=== PATIENT | female | born 1930 | race Caucasian/White ===

== ENCOUNTER → 2016-06-11 | Outpatient (CLI) | payer MEDICARE ==
[~2016-06-11] MED LIST: ALLO100T PO; ASPI-983 PO; ATEN25TA PO; ATOR10TA PO; CA C1TAB31 PO; CHOL400T29 PO; HYDR-3454 PO; HYDR12.56 PO; IRON PO; LISI40TA PO; MULT1CAP27 PO; OMEG1000 PO; SPIR25TA PO; VIT1CAPS9 PO
--- NOTE | 2016-06-11 17:40 | Diagnostic Imaging Report ---
EXAMINATION: OB ultrasound. INDICATION: Vaginal bleeding. FINDINGS: There are no prior studies available for comparison. The uterus is small measuring 5.9 x 4.2 x 1.8 cm. The endometrial lining is not thickened measuring 3 mm. There is no focal mass involving the uterus to suggest a fibroid. The ovaries are not clearly imaged; however, during the course of the exam a 3.3 x 2.3 x 1.6 cm hypoechoic lesion is seen in the right adnexa. This could represent a cyst arising from the right ovary. There is no solid pelvic mass or free fluid collection noted. IMPRESSION: 1. The uterus is not enlarged and the endometrial lining is not abnormally thickened. 2. The cystic mass in the right adnexa could be arising from the right ovary. 3. There is no solid pelvic mass or free fluid collection to suggest an acute abnormality. Dictated by: Dictated on workstation # [id number]
== END ==
LOC: RAD 13:58
PROVIDERS: ATTEND Nurse Practitioner Family
DX: N93.9 Abnormal uterine and vaginal bleeding, unspecified (principal)
CPT/HCPCS: 76830; 76856

== ENCOUNTER → 2017-11-26 | Outpatient (CLI) | payer MEDICARE ==
[~2017-11-26] VITALS: Ht 154.9 cm; Wt 67.1 kg
[~2017-11-26] MED LIST changes: +CATHETER FLUSH 10 ML SYR IV PRN
[2017-11-26 09:19] VITALS: BP 118/55
[2017-11-26 09:23] VITALS: BP 183/71
--- NOTE | 2017-11-26 13:44 | STRESS TEST ---
DATE OF SERVICE: 11/26/2017 EXERCISE MYOVIEW STRESS TEST REPORT REFERRING PHYSICIAN: Kayla Hurley MD Baseline heart rate is 57. Baseline blood pressure 118/55. Baseline EKG is sinus rhythm with no ischemic changes. In summary, the patient was injected with 10.63 mCi of technetium-99 Myoview and the resting images were obtained. Then, the patient started exercising with a baseline heart rate, blood pressure and EKG mentioned above. The patient had EKG changes with exercise, started with ST depression in II, III, aVF, V4 and V5 with frequent premature ventricular contractions noted during exercise. She was able to exercise for 3 minutes and 30 seconds on standard Ton protocol. With peak exercise level, EKG was showing [address] depression in II, III, aVF, V4 and V5. Blood pressure at peak stress level was 168/72. During recovery, heart rate and blood pressure returned to baseline. EKG returned to baseline. The resting and stress images were reviewed and compared in the short axis, horizontal long axis, and vertical long axis views. Review of the images showed breast attenuation with typical female pattern. No significant ischemia or infarction on SPECT images. SSS is 3, SDS 2, TID value 1.03. On the gated images, the left ventricle appeared to be in normal size with normal contractility. Calculated ejection fraction is 81%. CONCLUSION: 1. Poor exercise tolerance, a total of 3 minutes 30 seconds on standard Ton protocol, achieving 100% of maximum expected heart rate. 2. Nondiagnostic EKG changes with exercise with frequent premature ventricular contractions resolved during recovery. 3. Breast attenuation with typical female pattern with no significant ischemia or infarction. 4. Normal left ventricular size with normal contractility. Calculated ejection fraction is 81%. Job ID: [id number] DocumentID: [id number] Dictated Date: 11/26/2017 13:24:22 Air Conditioning Equipment Mechanic Date: 11/26/2017 13:43:40 Dictated By: DANK SINGH MD
== END ==
LOC: CARD 07:48
PROVIDERS: ATTEND Internal Medicine Cardiovascular Disease
DX: R06.09 Other forms of dyspnea (principal); I12.9 Hypertensive chronic kidney disease with stage 1 through stage 4 chronic kidney disease, or unspecified chronic kidney disease; N18.3 Chronic kidney disease, stage 3 (moderate); E78.2 Mixed hyperlipidemia
CPT/HCPCS: 78452; 93017

== ENCOUNTER → 2017-12-11 | Outpatient (CLI) | payer MEDICARE ==
[~2017-12-11] MED LIST changes: -CATHETER FLUSH 10 ML SYR IV PRN
== END ==
LOC: CARD 08:45
PROVIDERS: ATTEND Internal Medicine Cardiovascular Disease
DX: R06.09 Other forms of dyspnea (principal); I12.9 Hypertensive chronic kidney disease with stage 1 through stage 4 chronic kidney disease, or unspecified chronic kidney disease; N18.3 Chronic kidney disease, stage 3 (moderate); E78.2 Mixed hyperlipidemia; I08.1 Rheumatic disorders of both mitral and tricuspid valves
CPT/HCPCS: 93306

== ENCOUNTER → 2018-03-12 | Outpatient (CLI) | payer MEDICARE ==
--- NOTE | 2018-03-12 12:37 | Diagnostic Imaging Report ---
INDICATION: Left knee injury after a fall 3 views of the left knee show no acute fracture or dislocation. There is mild degenerative changes with small osteophytes in the medial tibiofemoral joint space. There may be a small superior patellar bursal effusion. IMPRESSION: Small joint effusion. Degenerative changes in the medial compartment of the knee. There is a faint meniscal calcification which is probably degenerative in nature. There is no acute fracture or dislocation seen. Dictated by: Dictated on workstation # [id number]
== END ==
LOC: RAD 09:48
PROVIDERS: ATTEND Nurse Practitioner Family
DX: S89.92XA Unspecified injury of left lower leg, initial encounter (principal); M17.12 Unilateral primary osteoarthritis, left knee; M94.8X8 Other specified disorders of cartilage, other site; W19.XXXA Unspecified fall, initial encounter
CPT/HCPCS: 73562

== ENCOUNTER 2019-12-13 03:39 | Inpatient (IN) | payer MEDICARE ==
[2019-12-13] VITALS (7 sets, daily range): BP systolic 145–171; BP diastolic 65–79
[~2019-12-13] VITALS: Ht 155.5 cm; Wt 57.1 kg
[~2019-12-13 03:39] MED LIST changes: +ASPI-1238 PO; -ASPI-983 PO; -HYDR-3454 PO; +HYDR-3455 PO; +OCUVITE SOFTGE1 EACH PO; -VIT1CAPS9 PO
[2019-12-13] MEDS ORDERED: NS IV 1000 ML 1,000 ML IV SCH (04:32)
[2019-12-13] MEDS ORDERED: NS IV 500 ML 500 ML IV ONE (04:36)
[2019-12-13 04:44] LABS: BASOPHILS % (AUTO) 0 % (0-10); EOSINOPHILS % (AUTO) 0 % (0-10); HEMATOCRIT 35 % (35-52); HEMOGLOBIN 12.2 g/dL (11.5-16.0); LYMPHOCYTES # (AUTO) 0.8 10^3/uL (1.0-4.0); LYMPHOCYTES % (AUTO) 5 % (12-44); MEAN CORPUSCULAR HEMOGLOBIN 30 pg (25-34); MEAN CORPUSCULAR HGB CONC 35 g/dL (32-36); MEAN CORPUSCULAR VOLUME 85 fL (80-99); MEAN PLATELET VOLUME 10.8 fL (9.0-12.2); MONOCYTES # (AUTO) 0.6 10^3/uL (0.0-1.0); MONOCYTES % (AUTO) 4 % (0-12); NEUTROPHILS # (AUTO) 14.7 10^3/uL (1.8-7.8); NEUTROPHILS % (AUTO) 90 % (42-75); PLATELET COUNT 255 10^3/uL (130-400); WHITE BLOOD COUNT 16.4 10^3/uL (4.3-11.0)
[2019-12-13] MEDS ORDERED: VANCOMYCIN INJECTION 750 MG in NS (IVPB) 100 ML IV ONE (04:45)
[2019-12-13] MEDS ORDERED: CEFEPIME INJECTION 1,000 MG in WATER (STERILE) FOR INJECTION 10 ML IV ONE (04:45)
[2019-12-13 04:48] LABS: ALBUMIN 3.9 GM/DL (3.2-4.5); POTASSIUM 3.3 MMOL/L (3.6-5.0)
[2019-12-13 04:49] LABS: CALCIUM 9.1 MG/DL (8.5-10.1)
[2019-12-13 04:50] LABS: PROTHROMBIN TIME PATIENT 13.9 SEC (12.2-14.7)
[2019-12-13 04:52] LABS: BILIRUBIN,TOTAL 0.7 MG/DL (0.1-1.0)
[2019-12-13 04:54] LABS: CREATININE SERUM 1.13 MG/DL (0.60-1.30)
--- NOTE | 2019-12-13 05:01 | ED General ---
General Stated Complaint: COVID POSITIVE, FEVER,LOW O2 LEVEL Source of Information: Patient Exam Limitations: No Limitations History of Present Illness Date Seen by Provider: Dec 13, 2019 Time Seen by Provider: 04:19 Initial Comments The patient presents to the ER by private conveyance with chief complaint that she has had fever and difficulty breathing with oxygen sats of 87% at home tonight. She does not have a history of oxygen dependence. She was diagnosed with COVID-19 at the urgent care 2 weeks ago area and she follows with Dr. Lara. He put her on azithromycin and dexamethasone which she just finished. She has been treating her fever for the past 2 days with Tylenol. She had fever initially with her disease and after that was getting better. She has not had a stay in the hospital. She has no history of lung disease and does not smoke cigarettes. She does have a history of heart disease but no stents or CABG. She follows with Dr. Hurley, Dr. Hinojosa. She's having no dysuria nausea or productive cough. Allergies and Home Medications Allergies Coded Allergies: Sulfa (Sulfonamide Antibiotics) (Verified Allergy, Unknown, 01/12/15) Home Medications Allopurinol 100 Mg Tablet, 100 MG PO BID, (Reported) Aspirin 81 Mg Tablet.dr, 81 MG PO HS, (Reported) Atenolol 25 Mg Tablet, 25 MG PO DAILY, (Reported) Atorvastatin Calcium 10 Mg Tablet, 10 MG PO HS, (Reported) Ca Carbonate/Vitamin D3/Vit K 1 Each Tab.chew, 1 EACH PO DAILY, (Reported) Cholecalciferol (Vitamin D3) 400 Unit Tablet, 400 UNIT PO DAILY, (Reported) Hydrochlorothiazide 12.5 Mg Tablet, 12.5 MG PO DAILY, (Reported) Hydrocodone/Acetaminophen 1 Each Tablet, 1-2 TAB PO PRN Prescribed by: BOUBACAR RAMIREZ on 01/13/15 0831 Lisinopril 40 Mg Tablet, 40 MG PO DAILY, (Reported) Multivitamin 1 Each Capsule, 1 EACH PO DAILY, (Reported) Defiance-3 Fatty Acids 1,000 Mg Capsule, 1,000 MG PO TID, (Reported) Spironolactone 25 Mg Tablet, 25 MG PO DAILY, (Reported) Vit C/Vit E/Lutein/Min/Def[place]-3 1 Each Capsule, 1 EACH PO BID, (Reported) [Iron] , 65 MG PO DAILY, (Reported) Patient Home Medication List Home Medication List Reviewed: Yes Review of Systems Review of Systems Constitutional: No chills, No diaphoresis EENTM: No ear discharge Respiratory: cough; No phlegm; short of breath Cardiovascular: No chest pain, No palpitations Gastrointestinal: No abdominal pain, No nausea, No vomiting Genitourinary: No discharge, No dysuria Musculoskeletal: No back pain, No joint pain All Other Systems Reviewed Negative Unless Noted: Yes Past Auwgimh-Uuretl-Pobidu Hx Patient Social History Alcohol Use: Denies Use Recreational Drug Use: No Smoking Status: Never a Smoker Recent Foreign Travel: No (N) Contact w/Someone Who Travel: No Immunizations Up To Date Date of Pneumonia Vaccine: Jan 13, 2013 Date of Influenza Vaccine: Dec 23, 2014 Past Medical History Reproductive Disorders: No Arthritis, Gout Hearing Impairment: Bilateral Hearing Aide Melanoma Physical Exam-Suspected Sepsis Physical Exam Vital Signs Vital Signs - First Documented 12/13/19 04:00 Temp 39.6 Pulse 99 Resp 20 B/P (MAP) 167/83 (111) Pulse Ox 99 O2 Delivery Nasal Cannula O2 Flow Rate 2.00 Capillary Refill : Height, Weight, BMI Height: 5'1.00" Weight: 148lbs. 0.0oz. 67.391987hn; 28.0 BMI Method: General Appearance: WD/WN, Mild Distress Eyes: Bilateral Eye Normal Inspection, Bilateral Eye PERRL, Bilateral Eye EOMI HEENT: PERRL/EOMI, TMs Normal, Normal ENT Inspection, Pharynx Normal; No Moist Mucous Membranes Neck: Full Range of Motion, Normal Inspection Respiratory: No Accessory Muscle Use, Rales (right base), Respiratory Distress ([id number] with oxygen sats 87% on room air and 96-98 on 2 L by nasal cannula.) Cardiovascular: Regular Rate, Rhythm, Normal Peripheral Pulses Gastrointestinal: Normal Bowel Sounds, Non Tender, Soft Extremity: Normal Capillary Refill, Normal Inspection, No Pedal Edema Neurologic/Psychiatric: Alert, Oriented x3 Skin: normal color, warm/dry Focused Exam Sepsis Stage: Sepsis Lactate Level 12/13/19 04:14: Lactic Acid Level 1.72 Time of Focused Exam: 06:10 Respiratory: Lungs Clear, Normal Breath Sounds, No Accessory Muscle Use, No Respiratory Distress Cardiovascular: Regular Rate, Rhythm, No Edema, Normal Peripheral Pulses Capillary Refill: Less Than 3 Seconds Peripheral Pulses: 2+ Radial Pulses (R), 2+ Radial Pulses (L) Lactic Acid Level Laboratory Tests Test 12/13/19 04:14 Lactic Acid Level 1.72 MMOL/L (0.50-2.00) Within 3hrs of presentation: Admin fluids, Admin ABX, Blood cultures prior to ABX's, Focus exam, Lactate level Progress/Results/Core Measures Suspected Sepsis SIRS Temperature: Pulse: Respiratory Rate: Laboratory Tests 12/13/19 04:14: White Blood Count 16.4H Blood Pressure / Mean: 12/13/19 04:14: Lactic Acid Level 1.72 Laboratory Tests 12/13/19 04:14: Creatinine 1.13, INR Comment 1.0, Platelet Count 255, Total Bilirubin 0.7 Results/Orders Lab Results Laboratory Tests Test 12/13/19 04:14 12/13/19 04:38 Range/Units White Blood Count 16.4 H 4.3-11.0 10^3/uL Red Blood Count 4.12 3.80-5.11 10^6/uL Hemoglobin 12.2 11.5-16.0 g/dL Hematocrit 35 35-52 % Mean Corpuscular Volume 85 80-99 fL Mean Corpuscular Hemoglobin 30 25-34 pg Mean Corpuscular Hemoglobin Concent 35 32-36 g/dL Red Cell Distribution Width 12.4 10.0-14.5 % Platelet Count 255 130-400 10^3/uL Mean Platelet Volume 10.8 9.0-12.2 fL Immature Granulocyte % (Auto) 1 % Neutrophils (%) (Auto) 90 H 42-75 % Lymphocytes (%) (Auto) 5 L 12-44 % Monocytes (%) (Auto) 4 0-12 % Eosinophils (%) (Auto) 0 0-10 % Basophils (%) (Auto) 0 0-10 % Neutrophils # (Auto) 14.7 H 1.8-7.8 10^3/uL Lymphocytes # (Auto) 0.8 L 1.0-4.0 10^3/uL Monocytes # (Auto) 0.6 0.0-1.0 10^3/uL Eosinophils # (Auto) 0.0 0.0-0.3 10^3/uL Basophils # (Auto) 0.0 0.0-0.1 10^3/uL Immature Granulocyte # (Auto) 0.2 H 0.0-0.1 10^3/uL Neutrophils % (Manual) 85 % Lymphocytes % (Manual) 5 % Monocytes % (Manual) 2 % Band Neutrophils 8 % Blood Morphology Comment NORMAL Prothrombin Time 13.9 12.2-14.7 SEC INR Comment 1.0 0.8-1.4 Activated Partial Thromboplast Time 31 24-35 SEC D-Dimer 2.75 H 0.00-0.49 UG/ML Sodium Level 133 L 135-145 MMOL/L Potassium Level 3.3 L 3.6-5.0 MMOL/L Chloride Level 96 L 98-107 MMOL/L Carbon Dioxide Level 23 21-32 MMOL/L Anion Gap 14 5-14 MMOL/L Blood Urea Nitrogen 24 H 7-18 MG/DL Creatinine 1.13 0.60-1.30 MG/DL Estimat Glomerular Filtration Rate 46 BUN/Creatinine Ratio 21 Glucose Level 116 H 70-105 MG/DL Lactic Acid Level 1.72 0.50-2.00 MMOL/L Calcium Level 9.1 8.5-10.1 MG/DL Corrected Calcium 9.2 8.5-10.1 MG/DL Total Bilirubin 0.7 0.1-1.0 MG/DL Aspartate Amino Transf (AST/SGOT) 37 H 5-34 U/L Alanine Aminotransferase (ALT/SGPT) 45 0-55 U/L Alkaline Phosphatase 64 40-136 U/L Total Protein 7.0 6.4-8.2 GM/DL Albumin 3.9 3.2-4.5 GM/DL Procalcitonin 0.32 H <0.10 NG/ML Blood Gas Puncture Site NOT INDICATED Blood Gas Patient Temperature 103.3 Arterial Blood pH 7.46 H 7.37-7.43 Arterial Blood Partial Pressure CO2 38 35-45 MMHG Arterial Blood Partial Pressure O2 85 79-93 MMHG Arterial Blood HCO3 26 23-27 MMOL/L Arterial Blood Total CO2 27.3 21.0-31.0 MMOL/L Arterial Blood Oxygen Saturation 96 94-100 % Arterial Blood Base Excess 3.1 H -2.5-2.5 MMOL/L Tayo Test YES-POS Blood Gas Ventilator Setting NO Blood Gas Inspired Oxygen 2L My Orders Orders - KIERRA DIAZ Cbc With Automated Diff (12/13/19 04:32) Comprehensive Metabolic Panel (12/13/19 04:32) Blood Culture (12/13/19 04:32) Sputum Culture (12/13/19 04:32) Urinalysis (12/13/19 04:32) Urine Culture (12/13/19 04:32) Protime With Inr (12/13/19 04:32) Partial Thromboplastin Time (12/13/19 04:32) Chest 1 View, Ap/Pa Only (12/13/19 04:32) Ed Iv/Invasive Line Start (12/13/19 04:32) Ed Iv/Invasive Line Start (12/13/19 04:32) Vital Signs Adult Sepsis Patie Q15M (12/13/19 04:32) O2 (12/13/19 04:32) Remove Rings In Anticipation O (12/13/19 04:32) Lactic Acid Analyzer (12/13/19 04:32) Influenza A And B Antigens (12/13/19 04:32) Ns Iv 1000 Ml (Sodium Chloride 0.9%) (12/13/19 04:32) Cefepime Injection (Maxipime Injection) (12/13/19 04:45) Vancomycin Injection (Vancomycin Injecti (12/13/19 04:45) Vancomycin Injection (Vancomycin Injecti (12/13/19 05:45) Ed Iv/Invasive Line Start (12/13/19 04:32) Arterial Blood Gas (12/13/19 04:32) Ed Iv/Invasive Line Start (12/13/19 04:36) Ns Iv 500 Ml (Sodium Chloride 0.9%) (12/13/19 04:36) Procalcitonin (Pct) (12/13/19 05:01) Fibrin Degradation Products (12/13/19 05:01) Manual Differential (12/13/19 04:14) Dexamethasone Injection (Decadron Inje (12/13/19 05:15) Acetaminophen Tablet/Caplet (Tylenol T (12/13/19 06:30) Medications Given in ED Current Medications Medications Dose Ordered Sig/Freddy Route Start Time Stop Time Status Last Admin Dose Admin Acetaminophen 650 mg ONCE ONCE PO 12/13/19 06:30 12/13/19 06:31 DC 12/13/19 06:38 650 MG Cefepime HCl 1000 mg/Sterile Water 10 ml @ 200 mls/hr ONCE ONCE IV 12/13/19 04:45 12/13/19 04:47 DC 12/13/19 05:13 200 MLS/HR Dexamethasone Sodium Phosphate 6 mg ONCE ONCE IV 12/13/19 05:15 12/13/19 05:16 DC 12/13/19 05:24 6 MG Sodium Chloride 500 ml @ 0 mls/hr Q0M ONCE IV 12/13/19 04:36 12/13/19 04:37 DC 12/13/19 05:12 500 MLS/HR Vancomycin HCl 500 mg/Sodium Chloride 100 ml @ 100 mls/hr ONCE ONCE IV 12/13/19 05:45 12/13/19 06:44 DC 12/13/19 05:11 100 MLS/HR Vancomycin HCl 750 mg/Sodium Chloride 100 ml @ 100 mls/hr ONCE ONCE IV 12/13/19 04:45 12/13/19 05:44 DC 12/13/19 05:09 100 MLS/HR Vital Signs/I&O 12/13/19 12/13/19 12/13/19 12/13/19 04:00 04:00 05:28 06:38 Temp 39.6 38.7 38.6 Pulse 99 89 Resp 20 20 B/P (MAP) 167/83 (111) 171/79 (109) Pulse Ox 99 99 99 O2 Delivery Nasal Cannula Nasal Cannula O2 Flow Rate 2.00 2.00 2.00 Capillary Refill : Progress Note : Time: 05:00 Progress Note Fever and tachycardia on arrival with hypoxia however when we corrected her hypoxia her heart rate went down to the 70s. She is oxygen-dependent or any give her some dexamethasone and get an ABG. Suspect possible late COVID lung injury versus opportunistic bacterial pneumonia. Septic workup. 1500 cc would be 20 mL/kg. Influenza swab. Diagnostic Imaging Diagonstic Imaging: Xray Plain Films/CT/US/NM/MRI: chest Comments Patchy bilateral infiltrates Reviewed: Reviewed by Me Departure Communication (Admissions) Time/Spoke to Admitting Phy: 06:45 Discussed the case with Dr. Murphy and she agrees to admit the patient to the floor for oxygen, steroids and Lovenox. Impression Primary Impression: Acute respiratory failure with hypoxia Additional Impressions: COVID-19 Pneumonia Qualified Codes: J18.9 - Pneumonia, unspecified organism Sepsis Qualified Codes: A41.9 - Sepsis, unspecified organism; R65.20 - Severe sepsis without septic shock; J96.01 - Acute respiratory failure with hypoxia Disposition: ADMITTED INPATIENT Condition: Stable Admissions Decision to Admit Reason: Admit from ER (General) Decision to Admit/Date: Dec 13, 2019 Time/Decision to Admit Time: 05:00 Departure-Patient Inst. Referrals: LILY HURLEY MD (PCP/Family) Primary Care Physician KIERRA DIAZ Dec 13, 2019 05:01
[2019-12-13 05:09] LABS: ABG BASE EXCESS 3.1 MMOL/L (-2.5-2.5); ABG OXYGEN SATURATION 96 % (94-100); ABG PCO2 38 MMHG (35-45); ABG PH 7.46 (7.37-7.43); ABG PO2 85 MMHG (79-93); ABG TCO2 27.3 MMOL/L (21.0-31.0)
[2019-12-13 05:13] LABS: ALLENS TEST YES-POS; INSPIRED O2 2L; PATIENT TEMP 103.3; VENTILATOR NO
[2019-12-13] MEDS ORDERED: VANCOMYCIN INJECTION 500 MG in NS (IVPB) 100 ML IV ONE (05:45)
[2019-12-13 05:51] LABS: BAND NEUTROPHILS 8 %; LYMPHOCYTES % (MANUAL) 5 %; MONOCYTES % (MANUAL) 2 %; NEUTROPHILS % (MANUAL) 85 %; RBC MORPH NORMAL
[2019-12-13] MEDS ORDERED: ACETAMINOPHEN 325 MG TABLET PO ONE (06:30)
[2019-12-13] MEDS ORDERED: ENOXAPARIN 60 MG/0.6 ML (LOVENOX) SYR SC ONE (07:00)
[2019-12-13 07:47] LABS: BILIRUBIN,URINE NEGATIVE (NEGATIVE); CLARITY,URINE CLEAR; COLOR,URINE YELLOW; GLUCOSE, URINE (UA) NEGATIVE (NEGATIVE); KETONES,URINE NEGATIVE (NEGATIVE); LEUKOCYTE ESTERASE ,URINE NEGATIVE (NEGATIVE); NITRITE,URINE NEGATIVE (NEGATIVE); PROTEIN,URINE TRACE (NEGATIVE)
--- NOTE | 2019-12-13 07:50 | NUR ---
SILVA WYLIE admitted to room 423-1, with an admitting diagnosis of COVID +, on 12/13/19 from [facility] via W/C, accompanied by TISH MCKEON. SILVA WYLIE introduced to surroundings, call light, bed controls, phone, TV, temperature control, lights, meal times, smoking policy, visitor policy, side rail policy, bathrooms and showers. Patient Rights given to patient in the handbook. SILVA WYLIE verbalizes understanding that [facility] is not responsible for the loss or damage to any personal effects or valuables that are kept in the patients posession during their hospitalization. SILVA WYLIE verbalizes understanding of Interdisciplinary Patient Education. Patient and/or family were informed about the Rapid Response Team and its purpose.
[2019-12-13 07:57] LABS: BACTERIA,URINE NEGATIVE /HPF; RBC,URINE RARE /HPF
--- NOTE | 2019-12-13 08:06 | Diagnostic Imaging Report ---
INDICATION: Sepsis COMPARISON: None available TECHNIQUE: Single radiograph of the chest dated 12/13/2019. FINDINGS: The cardiac silhouette is within normal limits in size. Pulmonary vasculature is predominantly obscured. Extensive bilateral mixed interstitial and airspace opacities are present, greatest within the right mid and lower lung and left lung base. Small bibasilar pleural effusions. No pneumothorax. No acute osseous abnormality. IMPRESSION: Extensive bilateral pulmonary opacities with small bilateral pleural effusions. Findings may relate to infectious infiltrate such as pneumonia. Recommend clinical correlation and radiographic followup. Dictated by: Dictated on workstation # [id number]
[2019-12-13] MEDS ORDERED: ONDANSETRON 4 MG/2 ML (SDV) Z0FRAN IV PRN (08:45)
[2019-12-13] MEDS ORDERED: LACTATED RINGERS 1,000 ML IV SCH (08:45)
[2019-12-13] MEDS ORDERED: ENOXAPARIN 60 MG/0.6 ML (LOVENOX) SYR SC SCH ×2 (09:00→21:00)
[2019-12-13] MEDS ORDERED: POTA10TA PO (11:11)
[2019-12-13] MEDS ORDERED: IRON PO (11:11)
[2019-12-13] MEDS ORDERED: HYDR25TA4 PO (11:11)
[2019-12-13] MEDS ORDERED: DEXA4TAB PO (11:11)
[2019-12-13] MEDS ORDERED: LOSA100T57 PO (11:11)
--- NOTE | 2019-12-13 12:32 | History & Physical-Hospitalist ---
History of Present Illness HPI/Chief Complaint Pt is an 89yoCF with a PMH of HTN, HLD who presented to the ER due to hypoxia and fever. She states her symptoms started on 11/30 and she was tested for COVID and was positive. She had been monitoring her oxygen at home and it dropped to 83% last night prompting her to seek evaluation in the ER. She states her temperature went up to 102 as well. She required oxygen in the ER to maintain oxygen saturations. She reports she is feeling well this afternoon and has no complaints. Source: patient Date Seen 12/13/19 Time Seen by a Provider: 12:26 Attending Physician Carlos Murphy MD PCP Kayla Hurley MD Referring Physician Date of Admission Dec 13, 2019 at 06:30 Home Medications & Allergies Home Medications Reviewed patient Home Medication Reconciliation performed by pharmacy medication reconciliations certified dialysis technician and/or nursing. Patients Allergies have been reviewed. Allergies Allergies Coded Allergies lisinopril (Verified Allergy, Intermediate, 12/13/19) COUGH Sulfa (Sulfonamide Antibiotics) (Verified Allergy, Unknown, 01/12/15) Past Kwkdslj-Xpcrox-Lfuwad Hx Past Med/Social Hx: Reviewed Nursing Past Med/Soc Hx Patient Social History Marrital Status: Alcohol Use: Denies Use Recreational Drug Use: No Smoking Status: Never a Smoker Recent Foreign Travel: No (N) Contact w/other who traveled: No Recent Hopitalizations: No Recent Infectious Disease Expo: Yes Immunizations Up To Date Date of Pneumonia Vaccine: Jan 13, 2013 Date of Influenza Vaccine: Nov 17, 2019 Past Medical History Cardiac: High Cholesterol, Hypertension Reproductive: No Menopausal Musculoskeletal: Arthritis, Gout Hearing Impairment: Bilateral Hearing Aide Cancer: Melanoma Did You Recieve Any Treatments: Yes What Type of Treatment Did You: Surgical Intervention History of Blood Disorders: Yes (anemia) Family History Reviewed Nursing Family Hx Review of Systems Constitutional: diaphoresis, fever, weakness EENTM: no symptoms reported Respiratory: see HPI, short of breath Cardiovascular: No chest pain Gastrointestinal: No abdominal pain; loss of appetite Physical Exam Physical Exam Vital Signs Vital Signs - First Documented 12/13/19 12/13/19 04:00 11:01 Temp 39.6 Pulse 99 Resp 20 B/P (MAP) 167/83 (111) Pulse Ox 99 O2 Delivery Nasal Cannula O2 Flow Rate 2.00 FiO2 28 Capillary Refill : Less Than 3 Seconds Height, Weight, BMI Height: 5'1.00" Weight: 148lbs. 0.0oz. 67.923397ip; 27.88 BMI Method: General Appearance: No Apparent Distress, WD/WN HEENT: PERRL/EOMI, Moist Mucous Membranes Respiratory: Lungs Clear, No Accessory Muscle Use, Other (on 2lpm) Cardiovascular: Regular Rate, Rhythm, No Murmur, Normal Peripheral Pulses Gastrointestinal: Normal Bowel Sounds, Non Tender, Soft Extremity: Normal Capillary Refill, No Calf Tenderness, No Pedal Edema Neurologic/Psychiatric: Alert, Oriented x3, Normal Mood/Affect Skin: Normal Color, Warm/Dry Results Results/Procedures Labs Laboratory Tests 12/15/19 05:20 12/16/19 05:35 12/16/19 05:55 Patient resulted labs reviewed. Imaging: Reviewed Imaging Report Imaging [facility] [place] [place], [place] NAME: SILVA WYLIE [facility] REC#: [id number] PT STATUS: ADM IN : 1930 PHYSICIAN: KIERRA DIAZ MD ADMIT DATE: 12/13/19 Signed Date of Exam:12/13/19 CHEST 1 VIEW, AP/PA ONLY INDICATION: Sepsis COMPARISON: None available TECHNIQUE: Single radiograph of the chest dated 12/13/2019. FINDINGS: The cardiac silhouette is within normal limits in size. Pulmonary vasculature is predominantly obscured. Extensive bilateral mixed interstitial and airspace opacities are present, greatest within the right mid and lower lung and left lung base. Small bibasilar pleural effusions. No pneumothorax. No acute osseous abnormality. IMPRESSION: Extensive bilateral pulmonary opacities with small bilateral pleural effusions. Findings may relate to infectious infiltrate such as pneumonia. Recommend clinical correlation and radiographic followup. Dictated by: Dictated on workstation # [id number] Dict: 12/13/19801 Trans: 12/13/19912 [facility] [id number] Interpreted by: VIVIAN BAUTISTA MD Electronically signed by: VIVIAN BAUTISTA MD [birth year]/1913 Assessment/Plan Admission Diagnosis COVID19 Admission Status: Inpatient Order (span 2 midnights) Reason for Inpatient Admission: see below Assessment and Plan COVID19 Sepsis with PNA Acute respiratory failure with hypoxia Continue oxygen supplementation Continue decadron Outside of window for remdesivir Will discuss plasma with patient IS Awake proning as able Lovenox Continue abx today and check procal in AM, if not trending up will deescalate HTN HLD No acute needs, continue home meds Diagnosis/Problems Diagnosis/Problems (1) Pneumonia Status: Acute Qualifiers: Pneumonia type: due to unspecified organism Laterality: bilateral Lung location: unspecified part of lung Qualified Codes: J18.9 - Pneumonia, unspecified organism (2) COVID-19 Status: Acute (3) Acute respiratory failure with hypoxia Status: Acute (4) Sepsis Status: Acute Qualifiers: Sepsis type: sepsis due to unspecified organism Sepsis acute organ dysfunction status: with acute organ dysfunction Severe sepsis acute organ dysfunction type: acute respiratory failure Acute respiratory failure type: with hypoxia Severe sepsis shock status: without septic shock Qualified Codes: A41.9 - Sepsis, unspecified organism; R65.20 - Severe sepsis without septic shock; J96.01 - Acute respiratory failure with hypoxia Clinical Quality Measures DVT/VTE Risk/Contraindication: Risk Factor Score Per Nursin RFS Level Per Nursing on Admit: 4+=Very High CARLOS MURPHY MD Dec 13, 2019 12:32
[2019-12-13] MEDS: CEFEPIME 1,000 MG/SWFI 10 ML IV PUSH IV SCH ×4 (13:37→20:52)
[2019-12-13] MEDS: RT-ALBUTEROL INHALER HFA (VENTOLIN HFA) 18 GM IH SCH (18:43)
[2019-12-13] MEDS: ACETAMINOPHEN 325 MG TABLET PO PRN (23:58)
[2019-12-14] VITALS: BP 140/64
[2019-12-14] MEDS: RT-ALBUTEROL INHALER HFA (VENTOLIN HFA) 18 GM IH SCH ×4 (02:30→21:44)
[2019-12-14 03:50] VITALS: BP 118/60
[2019-12-14] MEDS: CEFEPIME 1,000 MG/SWFI 10 ML IV PUSH IV SCH ×6 (05:12→20:29)
[2019-12-14] MEDS: VANCOMYCIN 1 GM/NS 250 ML IVPB IV SCH ×2 (05:12)
[2019-12-14 05:53] LABS: BASOPHILS % (AUTO) 0 % (0-10); EOSINOPHILS # (AUTO) 0.1 10^3/uL (0.0-0.3); EOSINOPHILS % (AUTO) 0 % (0-10); HEMATOCRIT 35 % (35-52); HEMOGLOBIN 11.9 g/dL (11.5-16.0); LYMPHOCYTES # (AUTO) 1.2 10^3/uL (1.0-4.0); LYMPHOCYTES % (AUTO) 6 % (12-44); MEAN CORPUSCULAR HEMOGLOBIN 30 pg (25-34); MEAN CORPUSCULAR HGB CONC 34 g/dL (32-36); MEAN CORPUSCULAR VOLUME 86 fL (80-99); MEAN PLATELET VOLUME 10.7 fL (9.0-12.2); MONOCYTES # (AUTO) 0.6 10^3/uL (0.0-1.0); MONOCYTES % (AUTO) 3 % (0-12); NEUTROPHILS # (AUTO) 17.4 10^3/uL (1.8-7.8); NEUTROPHILS % (AUTO) 89 % (42-75); PLATELET COUNT 294 10^3/uL (130-400); WHITE BLOOD COUNT 19.6 10^3/uL (4.3-11.0)
[2019-12-14 06:07] LABS: ALBUMIN 3.5 GM/DL (3.2-4.5); POTASSIUM 3.6 MMOL/L (3.6-5.0)
[2019-12-14 06:08] LABS: CALCIUM 8.6 MG/DL (8.5-10.1)
[2019-12-14 06:10] LABS: TOTAL PROTEIN 6.5 GM/DL (6.4-8.2)
[2019-12-14 06:11] LABS: BILIRUBIN,TOTAL 0.6 MG/DL (0.1-1.0)
[2019-12-14 06:13] LABS: CREATININE SERUM 1.17 MG/DL (0.60-1.30)
[2019-12-14] MEDS: dexAMETHasone 6 MG TAB (DECADRON) PO SCH (06:51)
--- NOTE | 2019-12-14 07:56 | Diagnostic Imaging Report ---
INDICATION: COVID 19, pneumonia. TECHNIQUE: Single view chest 3:23 AM. CORRELATION STUDY: 12/13/2019 FINDINGS: Extensive bilateral pulmonary infiltrates are again demonstrated and overall appear to be increasing slightly more consolidated. These remain most pronounced in the mid and lower lung tanner but are progressing into the right upper lung as well. Heart size and mediastinum are largely obscured but appear generally stable. Vasculature may be slightly more prominent. IMPRESSION: 1. Extensive multilobar infiltrate is again demonstrated, overall appears slightly more prominent from prior. Dictated by: Dictated on workstation # [id number]
[2019-12-14 08:00] VITALS: BP 185/85
--- NOTE | 2019-12-14 11:10 | NUR ---
DR BRUNSON UPDATED ON PT CONDITION. PT IS 94% ON 5L NC WITH INCREASED SHORTNESS OF BREATHE THIS AM
--- NOTE | 2019-12-14 12:47 | Progress Note - Hospitalist ---
Subjective HPI/CC On Admission Date Seen by Provider: Dec 14, 2019 Time Seen by Provider: 12:45 Pt is an 89yoCF with a PMH of HTN, HLD who presented to the ER due to hypoxia and fever. She states her symptoms started on 11/30 and she was tested for COVID and was positive. She had been monitoring her oxygen at home and it dropped to 8 3% last night prompting her to seek evaluation in the ER. She states her temperature went up to 102 as well. She required oxygen in the ER to maintain oxygen saturations. She reports she is feeling well this afternoon and has no complaints. Subjective/Events-last exam Pt reports feeling well. increasing oxygen requirement. Despite this she thinks she feels better today than yesterday. proning while I was in room and is going to bring her Braums. Focused Exam Lactate Level 12/13/19 04:14: Lactic Acid Level 1.72 Time of Focused Exam: 06:10 Objective Exam Vital Signs Vital Signs Date Time Temp Pulse Resp B/P (MAP) Pulse Ox O2 Delivery O2 Flow Rate FiO2 12/14/19 10:09 96 Nasal Cannula 5.00 12/14/19 08:00 36.8 87 19 185/85 (118) 12/13/19 11:01 28 Capillary Refill : Less Than 3 Seconds General Appearance: No Apparent Distress, WD/WN Respiratory: Lungs Clear, No Accessory Muscle Use, Other (on 5lpm NC) Cardiovascular: Regular Rate, Rhythm, No Murmur Extremity: No Calf Tenderness, No Pedal Edema Neurologic/Psychiatric: Alert, Oriented x3, Normal Mood/Affect Results/Procedures Lab Laboratory Tests 12/14/19 05:30 Patient resulted labs reviewed. Imaging: Reviewed Imaging Report Assessment/Plan Assessment and Plan Assess & Plan/Chief Complaint COVID19 Hypoxia Continue oxygen supplementation Continue decadron Outside of window for remdesivir Discussed plasma with patient and she would like to think about it and talk with her , discussed EUA status and risks and benefits IS Awake proning as able- tolerates well Lovenox Continue abx as procal is up today HTN HLD No acute needs, continue home meds DVT ppx: Lovenox Clinical Quality Measures DVT/VTE Risk/Contraindication: Risk Factor Score Per Nursin RFS Level Per Nursing on Admit: 4+=Very High CARLOS BRUNSON MD Dec 14, 2019 12:47
[2019-12-14 12:53] VITALS: BP 152/71
[2019-12-14 16:00] VITALS: BP 121/57
--- NOTE | 2019-12-14 16:12 | NUR ---
INCREASED PT OXYGEN TO 7L HF AT THIS TIME, PT O2 90-92% IN THE PRONE POSITION. PT OXYGEN DROPS AND STAYS BELOW 90% WHEN SITTING OR WITH ANY AMBULATION. HR RUNNING 90-120'S. DR BRUNSON NOTIFIED VIA PHONE AND GAVE ORDERS FOR ABG AND EKG. RT NOTIFIED AND TO ROOM SHORTLY 1620 DR BRUNSON NOTIFIED OF EKG. NO NEW ORDERS RECEIVED 1640 DR BRUNSON NOTIFIED OF ABG RESULTS. GAVE ORDERS TO KEEP PT IN PRONE POSITION PT TOLERATES
--- NOTE | 2019-12-14 16:21 | NUR ---
PT IN PRONE POSITION, 94% ON 7L HF, HR 92. DENIES ANY TROUBLE BREATHING/PAIN AT THIS TIME.
[2019-12-14 16:39] LABS: ABG BASE EXCESS 0.3 MMOL/L (-2.5-2.5); ABG OXYGEN SATURATION 91 % (94-100); ABG PCO2 36 MMHG (35-45); ABG PH 7.44 (7.37-7.43); ABG PO2 60 MMHG (79-93); ABG TCO2 24.9 MMOL/L (21.0-31.0); ALLENS TEST POSITIVE; PATIENT TEMP 99.2; VENTILATOR NO
--- NOTE | 2019-12-14 17:58 | Physician Query Clarification ---
"Physician Query-General Query to Physician: History/Risk factors: Covid 19, Advanced age Clinical Findings: 87% on RA, RR 20-26, SOB with minimal activity Treatment: IV Dexamethasone, Supplemental 02 up >40%, Breathing RX Question: Do you agree with the impression of Acute respiratory failure with hypoxia per Dr. Ton Goldsmith? If you agree, please document in Progress Notes or Discharge Summary. 1. Yes; will document Acute Respiratory failure with hypoxia in the Progress Notes 2. No; will continue to document Hypoxia in the Progress Notes 3. Other; will document explanation of clinical findings 4. Clinically undetermined; no explanation for clinical findings Please remember a lack of response to the above will prompt a phone page by CDI/coding staff. In responding to this query, please exercise your independent professional judgment. The purpose of this communication is to more accurately reflect the complexity of your patients condition. The fact that a question is asked does not imply that any particular answer is desired or expected. Thank you for timely response to this clarification. Kacey Devries, MSN, RN RN Specialist-Clinical Doc Improvement CD -Health Info Mgmt Operations [address] [facility] t: [phone] | f: [phone] If you are unable to reach me at my extension, I may be working from home. Please contact me at [phone] PHYSICIAN RESPONSE: Based on the clinical findings in the record, please respond to the query above on this document as an addendum. Physician Response: Physician Response 1 If you have questions please contact: Education Counselor: Ext: Thank you for your time and cooperation. Clinical Subway Repair Supervisor/Education Counselor This is a permanent part of the medical record KACEY DEVRIES Dec 14, 2019 17:58 CARLOS BURNSON MD Dec 14, 2019 19:24"
--- NOTE | 2019-12-14 18:01 | Physician Query Clarification ---
"Physician Query-General Query to Physician: The medical record reflects the following clinical scenario: History/Risk factors: Covid 19, Advanced age Clinical Findings: WBC 16.4, HR 99, Temp 39.6, Covid Pos Treatment: IV Fluids, IV ABX, IV Dexamethasone, Question: Do you agree with the impression of Sepsis per Dr. Ton Goldsmith? If you agree, please document in Progress Notes or Discharge Summary. 1. Yes; will document Sepsis with Covid 19 present on admission in the Progress Notes 2. No; will continue to document Covid 19 in the Progress Notes 3. Other; will document explanation of clinical findings 4. Clinically undetermined; no explanation for clinical findings Please remember a lack of response to the above will prompt a phone page by CDI/coding staff. In responding to this query, please exercise your independent professional judgment. The purpose of this communication is to more accurately reflect the complexity of your patients condition. The fact that a question is asked does not imply that any particular answer is desired or expected. Thank you for timely response to this clarification. Kacey Devries, MSN, RN RN Specialist-Clinical Doc Improvement CD -Health Info Mgmt Operations [address] [facility] t: [phone] | f: [phone] If you are unable to reach me at my extension, I may be working from home. Please contact me at [phone] PHYSICIAN RESPONSE: Based on the clinical findings in the record, please respond to the query above on this document as an addendum. Physician Response: Physician Response 1 If you have questions please contact: Serger: Ext: Thank you for your time and cooperation. Clinical Documentation Analyst/Serger This is a permanent part of the medical record KACEY DEVRIES Dec 14, 2019 18:01 CARLOS BRUNSON MD Dec 16, 2019 14:15"
[2019-12-14 20:10] VITALS: BP 170/77
[2019-12-14] MEDS: ASPIRIN E.C. 81 MG (ECOTRIN) TAB PO SCH (20:29)
[2019-12-14] MEDS: ENOXAPARIN 60 MG/0.6 ML (LOVENOX) SYR SC SCH (20:30)
[2019-12-14] MEDS: ACETAMINOPHEN 325 MG TABLET PO PRN (20:30)
--- NOTE | 2019-12-14 22:53 | NUR ---
At 2040, this nurse called Dr. Francois via telephone in regards to this pt's BP being 170/77 at 1999. PT had no BP meds PRN, but pt had her home bottle of atenolol 25 mg PO with her. I asked doctor if she could take one pill at this time, as she was being restarted on atenolol 25 mg PO but her next dose was at 0900 tomorrow morning[address] Doctor Francois okayed this via telephone, and 1 tablet of atenolol 25 mg was given at 2042 in an attempt to lower this pt's BP. Will continue to monitor and assess pt's BP and provide care as ordered.
--- NOTE | 2019-12-14 23:06 | NUR ---
At 2034, this nurse went in to assess this pt and administer her 2100 medications. PT was in prone position with a vitals cart hooked up to her left finger to continuously monitor her SPO2 %, which was 96%. PT sat up at the bedside to take her pills and to change into some of her home clothing. She changed into home clothing just fine, and displayed no shortness of breath, but her SPO2% would fluctuate between 75-88%. For the most part her sat stayed at 85-88%, but with some exertion of changing clothes, the lowest it dropped was 75%. Her SPO2 % went back up to 96% when she returned to prone position. Will continue to monitor and assess this pts SPO2 % continuously throughout shift and will provide care as ordered.
[2019-12-15] VITALS (8 sets, daily range): BP systolic 111–186; BP diastolic 59–79
[2019-12-15] MEDS: RT-ALBUTEROL INHALER HFA (VENTOLIN HFA) 18 GM IH SCH ×4 (01:50→20:46)
[2019-12-15] MEDS: CEFEPIME 1,000 MG/SWFI 10 ML IV PUSH IV SCH ×6 (05:02→20:10)
[2019-12-15] MEDS: VANCOMYCIN 1 GM/NS 250 ML IVPB IV SCH ×2 (05:04)
[2019-12-15 05:45] LABS: BASOPHILS % (AUTO) 0 % (0-10); EOSINOPHILS % (AUTO) 0 % (0-10); HEMATOCRIT 36 % (35-52); HEMOGLOBIN 11.8 g/dL (11.5-16.0); LYMPHOCYTES # (AUTO) 0.9 10^3/uL (1.0-4.0); LYMPHOCYTES % (AUTO) 6 % (12-44); MEAN CORPUSCULAR HEMOGLOBIN 29 pg (25-34); MEAN CORPUSCULAR HGB CONC 33 g/dL (32-36); MEAN CORPUSCULAR VOLUME 89 fL (80-99); MEAN PLATELET VOLUME 10.9 fL (9.0-12.2); MONOCYTES # (AUTO) 0.5 10^3/uL (0.0-1.0); MONOCYTES % (AUTO) 3 % (0-12); NEUTROPHILS # (AUTO) 14.1 10^3/uL (1.8-7.8); NEUTROPHILS % (AUTO) 88 % (42-75); PLATELET COUNT 313 10^3/uL (130-400); WHITE BLOOD COUNT 16.1 10^3/uL (4.3-11.0)
[2019-12-15 05:48] LABS: ALBUMIN 3.4 GM/DL (3.2-4.5)
[2019-12-15 05:49] LABS: POTASSIUM 3.2 MMOL/L (3.6-5.0)
[2019-12-15 05:50] LABS: CALCIUM 8.4 MG/DL (8.5-10.1)
[2019-12-15 05:51] LABS: TOTAL PROTEIN 6.4 GM/DL (6.4-8.2)
[2019-12-15 05:53] LABS: BILIRUBIN,TOTAL 0.6 MG/DL (0.1-1.0)
[2019-12-15 05:55] LABS: CREATININE SERUM 1.11 MG/DL (0.60-1.30)
[2019-12-15] MEDS: dexAMETHasone 6 MG TAB (DECADRON) PO SCH (06:02)
[2019-12-15] MEDS: MULTIVIT W/MINERALS TAB (THERAGRAN M) PO SCH (06:02)
--- NOTE | 2019-12-15 06:55 | Pulmonary Consultation ---
History of Present Illness History of Present Illness Date Seen by Provider: Dec 15, 2019 Time Seen by Provider: 06:50 Date of Admission Allergies and Home Medications Allergies Coded Allergies: lisinopril (Verified Allergy, Intermediate, 12/13/19) COUGH Sulfa (Sulfonamide Antibiotics) (Verified Allergy, Unknown, 01/12/15) Home Medications Aspirin 81 Mg Tablet.dr, 81 MG PO HS, (Reported) Atenolol 25 Mg Tablet, 25 MG PO DAILY, (Reported) Atorvastatin Calcium 10 Mg Tablet, 10 MG PO HS, (Reported) Cholecalciferol (Vitamin D3) 400 Unit Tablet, 400 UNIT PO DAILY, (Reported) Dexamethasone 4 Mg Tablet, 4 MG PO DAILY, (Reported) Hydrochlorothiazide 25 Mg Tablet, 25 MG PO DAILY, (Reported) Losartan Potassium 100 Mg Tablet, 100 MG PO DAILY, (Reported) Multivitamin 1 Each Capsule, 1 EACH PO DAILY, (Reported) Potassium Chloride 10 Meq Tablet.er, 20 MEQ PO DAILY, (Reported) [Iron] , 65 MG PO Q48H Prescribed by: NATHALIE GALLEGO on 12/13/19 1111 Past Hxtuomr-Lzzbth-Pqsylw Hx Past Med/Social Hx: Reviewed Nursing Past Med/Soc Hx Patient Social History Alcohol Use: Denies Use Recreational Drug Use: No Smoking Status: Never a Smoker Recent Foreign Travel: No Contact w/Someone Who Travel: No Recent Infectious Disease Expo: No (congregational, walking with a group) Recent Hopitalizations: No Physical Abuse: No Sexual Abuse: No Mistreated: No Fear: No Immunizations Up To Date Date of Pneumonia Vaccine: Jan 13, 2013 Date of Influenza Vaccine: Nov 17, 2019 Past Medical History Surgeries: Yes (c/s x2, breast bx x3, cyst removed, ) Respiratory: No Cardiac: Yes High Cholesterol, Hypertension Neurological: No 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 0.0oz. 67.647281zj; 26.05 BMI Method: Exam Exam Vital Signs Date Time Temp Pulse Resp B/P (MAP) Pulse Ox O2 Delivery O2 Flow Rate FiO2 12/15/19 04:50 37.1 74 18 136/63 (87) 92 Nasal Cannula 7.00 12/15/19 01:50 95 Nasal Cannula 4.00 12/15/19 00:20 36.8 77 18 172/77 (108) 99 Nasal Cannula 7.00 12/14/19 21:45 95 Nasal Cannula 4.00 12/14/19 20:30 37.2 12/14/19 20:10 37.7 89 20 170/77 (108) 95 Nasal Cannula 7.00 12/14/19 20:00 Nasal Cannula 5.00 12/14/19 18:16 100 22 94 High Flow N/C 7.00 12/14/19 16:00 37.6 104 20 121/57 (78) 92 High Flow N/C 7.00 12/14/19 14:58 97 Nasal Cannula 6.00 12/14/19 13:03 92 High Flow N/C 6.00 12/14/19 12:53 74 22 152/71 (98) 93 Nasal Cannula 5.00 12/14/19 10:09 96 Nasal Cannula 5.00 12/14/19 09:00 Nasal Cannula 5.00 12/14/19 08:00 36.8 87 19 185/85 (118) 92 Nasal Cannula 2.00 I & O 12/15/19 07:00 Intake Total 1645 ml Output Total 525 ml Balance 1120 ml Height & Weight Height: 5'1.00" Weight: 148lbs. 0.0oz. 67.428058dg; 26.05 BMI Method: General Appearance: No Apparent Distress, WD/WN HEENT: PERRL/EOMI, Moist Mucous Membranes Neck: Full Range of Motion, Normal Inspection Respiratory: Lungs Clear, No Accessory Muscle Use, Other (on 5lpm NC) Cardiovascular: Regular Rate, Rhythm, No Murmur Capillary Refill: Less Than 3 Seconds Peripheral Pulses: 2+ Radial Pulses (R), 2+ Radial Pulses (L) Extremity: No Calf Tenderness, No Pedal Edema Neurologic/Psychiatric: Alert, Oriented x3, Normal Mood/Affect Skin: Normal Color, Warm/Dry Results Lab Laboratory Tests 12/14/19 05:30 12/15/19 05:20 Assessment/Plan Assessment/Plan COVID19 with hypoxemia -Currently requiring 7 liters of oxygen -Convalescent plasma -Decadron 6mg PO currently -awake proning -Outside of window for remdesivir PNA -Continue Cefepime -Cultures are negative thus far Metabolic anion gapped acidosis -Check repeat LA and check BNP -Monitor Hypokalemia -Replace HTN EVELYN CRAWFORD DO Dec 15, 2019 06:55
[2019-12-15] MEDS ORDERED: KCL 20 MEQ TAB (K-DUR) PO ONE (07:00)
[2019-12-15] MEDS: ATENOLOL 25 MG (TENORMIN) TAB PO SCH (08:20)
[2019-12-15] MEDS: ACETAMINOPHEN 325 MG TABLET PO PRN (08:21)
[2019-12-15] MEDS ORDERED: NS IV 500 ML 500 ML IV SCH (10:53)
--- NOTE | 2019-12-15 12:30 | Progress Note - Hospitalist ---
Subjective HPI/CC On Admission Date Seen by Provider: Dec 15, 2019 Time Seen by Provider: 12:28 Pt is an 89yoCF with a PMH of HTN, HLD who presented to the ER due to hypoxia and fever. She states her symptoms started on 11/30 and she was tested for COVID and was positive. She had been monitoring her oxygen at home and it dropped to 8 3% last night prompting her to seek evaluation in the ER. She states her temperature went up to 102 as well. She required oxygen in the ER to maintain oxygen saturations. She reports she is feeling well this afternoon and has no complaints. Subjective/Events-last exam Pt reports feeling well still. Oxygen requirement coming down so long as she is prone. desats to low 80-high 70s with exertion. Focused Exam Lactate Level 12/13/19 04:14: Lactic Acid Level 1.72 12/15/19 07:15: Lactic Acid Level 1.98 Time of Focused Exam: 06:10 Objective Exam Vital Signs Vital Signs Date Time Temp Pulse Resp B/P (MAP) Pulse Ox O2 Delivery O2 Flow Rate FiO2 12/15/19 11:39 36.8 71 20 111/59 (76) 91 High Flow N/C 4.00 12/13/19 11:01 28 Capillary Refill : Less Than 3 Seconds General Appearance: No Apparent Distress, WD/WN, Other (laying prone) Respiratory: Lungs Clear, No Accessory Muscle Use; No Crackles Cardiovascular: Regular Rate, Rhythm, No Murmur Neurologic/Psychiatric: Alert, Oriented x3, Normal Mood/Affect Results/Procedures Lab Laboratory Tests 12/15/19 05:20 Patient resulted labs reviewed. Imaging: Reviewed Imaging Report Assessment/Plan Assessment and Plan Assess & Plan/Chief Complaint COVID19 Hypoxia Continue oxygen supplementation, trending down at rest Continue decadron Outside of window for remdesivir Discussed plasma with patient and she would like to think about it and talk with her , discussed EUA status and risks and benefits- ultimately agreed and waiting arrival of plasma IS Awake proning as able- tolerates well Lovenox Continue abx as procal is up today HTN HLD No acute needs, continue home meds DVT ppx: Lovenox Clinical Quality Measures DVT/VTE Risk/Contraindication: Risk Factor Score Per Nursin RFS Level Per Nursing on Admit: 4+=Very High CARLOS BRUNSON MD Dec 15, 2019 12:30
[2019-12-15] MEDS ORDERED: FUROSEMIDE 40 MG/4 ML INJ (LASIX) IVP NR (17:45)
--- NOTE | 2019-12-15 19:45 | NUR ---
Upon attempt to administer patient Cefepime I notice the IV is leaking. New IV placed in right wrist and old IV removed.
[2019-12-15] MEDS: ASPIRIN E.C. 81 MG (ECOTRIN) TAB PO SCH (20:11)
[2019-12-15] MEDS: ENOXAPARIN 60 MG/0.6 ML (LOVENOX) SYR SC SCH (20:11)
[2019-12-16 00:57] VITALS: BP 185/84
[2019-12-16] MEDS: RT-ALBUTEROL INHALER HFA (VENTOLIN HFA) 18 GM IH SCH ×4 (02:29→21:38)
[2019-12-16 04:50] VITALS: BP 189/90
[2019-12-16] MEDS: CEFEPIME 1,000 MG/SWFI 10 ML IV PUSH IV SCH ×6 (05:26→21:07)
[2019-12-16 06:05] LABS: BASOPHILS % (AUTO) 0 % (0-10); EOSINOPHILS % (AUTO) 0 % (0-10); HEMATOCRIT 31 % (35-52); HEMOGLOBIN 10.6 g/dL (11.5-16.0); LYMPHOCYTES # (AUTO) 0.7 10^3/uL (1.0-4.0); LYMPHOCYTES % (AUTO) 6 % (12-44); MEAN CORPUSCULAR HEMOGLOBIN 29 pg (25-34); MEAN CORPUSCULAR HGB CONC 34 g/dL (32-36); MEAN CORPUSCULAR VOLUME 86 fL (80-99); MEAN PLATELET VOLUME 10.7 fL (9.0-12.2); MONOCYTES # (AUTO) 0.2 10^3/uL (0.0-1.0); MONOCYTES % (AUTO) 2 % (0-12); NEUTROPHILS # (AUTO) 11.7 10^3/uL (1.8-7.8); NEUTROPHILS % (AUTO) 89 % (42-75); PLATELET COUNT 282 10^3/uL (130-400)
[2019-12-16 06:17] LABS: ALBUMIN 3.3 GM/DL (3.2-4.5); POTASSIUM 3.8 MMOL/L (3.6-5.0)
[2019-12-16 06:19] LABS: CALCIUM 8.3 MG/DL (8.5-10.1)
[2019-12-16 06:20] LABS: TOTAL PROTEIN 6.2 GM/DL (6.4-8.2)
[2019-12-16 06:22] LABS: BILIRUBIN,TOTAL 0.6 MG/DL (0.1-1.0)
[2019-12-16 06:23] LABS: CREATININE SERUM 1.01 MG/DL (0.60-1.30)
--- NOTE | 2019-12-16 06:42 | NUR ---
Patient requested to wait a couple hours on her 0700 medications because she is very tired and just got into a comfortable position. Will notify oncoming RN
[2019-12-16 08:00] VITALS: BP 145/78
[2019-12-16] MEDS: dexAMETHasone 6 MG TAB (DECADRON) PO SCH (08:31)
[2019-12-16] MEDS: MULTIVIT W/MINERALS TAB (THERAGRAN M) PO SCH (08:31)
[2019-12-16] MEDS: ATENOLOL 25 MG (TENORMIN) TAB PO SCH (08:31)
--- NOTE | 2019-12-16 11:18 | Progress Note - Hospitalist ---
Subjective HPI/CC On Admission Date Seen by Provider: Dec 16, 2019 Time Seen by Provider: 11:12 Pt is an 89yoCF with a PMH of HTN, HLD who presented to the ER due to hypoxia and fever. She states her symptoms started on 11/30 and she was tested for COVID and was positive. She had been monitoring her oxygen at home and it dropped to 8 3% last night prompting her to seek evaluation in the ER. She states her temperature went up to 102 as well. She required oxygen in the ER to maintain oxygen saturations. She reports she is feeling well this afternoon and has no complaints. Subjective/Events-last exam Pt reports feeling very well. When I entered the room she was up brushing her teeth and had just bathed herself. I checked her oxygen saturation while she was up on 3lpm. The lowest her oxygen got was 63%. I immediately asked her to lie prone and I increased her oxygen. After roughly 4-5 minutes she and after increasing her oxygen to 10lpm she recovered to 90-91%. Focused Exam Lactate Level 12/15/19 07:15: Lactic Acid Level 1.98 Time of Focused Exam: 06:10 Objective Exam Vital Signs Vital Signs Date Time Temp Pulse Resp B/P (MAP) Pulse Ox O2 Delivery O2 Flow Rate FiO2 12/16/19 08:50 93 Nasal Cannula 5.00 12/16/19 08:00 37.3 109 24 145/78 (100) 12/13/19 11:01 28 Capillary Refill : Less Than 3 Seconds General Appearance: No Apparent Distress, WD/WN Respiratory: No Accessory Muscle Use, Decreased Breath Sounds (in bases but no crackles, rhonchi, or wheezes) Cardiovascular: No Murmur, Tachycardia Gastrointestinal: Normal Bowel Sounds, Non Tender, Soft Neurologic/Psychiatric: Alert, Oriented x3, Normal Mood/Affect Results/Procedures Lab Laboratory Tests 12/16/19 05:35 12/16/19 05:55 Patient resulted labs reviewed. Imaging: Reviewed Imaging Report Assessment/Plan Assessment and Plan Assess & Plan/Chief Complaint COVID19 Hypoxia Continue oxygen supplementation Needed increased with exertion when I was in the room Continue decadron, s/p plasma 12/14 Outside of window for remdesivir IS Awake proning as able- tolerates well Lovenox Continue abx still I worry as patient is not improving that she is high risk for complication, will continue all aggressive measures as we are and monitor closely HTN HLD No acute needs, continue home meds DVT ppx: Lovenox Diagnosis/Problems Diagnosis/Problems (1) Sepsis Status: Acute Qualifiers: Sepsis type: sepsis due to unspecified organism Sepsis acute organ dysfunction status: with acute organ dysfunction Severe sepsis acute organ dysfunction type: acute respiratory failure Acute respiratory failure type: with hypoxia Severe sepsis shock status: without septic shock Qualified Codes: A41.9 - Sepsis, unspecified organism; R65.20 - Severe sepsis without septic shock; J96.01 - Acute respiratory failure with hypoxia (2) Acute respiratory failure with hypoxia Status: Acute (3) COVID-19 Status: Acute (4) Pneumonia Status: Acute Qualifiers: Pneumonia type: due to unspecified organism Laterality: bilateral Lung location: unspecified part of lung Qualified Codes: J18.9 - Pneumonia, unspe cified organism Clinical Quality Measures DVT/VTE Risk/Contraindication: Risk Factor Score Per Nursin RFS Level Per Nursing on Admit: 4+=Very High CARLOS BRUNSON MD Dec 16, 2019 11:18
[2019-12-16 12:00] VITALS: BP 163/79
[2019-12-16] MEDS: ACETAMINOPHEN 325 MG TABLET PO PRN (12:31)
[2019-12-16 16:50] VITALS: BP 162/74
[2019-12-16 19:55] VITALS: BP 138/65
[2019-12-16] MEDS: ENOXAPARIN 60 MG/0.6 ML (LOVENOX) SYR SC SCH (21:07)
[2019-12-16] MEDS: ASPIRIN E.C. 81 MG (ECOTRIN) TAB PO SCH (21:07)
[2019-12-17] VITALS (7 sets, daily range): BP systolic 135–178; BP diastolic 69–96
[2019-12-17] MEDS: RT-ALBUTEROL INHALER HFA (VENTOLIN HFA) 18 GM IH SCH ×3 (02:47→13:50)
[2019-12-17] MEDS: CEFEPIME 1,000 MG/SWFI 10 ML IV PUSH IV SCH ×6 (05:08→20:31)
[2019-12-17 06:11] LABS: BASOPHILS % (AUTO) 0 % (0-10); EOSINOPHILS % (AUTO) 0 % (0-10); HEMATOCRIT 30 % (35-52); LYMPHOCYTES # (AUTO) 0.6 10^3/uL (1.0-4.0); LYMPHOCYTES % (AUTO) 4 % (12-44); MEAN CORPUSCULAR HEMOGLOBIN 29 pg (25-34); MEAN CORPUSCULAR HGB CONC 34 g/dL (32-36); MEAN CORPUSCULAR VOLUME 86 fL (80-99); MEAN PLATELET VOLUME 10.5 fL (9.0-12.2); MONOCYTES # (AUTO) 0.2 10^3/uL (0.0-1.0); MONOCYTES % (AUTO) 2 % (0-12); NEUTROPHILS # (AUTO) 13.2 10^3/uL (1.8-7.8); NEUTROPHILS % (AUTO) 92 % (42-75); PLATELET COUNT 273 10^3/uL (130-400); WHITE BLOOD COUNT 14.4 10^3/uL (4.3-11.0)
[2019-12-17 06:16] LABS: POTASSIUM 3.8 MMOL/L (3.6-5.0)
[2019-12-17 06:17] LABS: CALCIUM 8.1 MG/DL (8.5-10.1)
[2019-12-17 06:19] LABS: TOTAL PROTEIN 5.9 GM/DL (6.4-8.2)
[2019-12-17 06:21] LABS: BILIRUBIN,TOTAL 0.6 MG/DL (0.1-1.0)
[2019-12-17 06:22] LABS: CREATININE SERUM 0.91 MG/DL (0.60-1.30)
--- NOTE | 2019-12-17 08:59 | Diagnostic Imaging Report ---
INDICATION: Acute respiratory failure. Time of exam 8:44 AM Correlation is made with prior chest from 12/14/2019. Heart size is stable. Airspace infiltrates bilateral lungs persist consistent with pneumonia. Overall appearance is very similar to prior exam. No effusion or pneumothorax is identified. IMPRESSION: Continued diffuse bilateral airspace pulmonary infiltrates consistent with pneumonia. Dictated by: Dictated on workstation # [id number]
[2019-12-17] MEDS: MULTIVIT W/MINERALS TAB (THERAGRAN M) PO SCH (09:08)
[2019-12-17] MEDS: dexAMETHasone 6 MG TAB (DECADRON) PO SCH (09:08)
[2019-12-17] MEDS: ATENOLOL 25 MG (TENORMIN) TAB PO SCH (09:08)
--- NOTE | 2019-12-17 11:00 | Progress Note - Hospitalist ---
Subjective HPI/CC On Admission Date Seen by Provider: Dec 17, 2019 Time Seen by Provider: 10:56 Pt is an 89yoCF with a PMH of HTN, HLD who presented to the ER due to hypoxia and fever. She states her symptoms started on 11/30 and she was tested for COVID and was positive. She had been monitoring her oxygen at home and it dropped to 8 3% last night prompting her to seek evaluation in the ER. She states her temperature went up to 102 as well. She required oxygen in the ER to maintain oxygen saturations. She reports she is feeling well this afternoon and has no complaints. Subjective/Events-last exam Pt reports feeling better. Did well with sats overnight. While I was at bedside sats where in the 80s while adjusting in bed. Focused Exam Lactate Level 12/15/19 07:15: Lactic Acid Level 1.98 Time of Focused Exam: 06:10 Objective Exam Vital Signs Vital Signs Date Time Temp Pulse Resp B/P (MAP) Pulse Ox O2 Delivery O2 Flow Rate FiO2 12/17/19 11:12 36.0 88 88 12/17/19 11:05 20 178/77 (110) OxyMask 10.00 12/13/19 11:01 28 Capillary Refill : Less Than 3 Seconds General Appearance: No Apparent Distress Respiratory: Other (coarse breath sounds throughout but good air movement) Cardiovascular: Regular Rate, Rhythm, No Murmur Gastrointestinal: Normal Bowel Sounds, Non Tender, Soft Neurologic/Psychiatric: Alert, Oriented x3 Results/Procedures Lab Laboratory Tests 12/17/19 05:37 Patient resulted labs reviewed. Imaging: Reviewed Imaging Report Assessment/Plan Assessment and Plan Assess & Plan/Chief Complaint COVID19 Sepsis with PNA Acute respiratory failure with hypoxia Continues to require more oxygen, I personally switched to oxi-mask while I was in the room, will transfer to negative pressure room for Vapotherm Continue decadron, s/p plasma 12/14 If no improvement over the next day or two will consider repeating plasma Outside of window for remdesivir IS Awake proning as able- tolerates well Lovenox Continue abx still I still worry as patient is not improving that she is high risk for complication, will continue all aggressive measures as we are and monitor closely HTN HLD No acute needs, continue home meds DVT ppx: Lovenox Diagnosis/Problems Diagnosis/Problems (1) Pneumonia Status: Acute Qualifiers: Pneumonia type: due to unspecified organism Laterality: bilateral Lung location: unspecified part of lung Qualified Codes: J18.9 - Pneumonia, unspecified organism (2) COVID-19 Status: Acute (3) Acute respiratory failure with hypoxia Status: Acute (4) Sepsis Status: Acute Qualifiers: Sepsis type: sepsis due to unspecified organism Sepsis acute organ dysfunction status: with acute organ dysfunction Severe sepsis acute organ dysfunction type: acute respiratory failure Acute respiratory failure type: with hypoxia Severe sepsis shock status: without septic shock Qualified Codes: A41.9 - Sepsis, unspecified organism; R65.20 - Severe sepsis without septic shock; J96.01 - Acute respiratory failure with hypoxia Clinical Quality Measures DVT/VTE Risk/Contraindication: Risk Factor Score Per Nursin RFS Level Per Nursing on Admit: 4+=Very High CARLOS BRUNSON MD Dec 17, 2019 11:00
[2019-12-17] MEDS: RT-ALBUTEROL INHALER HFA (VENTOLIN HFA) 18 GM IH PRN (19:40)
[2019-12-17] MEDS: ASPIRIN E.C. 81 MG (ECOTRIN) TAB PO SCH (20:30)
[2019-12-17] MEDS: ENOXAPARIN 60 MG/0.6 ML (LOVENOX) SYR SC SCH (20:30)
[2019-12-18] VITALS: BP 141/68
[2019-12-18] MEDS: RT-ALBUTEROL INHALER HFA (VENTOLIN HFA) 18 GM IH SCH ×5 (03:00→19:44)
[2019-12-18 03:50] VITALS: BP 145/63
[2019-12-18] MEDS: MULTIVIT W/MINERALS TAB (THERAGRAN M) PO SCH (06:26)
[2019-12-18] MEDS: dexAMETHasone 6 MG TAB (DECADRON) PO SCH (06:26)
[2019-12-18 06:49] LABS: BASOPHILS % (AUTO) 0 % (0-10); EOSINOPHILS % (AUTO) 0 % (0-10); HEMATOCRIT 29 % (35-52); HEMOGLOBIN 9.9 g/dL (11.5-16.0); LYMPHOCYTES # (AUTO) 0.4 10^3/uL (1.0-4.0); LYMPHOCYTES % (AUTO) 4 % (12-44); MEAN CORPUSCULAR HEMOGLOBIN 30 pg (25-34); MEAN CORPUSCULAR HGB CONC 34 g/dL (32-36); MEAN CORPUSCULAR VOLUME 86 fL (80-99); MEAN PLATELET VOLUME 10.6 fL (9.0-12.2); MONOCYTES # (AUTO) 0.1 10^3/uL (0.0-1.0); MONOCYTES % (AUTO) 1 % (0-12); NEUTROPHILS # (AUTO) 10.8 10^3/uL (1.8-7.8); NEUTROPHILS % (AUTO) 93 % (42-75); PLATELET COUNT 283 10^3/uL (130-400); WHITE BLOOD COUNT 11.6 10^3/uL (4.3-11.0)
[2019-12-18 07:02] LABS: CHLORIDE 98 MMOL/L (98-107); POTASSIUM 3.7 MMOL/L (3.6-5.0); SODIUM 135 MMOL/L (135-145)
[2019-12-18 07:04] LABS: CALCIUM 8.1 MG/DL (8.5-10.1)
[2019-12-18 07:05] LABS: GLUCOSE 118 MG/DL (70-105); TOTAL PROTEIN 5.8 GM/DL (6.4-8.2)
[2019-12-18 07:06] LABS: CARBON DIOXIDE 24 MMOL/L (21-32)
[2019-12-18 07:07] LABS: BILIRUBIN,TOTAL 0.8 MG/DL (0.1-1.0)
[2019-12-18 07:08] LABS: ALKALINE PHOSPHATASE 75 U/L (40-136); CREATININE SERUM 0.84 MG/DL (0.60-1.30); GFR ESTIMATED > 60
[2019-12-18 07:09] LABS: BUN/CREATININE RATIO 27
[2019-12-18 07:11] LABS: ALANINE AMINOTRANSFERASE 72 U/L (0-55)
[2019-12-18 08:00] VITALS: BP 177/80
[2019-12-18] MEDS: ATENOLOL 25 MG (TENORMIN) TAB PO SCH (08:32)
[2019-12-18 12:00] VITALS: BP 135/67
--- NOTE | 2019-12-18 12:58 | Progress Note - Hospitalist ---
Subjective HPI/CC On Admission Date Seen by Provider: Dec 18, 2019 Time Seen by Provider: 12:52 Pt is an 89yoCF with a PMH of HTN, HLD who presented to the ER due to hypoxia and fever. She states her symptoms started on 11/30 and she was tested for COVID and was positive. She had been monitoring her oxygen at home and it dropped to 83% last night prompting her to seek evaluation in the ER. She states her temperature went up to 102 as well. She required oxygen in the ER to maintain oxygen saturations. She reports she is feeling well this afternoon and has no complaints. Subjective/Events-last exam Pt reports feeling much better today. On Vapotherm and up in bed eating lunch. No new complaints other than that the soup is bland. Focused Exam Time of Focused Exam: 06:10 Objective Exam Vital Signs Vital Signs Date Time Temp Pulse Resp B/P (MAP) Pulse Ox O2 Delivery O2 Flow Rate FiO2 12/18/19 10:33 97 Vapotherm 40.00 70 12/18/19 08:00 36.1 73 20 177/80 (112) Capillary Refill : Less Than 3 Seconds General Appearance: No Apparent Distress, WD/WN Respiratory: No Accessory Muscle Use, Other (on vapotherm) Cardiovascular: Regular Rate, Rhythm, No Murmur Gastrointestinal: Normal Bowel Sounds, Non Tender, Soft Neurologic/Psychiatric: Alert, Oriented x3 Results/Procedures Lab Laboratory Tests 12/18/19 06:28 Patient resulted labs reviewed. Imaging: Reviewed Imaging Report Assessment/Plan Assessment and Plan Assess & Plan/Chief Complaint COVID19 Sepsis with PNA Acute respiratory failure with hypoxia On Vapotherm and doing better, had sats of 99-100 while I was in the room (though did drop to lower 90s while eating and even 80s with a cough) Continue decadron, s/p plasma 12/14 If no clear improvement over the next day will consider repeating plasma Outside of window for remdesivir IS Awake proning as able- tolerates well Lovenox Continue abx still Prognosis remains guarded but clinically looks a little more stable today HTN HLD No acute needs, continue home meds DVT ppx: Lovenox Diagnosis/Problems Diagnosis/Problems (1) Pneumonia Status: Acute Qualifiers: Pneumonia type: due to unspecified organism Laterality: bilateral Lung l ocation: unspecified part of lung Qualified Codes: J18.9 - Pneumonia, unspecified organism (2) COVID-19 Status: Acute (3) Acute respiratory failure with hypoxia Status: Acute (4) Sepsis Status: Acute Qualifiers: Sepsis type: sepsis due to unspecified organism Sepsis acute organ dysfunction status: with acute organ dysfunction Severe sepsis acute organ dysfunction type: acute respiratory failure Acute respiratory failure type: with hypoxia Severe sepsis shock status: without septic shock Qualified Codes: A41.9 - Sepsis, unspecified organism; R65.20 - Severe sepsis without septic shock; J96.01 - Acute respiratory failure with hypoxia Clinical Quality Measures DVT/VTE Risk/Contraindication: Risk Factor Score Per Nursin RFS Level Per Nursing on Admit: 4+=Very High CARLOS BRUNSON MD Dec 18, 2019 12:58
[2019-12-18 16:30] VITALS: BP 185/75
[2019-12-18 20:13] VITALS: BP 162/76
[2019-12-18] MEDS: ASPIRIN E.C. 81 MG (ECOTRIN) TAB PO SCH (20:51)
[2019-12-18] MEDS: ENOXAPARIN 60 MG/0.6 ML (LOVENOX) SYR SC SCH (20:51)
[2019-12-19] VITALS (7 sets, daily range): BP systolic 135–164; BP diastolic 63–75
[2019-12-19] MEDS: RT-ALBUTEROL INHALER HFA (VENTOLIN HFA) 18 GM IH SCH ×4 (02:00→19:42)
[2019-12-19 05:12] LABS: BASOPHILS % (AUTO) 0 % (0-10); EOSINOPHILS # (AUTO) 0.1 10^3/uL (0.0-0.3); EOSINOPHILS % (AUTO) 1 % (0-10); HEMATOCRIT 30 % (35-52); HEMOGLOBIN 10.2 g/dL (11.5-16.0); LYMPHOCYTES # (AUTO) 0.6 10^3/uL (1.0-4.0); LYMPHOCYTES % (AUTO) 6 % (12-44); MEAN CORPUSCULAR HEMOGLOBIN 29 pg (25-34); MEAN CORPUSCULAR HGB CONC 34 g/dL (32-36); MEAN CORPUSCULAR VOLUME 86 fL (80-99); MEAN PLATELET VOLUME 10.4 fL (9.0-12.2); MONOCYTES # (AUTO) 0.1 10^3/uL (0.0-1.0); MONOCYTES % (AUTO) 1 % (0-12); NEUTROPHILS % (AUTO) 90 % (42-75); PLATELET COUNT 289 10^3/uL (130-400)
[2019-12-19 05:25] LABS: ALBUMIN 2.9 GM/DL (3.2-4.5); CHLORIDE 96 MMOL/L (98-107); POTASSIUM 3.9 MMOL/L (3.6-5.0); SODIUM 133 MMOL/L (135-145)
[2019-12-19 05:27] LABS: GLUCOSE 102 MG/DL (70-105); TOTAL PROTEIN 5.9 GM/DL (6.4-8.2)
[2019-12-19 05:29] LABS: BILIRUBIN,TOTAL 0.7 MG/DL (0.1-1.0); CARBON DIOXIDE 26 MMOL/L (21-32)
[2019-12-19 05:31] LABS: ALKALINE PHOSPHATASE 86 U/L (40-136); CREATININE SERUM 0.83 MG/DL (0.60-1.30); GFR ESTIMATED > 60
[2019-12-19 05:32] LABS: BUN/CREATININE RATIO 30
[2019-12-19 05:34] LABS: ALANINE AMINOTRANSFERASE 119 U/L (0-55)
[2019-12-19] MEDS: dexAMETHasone 6 MG TAB (DECADRON) PO SCH (06:08)
[2019-12-19] MEDS: MULTIVIT W/MINERALS TAB (THERAGRAN M) PO SCH (06:08)
[2019-12-19] MEDS: ATENOLOL 25 MG (TENORMIN) TAB PO SCH (08:32)
[2019-12-19] MEDS: ASPIRIN E.C. 81 MG (ECOTRIN) TAB PO SCH (20:11)
[2019-12-19] MEDS: ENOXAPARIN 60 MG/0.6 ML (LOVENOX) SYR SC SCH (20:11)
[2019-12-20 04:07] VITALS: BP 159/73
[2019-12-20] MEDS: RT-ALBUTEROL INHALER HFA (VENTOLIN HFA) 18 GM IH SCH ×4 (04:20→21:37)
[2019-12-20] MEDS: MULTIVIT W/MINERALS TAB (THERAGRAN M) PO SCH (06:12)
[2019-12-20] MEDS: dexAMETHasone 6 MG TAB (DECADRON) PO SCH (06:12)
[2019-12-20 06:36] LABS: ALBUMIN 2.8 GM/DL (3.2-4.5); CHLORIDE 97 MMOL/L (98-107); POTASSIUM 3.8 MMOL/L (3.6-5.0)
[2019-12-20 06:37] LABS: SODIUM 134 MMOL/L (135-145)
[2019-12-20 06:38] LABS: CALCIUM 8.2 MG/DL (8.5-10.1)
[2019-12-20 06:39] LABS: GLUCOSE 91 MG/DL (70-105); TOTAL PROTEIN 5.7 GM/DL (6.4-8.2)
[2019-12-20 06:40] LABS: BASOPHILS % (AUTO) 0 % (0-10); CARBON DIOXIDE 27 MMOL/L (21-32); EOSINOPHILS # (AUTO) 0.2 10^3/uL (0.0-0.3); EOSINOPHILS % (AUTO) 2 % (0-10); HEMATOCRIT 29 % (35-52); HEMOGLOBIN 9.8 g/dL (11.5-16.0); LYMPHOCYTES # (AUTO) 0.4 10^3/uL (1.0-4.0); LYMPHOCYTES % (AUTO) 4 % (12-44); MEAN CORPUSCULAR HEMOGLOBIN 29 pg (25-34); MEAN CORPUSCULAR HGB CONC 34 g/dL (32-36); MEAN CORPUSCULAR VOLUME 86 fL (80-99); MEAN PLATELET VOLUME 10.5 fL (9.0-12.2); MONOCYTES # (AUTO) 0.1 10^3/uL (0.0-1.0); MONOCYTES % (AUTO) 1 % (0-12); NEUTROPHILS % (AUTO) 91 % (42-75); PLATELET COUNT 284 10^3/uL (130-400); WHITE BLOOD COUNT 9.9 10^3/uL (4.3-11.0)
[2019-12-20 06:41] LABS: BILIRUBIN,TOTAL 0.8 MG/DL (0.1-1.0)
[2019-12-20 06:42] LABS: ALKALINE PHOSPHATASE 94 U/L (40-136); CREATININE SERUM 0.82 MG/DL (0.60-1.30); GFR ESTIMATED > 60
[2019-12-20 06:44] LABS: BUN/CREATININE RATIO 27
[2019-12-20 06:45] LABS: ALANINE AMINOTRANSFERASE 115 U/L (0-55)
[2019-12-20 08:42] VITALS: BP 132/77
[2019-12-20] MEDS: ATENOLOL 25 MG (TENORMIN) TAB PO SCH (08:42)
--- NOTE | 2019-12-20 11:20 | Progress Note - Hospitalist ---
Subjective HPI/CC On Admission Date Seen by Provider: Dec 20, 2019 Time Seen by Provider: 11:00 Pt is an 89yoCF with a PMH of HTN, HLD who presented to the ER due to hypoxia and fever. She states her symptoms started on 11/30 and she was tested for COVID and was positive. She had been monitoring her oxygen at home and it dropped to 83% last night prompting her to seek evaluation in the ER. She states her temperature went up to 102 as well. She required oxygen in the ER to maintain oxygen saturations. She reports she is feeling well this afternoon and has no complaints. Subjective/Events-last exam She feels like she is getting better. She is laying prone in her bed. She has no complaints. Focused Exam Time of Focused Exam: 06:10 Objective Exam Vital Signs Vital Signs Date Time Temp Pulse Resp B/P (MAP) Pulse Ox O2 Delivery O2 Flow Rate FiO2 12/20/19 09:33 90 Vapotherm 30.00 90 12/20/19 08:42 36.7 110 26 132/77 (95) Capillary Refill : Less Than 3 Seconds General Appearance: No Apparent Distress, WD/WN Respiratory: No Respiratory Distress, Wheezing Cardiovascular: Regular Rate, Rhythm, No Edema, No Murmur Gastrointestinal: Normal Bowel Sounds, Non Tender, Soft Extremity: Normal Inspection, Non Tender, No Pedal Edema Neurologic/Psychiatric: Alert, Oriented x3, Normal Mood/Affect Skin: Normal Color, Warm/Dry Results/Procedures Lab Laboratory Tests 12/20/19 05:37 Patient resulted labs reviewed. Imaging: Reviewed Imaging Report Assessment/Plan Assessment and Plan Assess & Plan/Chief Complaint Acute respiratory failure due to COVID-19 Sepsis with PNA Continue decadron s/p plasma 12/14 Repeat plasma Outside of window for remdesivir IS Awake proning as able- tolerates well Lovenox Repeat procalcitonin, if elevated, resume antibiotics Prognosis remains guarded HTN HLD No acute needs, continue home meds DVT ppx: Lovenox Diagnosis/Problems Diagnosis/Problems (1) Acute respiratory failure due to COVID-19 Status: Acute (2) PNA (pneumonia) Status: Acute Clinical Quality Measures DVT/VTE Risk/Contraindication: Risk Factor Score Per Nursin RFS Level Per Nursing on Admit: 4+=Very High CLARENCE KHOURY MD Dec 20, 2019 11:20
[2019-12-20 12:37] VITALS: BP 118/66
--- NOTE | 2019-12-20 15:19 | NUR ---
"RD ASSESSMENT PMHx: HTN; HLD; CA(melanoma) PT INTERACTION: Note pt is in COVID isolation, per chart review. Note all diet information for nutrition assessment for LOS is per chart review. Note avg PO intake 52% x4d. Note last BM was 12/19, and pt not currently on bowel regimen. Note unable to determine recent wt hx. ABNORMAL NUTRITION-RELATED LAB VALUES LOW: Na 134; Cl 97; Ca 8.2; Pro 5.7; alb 2.8 HIGH: BUN 22; AST 93; ALT 115 Est. kcal needs: 1250 kcal | 20 kcal/kg Est. Pro needs: 76 g Pro | 1.2 g Pro/kg PES STATEMENT: Inadequate oral intake (NI-2.1) related to loss of appetite as evidenced by chart review | avg PO intake 52% x4d INTERVENTION: Continue with current diet order of 2000mg Na diet. Add Ensure Enlive (vary) with meals TID, for increased kcal intake. Provides 350 kcal and 13 g Pro per serving. Will continue to follow and reassess as pt needs, intake, and status change. Jessica Petit, MS RD LD"
[2019-12-20] MEDS: cefTRIAXone FOR IV USE 1,000 MG in WATER (STERILE) FOR INJECTION 10 ML IV SCH (15:26)
[2019-12-20 16:52] VITALS: BP 136/73
[2019-12-20] MEDS: ASPIRIN E.C. 81 MG (ECOTRIN) TAB PO SCH (20:14)
[2019-12-20] MEDS: ENOXAPARIN 60 MG/0.6 ML (LOVENOX) SYR SC SCH (20:14)
[2019-12-20 20:29] VITALS: BP 150/78
[2019-12-20] MEDS: RT-ALBUTEROL INHALER HFA (VENTOLIN HFA) 18 GM IH PRN (21:37)
[2019-12-20 23:41] VITALS: BP 164/81
[2019-12-21] VITALS (15 sets, daily range): BP systolic 118–195; BP diastolic 58–91
[2019-12-21] MEDS: RT-ALBUTEROL INHALER HFA (VENTOLIN HFA) 18 GM IH SCH ×6 (02:31→21:36)
[2019-12-21 06:03] LABS: BASOPHILS % (AUTO) 0 % (0-10); EOSINOPHILS # (AUTO) 0.2 10^3/uL (0.0-0.3); EOSINOPHILS % (AUTO) 2 % (0-10); HEMATOCRIT 32 % (35-52); HEMOGLOBIN 10.4 g/dL (11.5-16.0); LYMPHOCYTES # (AUTO) 0.4 10^3/uL (1.0-4.0); LYMPHOCYTES % (AUTO) 3 % (12-44); MEAN CORPUSCULAR HEMOGLOBIN 29 pg (25-34); MEAN CORPUSCULAR HGB CONC 33 g/dL (32-36); MEAN CORPUSCULAR VOLUME 87 fL (80-99); MEAN PLATELET VOLUME 10.1 fL (9.0-12.2); MONOCYTES # (AUTO) 0.1 10^3/uL (0.0-1.0); MONOCYTES % (AUTO) 1 % (0-12); NEUTROPHILS # (AUTO) 13.5 10^3/uL (1.8-7.8); NEUTROPHILS % (AUTO) 94 % (42-75); PLATELET COUNT 318 10^3/uL (130-400); WHITE BLOOD COUNT 14.4 10^3/uL (4.3-11.0)
[2019-12-21 06:23] LABS: CHLORIDE 95 MMOL/L (98-107); POTASSIUM 4.2 MMOL/L (3.6-5.0); SODIUM 134 MMOL/L (135-145)
[2019-12-21 06:24] LABS: CALCIUM 8.3 MG/DL (8.5-10.1)
[2019-12-21 06:25] LABS: GLUCOSE 97 MG/DL (70-105); TOTAL PROTEIN 6.3 GM/DL (6.4-8.2)
[2019-12-21 06:26] LABS: CARBON DIOXIDE 29 MMOL/L (21-32)
[2019-12-21 06:27] LABS: BILIRUBIN,TOTAL 0.7 MG/DL (0.1-1.0)
[2019-12-21 06:28] LABS: ALKALINE PHOSPHATASE 118 U/L (40-136)
[2019-12-21 06:29] LABS: GFR ESTIMATED > 60
[2019-12-21 06:30] LABS: BUN/CREATININE RATIO 28
[2019-12-21] MEDS: dexAMETHasone 6 MG TAB (DECADRON) PO SCH (06:31)
[2019-12-21] MEDS: MULTIVIT W/MINERALS TAB (THERAGRAN M) PO SCH (06:31)
[2019-12-21 06:32] LABS: ALANINE AMINOTRANSFERASE 122 U/L (0-55)
[2019-12-21] MEDS: cefTRIAXone FOR IV USE 1,000 MG in WATER (STERILE) FOR INJECTION 10 ML IV SCH (08:05)
[2019-12-21] MEDS: ATENOLOL 25 MG (TENORMIN) TAB PO SCH (08:05)
[2019-12-21] MEDS ORDERED: FUROSEMIDE 40 MG/4 ML INJ (LASIX) IVP NR (10:45)
[2019-12-21] MEDS: ENOXAPARIN 60 MG/0.6 ML (LOVENOX) SYR SC SCH ×2 (11:01→20:43)
[2019-12-21] MEDS ORDERED: dexAMETHasone INJECTION 15 MG in NS (IVPB) 50 ML IV NR (11:22)
--- NOTE | 2019-12-21 11:36 | Progress Note - Hospitalist ---
Subjective HPI/CC On Admission Date Seen by Provider: Dec 21, 2019 Time Seen by Provider: 10:30 Pt is an 89yoCF with a PMH of HTN, HLD who presented to the ER due to hypoxia and fever. She states her symptoms started on 11/30 and she was tested for COVID and was positive. She had been monitoring her oxygen at home and it dropped to 83% last night prompting her to seek evaluation in the ER. She states her temperature went up to 102 as well. She required oxygen in the ER to maintain oxygen saturations. She reports she is feeling well this afternoon and has no complaints. Subjective/Events-last exam She continues to feel short of breath with any movement. She is having occasional coughing spells. She has been proning. Focused Exam Time of Focused Exam: 06:10 Objective Exam Vital Signs Vital Signs Date Time Temp Pulse Resp B/P (MAP) Pulse Ox O2 Delivery O2 Flow Rate FiO2 12/21/19 10:09 89 Vapotherm 40.00 100 12/21/19 08:39 37.1 112 12/21/19 08:21 24 195/91 (125) Capillary Refill : Less Than 3 Seconds General Appearance: WD/WN, Anxious Respiratory: Lungs Clear, Normal Breath Sounds, No Respiratory Distress Cardiovascular: Regular Rate, Rhythm, No Edema, No Murmur Gastrointestinal: Normal Bowel Sounds, Non Tender, Soft Extremity: Normal Inspection, Non Tender, No Pedal Edema Neurologic/Psychiatric: Alert, Oriented x3, No Motor/Sensory Deficits, Normal Mood/Affect Skin: Normal Color, Warm/Dry Results/Procedures Lab Laboratory Tests 12/21/19 05:45 Patient resulted labs reviewed. Imaging: Reviewed Imaging Report Assessment/Plan Assessment and Plan Assess & Plan/Chief Complaint Acute respiratory failure due to COVID-19 Sepsis with PNA Increase Decadron s/p convalescent plasma 12/14 Awaiting 2nd unit convalescent plasma Outside of window for remdesivir Continue proning as tolerated Lovenox therapeutic Procalcitonin elevated, started on Rocephin Begin corwin Esteban for accurate intake and output Prognosis remains guarded Transfer to ICU Discussed case with Dr. Dolan, pulmonology Consult Tele-ICU HTN HLD No acute needs, continue home meds DVT ppx: Lovenox Diagnosis/Problems Diagnosis/Problems (1) Acute respiratory failure due to COVID-19 Status: Acute (2) PNA (pneumonia) Status: Acute Clinical Quality Measures DVT/VTE Risk/Contraindication: Risk Factor Score Per Nursin RFS Level Per Nursing on Admit: 4+=Very High CLARENCE KHOURY MD Dec 21, 2019 11:36
--- NOTE | 2019-12-21 12:55 | NUR ---
PT TRANSFERRED TO ROOM ICU 11 VIA BED ACCOMPANIED BY MEDICAL FLOOR STAFF. PT LYING PRONE IN BED. PT CONNECTED TO BEDSIDE MONITOR, INTRODUCED TO SURROUNDINGS AND INFORMED OF PLAN OF CARE. PT ALERT AND ORIENTED, ON VAPOTHERM AT 40L 100% FIO2. CALL LIGHT WITHIN REACH. WILL CONTINUE TO MONITOR.
--- NOTE | 2019-12-21 13:00 | NUR ---
PATIENT AND BELONGINGS TO ROOM CU11. REPORT GIVEN TO LESTER WINSTON.
--- NOTE | 2019-12-21 16:09 | Pulmonary Progress Note ---
Subjective Date Seen by a Provider: Dec 21, 2019 Time Seen by a Provider: 16:03 Sepsis Event Evaluation Height, Weight, BMI Height: 5'1.00" Weight: 148lbs. 0.0oz. 67.791627pr; 26.05 BMI Method: Focused Exam Time of Focused Exam: 06:10 Exam Exam Vital Signs Date Time Temp Pulse Resp B/P (MAP) Pulse Ox O2 Delivery O2 Flow Rate FiO2 12/21/19 15:27 94 Vapotherm 40.00 100 12/21/19 12:55 85 16 153/89 (110) 96 Vapotherm 12/21/19 12:55 Vapotherm 40.00 100 12/21/19 10:09 89 Vapotherm 40.00 100 12/21/19 08:39 37.1 112 90 100 12/21/19 08:30 Vapotherm 40.00 100 12/21/19 08:21 37.1 112 24 195/91 (125) 90 Vapotherm 30.00 100.00 12/21/19 07:25 92 Vapotherm 30.00 100 12/21/19 04:01 37.0 71 20 157/74 (101) 90 Vapotherm 30.00 100.00 12/21/19 02:31 92 Vapotherm 30.00 90 12/20/19 23:41 36.4 72 20 164/81 (108) 96 Vapotherm 30.00 90.00 12/20/19 21:37 93 Vapotherm 30.00 90 12/20/19 20:29 36.4 76 22 150/78 (102) 90 Vapotherm 30.00 90.00 12/20/19 20:17 Vapotherm 30.00 90 12/20/19 16:52 36.7 70 24 136/73 (94) 90 Vapotherm 30.00 90.00 I & O 12/21/19 07:00 Intake Total 1080 ml Balance 1080 ml Height & Weight Height: 5'1.00" Weight: 148lbs. 0.0oz. 67.524921fg; 26.05 BMI Method: General Appearance: WD/WN, Anxious HEENT: PERRL/EOMI, Moist Mucous Membranes Neck: Full Range of Motion, Normal Inspection Respiratory: Lungs Clear, Normal Breath Sounds, No Respiratory Distress Cardiovascular: Regular Rate, Rhythm, No Edema, No Murmur Capillary Refill: Less Than 3 Seconds Peripheral Pulses: 2+ Radial Pulses (R), 2+ Radial Pulses (L) Extremity: Normal Inspection, Non Tender, No Pedal Edema Neurologic/Psychiatric: Alert, Oriented x3, No Motor/Sensory Deficits, Normal Mood/Affect Skin: Normal Color, Warm/Dry Results Lab Laboratory Tests 12/20/19 05:37 12/21/19 05:45 Assessment/Plan Assessment/Plan COVID19 with hypoxemia -Now requiring 100% Vapotherm -S/p Convalescent plasma -Increase Decadron to 20mg Daily -awake proning -Outside of window for remdesivir PNA -Currently on Rocephin -Cultures are negative thus far -Repeat UA and landers cultures -check urine and strep legionella ag Metabolic anion gapped acidosis -Monitor HTN EVELYN CRAWFORD DO Dec 21, 2019 16:09
[2019-12-21] MEDS: ASPIRIN E.C. 81 MG (ECOTRIN) TAB PO SCH (20:43)
[2019-12-22] VITALS (30 sets, daily range): BP systolic 120–164; BP diastolic 49–91
[2019-12-22] MEDS: RT-ALBUTEROL INHALER HFA (VENTOLIN HFA) 18 GM IH SCH ×6 (02:00→22:24)
--- NOTE | 2019-12-22 02:14 | NUR ---
REMAINS PRONE, SAO2 CONT TO RUN LOWER CONSISTENTLY. 86-88% RT NOTIFIED. ONCE RN ARRIVED SAO2 HOVERING IN HIGH 70%. TURNED SUPINE, PLACED ON BIPAP AT 90%. SAO2 UP 94% SHORTLY AFTER.
[2019-12-22 03:45] LABS: BASOPHILS % (AUTO) 0 % (0-10); EOSINOPHILS % (AUTO) 0 % (0-10); HEMATOCRIT 30 % (35-52); LYMPHOCYTES # (AUTO) 0.3 10^3/uL (1.0-4.0); LYMPHOCYTES % (AUTO) 2 % (12-44); MEAN CORPUSCULAR HEMOGLOBIN 29 pg (25-34); MEAN CORPUSCULAR HGB CONC 33 g/dL (32-36); MEAN CORPUSCULAR VOLUME 87 fL (80-99); MEAN PLATELET VOLUME 10.6 fL (9.0-12.2); MONOCYTES # (AUTO) 0.2 10^3/uL (0.0-1.0); MONOCYTES % (AUTO) 2 % (0-12); NEUTROPHILS # (AUTO) 12.3 10^3/uL (1.8-7.8); NEUTROPHILS % (AUTO) 95 % (42-75); PLATELET COUNT 335 10^3/uL (130-400); WHITE BLOOD COUNT 12.9 10^3/uL (4.3-11.0)
[2019-12-22 04:13] LABS: ALANINE AMINOTRANSFERASE 130 U/L (0-55); ALBUMIN 2.7 GM/DL (3.2-4.5); ALKALINE PHOSPHATASE 122 U/L (40-136); BILIRUBIN,TOTAL 0.6 MG/DL (0.1-1.0); BUN/CREATININE RATIO 35; CALCIUM 8.2 MG/DL (8.5-10.1); CARBON DIOXIDE 31 MMOL/L (21-32); CHLORIDE 92 MMOL/L (98-107); CREATININE SERUM 0.82 MG/DL (0.60-1.30); GFR ESTIMATED > 60; GLUCOSE 146 MG/DL (70-105); MAGNESIUM 1.9 MG/DL (1.6-2.4); PHOSPHORUS 3.9 MG/DL (2.3-4.7); POTASSIUM 3.9 MMOL/L (3.6-5.0); SODIUM 136 MMOL/L (135-145)
[2019-12-22] MEDS: POTASSIUM CL 10MEQ/50ML IVPB 50 ML IV SCH ×5 (04:25→16:00)
[2019-12-22] MEDS: MAGNESIUM 1 GM/100 ML IVPB 100 ML IV SCH (04:26)
[2019-12-22] MEDS: KCL 20 MEQ TAB (K-DUR) PO SCH (04:28)
--- NOTE | 2019-12-22 05:21 | Pulmonary Progress Note ---
Subjective Time Seen by a Provider: 05:17 Subjective/Events-last exam Pt is now requiring BiPAP. Sepsis Event Evaluation Height, Weight, BMI Height: 5'1.00" Weight: 148lbs. 0.0oz. 67.179492ei; 26.05 BMI Method: Focused Exam Time of Focused Exam: 06:10 Exam Exam Vital Signs Date Time Temp Pulse Resp B/P (MAP) Pulse Ox O2 Delivery O2 Flow Rate FiO2 12/22/19 05:00 61 135/82 (99) 95 NIV Bilevel 90.00 12/22/19 04:15 35.9 54 21 143/61 97 NIV Bilevel 90 12/22/19 04:15 35.9 54 21 143/61 97 NIV Bilevel 90 12/22/19 04:09 94 NIV Bilevel 90 12/22/19 04:00 61 20 143/61 (88) 96 NIV Bilevel 90.00 12/22/19 03:54 35.9 68 22 140/87 96 NIV Bilevel 90 12/22/19 03:00 58 35 128/60 (82) 90 NIV Bilevel 90.00 12/22/19 02:28 95 NIV Bilevel 90.00 12/22/19 02:00 73 96 90.00 12/22/19 02:00 72 21 128/62 (84) NIV Bilevel 90.00 12/22/19 01:05 66 12/22/19 01:00 67 23 130/65 (86) 88 Vapotherm 40.00 100.00 12/22/19 00:29 94 Vapotherm 40.00 100 12/22/19 00:00 62 17 139/63 (88) 89 Vapotherm 40.00 100.00 12/21/19 23:00 70 18 130/61 (84) 95 Vapotherm 40.00 100.00 12/21/19 22:06 67 12 95 Vapotherm 40.00 100.00 12/21/19 22:00 71 17 118/58 (78) 89 Vapotherm 40.00 90.00 12/21/19 21:38 67 25 90 Vapotherm 40.00 90.00 12/21/19 21:36 93 Vapotherm 40.00 90 12/21/19 21:00 66 20 146/68 (94) 93 Vapotherm 40.00 100.00 12/21/19 20:02 92 Vapotherm 40.00 100 12/21/19 20:00 70 16 125/58 (80) 92 Vapotherm 40.00 100.00 12/21/19 19:56 92 Vapotherm 40.00 100 12/21/19 19:53 36.2 Vapotherm 40.00 100.00 12/21/19 19:00 73 12/21/19 19:00 73 19 138/73 (94) 92 Vapotherm 40.00 100.00 12/21/19 18:39 93 Vapotherm 40.00 100 12/21/19 18:00 79 19 152/87 (108) 91 Vapotherm 40.00 100.00 12/21/19 17:00 85 15 148/78 (101) Vapotherm 40.00 100.00 12/21/19 16:00 Vapotherm 40.00 100 12/21/19 16:00 61 23 129/62 (84) 92 Vapotherm 40.00 100.00 12/21/19 15:27 94 Vapotherm 40.00 100 12/21/19 15:00 88 22 128/67 (87) 95 Vapotherm 40.00 100.00 12/21/19 14:00 80 13 143/79 (100) 93 Vapotherm 40.00 100.00 12/21/19 13:06 82 12/21/19 13:00 105 11 154/86 (108) 88 Vapotherm 40.00 100.00 12/21/19 12:55 85 16 153/89 (110) 96 Vapotherm 12/21/19 12:55 Vapotherm 40.00 100 12/21/19 10:09 89 Vapotherm 40.00 100 12/21/19 08:39 37.1 112 90 100 12/21/19 08:30 Vapotherm 40.00 100 12/21/19 08:21 37.1 112 24 195/91 (125) 90 Vapotherm 30.00 100.00 12/21/19 07:25 92 Vapotherm 30.00 100 I & O 12/22/19 07:00 Intake Total 360 ml Output Total 2775 ml Balance -2415 ml Height & Weight Height: 5'1.00" Weight: 148lbs. 0.0oz. 67.707199mq; 26.05 BMI Method: General Appearance: WD/WN, Anxious HEENT: PERRL/EOMI, Moist Mucous Membranes Neck: Full Range of Motion, Normal Inspection Respiratory: Lungs Clear, Normal Breath Sounds, No Respiratory Distress Cardiovascular: Regular Rate, Rhythm, No Edema, No Murmur Capillary Refill: Less Than 3 Seconds Peripheral Pulses: 2+ Radial Pulses (R), 2+ Radial Pulses (L) Extremity: Normal Inspection, Non Tender, No Pedal Edema Neurologic/Psychiatric: Alert, Oriented x3, No Motor/Sensory Deficits, Normal Mood/Affect Skin: Normal Color, Warm/Dry Results Lab Laboratory Tests 12/20/19 05:37 12/21/19 05:45 12/22/19 03:10 Assessment/Plan Assessment/Plan COVID19 with hypoxemia -Now requiring 90% BiPAP -Pt will most likely need intubation -S/p Convalescent plasma -Increase Decadron to 20mg Daily -awake proning -Give 80mg of lasix x 1 -Outside of window for remdesivir PNA -Currently on Rocephin -Cultures are negative thus far -Repeat UA and landers cultures -check urine and strep legionella ag Metabolic anion gapped acidosis -Monitor HTN EVELYN CRAWFORD DO Dec 22, 2019 05:21
[2019-12-22] MEDS ORDERED: FUROSEMIDE 40 MG/4 ML INJ (LASIX) IVP ONE (05:30)
[2019-12-22] MEDS: FUROSEMIDE 40 MG/4 ML INJ (LASIX) IVP SCH (05:57)
[2019-12-22] MEDS: MULTIVIT W/MINERALS TAB (THERAGRAN M) PO SCH (06:08)
[2019-12-22] MEDS: dexAMETHasone INJECTION 20 MG in NS (IVPB) 50 ML IV SCH (08:38)
[2019-12-22] MEDS: cefTRIAXone FOR IV USE 1,000 MG in WATER (STERILE) FOR INJECTION 10 ML IV SCH (08:39)
[2019-12-22] MEDS: ENOXAPARIN 60 MG/0.6 ML (LOVENOX) SYR SC SCH ×2 (08:39→20:06)
[2019-12-22] MEDS: ATENOLOL 25 MG (TENORMIN) TAB PO SCH (08:42)
[2019-12-22 08:49] LABS: BILIRUBIN,URINE NEGATIVE (NEGATIVE); CLARITY,URINE CLEAR; COLOR,URINE YELLOW; GLUCOSE, URINE (UA) NEGATIVE (NEGATIVE); KETONES,URINE NEGATIVE (NEGATIVE); LEUKOCYTE ESTERASE ,URINE NEGATIVE (NEGATIVE); NITRITE,URINE NEGATIVE (NEGATIVE); PH,URINE 6.5 (5-9); PROTEIN,URINE NEGATIVE (NEGATIVE)
[2019-12-22 08:58] LABS: BACTERIA,URINE TRACE /HPF; RBC,URINE RARE /HPF; SQUAMOUS EPITHELIAL CELL,UR RARE /HPF; WBC,URINE 0-2 /HPF
[2019-12-22] MEDS: ASPIRIN E.C. 81 MG (ECOTRIN) TAB PO SCH (20:06)
[2019-12-23] VITALS (24 sets, daily range): BP systolic 115–157; BP diastolic 52–93
[2019-12-23] MEDS: RT-ALBUTEROL INHALER HFA (VENTOLIN HFA) 18 GM IH SCH ×6 (02:56→22:43)
--- NOTE | 2019-12-23 04:21 | Pulmonary Progress Note ---
Subjective Time Seen by a Provider: 04:17 Subjective/Events-last exam Pt is requiring Vapotherm. Sepsis Event Evaluation Height, Weight, BMI Height: 5'1.00" Weight: 148lbs. 0.0oz. 67.283810ap; 26.05 BMI Method: Focused Exam Time of Focused Exam: 06:10 Exam Exam Vital Signs Date Time Temp Pulse Resp B/P (MAP) Pulse Ox O2 Delivery O2 Flow Rate FiO2 12/23/19 02:56 96 Vapotherm 40.00 70 12/23/19 01:00 61 12/22/19 23:00 67 15 140/55 (83) 95 Vapotherm 40.00 70.00 12/22/19 22:25 92 Vapotherm 40.00 70 12/22/19 22:00 60 17 139/59 (85) 95 Vapotherm 40.00 70.00 12/22/19 21:18 Vapotherm 40.00 70.00 12/22/19 21:00 99 Vapotherm 40.00 100 12/22/19 21:00 63 16 149/66 (93) 99 Vapotherm 40.00 100.00 12/22/19 20:00 70 22 164/91 (115) 99 Vapotherm 40.00 100.00 12/22/19 20:00 36.4 12/22/19 19:00 81 23 139/61 (87) 99 Vapotherm 40.00 100.00 12/22/19 19:00 90 12/22/19 18:00 98 23 121/49 (73) 98 Vapotherm 40.00 100.00 12/22/19 17:00 101 14 124/76 (92) 99 Vapotherm 40.00 100.00 12/22/19 16:00 77 35 135/66 (89) 100 Vapotherm 40.00 100.00 12/22/19 15:32 91 Vapotherm 40.00 100 12/22/19 15:00 89 23 126/91 (103) 94 NIV Bilevel 75.00 12/22/19 14:53 NIV Bilevel 75.00 12/22/19 14:00 80 32 144/68 (93) 87 NIV Bilevel 55.00 12/22/19 13:00 71 20 135/63 (87) 94 NIV Bilevel 55.00 12/22/19 12:30 77 12/22/19 12:00 78 29 122/50 (74) 92 NIV Bilevel 55.00 12/22/19 11:56 NIV Bilevel 55.00 12/22/19 11:52 75 27 100 90.00 12/22/19 11:34 92 Vapotherm 40.00 100 12/22/19 11:00 83 39 155/69 (97) 99 NIV Bilevel 90.00 12/22/19 10:00 67 23 158/66 (96) 99 NIV Bilevel 90.00 12/22/19 09:00 70 20 120/53 (75) 99 NIV Bilevel 90.00 12/22/19 08:30 96 NIV Bilevel 90 12/22/19 08:30 35.9 12/22/19 08:00 77 20 135/62 (86) 100 NIV Bilevel 90.00 12/22/19 07:18 68 31 94 90.00 12/22/19 07:00 69 34 138/84 (102) 96 NIV Bilevel 90.00 12/22/19 06:40 70 12/22/19 06:00 50 20 138/81 (100) 97 NIV Bilevel 90.00 12/22/19 05:45 36.0 55 27 138/81 94 NIV Bilevel 90 12/22/19 05:00 61 135/82 (99) 95 NIV Bilevel 90.00 I & O 12/23/19 07:00 Intake Total 662 ml Output Total 2800 ml Balance -2138 ml Height & Weight Height: 5'1.00" Weight: 148lbs. 0.0oz. 67.926958fh; 26.05 BMI Method: General Appearance: WD/WN, Anxious HEENT: PERRL/EOMI, Moist Mucous Membranes Neck: Full Range of Motion, Normal Inspection Respiratory: Lungs Clear, Normal Breath Sounds, No Respiratory Distress Cardiovascular: Regular Rate, Rhythm, No Edema, No Murmur Capillary Refill: Less Than 3 Seconds Peripheral Pulses: 2+ Radial Pulses (R), 2+ Radial Pulses (L) Extremity: Normal Inspection, Non Tender, No Pedal Edema Neurologic/Psychiatric: Alert, Oriented x3, No Motor/Sensory Deficits, Normal Mood/Affect Skin: Normal Color, Warm/Dry Results Lab Laboratory Tests 12/21/19 05:45 12/22/19 03:10 Assessment/Plan Assessment/Plan COVID19 with hypoxemia -Vapotherm 70% currently -S/p Convalescent plasma 2 units -Decadron 20mg Daily -awake proning -Give 80mg of lasix x 1 -Outside of window for remdesivir PNA -Currently on Rocephin -Cultures are negative thus far -Repeat UA and landers cultures -check urine and strep legionella ag Metabolic anion gapped acidosis -Monitor HTN EVELYN CRAWFORD DO Dec 23, 2019 04:21
[2019-12-23 05:58] LABS: BASOPHILS % (AUTO) 0 % (0-10); EOSINOPHILS % (AUTO) 0 % (0-10); HEMATOCRIT 25 % (35-52); HEMOGLOBIN 8.2 g/dL (11.5-16.0); LYMPHOCYTES # (AUTO) 0.5 10^3/uL (1.0-4.0); LYMPHOCYTES % (AUTO) 3 % (12-44); MEAN CORPUSCULAR HEMOGLOBIN 29 pg (25-34); MEAN CORPUSCULAR HGB CONC 33 g/dL (32-36); MEAN CORPUSCULAR VOLUME 87 fL (80-99); MEAN PLATELET VOLUME 10.6 fL (9.0-12.2); MONOCYTES # (AUTO) 0.3 10^3/uL (0.0-1.0); MONOCYTES % (AUTO) 2 % (0-12); NEUTROPHILS # (AUTO) 15.8 10^3/uL (1.8-7.8); NEUTROPHILS % (AUTO) 95 % (42-75); PLATELET COUNT 415 10^3/uL (130-400); WHITE BLOOD COUNT 16.7 10^3/uL (4.3-11.0)
[2019-12-23 06:16] LABS: ALANINE AMINOTRANSFERASE 114 U/L (0-55); ALBUMIN 2.8 GM/DL (3.2-4.5); ALKALINE PHOSPHATASE 110 U/L (40-136); BILIRUBIN,TOTAL 0.6 MG/DL (0.1-1.0); BUN/CREATININE RATIO 51; CALCIUM 8.4 MG/DL (8.5-10.1); CARBON DIOXIDE 34 MMOL/L (21-32); CHLORIDE 92 MMOL/L (98-107); CREATININE SERUM 0.82 MG/DL (0.60-1.30); GFR ESTIMATED > 60; GLUCOSE 139 MG/DL (70-105); MAGNESIUM 2.1 MG/DL (1.6-2.4); PHOSPHORUS 3.8 MG/DL (2.3-4.7); POTASSIUM 4.3 MMOL/L (3.6-5.0); SODIUM 137 MMOL/L (135-145); TOTAL PROTEIN 6.1 GM/DL (6.4-8.2)
[2019-12-23] MEDS: KCL 20 MEQ TAB (K-DUR) PO SCH (06:24)
[2019-12-23] MEDS: POTASSIUM CL 10MEQ/50ML IVPB 50 ML IV SCH (06:24)
[2019-12-23] MEDS: MAGNESIUM 1 GM/100 ML IVPB 100 ML IV SCH (06:24)
[2019-12-23 06:40] LABS: LYMPHOCYTES % (MANUAL) 1 %; MONOCYTES % (MANUAL) 2 %; NEUTROPHILS % (MANUAL) 97 %
[2019-12-23 06:41] LABS: RBC MORPH NORMAL
[2019-12-23] MEDS: PANTOPRAZOLE 40 MG (PROTONIX) VIAL IV SCH (10:00)
[2019-12-23] MEDS: FUROSEMIDE 40 MG/4 ML INJ (LASIX) IVP SCH (10:00)
[2019-12-23] MEDS: cefTRIAXone FOR IV USE 1,000 MG in WATER (STERILE) FOR INJECTION 10 ML IV SCH (10:00)
[2019-12-23] MEDS: MULTIVIT W/MINERALS TAB (THERAGRAN M) PO SCH (10:01)
[2019-12-23] MEDS: ENOXAPARIN 60 MG/0.6 ML (LOVENOX) SYR SC SCH ×2 (10:01→19:54)
[2019-12-23] MEDS: ATENOLOL 25 MG (TENORMIN) TAB PO SCH (10:02)
[2019-12-23] MEDS: dexAMETHasone INJECTION 20 MG in NS (IVPB) 50 ML IV SCH (10:02)
[2019-12-23] MEDS: ASPIRIN E.C. 81 MG (ECOTRIN) TAB PO SCH (19:54)
[2019-12-24] VITALS (22 sets, daily range): BP systolic 116–149; BP diastolic 46–87
[2019-12-24] MEDS: RT-ALBUTEROL INHALER HFA (VENTOLIN HFA) 18 GM IH SCH ×5 (02:24→22:05)
[2019-12-24] MEDS: POTASSIUM CL 10MEQ/50ML IVPB 50 ML IV SCH (03:45)
[2019-12-24] MEDS: MAGNESIUM 1 GM/100 ML IVPB 100 ML IV SCH (03:45)
[2019-12-24] MEDS: KCL 20 MEQ TAB (K-DUR) PO SCH (03:45)
[2019-12-24 03:58] LABS: BASOPHILS % (AUTO) 0 % (0-10); EOSINOPHILS % (AUTO) 0 % (0-10); HEMATOCRIT 33 % (35-52); LYMPHOCYTES # (AUTO) 0.5 10^3/uL (1.0-4.0); LYMPHOCYTES % (AUTO) 4 % (12-44); MEAN CORPUSCULAR HEMOGLOBIN 29 pg (25-34); MEAN CORPUSCULAR HGB CONC 33 g/dL (32-36); MEAN CORPUSCULAR VOLUME 86 fL (80-99); MEAN PLATELET VOLUME 10.6 fL (9.0-12.2); MONOCYTES # (AUTO) 0.2 10^3/uL (0.0-1.0); MONOCYTES % (AUTO) 2 % (0-12); NEUTROPHILS # (AUTO) 11.2 10^3/uL (1.8-7.8); NEUTROPHILS % (AUTO) 93 % (42-75); PLATELET COUNT 367 10^3/uL (130-400)
[2019-12-24 04:14] LABS: CHLORIDE 90 MMOL/L (98-107); POTASSIUM 4.6 MMOL/L (3.6-5.0); SODIUM 135 MMOL/L (135-145)
[2019-12-24 04:15] LABS: CALCIUM 8.7 MG/DL (8.5-10.1)
[2019-12-24 04:16] LABS: GLUCOSE 154 MG/DL (70-105); TOTAL PROTEIN 6.2 GM/DL (6.4-8.2)
[2019-12-24 04:17] LABS: CARBON DIOXIDE 34 MMOL/L (21-32)
[2019-12-24 04:18] LABS: BILIRUBIN,TOTAL 0.5 MG/DL (0.1-1.0)
[2019-12-24 04:19] LABS: ALKALINE PHOSPHATASE 121 U/L (40-136); PHOSPHORUS 3.9 MG/DL (2.3-4.7)
[2019-12-24 04:20] LABS: CREATININE SERUM 0.83 MG/DL (0.60-1.30); GFR ESTIMATED > 60
[2019-12-24 04:21] LABS: BUN/CREATININE RATIO 52
[2019-12-24 04:23] LABS: ALANINE AMINOTRANSFERASE 127 U/L (0-55)
[2019-12-24] MEDS: ENOXAPARIN 60 MG/0.6 ML (LOVENOX) SYR SC SCH ×2 (08:21→20:04)
[2019-12-24] MEDS: dexAMETHasone INJECTION 15 MG in NS (IVPB) 50 ML IV SCH (08:21)
[2019-12-24] MEDS: PANTOPRAZOLE 40 MG (PROTONIX) VIAL IV SCH (08:21)
[2019-12-24] MEDS: FUROSEMIDE 40 MG/4 ML INJ (LASIX) IVP SCH (08:21)
[2019-12-24] MEDS: cefTRIAXone FOR IV USE 1,000 MG in WATER (STERILE) FOR INJECTION 10 ML IV SCH (08:22)
[2019-12-24] MEDS: ATENOLOL 25 MG (TENORMIN) TAB PO SCH (08:30)
[2019-12-24] MEDS: MULTIVIT W/MINERALS TAB (THERAGRAN M) PO SCH (12:36)
[2019-12-24] MEDS: ASPIRIN E.C. 81 MG (ECOTRIN) TAB PO SCH (20:04)
[2019-12-25] VITALS (20 sets, daily range): BP systolic 117–175; BP diastolic 53–81
[2019-12-25] MEDS: RT-ALBUTEROL INHALER HFA (VENTOLIN HFA) 18 GM IH SCH ×6 (02:23→22:45)
[2019-12-25 03:26] LABS: BASOPHILS % (AUTO) 0 % (0-10); EOSINOPHILS % (AUTO) 0 % (0-10); HEMATOCRIT 34 % (35-52); HEMOGLOBIN 11.2 g/dL (11.5-16.0); LYMPHOCYTES # (AUTO) 0.5 10^3/uL (1.0-4.0); LYMPHOCYTES % (AUTO) 4 % (12-44); MEAN CORPUSCULAR HEMOGLOBIN 28 pg (25-34); MEAN CORPUSCULAR HGB CONC 33 g/dL (32-36); MEAN CORPUSCULAR VOLUME 86 fL (80-99); MEAN PLATELET VOLUME 10.5 fL (9.0-12.2); MONOCYTES # (AUTO) 0.3 10^3/uL (0.0-1.0); MONOCYTES % (AUTO) 3 % (0-12); NEUTROPHILS # (AUTO) 11.5 10^3/uL (1.8-7.8); NEUTROPHILS % (AUTO) 92 % (42-75); PLATELET COUNT 348 10^3/uL (130-400); WHITE BLOOD COUNT 12.5 10^3/uL (4.3-11.0)
[2019-12-25 03:38] LABS: ALBUMIN 2.9 GM/DL (3.2-4.5); CHLORIDE 89 MMOL/L (98-107); POTASSIUM 4.1 MMOL/L (3.6-5.0); SODIUM 135 MMOL/L (135-145)
[2019-12-25 03:39] LABS: CALCIUM 8.4 MG/DL (8.5-10.1)
[2019-12-25 03:40] LABS: GLUCOSE 143 MG/DL (70-105)
[2019-12-25 03:41] LABS: CARBON DIOXIDE 33 MMOL/L (21-32)
[2019-12-25 03:42] LABS: BILIRUBIN,TOTAL 0.5 MG/DL (0.1-1.0)
[2019-12-25 03:44] LABS: ALKALINE PHOSPHATASE 101 U/L (40-136); CREATININE SERUM 0.82 MG/DL (0.60-1.30); GFR ESTIMATED > 60; PHOSPHORUS 3.2 MG/DL (2.3-4.7)
[2019-12-25 03:45] LABS: BUN/CREATININE RATIO 50
[2019-12-25 03:47] LABS: ALANINE AMINOTRANSFERASE 122 U/L (0-55); MAGNESIUM 1.8 MG/DL (1.6-2.4)
[2019-12-25] MEDS: POTASSIUM CL 10MEQ/50ML IVPB 50 ML IV SCH (04:07)
[2019-12-25] MEDS: KCL 20 MEQ TAB (K-DUR) PO SCH (04:08)
[2019-12-25] MEDS: MAGNESIUM 1 GM/100 ML IVPB 100 ML IV SCH (04:08)
--- NOTE | 2019-12-25 05:08 | Pulmonary Progress Note ---
Subjective Date Seen by a Provider: Dec 24, 2019 Time Seen by a Provider: 05:08 Sepsis Event Evaluation Height, Weight, BMI Height: 5'1.00" Weight: 148lbs. 0.0oz. 67.014021tr; 26.05 BMI Method: Focused Exam Time of Focused Exam: 06:10 Exam Exam Vital Signs Date Time Temp Pulse Resp B/P (MAP) Pulse Ox O2 Delivery O2 Flow Rate FiO2 12/25/19 04:00 55 17 147/53 (84) 97 Vapotherm 25.00 45.00 12/25/19 03:00 58 16 152/65 (94) 97 Vapotherm 25.00 45.00 12/25/19 02:30 Vapotherm 25.00 45.00 12/25/19 02:23 100 Vapotherm 25.00 50 12/25/19 02:00 65 23 168/72 (104) 100 Vapotherm 25.00 45.00 12/25/19 01:00 63 21 148/57 (87) 97 Vapotherm 25.00 45.00 12/25/19 01:00 68 12/25/19 00:00 59 15 136/54 (81) 99 Vapotherm 25.00 45.00 12/24/19 23:00 56 15 127/53 (77) 100 Vapotherm 25.00 45.00 12/24/19 22:13 Vapotherm 30.00 55.00 12/24/19 22:05 100 Vapotherm 25.00 45 12/24/19 22:00 61 20 132/58 (82) 97 Vapotherm 25.00 45.00 12/24/19 21:00 56 13 129/50 (76) 93 Vapotherm 25.00 45.00 12/24/19 21:00 94 Vapotherm 35.00 75 12/24/19 20:00 36.4 12/24/19 20:00 55 17 145/58 (87) 100 Vapotherm 25.00 45.00 12/24/19 19:02 100 Vapotherm 35.00 60 12/24/19 19:00 60 19 100 Vapotherm 25.00 45.00 12/24/19 19:00 70 12/24/19 18:00 64 149/62 (91) 100 NIV Bilevel 75.00 12/24/19 18:00 36.1 66 143/66 (91) Vapotherm 35.00 60.00 12/24/19 17:00 55 143/54 (83) 100 NIV Bilevel 75.00 12/24/19 16:10 36.2 64 24 129/73 (91) NIV Bilevel 75.00 12/24/19 16:00 36.7 12/24/19 15:04 100 Vapotherm 35.00 60 12/24/19 15:00 57 17 137/53 (81) 100 Vapotherm 25.00 45.00 12/24/19 14:00 62 20 144/58 (86) 100 Vapotherm 25.00 45.00 12/24/19 13:00 70 21 143/87 (105) 97 Vapotherm 25.00 45.00 12/24/19 12:42 68 12/24/19 12:00 59 15 121/49 (73) 100 Vapotherm 25.00 45.00 12/24/19 11:00 62 19 122/51 (74) 100 Vapotherm 25.00 45.00 12/24/19 10:47 Vapotherm 12/24/19 10:37 100 Vapotherm 35.00 80 12/24/19 10:00 74 19 116/46 (69) 100 Vapotherm 25.00 45.00 12/24/19 09:00 36.1 Vapotherm 25.00 45.00 12/24/19 09:00 94 Vapotherm 25.00 45 12/24/19 08:00 66 27 148/60 (89) 96 Vapotherm 25.00 45.00 12/24/19 07:28 35.9 12/24/19 07:00 54 132/55 (80) 95 Vapotherm 25.00 45.00 12/24/19 07:00 60 12/24/19 06:00 52 22 137/62 (87) 97 Vapotherm 25.00 45.00 I & O 12/25/19 07:00 Intake Total 600 ml Output Total 750 ml Balance -150 ml Height & Weight Height: 5'1.00" Weight: 148lbs. 0.0oz. 67.440278hy; 26.05 BMI Method: General Appearance: WD/WN, Anxious HEENT: PERRL/EOMI, Moist Mucous Membranes Neck: Full Range of Motion, Normal Inspection Respiratory: Lungs Clear, Normal Breath Sounds, No Respiratory Distress Cardiovascular: Regular Rate, Rhythm, No Edema, No Murmur Capillary Refill: Less Than 3 Seconds Peripheral Pulses: 2+ Radial Pulses (R), 2+ Radial Pulses (L) Extremity: Normal Inspection, Non Tender, No Pedal Edema Neurologic/Psychiatric: Alert, Oriented x3, No Motor/Sensory Deficits, Normal Mood/Affect Skin: Normal Color, Warm/Dry Results Lab Laboratory Tests 12/23/19 05:52 12/24/19 03:25 12/25/19 03:02 EVELYN CRAWFORD DO Dec 25, 2019 05:08
--- NOTE | 2019-12-25 05:09 | Pulmonary Progress Note ---
Subjective Date Seen by a Provider: Dec 25, 2019 Time Seen by a Provider: 05:08 Sepsis Event Evaluation Height, Weight, BMI Height: 5'1.00" Weight: 148lbs. 0.0oz. [id number]; 26.05 BMI Method: Focused Exam Time of Focused Exam: 06:10 Exam Exam Vital Signs Date Time Temp Pulse Resp B/P (MAP) Pulse Ox O2 Delivery O2 Flow Rate FiO2 12/25/19 04:00 55 17 147/53 (84) 97 Vapotherm 25.00 45.00 12/25/19 03:00 58 16 152/65 (94) 97 Vapotherm 25.00 45.00 12/25/19 02:30 Vapotherm 25.00 45.00 12/25/19 02:23 100 Vapotherm 25.00 50 12/25/19 02:00 65 23 168/72 (104) 100 Vapotherm 25.00 45.00 12/25/19 01:00 63 21 148/57 (87) 97 Vapotherm 25.00 45.00 12/25/19 01:00 68 12/25/19 00:00 59 15 136/54 (81) 99 Vapotherm 25.00 45.00 12/24/19 23:00 56 15 127/53 (77) 100 Vapotherm 25.00 45.00 12/24/19 22:13 Vapotherm 30.00 55.00 12/24/19 22:05 100 Vapotherm 25.00 45 12/24/19 22:00 61 20 132/58 (82) 97 Vapotherm 25.00 45.00 12/24/19 21:00 56 13 129/50 (76) 93 Vapotherm 25.00 45.00 12/24/19 21:00 94 Vapotherm 35.00 75 12/24/19 20:00 36.4 12/24/19 20:00 55 17 145/58 (87) 100 Vapotherm 25.00 45.00 12/24/19 19:02 100 Vapotherm 35.00 60 12/24/19 19:00 60 19 100 Vapotherm 25.00 45.00 12/24/19 19:00 70 12/24/19 18:00 64 149/62 (91) 100 NIV Bilevel 75.00 12/24/19 18:00 36.1 66 143/66 (91) Vapotherm 35.00 60.00 12/24/19 17:00 55 143/54 (83) 100 NIV Bilevel 75.00 12/24/19 16:10 36.2 64 24 129/73 (91) NIV Bilevel 75.00 12/24/19 16:00 36.7 12/24/19 15:04 100 Vapotherm 35.00 60 12/24/19 15:00 57 17 137/53 (81) 100 Vapotherm 25.00 45.00 12/24/19 14:00 62 20 144/58 (86) 100 Vapotherm 25.00 45.00 12/24/19 13:00 70 21 143/87 (105) 97 Vapotherm 25.00 45.00 12/24/19 12:42 68 12/24/19 12:00 59 15 121/49 (73) 100 Vapotherm 25.00 45.00 12/24/19 11:00 62 19 122/51 (74) 100 Vapotherm 25.00 45.00 12/24/19 10:47 Vapotherm 12/24/19 10:37 100 Vapotherm 35.00 80 12/24/19 10:00 74 19 116/46 (69) 100 Vapotherm 25.00 45.00 12/24/19 09:00 36.1 Vapotherm 25.00 45.00 12/24/19 09:00 94 Vapotherm 25.00 45 12/24/19 08:00 66 27 148/60 (89) 96 Vapotherm 25.00 45.00 12/24/19 07:28 35.9 12/24/19 07:00 54 132/55 (80) 95 Vapotherm 25.00 45.00 12/24/19 07:00 60 12/24/19 06:00 52 22 137/62 (87) 97 Vapotherm 25.00 45.00 I & O 12/25/19 07:00 Intake Total 600 ml Output Total 750 ml Balance -150 ml Height & Weight Height: 5'1.00" Weight: 148lbs. 0.0oz. [id number]; 26.05 BMI Method: General Appearance: WD/WN, Anxious HEENT: PERRL/EOMI, Moist Mucous Membranes Neck: Full Range of Motion, Normal Inspection Respiratory: Lungs Clear, Normal Breath Sounds, No Respiratory Distress Cardiovascular: Regular Rate, Rhythm, No Edema, No Murmur Capillary Refill: Less Than 3 Seconds Peripheral Pulses: 2+ Radial Pulses (R), 2+ Radial Pulses (L) Extremity: Normal Inspection, Non Tender, No Pedal Edema Neurologic/Psychiatric: Alert, Oriented x3, No Motor/Sensory Deficits, Normal Mood/Affect Skin: Normal Color, Warm/Dry Results Lab Laboratory Tests 12/23/19 05:52 12/24/19 03:25 12/25/19 03:02 Assessment/Plan Assessment/Plan COVID19 with hypoxemia -Vapotherm 70% currently -S/p Convalescent plasma 2 units -Decadron 15mg Daily -awake proning -Give 40 daily -Outside of window for remdesivir PNA -Currently on Rocephin -repeat PCT -Cultures are negative thus far -Repeat UA and landers cultures -check urine and strep legionella ag HTN EVELYN CRAWFORD DO Dec 25, 2019 05:09
[2019-12-25] MEDS: dexAMETHasone INJECTION 15 MG in NS (IVPB) 50 ML IV SCH (08:31)
[2019-12-25] MEDS: ENOXAPARIN 60 MG/0.6 ML (LOVENOX) SYR SC SCH ×2 (08:32→20:35)
[2019-12-25] MEDS: MULTIVIT W/MINERALS TAB (THERAGRAN M) PO SCH (08:33)
[2019-12-25] MEDS: FUROSEMIDE 40 MG/4 ML INJ (LASIX) IVP SCH (08:33)
[2019-12-25] MEDS: PANTOPRAZOLE 40 MG (PROTONIX) TAB PO SCH (08:34)
[2019-12-25] MEDS: ATENOLOL 25 MG (TENORMIN) TAB PO SCH (08:36)
[2019-12-25] MEDS ORDERED: cefTRIAXone 1,000 MG/SWFI 10 ML IV PUSH IV SCH ×2 (09:00)
[2019-12-25] MEDS ORDERED: KCL 20 MEQ TAB (K-DUR) PO ONE (09:00)
--- NOTE | 2019-12-25 09:13 | Diagnostic Imaging Report ---
Indication: Dyspnea. Comparison: 12/17/2019. Discussion: Single portable upright view of the chest was obtained. Cardiomegaly is stable. Infiltrates are slightly decreased though still remain severe. No pleural fluid or pneumothorax. No osseous abnormality. Impression: 1. Cardiomegaly with severe pulmonary infiltrates, edema versus pneumonia. Infiltrates are slightly decreased from the prior exam. Dictated by: Dictated on workstation # [id number]
--- NOTE | 2019-12-25 17:40 | NUR ---
PT TO ROOM 433 FROM ICU, RESTING COMFORTABLY IN BED. VAPOTHERM IN PLACE
[2019-12-25] MEDS: ASPIRIN E.C. 81 MG (ECOTRIN) TAB PO SCH (20:35)
[2019-12-25] MEDS ORDERED: hydrALAZINE (APRESOLINE) 25 MG TAB PO PRN (21:30)
--- NOTE | 2019-12-25 21:30 | NUR ---
Notified Dr. Jameson that pt blood pressure is 175/72. Received orders for oral Hyrdralazine 25mg q8H for SBP >160. Will follow order.
[2019-12-26] VITALS (7 sets, daily range): BP systolic 128–170; BP diastolic 61–77
[2019-12-26] MEDS: RT-ALBUTEROL INHALER HFA (VENTOLIN HFA) 18 GM IH SCH ×6 (03:03→21:25)
[2019-12-26 06:09] LABS: BASOPHILS % (AUTO) 0 % (0-10); EOSINOPHILS % (AUTO) 0 % (0-10); HEMATOCRIT 36 % (35-52); HEMOGLOBIN 11.7 g/dL (11.5-16.0); LYMPHOCYTES # (AUTO) 0.6 10^3/uL (1.0-4.0); LYMPHOCYTES % (AUTO) 5 % (12-44); MEAN CORPUSCULAR HEMOGLOBIN 28 pg (25-34); MEAN CORPUSCULAR HGB CONC 33 g/dL (32-36); MEAN CORPUSCULAR VOLUME 86 fL (80-99); MEAN PLATELET VOLUME 10.3 fL (9.0-12.2); MONOCYTES # (AUTO) 0.2 10^3/uL (0.0-1.0); MONOCYTES % (AUTO) 2 % (0-12); NEUTROPHILS % (AUTO) 92 % (42-75); PLATELET COUNT 378 10^3/uL (130-400); WHITE BLOOD COUNT 11.9 10^3/uL (4.3-11.0)
[2019-12-26] MEDS: MULTIVIT W/MINERALS TAB (THERAGRAN M) PO SCH (06:14)
[2019-12-26 06:44] LABS: ALANINE AMINOTRANSFERASE 101 U/L (0-55); ALBUMIN 2.9 GM/DL (3.2-4.5); ALKALINE PHOSPHATASE 94 U/L (40-136); BILIRUBIN,TOTAL 0.5 MG/DL (0.1-1.0); BUN/CREATININE RATIO 42; CALCIUM 8.6 MG/DL (8.5-10.1); CARBON DIOXIDE 33 MMOL/L (21-32); CHLORIDE 91 MMOL/L (98-107); CREATININE SERUM 0.84 MG/DL (0.60-1.30); GFR ESTIMATED > 60; GLUCOSE 163 MG/DL (70-105); POTASSIUM 4.8 MMOL/L (3.6-5.0); SODIUM 135 MMOL/L (135-145); TOTAL PROTEIN 6.2 GM/DL (6.4-8.2)
[2019-12-26] MEDS: cefTRIAXone 1,000 MG/SWFI 10 ML IV PUSH IV SCH ×2 (09:36)
[2019-12-26] MEDS: PANTOPRAZOLE 40 MG (PROTONIX) TAB PO SCH (09:38)
[2019-12-26] MEDS: ENOXAPARIN 60 MG/0.6 ML (LOVENOX) SYR SC SCH ×2 (09:38→20:46)
[2019-12-26] MEDS: ATENOLOL 25 MG (TENORMIN) TAB PO SCH (09:38)
[2019-12-26] MEDS: FUROSEMIDE 40 MG/4 ML INJ (LASIX) IVP SCH (09:38)
[2019-12-26] MEDS: dexAMETHasone INJECTION 15 MG in NS (IVPB) 50 ML IV SCH (09:39)
--- NOTE | 2019-12-26 13:44 | Progress Note - Hospitalist ---
Subjective HPI/CC On Admission Date Seen by Provider: Dec 26, 2019 Time Seen by Provider: 11:55 Pt is an 89yoCF with a PMH of HTN, HLD who presented to the ER due to hypoxia and fever. She states her symptoms started on 11/30 and she was tested for COVID and was positive. She had been monitoring her oxygen at home and it dropped to 83% last night prompting her to seek evaluation in the ER. She states her temperature went up to 102 as well. She required oxygen in the ER to maintain oxygen saturations. She reports she is feeling well this afternoon and has no complaints. Subjective/Events-last exam She reports feeling better. She is proning. She says she doesn't like to do it, but it helps with her oxygen. Focused Exam Time of Focused Exam: 06:10 Objective Exam Vital Signs Vital Signs Date Time Temp Pulse Resp B/P (MAP) Pulse Ox O2 Delivery O2 Flow Rate FiO2 12/26/19 12:00 35.6 64 22 152/66 (94) 90 Vapotherm 20.00 60.00 12/26/19 11:16 60 Capillary Refill : Less Than 3 SecondsLess Than 3 Seconds General Appearance: No Apparent Distress, WD/WN Respiratory: Lungs Clear, Normal Breath Sounds, No Respiratory Distress Cardiovascular: Regular Rate, Rhythm, No Edema, No Murmur Gastrointestinal: Normal Bowel Sounds, Non Tender, Soft Extremity: Normal Inspection, Non Tender, No Pedal Edema Neurologic/Psychiatric: Alert, Oriented x3, No Motor/Sensory Deficits, Normal Mood/Affect Skin: Normal Color, Warm/Dry Results/Procedures Lab Laboratory Tests 12/26/19 06:00 Patient resulted labs reviewed. Imaging: Reviewed Imaging Report Assessment/Plan Assessment and Plan Assess & Plan/Chief Complaint Acute respiratory failure due to COVID-19 PNA Decadron, decrease to 10 mg daily s/p 2 units convalescent plasma Outside of window for remdesivir Continue proning as tolerated Lovenox therapeutic Continue Rocephin HTN HLD Continue home meds Oral hydralazine as needed for BP DVT ppx: Lovenox Diagnosis/Problems Diagnosis/Problems (1) Acute respiratory failure due to COVID-19 Status: Acute (2) PNA (pneumonia) Status: Acute Clinical Quality Measures DVT/VTE Risk/Contraindication: Risk Factor Score Per Nursin RFS Level Per Nursing on Admit: 4+=Very High IRAIDA,CLARENCE M MD Dec 26, 2019 13:44
[2019-12-26] MEDS: ASPIRIN E.C. 81 MG (ECOTRIN) TAB PO SCH (20:46)
[2019-12-27] VITALS (7 sets, daily range): BP systolic 139–173; BP diastolic 63–78
[2019-12-27] MEDS: RT-ALBUTEROL INHALER HFA (VENTOLIN HFA) 18 GM IH SCH ×6 (02:39→21:26)
[2019-12-27] MEDS: MULTIVIT W/MINERALS TAB (THERAGRAN M) PO SCH (06:10)
[2019-12-27 06:20] LABS: BASOPHILS % (AUTO) 0 % (0-10); EOSINOPHILS # (AUTO) 0.2 10^3/uL (0.0-0.3); EOSINOPHILS % (AUTO) 2 % (0-10); HEMATOCRIT 35 % (35-52); HEMOGLOBIN 11.5 g/dL (11.5-16.0); LYMPHOCYTES # (AUTO) 0.8 10^3/uL (1.0-4.0); LYMPHOCYTES % (AUTO) 7 % (12-44); MEAN CORPUSCULAR HEMOGLOBIN 28 pg (25-34); MEAN CORPUSCULAR HGB CONC 33 g/dL (32-36); MEAN CORPUSCULAR VOLUME 85 fL (80-99); MEAN PLATELET VOLUME 10.3 fL (9.0-12.2); MONOCYTES # (AUTO) 0.3 10^3/uL (0.0-1.0); MONOCYTES % (AUTO) 3 % (0-12); NEUTROPHILS # (AUTO) 9.8 10^3/uL (1.8-7.8); NEUTROPHILS % (AUTO) 87 % (42-75); PLATELET COUNT 367 10^3/uL (130-400); WHITE BLOOD COUNT 11.2 10^3/uL (4.3-11.0)
[2019-12-27 06:26] LABS: CHLORIDE 90 MMOL/L (98-107); POTASSIUM 4.3 MMOL/L (3.6-5.0); SODIUM 135 MMOL/L (135-145)
[2019-12-27 06:27] LABS: CALCIUM 8.4 MG/DL (8.5-10.1)
[2019-12-27 06:28] LABS: GLUCOSE 116 MG/DL (70-105)
[2019-12-27 06:29] LABS: CARBON DIOXIDE 35 MMOL/L (21-32)
[2019-12-27 06:30] LABS: BILIRUBIN,TOTAL 0.6 MG/DL (0.1-1.0)
[2019-12-27 06:31] LABS: ALKALINE PHOSPHATASE 83 U/L (40-136)
[2019-12-27 06:32] LABS: CREATININE SERUM 0.84 MG/DL (0.60-1.30); GFR ESTIMATED > 60
[2019-12-27 06:33] LABS: BUN/CREATININE RATIO 43
[2019-12-27 06:34] LABS: ALANINE AMINOTRANSFERASE 91 U/L (0-55)
[2019-12-27] MEDS: ATENOLOL 25 MG (TENORMIN) TAB PO SCH (08:33)
[2019-12-27] MEDS: ENOXAPARIN 60 MG/0.6 ML (LOVENOX) SYR SC SCH ×2 (08:33→20:20)
[2019-12-27] MEDS: cefTRIAXone 1,000 MG/SWFI 10 ML IV PUSH IV SCH ×2 (08:33)
[2019-12-27] MEDS: PANTOPRAZOLE 40 MG (PROTONIX) TAB PO SCH (08:33)
[2019-12-27] MEDS: FUROSEMIDE 40 MG/4 ML INJ (LASIX) IVP SCH (08:33)
--- NOTE | 2019-12-27 11:56 | Progress Note - Hospitalist ---
Subjective HPI/CC On Admission Date Seen by Provider: Dec 27, 2019 Time Seen by Provider: 11:50 Pt is an 89yoCF with a PMH of HTN, HLD who presented to the ER due to hypoxia and fever. She states her symptoms started on 11/30 and she was tested for COVID and was positive. She had been monitoring her oxygen at home and it dropped to 83% last night prompting her to seek evaluation in the ER. She states her temperature went up to 102 as well. She required oxygen in the ER to maintain oxygen saturations. She reports she is feeling well this afternoon and has no complaints. Subjective/Events-last exam Pt reports feeling better. Still laying prone. No complaints. Apparently is allowed to visit and she is looking forward to that today. Focused Exam Time of Focused Exam: 06:10 Objective Exam Vital Signs Vital Signs Date Time Temp Pulse Resp B/P (MAP) Pulse Ox O2 Delivery O2 Flow Rate FiO2 12/27/19 11:44 36.2 71 20 145/67 (93) 96 Vapotherm 20.00 60.00 12/27/19 11:14 60 Capillary Refill : Less Than 3 SecondsLess Than 3 Seconds General Appearance: No Apparent Distress, Chronically ill Respiratory: Lungs Clear, No Accessory Muscle Use, Other (laying prone, on Vapotherm) Cardiovascular: Regular Rate, Rhythm, No Murmur Neurologic/Psychiatric: Alert, Oriented x3 Results/Procedures Lab Laboratory Tests 12/27/19 06:00 Patient resulted labs reviewed. Imaging: Reviewed Imaging Report Assessment/Plan Assessment and Plan Assess & Plan/Chief Complaint Acute respiratory failure due to COVID-19 PNA Decadron, on 10 mg daily s/p 2 units convalescent plasma Outside of window for remdesivir Continue proning as tolerated Lovenox therapeutic Continue Rocephin day 2/4 HTN HLD Continue home meds Oral hydralazine as needed for BP DVT ppx: Lovenox Diagnosis/Problems Diagnosis/Problems (1) Pneumonia Status: Acute Qualifiers: Pneumonia type: due to unspecified organism Laterality: bilateral Lung location: unspecified part of lung Qualified Codes: J18.9 - Pneumonia, unspecified organism (2) COVID-19 Status: Acute (3) Acute respiratory failure with hypoxia Status: Acute (4) Sepsis Status: Acute Qualifiers: Sepsis type: sepsis due to unspecified organism Sepsis acute organ dysfunction status: with acute organ dysfunction Severe sepsis acute organ dysfunction type: acute respiratory failure Acute respiratory failure type: with hypoxia Severe sepsis shock status: without septic shock Qualified Codes: A41.9 - Sepsis, unspecified organism; R65.20 - Severe sepsis without septic shock; J96.01 - Acute respiratory failure with hypoxia Clinical Quality Measures DVT/VTE Risk/Contraindication: Risk Factor Score Per Nursin RFS Level Per Nursing on Admit: 4+=Very High CARLOS BRUNSON MD Dec 27, 2019 11:56
--- NOTE | 2019-12-27 14:08 | NUR ---
"RD ASSESSMENT PMHx: HTN; HLD; CA(melanoma) PT INTERACTION: Note pt currently in COVID isolation. Note attempt to complete nutrition over phone, but pt did not answer. Note all diet information gathered for nutrition follow-up is per chart review. Note avg PO intake 55% x4d. Note last BM was 12/20, and pt not currently on bowel regimen. Note recent 7# wt gain x1w. ABNORMAL NUTRITION-RELATED LAB VALUES LOW: Cl 90; Pro 6.0; alb 3.0 HIGH: BUN 36; glu 116; AST 45; ALT 91 Est. kcal needs: 1350 kcal | 20 kcal/kg Est. Pro needs: 54 g Pro | 0.8 g Pro/kg PES STATEMENT: Inadequate oral intake (NI-2.1) related to loss of appetite as evidenced by chart review | avg PO intake 55% x4d INTERVENTION: Continue with current diet order of 2000mg Na diet. Continue with current supplementation order of Ensure Enlive with meals TID, for increased kcal intake. Provides 350 kcal and 20 g Pro per serving. Would encourage pt to eat when able. Pt may benefit from bowel regimen if constipation persists. Will continue to follow and reassess as pt needs, intake, and status change. Jessica Petit, MS RD LD"
[2019-12-27] MEDS: ASPIRIN E.C. 81 MG (ECOTRIN) TAB PO SCH (20:19)
[2019-12-28] MEDS: RT-ALBUTEROL INHALER HFA (VENTOLIN HFA) 18 GM IH SCH ×6 (02:08→21:35)
[2019-12-28 04:03] VITALS: BP 150/68
[2019-12-28 04:58] LABS: BASOPHILS % (AUTO) 0 % (0-10); EOSINOPHILS # (AUTO) 0.3 10^3/uL (0.0-0.3); EOSINOPHILS % (AUTO) 3 % (0-10); HEMATOCRIT 34 % (35-52); HEMOGLOBIN 11.1 g/dL (11.5-16.0); LYMPHOCYTES # (AUTO) 0.8 10^3/uL (1.0-4.0); LYMPHOCYTES % (AUTO) 8 % (12-44); MEAN CORPUSCULAR HEMOGLOBIN 29 pg (25-34); MEAN CORPUSCULAR HGB CONC 33 g/dL (32-36); MEAN CORPUSCULAR VOLUME 86 fL (80-99); MEAN PLATELET VOLUME 10.7 fL (9.0-12.2); MONOCYTES # (AUTO) 0.4 10^3/uL (0.0-1.0); MONOCYTES % (AUTO) 4 % (0-12); NEUTROPHILS % (AUTO) 85 % (42-75); PLATELET COUNT 376 10^3/uL (130-400); WHITE BLOOD COUNT 10.7 10^3/uL (4.3-11.0)
[2019-12-28 05:21] LABS: ALBUMIN 2.9 GM/DL (3.2-4.5); CHLORIDE 88 MMOL/L (98-107); SODIUM 134 MMOL/L (135-145)
[2019-12-28 05:23] LABS: CALCIUM 8.3 MG/DL (8.5-10.1)
[2019-12-28 05:24] LABS: GLUCOSE 123 MG/DL (70-105); TOTAL PROTEIN 5.7 GM/DL (6.4-8.2)
[2019-12-28 05:25] LABS: CARBON DIOXIDE 33 MMOL/L (21-32)
[2019-12-28 05:26] LABS: BILIRUBIN,TOTAL 0.6 MG/DL (0.1-1.0)
[2019-12-28 05:27] LABS: ALKALINE PHOSPHATASE 70 U/L (40-136)
[2019-12-28 05:28] LABS: CREATININE SERUM 0.83 MG/DL (0.60-1.30); GFR ESTIMATED > 60
[2019-12-28 05:29] LABS: BUN/CREATININE RATIO 40
[2019-12-28 05:31] LABS: ALANINE AMINOTRANSFERASE 93 U/L (0-55)
[2019-12-28] MEDS: MULTIVIT W/MINERALS TAB (THERAGRAN M) PO SCH (05:52)
[2019-12-28 08:00] VITALS: BP 134/63
[2019-12-28] MEDS: cefTRIAXone 1,000 MG/SWFI 10 ML IV PUSH IV SCH ×2 (09:12)
[2019-12-28] MEDS: FUROSEMIDE 40 MG/4 ML INJ (LASIX) IVP SCH (09:13)
[2019-12-28] MEDS: ENOXAPARIN 60 MG/0.6 ML (LOVENOX) SYR SC SCH ×2 (09:13→21:08)
[2019-12-28] MEDS: ATENOLOL 25 MG (TENORMIN) TAB PO SCH (09:13)
[2019-12-28] MEDS: PANTOPRAZOLE 40 MG (PROTONIX) TAB PO SCH (09:13)
--- NOTE | 2019-12-28 11:46 | Progress Note - Hospitalist ---
Subjective HPI/CC On Admission Date Seen by Provider: Dec 28, 2019 Time Seen by Provider: 11:43 Pt is an 89yoCF with a PMH of HTN, HLD who presented to the ER due to hypoxia and fever. She states her symptoms started on 11/30 and she was tested for COVID and was positive. She had been monitoring her oxygen at home and it dropped to 83% last night prompting her to seek evaluation in the ER. She states her temperature went up to 102 as well. She required oxygen in the ER to maintain oxygen saturations. She reports she is feeling well this afternoon and has no complaints. Subjective/Events-last exam Pt reports feeling well today. laying prone still but on 10lpm HFNC. Focused Exam Time of Focused Exam: 06:10 Objective Exam Vital Signs Vital Signs Date Time Temp Pulse Resp B/P (MAP) Pulse Ox O2 Delivery O2 Flow Rate FiO2 12/28/19 11:06 95 High Flow N/C 8.00 12/28/19 08:00 35.6 71 20 134/63 (86) 12/27/19 18:28 3 Capillary Refill : Less Than 3 SecondsLess Than 3 Seconds General Appearance: No Apparent Distress, WD/WN Respiratory: Lungs Clear, No Accessory Muscle Use Cardiovascular: Regular Rate, Rhythm, No Murmur Gastrointestinal: Normal Bowel Sounds, Non Tender, Soft Neurologic/Psychiatric: Alert, Oriented x3 Results/Procedures Lab Laboratory Tests 12/28/19 03:57 Patient resulted labs reviewed. Imaging: Reviewed Imaging Report Assessment/Plan Assessment and Plan Assess & Plan/Chief Complaint Acute respiratory failure due to COVID-19 PNA Decadron, switch to oral 6mg today s/p 2 units convalescent plasma Outside of window for remdesivir Continue proning as tolerated Lovenox therapeutic Continue Rocephin day 3/4 HTN HLD Continue home meds Oral hydralazine as needed for BP DVT ppx: Lovenox Diagnosis/Problems Diagnosis/Problems (1) Pneumonia Status: Acute Qualifiers: Pneumonia type: due to unspecified organism Laterality: bilateral Lung location: unspecified part of lung Qualified Codes: J18.9 - Pneumonia, unspecified organism (2) COVID-19 Status: Acute (3) Acute respiratory failure with hypoxia Status: Acute (4) Sepsis Status: Acute Qualifiers: Sepsis type: sepsis due to unspecified organism Sepsis acute organ dysfunction status: with acute organ dysfunction Severe sepsis acute organ dysfunction type: acute respiratory failure Acute respiratory failure type: with hypoxia Severe sepsis shock status: without septic shock Qualified Codes: A41.9 - Sepsis, unspecified organism; R65.20 - Severe sepsis without septic shock; J96.01 - Acute respiratory failure with hypoxia Clinical Quality Measures DVT/VTE Risk/Contraindication: Risk Factor Score Per Nursin RFS Level Per Nursing on Admit: 4+=Very High CARLOS BRUNSON MD Dec 28, 2019 11:46
[2019-12-28 12:00] VITALS: BP 142/69
[2019-12-28 16:00] VITALS: BP 125/60
[2019-12-28 20:00] VITALS: BP 133/63
[2019-12-28] MEDS: ASPIRIN E.C. 81 MG (ECOTRIN) TAB PO SCH (21:08)
[2019-12-29 00:25] VITALS: BP 139/68
[2019-12-29] MEDS: RT-ALBUTEROL INHALER HFA (VENTOLIN HFA) 18 GM IH SCH ×5 (02:37→23:03)
[2019-12-29 04:48] LABS: BASOPHILS % (AUTO) 0 % (0-10); EOSINOPHILS # (AUTO) 0.1 10^3/uL (0.0-0.3); EOSINOPHILS % (AUTO) 1 % (0-10); HEMATOCRIT 32 % (35-52); HEMOGLOBIN 10.7 g/dL (11.5-16.0); LYMPHOCYTES % (AUTO) 9 % (12-44); MEAN CORPUSCULAR HEMOGLOBIN 28 pg (25-34); MEAN CORPUSCULAR HGB CONC 34 g/dL (32-36); MEAN CORPUSCULAR VOLUME 85 fL (80-99); MEAN PLATELET VOLUME 10.4 fL (9.0-12.2); MONOCYTES # (AUTO) 0.6 10^3/uL (0.0-1.0); MONOCYTES % (AUTO) 5 % (0-12); NEUTROPHILS # (AUTO) 9.8 10^3/uL (1.8-7.8); NEUTROPHILS % (AUTO) 84 % (42-75); PLATELET COUNT 384 10^3/uL (130-400); WHITE BLOOD COUNT 11.6 10^3/uL (4.3-11.0)
[2019-12-29 04:49] VITALS: BP 145/66
[2019-12-29 05:29] LABS: CHLORIDE 86 MMOL/L (98-107); SODIUM 130 MMOL/L (135-145)
[2019-12-29 05:30] LABS: CALCIUM 8.3 MG/DL (8.5-10.1)
[2019-12-29 05:31] LABS: GLUCOSE 152 MG/DL (70-105); TOTAL PROTEIN 5.8 GM/DL (6.4-8.2)
[2019-12-29 05:32] LABS: CARBON DIOXIDE 33 MMOL/L (21-32)
[2019-12-29 05:33] LABS: BILIRUBIN,TOTAL 0.5 MG/DL (0.1-1.0)
[2019-12-29 05:35] LABS: ALKALINE PHOSPHATASE 75 U/L (40-136); CREATININE SERUM 0.88 MG/DL (0.60-1.30); GFR ESTIMATED > 60
[2019-12-29 05:36] LABS: BUN/CREATININE RATIO 36
[2019-12-29 05:38] LABS: ALANINE AMINOTRANSFERASE 79 U/L (0-55)
[2019-12-29] MEDS: MULTIVIT W/MINERALS TAB (THERAGRAN M) PO SCH (06:36)
[2019-12-29] MEDS: dexAMETHasone 6 MG TAB (DECADRON) PO SCH (06:36)
[2019-12-29 08:00] VITALS: BP 127/62
[2019-12-29] MEDS: ENOXAPARIN 60 MG/0.6 ML (LOVENOX) SYR SC SCH ×2 (09:45→22:05)
[2019-12-29] MEDS: PANTOPRAZOLE 40 MG (PROTONIX) TAB PO SCH (09:45)
[2019-12-29] MEDS: ATENOLOL 25 MG (TENORMIN) TAB PO SCH (09:45)
[2019-12-29] MEDS: FUROSEMIDE 40 MG/4 ML INJ (LASIX) IVP SCH (09:45)
--- NOTE | 2019-12-29 10:23 | Progress Note - Hospitalist ---
Subjective HPI/CC On Admission Date Seen by Provider: Dec 29, 2019 Time Seen by Provider: 10:21 Pt is an 89yoCF with a PMH of HTN, HLD who presented to the ER due to hypoxia and fever. She states her symptoms started on 11/30 and she was tested for COVID and was positive. She had been monitoring her oxygen at home and it dropped to 83% last night prompting her to seek evaluation in the ER. She states her temperature went up to 102 as well. She required oxygen in the ER to maintain oxygen saturations. She reports she is feeling well this afternoon and has no complaints. Subjective/Events-last exam Pt reports feeling well. Was sitting up to edge of bed to eat breakfast. Sats dropped with this so I personally titrated her oxygen back up to 6lpm to eat with. Focused Exam Time of Focused Exam: 06:10 Objective Exam Vital Signs Vital Signs Date Time Temp Pulse Resp B/P (MAP) Pulse Ox O2 Delivery O2 Flow Rate FiO2 12/29/19 10:00 78 97 High Flow N/C 6.00 12/29/19 08:00 36.2 22 127/62 (83) 12/27/19 18:28 3 Capillary Refill : Less Than 3 SecondsLess Than 3 Seconds General Appearance: No Apparent Distress, WD/WN Respiratory: Lungs Clear, No Accessory Muscle Use Cardiovascular: Regular Rate, Rhythm, No Murmur Back: Other (kyphosis) Neurologic/Psychiatric: Alert, Oriented x3, Normal Mood/Affect Results/Procedures Lab Laboratory Tests 12/29/19 04:24 Patient resulted labs reviewed. Imaging: Reviewed Imaging Report Assessment/Plan Assessment and Plan Assess & Plan/Chief Complaint Acute respiratory failure due to COVID-19 PNA Decadron 6mg orally s/p 2 units convalescent plasma Outside of window for remdesivir Continue proning as tolerated Lovenox therapeutic Continue Rocephin day 4/ Now off Vapotherm and doing well continue to monitor and wean as able PT/OT consulted to work on strengthening, may be a good IRU candidate HTN HLD Continue home meds Oral hydralazine as needed for BP DVT ppx: Lovenox Diagnosis/Problems Diagnosis/Problems (1) Pneumonia Status: Acute Qualifiers: Pneumonia type: due to unspecified organism Laterality: bilateral Lung location: unspecified part of lung Qualified Codes: J18.9 - Pneumonia, unspecified organism (2) COVID-19 Status: Acute (3) Acute respiratory failure with hypoxia Status: Acute (4) Sepsis Status: Acute Qualifiers: Sepsis type: sepsis due to unspecified organism Sepsis acute organ dysfunction status: with acute organ dysfunction Severe sepsis acute organ dysfunction type: acute respiratory failure Acute respiratory failure type: with hypoxia Severe sepsis shock status: without septic shock Qualified Codes: A41.9 - Sepsis, unspecified organism; R65.20 - Severe sepsis without septic shock; J96.01 - Acute respiratory failure with hypoxia Clinical Quality Measures DVT/VTE Risk/Contraindication: Risk Factor Score Per Nursin RFS Level Per Nursing on Admit: 4+=Very High CARLOS BRUNSON MD Dec 29, 2019 10:23
--- NOTE | 2019-12-29 10:53 | Physical Therapy Evaluation ---
PT Evaluation-General Medical Diagnosis Admission Date Dec 13, 2019 at 06:30 Medical Diagnosis: covid - 19, pneumonia Onset Date: Dec 13, 2019 Therapy Diagnosis Therapy Diagnosis: impaired mobility, strength, endurance Height/Weight Height (Feet): 5 Height (Inches): 1.00 Weight (Pounds): 148 Weight (Ounces): 0.0 Precautions Precautions/Isolations: Airborne Isolation, Contact Isolation, Droplet Isolation, Fall Prevention Weight Bear Status Right Lower Extremity: Right Full Weight Bearing Left Lower Extremity: Left Full Weight Bearing Referral Physician: Jeffrey Reason for Referral: Evaluation/Treatment Medical History Additional Medical History Past Medical History Cardiac: High Cholesterol, Hypertension Reproductive: No Menopausal Musculoskeletal: Arthritis, Gout Hearing Impairment: Bilateral Hearing Aide Cancer: Melanoma Social History Home: Single Level Current Living Status: Spouse PT Steps Into Home: 3 Prior Prior Level of Function SCALE: Activities may be completed with or without assistive devices. 2-Mkwizcxfqc-gujwoew completes the activity by him/herself with no assistance from a helper. 5-Set-up or Clean-up Assistance-helper sets up or cleans up; patient completes activity. [place] assists only prior to or following the activity. 4-Supervision or Touching Assistance-helper provides verbal cues and/or touching/steadying and/or contact guard assistance as patient completes activity. Assistance may be provided throughout the activity or intermittently. 3-Partial/Moderate Assistance-helper does LESS THAN HALF the effort. [place]gins lifts, holds or supports trunk or limbs, but provides less than half the effort. 2-Substantial/Maximal Assistance-helper does MORE THAN HALF the effort. [place] lifts or holds trunk or limbs and provides more than half the effort. 4-Jsxkiwfih-brsbhv does ALL the effort. Patient does none of the effort to complete the activity. Or, the assistance of 2 or more helpers is required for the patient to complete the activity. If activity was not attempted, code reason: 7-Patient Refused. 9-Not Applicable-not attempted and the patient did not perform the activity before the current illness, exacerbation or injury. 10-Not Attempted due to Environmental Limitations-(lack of equipment, weather restraints, etc.). 88-Not Attempted due to Medical Conditions or Safety Concerns. Bed Mobility: 6 Transfers (B,C,W/C): 6 Gait: 6 Stairs: 6 Indoor Mobility (Ambulation): Independent Stairs: Independent PT Evaluation-Current Subjective Patient in bed pre tx, agrees to PT, has pain in left knee which appears swollen compared to her right knee. Patient states she hurt it earlier when she was getting into bed. Pt/Family Goals to be independent at home Objective Patient Orientation: Person, Place, Situation Attachments: Oxygen, Isbell Catheter, IV ROM/Strength ROM Lower Extremities WNL except left knee not tested, she has pain in left knee with flex/ext Strength Lower Extremities 3+/5 gross BLE but left knee NT Sensory Hearing: Functional Sensation Right Lower Extremit: Intact Sensation Left Lower Extremity: Intact Transfers Roll Left to Right (QC): 4 Sit to Lying (QC): 4 Lying to Sitting/Side of Bed(Q: 3 Sit to Stand (QC): 4 Patient needed min assist for supine to sit but was otherwise CGA, she was able to stand for a couple of minutes before needing to sit back down. Patient's O2 went from low 90's to low 80's during standing and would not come back up until she layed back down and with purse lip breathing, it was a struggle to get it back to 90%. Balance Sitting Static: Normal Sitting Dynamic: Normal Standing Static: Good Assessment/Needs Patient has impaired mobility, strength, endurance. Patient in bed post tx with nurse call, phone, tray, all needs met. Rehab Potential: Fair PT Retirement Goals Retirement Goals PT Feather Shaper Goals Time Frame: Jan 05, 2020 Roll Left & Right (QC): 6 Sit to Lying (QC): 6 Lying-Sitting on Side/Bed(QC): 6 Sit to Stand (QC): 5 Chair/Wlp-ii-Fwojy Xfer(QC): 5 Walk 10 feet (QC): 5 PT Plan Problem List Problem List: Activity Tolerance, Functional Strength, Safety, Balance, Gait, Transfer, Bed Mobility, ROM Treatment/Plan Treatment Plan: Continue Plan of Care Treatment Plan: Bed Mobility, Education, Functional Activity Shahab, Functional Strength, Gait, Safety, Therapeutic Exercise, Transfers Treatment Duration: Jan 05, 2020 Frequency: 6 times per week Estimated Hrs Per Day: .25 hour per day Patient and/or Family Agrees t: Yes Safety Risks/Education Patient Education: Transfer Techniques, Correct Positioning, Safety Issues Teaching Recipient: Patient Teaching Methods: Demonstration, Discussion Response to Teaching: Reinforcement Needed Discharge Recommendations Plan Patient will perform bed mobility and transfer training, balance and endurance training, functional strengthening, stair training, gait training, and education, to improve functional mobility and independence at home Therapy Discharge Recommendati: Home & Family, Post Acute PT Time/GCodes Time In: 1005 Time Out: 1018 Total Billed Treatment Time: 13 Total Billed Treatment 1 visit ALEX 13' ARIC WARD PT Dec 29, 2019 10:53
--- NOTE | 2019-12-29 11:00 | Occupational Therapy Eval ---
OT Evaluation-General/PLF Medical Diagnosis Admission Date Dec 13, 2019 at 06:30 Medical Diagnosis: COVID+, pneumonia Onset Date: Dec 01, 2019 Therapy Diagnosis Therapy Diagnosis: decreased ADL status, weakness Height/Weight Height (Feet): 5 Height (Inches): 1.00 Weight (Pounds): 148 Weight (Ounces): 0.0 Precautions Precautions/Isolations: Airborne Isolation, Contact Isolation, Droplet Isolation, Fall Prevention Referral Physician: Jeffrey Referral Reason: Evaluation/Treatment Medical History Additional Medical History HTN, arthritis, gout, melenoma Current History Pt started having symptoms 11/30, tested positive for COVID, admitted to hospital 12/13/2019 Reviewed History: Yes Social History Home: Single Level Current Living Status: Spouse Entry Into Home: Stairs With Railing Steps Into Home: 3 ADL-Prior Level of Function SCALE: Activities may be completed with or without assistive devices. 6-Gcessslqwd-semgcsy completes the activity by him/herself with no assistance from a helper. 5-Set-up or Clean-up Assistance-helper sets up or cleans up; patient completes activity. [employer] assists only prior to or following the activity. 4-Supervision or Touching Assistance-helper provides verbal cues and/or touching/steadying and/or contact guard assistance as patient completes activity. Assistance may be provided throughout the activity or intermittently. 3-Partial/Moderate Assistance-helper does LESS THAN HALF the effort. [employer] lifts, holds or supports trunk or limbs, but provides less than half the effort. 2-Substantial/Maximal Assistance-helper does MORE THAN HALF the effort. [employer] lifts or holds trunk or limbs and provides more than half the effort. 4-Nlhasprkm-zgxawo does ALL the effort. Patient does none of the effort to complete the activity. Or, the assistance of 2 or more helpers is required for the patient to complete the activity. If activity was not attempted, code reason: 7-Patient Refused. 9-Not Applicable-not attempted and the patient did not perform the activity before the current illness, exacerbation or injury. 10-Not Attempted due to Environmental Limitations-(lack of equipment, weather restraints, etc.). 88-Not Attempted due to Medical Conditions or Safety Concerns. ADL PLOF Comments Pt indicates she was independent with all ADLs and functional mobility at OF, she did not use AD/AE. Pt states she was able to complete cooking, cleaning and all other tasks she needed to do without difficulty. Self Care: Independent Functional Cognition: Independent OT Current Status Subjective Pt laying in bed, agreeable to OT evaluation and tx. Pt denies pain but reports overall fatigue. Mental Status/Objective Patient Orientation: Person, Place, Time, Situation Attachments: Isbell Catheter, Oxygen Current Upper Extremity ROM WFL Upper Extremity Strength grossly 3+/5 Other Treatments Pt laying in bed, min A transfer supine to sit EOB. Pt then able to stand for ~2 mins with hand held assist before requesting to sit back down. After stand, pt's O2 dropped to low 80's, OT educated pt on pursed lip breathing, but O2 did not increase in sitting. Pt then CGA to lay back supine, pt completed pursed lip breathing again and O2 slowly returned to 90%. Pt able to use UE/LEs to boost self higher in bed with instruction. Post OT tx, pt laying in bed, call light in reach and all needs met. Education OT Patient Education: Correct positioning, Energy conservation, Modified ADL techniques, Progress toward Goal/Update tx plan, Purpose of tx/functional activities, Safety issues Teaching Recipient: Patient Teaching Methods: Discussion Response to Teaching: Verbalize Understanding OT Chcf Goals Chcf Goals Time Frame: Jan 07, 2020 Eating (QC): 6 Oral Hygiene (QC): 6 Toileting Hygiene (QC): 6 Shower/Bathe Self (QC): 6 Upper Body Dressing (QC): 6 Lower Body Dressing (QC): 6 On/Off Footwear (QC): 6 Additional Goals: 1-Demonstrate ADL Tasks, 2-Verbalize Understanding, 3- ImproveStrength/Shahab 1=Demonstrate adherence to instructed precautions during ADL tasks. 2=Patient will verbalize/demonstrate understanding of assistive devices/modifications for ADL. 3=Patient will improve strength/tolerance for activity to enable patient to perform ADL's. OT Education/Plan Problem List/Assessment Assessment: Decreased Activ Tolerance, Decreased UE Strength, Impaired Funct Balance, Impaired I ADL's, Impaired Self-Care Skills Discharge Recommendations Plan/Recommendations: Continue POC Therapy Discharge Recommendati: Post Acute PT, Post Acute OT Treatment Plan/Plan of Care Patient would benefit from OT for education, treatment and training to promote independence in ADL's, mobility, safety and/or upper extremity function for A DL's. Plan of Care: ADL Retraining, Functional Mobility, UE Funct Exercise/Act Treatment Duration: Jan 07, 2020 Frequency: 5 times per week Estimated Hrs Per Day: .25 hour per day Agreement: Yes Rehab Potential: Good Time/GCodes Start Time: 10:05 Stop Time: 10:18 Total Time Billed (hr/min): 13 Billed Treatment Time 1, NEELAM TORRES OT Dec 29, 2019 11:00
[2019-12-29 12:00] VITALS: BP 123/70
--- NOTE | 2019-12-29 13:09 | NUR ---
YING/SEDA attempted to contact the patient in her room via phone. Patient did not answer; will attempt at a later time. YING/SEDA spoke with the physician regarding Physical Therapy and Occupational Therapy to determine if patient would be appropriate for inpatient rehab. YING/SEDA contacted June, she will review the chart and update on acceptance/denial. YING/SEDA will continue to follow.
[2019-12-29 15:40] VITALS: BP 136/63
--- NOTE | 2019-12-29 15:41 | NUR ---
IRF Evaluation Determination: Accepted Chart review complete and findings discussed with Dr. Hawkins - patient accepted. Received notification from Nurse Mgr that patient has been cleared to come out of isolation, upon admission. CM/SS notified. Anticipate admission, 12/30/19. Thank you for this referral.
[2019-12-29 19:05] VITALS: BP 137/61
[2019-12-29] MEDS: ASPIRIN E.C. 81 MG (ECOTRIN) TAB PO SCH (22:04)
[2019-12-30 00:58] VITALS: BP 138/70
[2019-12-30] MEDS: RT-ALBUTEROL INHALER HFA (VENTOLIN HFA) 18 GM IH SCH ×3 (02:49→10:44)
[2019-12-30 04:00] VITALS: BP 158/75
[2019-12-30] MEDS: dexAMETHasone 6 MG TAB (DECADRON) PO SCH (06:05)
[2019-12-30] MEDS: MULTIVIT W/MINERALS TAB (THERAGRAN M) PO SCH (06:06)
[2019-12-30 06:34] LABS: BASOPHILS % (AUTO) 0 % (0-10); EOSINOPHILS # (AUTO) 0.4 10^3/uL (0.0-0.3); EOSINOPHILS % (AUTO) 2 % (0-10); HEMATOCRIT 31 % (35-52); HEMOGLOBIN 10.5 g/dL (11.5-16.0); LYMPHOCYTES % (AUTO) 12 % (12-44); MEAN CORPUSCULAR HEMOGLOBIN 29 pg (25-34); MEAN CORPUSCULAR HGB CONC 34 g/dL (32-36); MEAN CORPUSCULAR VOLUME 86 fL (80-99); MEAN PLATELET VOLUME 10.7 fL (9.0-12.2); MONOCYTES # (AUTO) 1.1 10^3/uL (0.0-1.0); MONOCYTES % (AUTO) 6 % (0-12); NEUTROPHILS # (AUTO) 13.6 10^3/uL (1.8-7.8); NEUTROPHILS % (AUTO) 78 % (42-75); PLATELET COUNT 428 10^3/uL (130-400); WHITE BLOOD COUNT 17.4 10^3/uL (4.3-11.0)
[2019-12-30 06:50] LABS: ALBUMIN 3.1 GM/DL (3.2-4.5); CHLORIDE 85 MMOL/L (98-107); SODIUM 130 MMOL/L (135-145)
[2019-12-30 06:51] LABS: CALCIUM 8.5 MG/DL (8.5-10.1)
[2019-12-30 06:52] LABS: GLUCOSE 153 MG/DL (70-105)
[2019-12-30 06:53] LABS: CARBON DIOXIDE 34 MMOL/L (21-32)
[2019-12-30 06:54] LABS: BILIRUBIN,TOTAL 0.6 MG/DL (0.1-1.0)
[2019-12-30 06:56] LABS: ALKALINE PHOSPHATASE 72 U/L (40-136); CREATININE SERUM 0.86 MG/DL (0.60-1.30); GFR ESTIMATED > 60
[2019-12-30 06:57] LABS: BUN/CREATININE RATIO 43
[2019-12-30 06:59] LABS: ALANINE AMINOTRANSFERASE 75 U/L (0-55)
[2019-12-30 08:00] VITALS: BP 150/79
[2019-12-30] MEDS: ENOXAPARIN 60 MG/0.6 ML (LOVENOX) SYR SC SCH (09:34)
[2019-12-30] MEDS: ATENOLOL 25 MG (TENORMIN) TAB PO SCH (09:34)
[2019-12-30] MEDS: FUROSEMIDE 40 MG/4 ML INJ (LASIX) IVP SCH (09:34)
[2019-12-30] MEDS: PANTOPRAZOLE 40 MG (PROTONIX) TAB PO SCH (09:34)
--- NOTE | 2019-12-30 09:56 | Discharge Summary ---
Diagnosis/Chief Complaint Date of Admission Dec 13, 2019 at 06:30 Date of Discharge Discharge Date: Dec 30, 2019 Admission Diagnosis COVID19 Primary Care Kayla Hurley MD Discharge Diagnosis (1) Acute respiratory failure due to COVID-19 Status: Acute (2) PNA (pneumonia) Status: Acute Discharge Summary Procedures/Consulations Pulm- Dr Dolan Discharge Physical Exam Allergies: Coded Allergies: lisinopril (Verified Allergy, Intermediate, 12/13/19) COUGH Sulfa (Sulfonamide Antibiotics) (Verified Allergy, Unknown, 01/12/15) Vitals & I&Os Vital Signs Date Time Temp Pulse Resp B/P (MAP) Pulse Ox O2 Delivery O2 Flow Rate FiO2 12/30/19 11:28 36.2 71 20 150/79 97 High Flow N/C 5.00 12/27/19 18:28 3 General Appearance: No Apparent Distress, WD/WN Neurologic/Psychiatric: Alert, Oriented x3 Hospital Course Pt was admitted due to acute hypoxic respiratory failure due to COVID19. She had a prolonged course due to severe hypoxia. She was outside the window for remdesivir but was treated with convalescent plasma, decadron, vapotherm, and awake proning. She was fortunately able to stay off the ventilator with vapotherm and proning but became very deconditioned. PT/OT was consulted and she was deemed an appropriate candidate for IRU. She was discharged there for continued oxygen weaning and therapy for strengthening. Labs (last 24 hrs) Laboratory Tests 12/30/19 06:20: White Blood Count 17.4H, Red Blood Count 3.60L, Hemoglobin 10.5L, Hematocrit 31L , Mean Corpuscular Volume 86, Mean Corpuscular Hemoglobin 29, Mean Corpuscular Hemoglobin Concent 34, Red Cell Distribution Width 13.1, Platelet Count 428H, Mean Platelet Volume 10.7, Immature Granulocyte % (Auto) 2, Neutrophils (%) (Auto) 78H, Lymphocytes (%) (Auto) 12, Monocytes (%) (Auto) 6, Eosinophils (%) (Auto) 2, Basophils (%) (Auto) 0, Neutrophils # (Auto) 13.6H, Lymphocytes # (Auto) 2.0, Monocytes # (Auto) 1.1H, Eosinophils # (Auto) 0.4H, Basophils # (Auto) 0.0, Immature Granulocyte # (Auto) 0.3H, Sodium Level 130L, Potassium Level 4.0, Chloride Level 85L, Carbon Dioxide Level 34H, Anion Gap 11, Blood Urea Nitrogen 37H, Creatinine 0.86, Estimat Glomerular Filtration Rate > 60, BUN/Creatinine Ratio 43, Glucose Level 153H, Calcium Level 8.5, Corrected Calci um 9.2, Total Bilirubin 0.6, Aspartate Amino Transf (AST/SGOT) 38H, Alanine Aminotransferase (ALT/SGPT) 75H, Alkaline Phosphatase 72, Total Protein 6.0L, Albumin 3.1L Microbiology 12/21/19 Blood Culture - Final, Complete No growth 12/13/19 Urine Culture - Final, Complete NO GROWTH 12/13/19 Influenza Types A,B Antigen ([place]) - Final, Complete Patient resulted labs reviewed. Pending Labs Imaging: Reviewed Imaging Report Discussion & Recommendations Discharge Planning: >30 minutes discharge planning Discharge Home Medications: Active Scripts Active [Iron] 65 Mg PO Q48H Reported Vitamin D-400 (Cholecalciferol (Vitamin D3)) 10 Mcg Tablet 10 Mcg PO DAILY Dexamethasone 4 Mg Tablet 4 Mg PO DAILY K-Tab ER (Potassium Chloride) 10 Meq Tablet.er 20 Meq PO DAILY TAKES 2 (10MEQ) TABS Losartan Potassium 100 Mg Tablet 100 Mg PO DAILY Hydrochlorothiazide 25 Mg Tablet 25 Mg PO DAILY Aspirin EC (Aspirin) 81 Mg Tablet.dr 81 Mg PO HS Multivitamins (Multivitamin) 1 Each Capsule 1 Each PO DAILY Lipitor (Atorvastatin Calcium) 10 Mg Tablet 10 Mg PO HS Atenolol 25 Mg Tablet 25 Mg PO DAILY Instructions to patient/family Please see electronic discharge instructions given to patient. Clinical Quality Measures DVT/VTE Risk/Contraindication: Risk Factor Score Per Nursin RFS Level Per Nursing on Admit: 4+=Very High Problem Qualifiers (1) PNA (pneumonia): Pneumonia type: due to unspecified organism Laterality: bilateral Lung location: lower lobe of lung Qualified Codes: J18.9 - Pneumonia, unspecified organism CARLOS BRUNSON MD Dec 30, 2019 09:56
[2019-12-30 11:28] VITALS: BP 150/79
[2019-12-30] MEDS ORDERED: CHOL400T29 PO (12:09)
== END 2019-12-30 11:28 | DRG 871 ==
LOC: EDUNIT# 03:39 → ER 03:42 → 4TH 06:30 → ICU 12-21 12:54 → 4TH 12-25 17:12
PROVIDERS: ADMIT Family Medicine; ATTEND Internal Medicine
PROC: XW13325 Transfusion of Convalescent Plasma (Nonautologous) into Peripheral Vein, Percutaneous Approach, New Technology Group 5 (ICD-10-PCS; principal; 2019-12-15)
DX: A41.89 Other specified sepsis (principal); U07.1 COVID-19; J12.89 Other viral pneumonia; J96.01 Acute respiratory failure with hypoxia; E87.2 Acidosis; I10 Essential (primary) hypertension; E87.6 Hypokalemia; E78.5 Hyperlipidemia, unspecified; E78.00 Pure hypercholesterolemia, unspecified; M19.91 Primary osteoarthritis, unspecified site; M10.9 Gout, unspecified; H91.93 Unspecified hearing loss, bilateral; Z97.4 Presence of external hearing-aid; Z85.820 Personal history of malignant melanoma of skin
CPT/HCPCS: 36415; 71045; 80053; 81000; 82805; 83605; 83735; 83880; 84100; 84145; 85007; 85025; 85027; 85379; 85610; 85730; 86850; 86900; 86901; 87040; 87088; 87449; 87804; 87899; 93005; 94640; 94660; 94760; 96361; 96365; 96367; 96368; 96375

== ENCOUNTER 2019-12-30 11:00 | Inpatient (IN) | payer MEDICARE ==
[~2019-12-30] VITALS: Ht 154 cm; Wt 56.9 kg
[2019-12-30 11:00] VITALS: BP 156/82
[~2019-12-30 11:00] MED LIST changes: +ALPRAZolam 0.25 MG (XANAX) TAB PO PRN; +BISACODYL 10 MG SUPP (DULCOLAX) PR PRN; +CALCIUM CARBONATE 500 MG (TUMS) TAB.CHEW PO PRN; +DEXA4TAB PO; +DOCUSATE SODIUM 100 MG (COLACE) CAP PO PRN; +FLEET ENEMA ADULT 1 EA BTL PR PRN; +HYDR25TA4 PO; +LACTULOSE SYRUP 10GM/15ML (ENULOSE) 30ML UDC PO PRN; +LOPERAMIDE 2 MG (IMODIUM) TABLET PO PRN; +LOSA100T57 PO; +ONDANSETRON 4 MG (ZOFRAN) ORAL DISSOLVE TAB PO PRN; +POTA10TA PO; +diphenhydrAMINE 25 MG TAB (BENADRYL) PO PRN; +guaiFENesin/CODEINE (ROBITUSSIN AC) 10ML UDC PO PRN
--- NOTE | 2019-12-30 11:00 | NUR ---
SILVA WYLIE admitted to room 222-1, with an admitting diagnosis of CRITICAL ILLNESS MYOPATHY, on 12/30/[address] via WHEELCHAIR, accompanied by STAFF.SILVA WYLIE introduced to surroundings, call light, bed controls, phone, TV, temperature control, lights, meal times, smoking policy, visitor policy, side rail policy, bathrooms and showers. Patient Rights given to patient in the handbook.SILVA WYLIE verbalizes understanding that [facility] is not responsible for the loss or damage to any personal effects or valuables that are kept in the patients posession during their hospitalization. The following Patient Care Plans were discussed with the PT: Discharge Planning, FALLS AND IMPAIRED MOBILITY. SILVA WYLIE verbalizes understanding of Interdisciplinary Patient Education. Patient received Patient Rights Booklet, which includes Privacy Act Statement and Data Collection Information Summary. [employer] INTACT RIGHT AC. O2 CURRENTLY ON AT 6L.
[2019-12-30 11:45] VITALS: BP 156/82
[2019-12-30] MEDS ORDERED: ACETAMINOPHEN 325 MG TABLET PO PRN ×2 (12:00→12:15)
[2019-12-30] MEDS ORDERED: CHOL400T29 PO (12:09)
--- NOTE | 2019-12-30 12:11 | PM&R Post Admission Assessment ---
PM&R HP Date of Visit: Dec 30, 2019 Time of Visit: 12:00 History of Present Illness CC: Debility following Covid-19 HPI: This is an 89yoWF clinic pt of Dr. Hurley who has been in the hospital for 18 days for Covid-19 pneumonitis with hypoxia. She completed protocol medication and currently is still on oxygen supplementation but ding much better. We will convert her Lovenox to DVT prophylaxis doses and she will be assessed by inpatient rehab therapist in order to evaluate her needs in order to be able to go back home. PLOF is the use of walker prn. Patient denies pain. Past Lvkuoib-Ietgdh-Peslgt Hx Past Med/Social Hx: Reviewed Nursing Past Med/Soc Hx, Reviewed and Corrections made Patient Social History Marrital Status: Employed/Student: retired Alcohol Use: Denies Use Smoking Status: Never a Smoker Recent Foreign Travel: No Contact w/other who traveled: No Recent Hopitalizations: No Recent Infectious Disease Expo: No Immunizations Up To Date Date of Pneumonia Vaccine: Jan 13, 2013 Date of Influenza Vaccine: Nov 17, 2019 Past Medical History Respiratory: Pneumonia COVID 12/13/19 Cardiac: High Cholesterol, Hypertension Reproductive: No Menopausal Gastrointestinal: Gastroesophageal Reflux Musculoskeletal: Arthritis, Gout Hearing Impairment: Bilateral Hearing Aide Cancer: Melanoma Did You Recieve Any Treatments: Yes What Type of Treatment Did You: Surgical Intervention History of Blood Disorders: Yes (anemia) PM&R Allergy/Meds/Data Review Allergies Coded Allergies: lisinopril (Verified Allergy, Intermediate, 12/13/19) COUGH Sulfa (Sulfonamide Antibiotics) (Verified Allergy, Unknown, 01/12/15) Home Medications Scheduled Aspirin (Aspirin EC), 81 MG PO HS, (Reported) Atenolol (Atenolol), 25 MG PO DAILY, (Reported) Atorvastatin Calcium (Lipitor), 10 MG PO HS, (Reported) Cholecalciferol (Vitamin D3) (Vitamin D-400), 10 MCG PO DAILY, (Reported) Dexamethasone (Dexamethasone), 4 MG PO DAILY, (Reported) Hydrochlorothiazide (Hydrochlorothiazide), 25 MG PO DAILY, (Reported) Losartan Potassium (Losartan Potassium), 100 MG PO DAILY, (Reported) Multivitamin (Multivitamins), 1 EACH PO DAILY, (Reported) Potassium Chloride (K-Tab ER), 20 MEQ PO DAILY, (Reported) [Iron], 65 MG PO Q48H Discontinued Medications Cholecalciferol (Vitamin D3) (Vitamin D-400), 400 UNIT PO DAILY, (Reported) Discontinued Reason: Prescription changed Current Medications Current Medications Reviewed Review of Systems Constitutional: see HPI, malaise, weakness Respiratory: dyspnea on exertion, short of breath Musculoskeletal: back pain Psychiatric/Neurological: Depressed Physical Exam Physical Exam Vital Signs Vital Signs - First Documented 12/30/19 11:45 Temp 36.2 Pulse 93 Resp 20 B/P (MAP) 156/82 Pulse Ox 96 O2 Delivery Nasal Cannula O2 Flow Rate 6.00 Capillary Refill : Height, Weight, BMI Height: 5'1.00" Weight: 148lbs. 0.0oz. 67.168529lb; 24.07 BMI Method: General Appearance: No Apparent Distress, WD/WN, Chronically ill Eyes: Bilateral Eye Normal Inspection, Bilateral Eye PERRL HEENT: PERRL/EOMI, Normal ENT Inspection, Pharynx Normal Neck: Full Range of Motion, Normal Inspection, Non Tender, Supple, Carotid Bruit Respiratory: Chest Non Tender, Lungs Clear, No Accessory Muscle Use, No Respiratory Distress, Decreased Breath Sounds Cardiovascular: Regular Rate, Rhythm, No Edema, No Gallop, No JVD, No Murmur, Normal Peripheral Pulses Gastrointestinal: Normal Bowel Sounds, No Organomegaly, No Pulsatile Mass, Non Tender, Soft Back: Normal Inspection, No CVA Tenderness, No Vertebral Tenderness Extremity: Normal Capillary Refill, Normal Inspection, Normal Range of Motion, Non Tender, No Calf Tenderness, No Pedal Edema Neurologic/Psychiatric: Alert, Oriented x3, No Motor/Sensory Deficits, Normal Mood/Affect, 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 Norm as Tested, Abnormal Gait, Motor Weakness (weakness of all extremities 3/5) Skin: Normal Color, Warm/Dry Lymphatic: No Adenopathy PM&R Medical Assessment & Plan REHAB/MEDICAL ASSESSMENT AND PLAN: REHAB IMPAIRMENT GROUP: Debility following critical illness from COVID-19 PNA ETIOLOGIC DIAGNOSIS: Debility following critical illness from COVID-19 PNA The comorbidities that impact the patients function and/or functional outcome by: advanced age, continued dyspnea with O2 dependence, frail status, poor reserve REHAB PLAN: The patient is being admitted to our comprehensive inpatient rehabilitation facility and can tolerate the intensity of service consisting of at least: 180 minutes of therapy a day, 5 out of 7 days a week Rehab treatment will consist of: PT OT will focus on regaining function and increasing stamina and teaching energy conservation and regaining ADL's in order to return home The patient/family has a good understanding of our discharge process and will benefit from an interdisciplinary inpatient rehabilitation program. The patient has potential to make improvement and is in need of at least two of the following multidisciplinary therapies including but not limited to physical, occupational, speech, and prosthetics and orthotics. Additionally the patient will need services from respiratory, nutritional services, wound care, psychology, etc. (Customize this to each patient). Given the patients complex condition and risk of further medical complications, rehabilitation services cannot be safely or effectively provided at a lower level of care such as a penitentiary facility. BARRIERS TO DISCHARGE: Frail status ESTIMATED LOS: 14 days DISPOSITION: Home RELEVANT CHANGES SINCE PREADMISSION SCREENING: I have compared the patients medical and functional status at the time of the preadmission screening and there are: no changes PROGNOSIS: Good REHABILITATION GOALS: 1. PT OT will focus on regaining function and increasing stamina and teaching energy conservation and regaining ADL's in order to return home All the above goals were reviewed with the patient and he/she is in agreement. By signing this document, I acknowledge that I have personally performed a full physical examination on this patient within 24 hours of admission to this inpatient rehabilitation facility and have determined the patient to be able to tolerate the above course of treatment at an intensive level for a reasonable period of time. I will be completing a detailed individualized Plan of Care for this patient by day #4 of the patients stay based upon the Preadmission Screen, the Post-Admission Evaluation, and the therapy evaluations. Admission Dx/Comorbidities: (1) COVID-19 Status: Acute ICD Codes: U07.1 - COVID-19 (2) GERD (gastroesophageal reflux disease) ICD Codes: K21.9 - Gastro-esophageal reflux disease without esophagitis (3) Hypertension ICD Codes: I10 - Essential (primary) hypertension (4) Hyperlipemia ICD Codes: E78.5 - Hyperlipidemia, unspecified (5) Advanced age ICD Codes: R54 - Age-related physical debility (6) Supplemental oxygen dependent ICD Codes: Z99.81 - Dependence on supplemental oxygen (7) PNA (pneumonia) Status: Acute ICD Codes: J18.9 - Pneumonia, unspecified organism (8) Acute respiratory failure due to COVID-19 Status: Acute ICD Codes: U07.1 - COVID-19; J96.00 - Acute respiratory failure, unspecified whether with hypoxia or hypercapnia Assessment/Plan Assessment and Plan Assess & Plan/Chief Complaint Assessment: Debility from COVID 19 PNA 12/13/19 admitted to [facility] O2 dependence new onset HTN HLP Advanced age GERD Plan: IRF protocol Monitor O2 Check labs CORI MOODY DO Dec 30, 2019 12:11
--- NOTE | 2019-12-30 12:11 | NUR ---
THE MED REC WAS COMPLETED ON 12-13-2019 WHEN THE PT WAS ON 4TH FLOOR (NATHALIE WINSTON COMPLETED THE MED REC). I REVIEWED THE MEDICATIONS TO BE CONTINUED. POTASSIUM 10MEQ- DIRECTIONS SHOW 1 TAB BID HOWEVER PT SAYS SHE TAKES 2 TABS ONCE DAILY
[2019-12-30] MEDS ORDERED: ONDANSETRON 4 MG/2 ML (SDV) Z0FRAN IV PRN (12:15)
[2019-12-30] MEDS ORDERED: hydrALAZINE (APRESOLINE) 25 MG TAB PO PRN (12:15)
--- NOTE | 2019-12-30 13:00 | NUR ---
PATIENT REQUESTS PAREDES CATHETER NOT BEING REMOVED YET. STATES "I JUST DON'T WANT TO WORRY ABOUT IT RIGHT NOW". DR. MOODY STATES OKAY TO WAIT UNTIL AM TO DC IT.
--- NOTE | 2019-12-30 13:30 | Physical Therapy Evaluation ---
PT Evaluation-General Medical Diagnosis Admission Date Dec 30, 2019 at 11:00 Medical Diagnosis: Post-Covid, pneumonia Onset Date: Dec 13, 2019 Therapy Diagnosis Therapy Diagnosis: impaired mobility, strength, endurance Height/Weight Height (Feet): 5 Height (Inches): 1.00 Weight (Pounds): 148 Weight (Ounces): 0.0 Precautions Precautions/Isolations: Fall Prevention, Standard Precautions Weight Bear Status Full Weight Bearing Full Weight Bearing Referral Physician: Ross Reason for Referral: Evaluation/Treatment Medical History Additional Medical History Past Medical History Cardiac: High Cholesterol, Hypertension Reproductive: No Menopausal Musculoskeletal: Arthritis, Gout Hearing Impairment: Bilateral Hearing Aide Cancer: Melanoma Reviewed History: Yes Social History Home: Single Level Current Living Status: Spouse Entry Into Home: Stairs With Railing PT Steps Into Home: 4 PT Steps Inside Home: 0 Prior Prior Level of Function SCALE: Activities may be completed with or without assistive devices. 5-Ghlkbolhku-eoutwzm completes the activity by him/herself with no assistance from a helper. 5-Set-up or Clean-up Assistance-helper sets up or cleans up; patient completes activity. [place] assists only prior to or following the activity. 4-Supervision or Touching Assistance-helper provides verbal cues and/or touching/steadying and/or contact guard assistance as patient completes activity. Assistance may be provided throughout the activity or intermittently. 3-Partial/Moderate Assistance-helper does LESS THAN HALF the effort. [place] lifts, holds or supports trunk or limbs, but provides less than half the effort. 2-Substantial/Maximal Assistance-helper does MORE THAN HALF the effort. [place] lifts or holds trunk or limbs and provides more than half the effort. 5-Wqodbmwmn-fiujxc does ALL the effort. Patient does none of the effort to complete the activity. Or, the assistance of 2 or more helpers is required for the patient to complete the activity. If activity was not attempted, code reason: 7-Patient Refused. 9-Not Applicable-not attempted and the patient did not perform the activity before the current illness, exacerbation or injury. 10-Not Attempted due to Environmental Limitations-(lack of equipment, weather restraints, etc.). 88-Not Attempted due to Medical Conditions or Safety Concerns. Bed Mobility: 6 Transfers (B,C,W/C): 6 Gait: 6 Stairs: 6 Wheelchair Mobility: 6 Indoor Mobility (Ambulation): Independent Stairs: Independent Prior Devices Use: None PT Evaluation-Current Subjective Pt presents supine in bed. Pt agrees to PT. Pt reports unrated pain in L knees and stomach. Left knee is swollen. Pt/Family Goals Return Home Objective Patient Orientation: Person, Place, Time, Eyes Open, Situation Attachments: Oxygen, Isbell Catheter ROM/Strength ROM Lower Extremities WFL Strength Lower Extremities 3+/5 gross BLE but left knee NT Sensory Vision: Wears Glasses Hearing: Hearing Aid/Aides Sensation Right Lower Extremit: Intact Sensation Left Lower Extremity: Intact Transfers Roll Left & Right (QC): 6 Sit to Lying (QC): 3 Lying to Sitting/Side of Bed(Q: 3 Sit to Stand (QC): 3 Chair/Aus-xb-Ylmgz Xfer(QC): 3 Toilet Transfer (QC): 3 Car Transfer (QC): 3 Cues for hand placement, patient will always pull up from walker and sit without using hands. Gait Does the Patient Walk?: Yes Mode of Locomotion: Walk Anticipated Mode of Locomotion: Walk Walk 10 feet (QC): 4 Walk 50 ft with 2 Turns(QC): 88 Walk 150 ft (QC): 88 Walking 10ft/uneven surface-QC: 88 Distance: 15' Gait Assistive Device: FWW Comments/Gait Description Slow ambulation, unsteady Wheelchair Training Does the Pt Use a Wheelchair?: Yes Distance: 20' Wheel 50 ft with 2 turns (QC): 3 Wheel 150 ft (QC): 88 Type of Wheelchair: Manual Pt required min assist with steering wheelchair; pt is able propel self fwd but required detailed instruction on how to maneuver wheelchair using BLEs and/or BUEs. Stairs 1 Step (curb) (QC): 88 4 Steps (QC): 88 12 Steps (QC): 88 Balance Sitting Static: Normal Sitting Dynamic: Normal Standing Static: Fair Standing Dynamic: Poor Picking up an Object (QC): 88 Assessment/Needs Pt is weak and fatigues easily with activity. Pt's O2sat was checked throughout session due to patient's shortness of breath, but it never dropped below 90%. Pt is motivated to get better and out of the hospital as she lived an independent life before this. Patient needs significant, frequent rest breaks due to fatigue. Rehab Potential: Good PT Short Term Goals Short Term Goals Time Frame: Jan 06, 2020 Roll Left & Right: 6 Sit to lyin Lying to sitting on side of be: 6 Sit to stand: 4 Chair/oxm-nr-oxdeh transfer: 4 Toilet transfer: 4 Walk 10 feet: 4 Walk 50 feet with two turns: 4 PT Well Service Floor Worker Goals Well Service Floor Worker Goals PT Well Service Floor Worker Goals Time Frame: Jan 13, 2020 Roll Left & Right (QC): 6 Sit to Lying (QC): 6 Lying-Sitting on Side/Bed(QC): 6 Sit to Stand (QC): 6 Chair/Zoe-dc-Sfdaz Xfer(QC): 6 Toilet Transfer (QC): 5 Car Transfer (QC): 5 Does the Patient Walk: Yes Walk 10 feet (QC): 5 Walk 50ft with 2 Turns (QC): 5 Walk 150 ft (QC): 5 Walking 10ft on Uneven Surface: 5 1 Step (curb) (QC): 4 4 Steps (QC): 4 12 Steps (QC): 88 Picking up an Object (QC): 4 Does the Pt use WC or Scooter?: Yes Wheel 50 feet with 2 turns (QC: 6 Type: Manual Wheel 150 feet: 6 Type: Manual PT Plan Problem List Problem List: Activity Tolerance, Functional Strength, Safety, Balance, Gait, Transfer, Bed Mobility, ROM Treatment/Plan Treatment Plan: Continue Plan of Care Treatment Plan: Bed Mobility, Education, Functional Activity Shahab, Functional Strength, Group Therapy, Gait, Safety, Therapeutic Exercise, Transfers Treatment Duration: Jan 20, 2020 Frequency: Modified Program (IRF) (21/09) Estimated Hrs Per Day: 1.5 hours per day Patient and/or Family Agrees t: Yes Safety Risks/Education Patient Education: Gait Training, Transfer Techniques, Correct Positioning, Safety Issues Teaching Recipient: Patient Teaching Methods: Demonstration, Discussion Response to Teaching: Reinforcement Needed Discharge Recommendations Plan Patient will perform bed mobility and transfer training, balance and endurance training, functional strengthening, stair training, gait training, and education, to improve functional mobility and independence at home. Therapy Discharge Recommendati: Other, See Comments (NH), Home & Family Time/GCodes Time In: 1100 Time Out: 1200 Total Billed Treatment Time: 60 Total Billed Treatment 1 visit EVM 30' FA 30' ARIC WARD PT Dec 30, 2019 13:30
--- NOTE | 2019-12-30 13:30 | NUR ---
LEFT KNEE SWOLLEN. STATES BUMPED IT EARLIER THIS ADMISSION WHEN GETTING INTO BED. DR. MOODY INFORMED. TO MONITOR ONLY AND USE TOBY WRAP PRN. VERY PALE AFTER DOING ADL'S. WILL NEED FREQUENT REST PERIODS.
[2019-12-30] MEDS: RT-ALBUTEROL INHALER HFA (VENTOLIN HFA) 18 GM IH SCH ×3 (14:49→23:01)
--- NOTE | 2019-12-30 15:09 | Physical Therapy Daily Note ---
PT Daily Note-Current Subjective Pt reports laying supine in bed. Pt agrees to PT. Pt voices no complaints of pain. Pt requests using the restroom but does not believe she can walk to the bathroom. Appearance At conclusion of PT treatment pt is laying supine in bed with access to tray, call button, and all needs have been. Mental Status Patient Orientation: Person, Place, Time, Eyes Open, Situation Attachments: Oxygen, Isbell Catheter Transfers SCALE: Activities may be completed with or without assistive devices. 0-Gvbkrfyxhx-jrmyyec completes the activity by him/herself with no assistance from a helper. 5-Set-up or Clean-up Assistance-helper sets up or cleans up; patient completes activity. [place] assists only prior to or following the activity. 4-Supervision or Touching Assistance-helper provides verbal cues and/or touching/steadying and/or contact guard assistance as patient completes activity. Assistance may be provided throughout the activity or intermittently. 3-Partial/Moderate Assistance-helper does LESS THAN HALF the effort. [place] lifts, holds or supports trunk or limbs, but provides less than half the effort. 2-Substantial/Maximal Assistance-helper does MORE THAN HALF the effort. [place] lifts or holds trunk or limbs and provides more than half the effort. 5-Bppxjwneb-islnuu does ALL the effort. Patient does none of the effort to complete the activity. Or, the assistance of 2 or more helpers is required for the patient to complete the activity. If activity was not attempted, code reason: 7-Patient Refused. 9-Not Applicable-not attempted and the patient did not perform the activity before the current illness, exacerbation or injury. 10-Not Attempted due to Environmental Limitations-(lack of equipment, weather restraints, etc.). 88-Not Attempted due to Medical Conditions or Safety Concerns. Sit to Lying (QC): 3 Lying to Sitting/Side of Bed(Q: 3 Sit to Stand (QC): 3 Chair/Bks-ye-Umoei Xfer(QC): 3 Toilet Transfer (QC): 3 Weight Bearing Full Weight Bearing Full Weight Bearing Exercises Supine Ex: Ankle pumps, Glut sets, Heel Slides, Short Arc Quads, Straight leg raise, Hip abd/add Supine Reps: 20 Treatments LE strengthening Assessment Current Status: Good Progress Due to patient's fatigue and ambulation limitations a bedside commode was used for toileting; patient required min assist to stand-pivot transfer to commode; pt is able to complete wiping herself. Pt was swelling in L knee; exercises were more difficult on this side. Pt wants to exceed repetitions on exercises as she feels able to because she wants to get stronger quick. PT Short Term Goals Short Term Goals Time Frame: Jan 06, 2020 Roll Left & Right: 6 Sit to lyin Lying to sitting on side of be: 6 Sit to stand: 4 Chair/ohx-sm-dzxtz transfer: 4 Toilet transfer: 4 Walk 10 feet: 4 Walk 50 feet with two turns: 4 PT Insurance Account Specialist Goals Mcc Goals PT Mcc Goals Time Frame: Jan 13, 2020 Roll Left & Right (QC): 6 Sit to Lying (QC): 6 Lying-Sitting on Side/Bed(QC): 6 Sit to Stand (QC): 6 Chair/Cda-kt-Fpwom Xfer(QC): 6 Toilet Transfer (QC): 5 Car Transfer (QC): 5 Does the Patient Walk: Yes Walk 10 feet (QC): 5 Walk 50ft with 2 Turns (QC): 5 Walk 150 ft (QC): 5 Walking 10ft on Uneven Surface: 5 1 Step (curb) (QC): 4 4 Steps (QC): 4 12 Steps (QC): 88 Picking up an Object (QC): 4 Does the Pt use WC or Scooter?: Yes Wheel 50 feet with 2 turns (QC: 6 Type: Manual Wheel 150 feet: 6 Type: Manual PT Plan Problem List Problem List: Activity Tolerance, Functional Strength, Safety, Balance, Gait, Transfer, Bed Mobility, ROM Treatment/Plan Treatment Plan: Continue Plan of Care Treatment Plan: Bed Mobility, Education, Functional Activity Shahab, Functional Strength, Group Therapy, Gait, Safety, Therapeutic Exercise, Transfers Treatment Duration: Jan 20, 2020 Frequency: Modified Program (IRF) (21/09) Estimated Hrs Per Day: 1.5 hours per day Patient and/or Family Agrees t: Yes Safety Risks/Education Patient Education: Transfer Techniques, Correct Positioning, Safety Issues Teaching Recipient: Patient Teaching Methods: Demonstration, Discussion Response to Teaching: Reinforcement Needed Time/GCodes Time In: 1430 Time Out: 1500 Total Billed Treatment Time: 30 Total Billed Treatment 1 visit FA 10' EX 20' ARIC WARD PT Dec 30, 2019 15:09
--- NOTE | 2019-12-30 15:23 | Occupational Therapy Eval ---
OT Evaluation-General/PLF Medical Diagnosis Admission Date Dec 30, 2019 at 11:00 Medical Diagnosis: Post-Covid, pneumonia Onset Date: Dec 13, 2019 Therapy Diagnosis Therapy Diagnosis: Weakness Height/Weight Height (Feet): 5 Height (Inches): 1.00 Weight (Pounds): 148 Weight (Ounces): 0.0 Precautions Precautions/Isolations: Fall Prevention, Standard Precautions Weight Bear Status Weight Bearing Restriction: Weight Bearing/Tolerated Referral Physician: Ross Referral Reason: Activity Tolerance, Self Care, Evaluation/Treatment, Strengthening/ROM Medical History Pertinent Medical History: HTN Current History Pt. came to ER with hypoxia and fever. Sepsis with PNA. Reviewed History: Yes Social History Home: Single Level Current Living Status: Spouse Entry Into Home: Stairs With Railing Steps Into Home: 4 Steps Inside Home: 0 ADL-Prior Level of Function SCALE: Activities may be completed with or without assistive devices. 1-Zfriitnmkw-llrnaxp completes the activity by him/herself with no assistance from a helper. 5-Set-up or Clean-up Assistance-helper sets up or cleans up; patient completes activity. [place] assists only prior to or following the activity. 4-Supervision or Touching Assistance-helper provides verbal cues and/or touching/steadying and/or contact guard assistance as patient completes activity. Assistance may be provided throughout the activity or intermittently. 3-Partial/Moderate Assistance-helper does LESS THAN HALF the effort. [place] lifts, holds or supports trunk or limbs, but provides less than half the effort. 2-Substantial/Maximal Assistance-helper does MORE THAN HALF the effort. [place] lifts or holds trunk or limbs and provides more than half the effort. 7-Gylhryeod-wwjoxd does ALL the effort. Patient does none of the effort to complete the activity. Or, the assistance of 2 or more helpers is required for the patient to complete the activity. If activity was not attempted, code reason: 7-Patient Refused. 9-Not Applicable-not attempted and the patient did not perform the activity before the current illness, exacerbation or injury. 10-Not Attempted due to Environmental Limitations-(lack of equipment, weather restraints, etc.). 88-Not Attempted due to Medical Conditions or Safety Concerns. ADL PLOF Comments Pt. lives with spouse and is independent with daily tasks. Pt. does not use a walker or use oxygen. Self Care: Independent Functional Cognition: Independent DME/Equipment: Shower OT Current Status Subjective No pain. Pt. states that she is tired. Mental Status/Objective Patient Orientation: Person, Place Attachments: Oxygen Current Upper Extremity ROM WFL ADL-Treatment Eating (QC): 7 Oral Hygiene (QC): 7 Shower/Bathe Self (QC): 3 Upper Body Dressing (QC): 7 Lower Body Dressing (QC): 7 On/Off Footwear (QC): 3 Toileting Hygiene (QC): 2 Other Treatments Pt. indicates that she is tired, but okay to work with OT. Declines showering, but agrees to sponge bathe. Pt. is able to wash her face, chest, and bilateral UE. Pt. is able to wash bilateral feet, but requires full assist in stance to wash agueda area. While standing with CGA, pt. becomes pail and seems to have difficulty breathing. Nursing in to assess pt. and BP is 129/63, and sats at 95% on 6 L. Pt. is sitting and encouraged to breathe. She seems to be doing better. Reports swollen left knee that nursing is aware of, apparently from bumping it at some point. Pt. transfers back to bed, with SBA, and all needs are met. Pt. tolerated treatment well. Education OT Patient Education: Correct positioning, Modified ADL techniques, Progress toward Goal/Update tx plan, Purpose of tx/functional activities, Reviewed precautions, Rehab process, Transfer techniques Teaching Recipient: Patient Teaching Methods: Demonstration, Discussion Response to Teaching: Verbalize Understanding, Return Demonstration OT Short Term Goals Short Term Goals Time Frame: Jan 06, 2020 Eatin Oral hygiene: 4 Toileting hygiene: 3 Shower/bathe self: 3 Upper body dressin Lower body dressin Putting on/taking off footwear: 4 OT Supervisor Edging Goals [facility] Goals Time Frame: Jan 13, 2020 Eating (QC): 6 Oral Hygiene (QC): 6 Toileting Hygiene (QC): 6 Shower/Bathe Self (QC): 4 Upper Body Dressing (QC): 4 Lower Body Dressing (QC): 4 On/Off Footwear (QC): 6 Additional Goals: 1-Demonstrate ADL Tasks, 2-Verbalize Understanding, 3- ImproveStrength/Shahab 1=Demonstrate adherence to instructed precautions during ADL tasks. 2=Patient will verbalize/demonstrate understanding of assistive devices/modifications for ADL. 3=Patient will improve strength/tolerance for activity to enable patient to perform ADL's. OT Education/Plan Problem List/Assessment Assessment: Decreased Activ Tolerance, Dependent Transfers, Impaired Funct Balance, Impaired I ADL's, Impaired Self-Care Skills Discharge Recommendations Plan/Recommendations: Continue POC Therapy Discharge Recommendati: Home & Family, Post Acute OT Equpiment Recommendations-D/C: Hip Kit Treatment Plan/Plan of Care Treatment,Training & Education: Yes Patient would benefit from OT for education, treatment and training to promote independence in ADL's, mobility, safety and/or upper extremity function for ADL's. Plan of Care: ADL Retraining, Functional Mobility, UE Funct Exercise/Act Treatment Duration: Jan 13, 2020 Frequency: At least 5 of 7 days/Wk (IRF) Estimated Hrs Per Day: 1.5 hours per day Agreement: Yes Rehab Potential: Good Time/GCodes Start Time: 12:00 Stop Time: 14:25 Total Time Billed (hr/min): 90 Billed Treatment Time [id number] 1, EVM x 20minutes [id number] 1, ADL x 70minutes LIZZY ADAMS OT Dec 30, 2019 15:23
[2019-12-30] MEDS ORDERED: CATHETER FLUSH 10 ML SYR IV PRN (16:00)
[2019-12-30 17:00] VITALS: BP 121/62
[2019-12-30] MEDS: ASPIRIN E.C. 81 MG (ECOTRIN) TAB PO SCH (20:22)
[2019-12-30] MEDS: polyethylene glycoL POWDER 17 GM (MIRALAX) PACK PO SCH (20:37)
[2019-12-30] MEDS: DOCUSATE SODIUM 100 MG (COLACE) CAP PO SCH (20:37)
[2019-12-30] MEDS: SENNA W/DOCUSATE (SENOKOT S) TABLET PO SCH (20:37)
[2019-12-30] MEDS ORDERED: ENOXAPARIN 60 MG/0.6 ML (LOVENOX) SYR SC SCH (21:00)
[2019-12-30] MEDS ORDERED: ASPIRIN E.C. 81 MG (ECOTRIN) TAB PO SCH (21:00)
[2019-12-30] MEDS: CATHETER FLUSH 10 ML SYR IV SCH (22:04)
[2019-12-31] MEDS: RT-ALBUTEROL INHALER HFA (VENTOLIN HFA) 18 GM IH SCH ×5 (01:18→20:01)
[2019-12-31 06:00] VITALS: BP 124/59
[2019-12-31] MEDS: CATHETER FLUSH 10 ML SYR IV SCH ×3 (06:46→22:00)
[2019-12-31] MEDS ORDERED: MULTIVIT W/MINERALS TAB (THERAGRAN M) PO SCH (07:00)
[2019-12-31] MEDS: MULTIVIT W/MINERALS TAB (THERAGRAN M) PO SCH (07:38)
[2019-12-31 07:44] LABS: BASOPHILS # (AUTO) 0.1 10^3/uL (0.0-0.1); BASOPHILS % (AUTO) 0 % (0-10); EOSINOPHILS # (AUTO) 0.3 10^3/uL (0.0-0.3); EOSINOPHILS % (AUTO) 2 % (0-10); HEMATOCRIT 26 % (35-52); HEMOGLOBIN 8.9 g/dL (11.5-16.0); LYMPHOCYTES # (AUTO) 2.3 10^3/uL (1.0-4.0); LYMPHOCYTES % (AUTO) 11 % (12-44); MEAN CORPUSCULAR HEMOGLOBIN 29 pg (25-34); MEAN CORPUSCULAR HGB CONC 34 g/dL (32-36); MEAN CORPUSCULAR VOLUME 87 fL (80-99); MEAN PLATELET VOLUME 10.4 fL (9.0-12.2); MONOCYTES # (AUTO) 1.3 10^3/uL (0.0-1.0); MONOCYTES % (AUTO) 6 % (0-12); NEUTROPHILS % (AUTO) 78 % (42-75); PLATELET COUNT 416 10^3/uL (130-400); WHITE BLOOD COUNT 21.9 10^3/uL (4.3-11.0)
[2019-12-31 08:13] LABS: ALBUMIN 3.1 GM/DL (3.2-4.5); BILIRUBIN,TOTAL 0.6 MG/DL (0.1-1.0); CALCIUM 8.6 MG/DL (8.5-10.1); CREATININE SERUM 1.08 MG/DL (0.60-1.30); POTASSIUM 4.1 MMOL/L (3.6-5.0); TOTAL PROTEIN 5.8 GM/DL (6.4-8.2)
[2019-12-31 08:20] LABS: EOSINOPHILS % (MANUAL) 2 %; LYMPHOCYTES % (MANUAL) 9 %; MONOCYTES % (MANUAL) 7 %; NEUTROPHILS % (MANUAL) 82 %
[2019-12-31 08:21] LABS: HYPOCHROMASIA SLIGHT; POIKILOCYTOSIS SLIGHT; TOXIC GRANULATION/VACUOLAZATIO 1+
[2019-12-31] MEDS ORDERED: FUROSEMIDE 40 MG/4 ML INJ (LASIX) IVP SCH (09:00)
[2019-12-31] MEDS ORDERED: ENOXAPARIN 40 MG/0.4 ML (LOVENOX) SYR SC SCH ×2 (09:00)
--- NOTE | 2019-12-31 09:00 | Physical Therapy Daily Note ---
PT Daily Note-Current Subjective Pt. up in recliner. Nurse communicates that pt. is now on 9 L O2 as she had an incident while getting from bed to chair this morning. Nurse reported she thought she may have to code pt. , low o2 sats and incoherent for a considerable time. Pt. reports she doesnt remember anything this morning. Pt. reports being very weak and dreads therapies but knows she has to do it. Pt.does report she slept very well last night. Pts only pain c/o is left knee which is wrapped in corrie and is visibly edematous Pain Numeric Pain Scale: 5-Moderate Pain Location: Left Location Body Site: Knee Pain Description: Pressure Comment: dawson with attempts to move Mental Status Patient Orientation: Normal For Age Attachments: Oxygen (9L) O2 sats checked throughout Rx with sats hovering at 90% until pt. was reclined to approx 40 degrees for exercise (which she tolerated well) then was sat back up then dyspnea began and O2 sats were 84% and HR 48-68BPM and irratic. Transfers SCALE: Activities may be completed with or without assistive devices. 3-Doaitucxrd-dzddxwy completes the activity by him/herself with no assistance from a helper. 5-Set-up or Clean-up Assistance-helper sets up or cleans up; patient completes activity. [place] assists only prior to or following the activity. 4-Supervision or Touching Assistance-helper provides verbal cues and/or touching/steadying and/or contact guard assistance as patient completes activity. Assistance may be provided throughout the activity or intermittently. 3-Partial/Moderate Assistance-helper does LESS THAN HALF the effort. [place] lifts, holds or supports trunk or limbs, but provides less than half the effort. 2-Substantial/Maximal Assistance-helper does MORE THAN HALF the effort. [place] lifts or holds trunk or limbs and provides more than half the effort. 0-Ucmvjwrle-ypobci does ALL the effort. Patient does none of the effort to complete the activity. Or, the assistance of 2 or more helpers is required for the patient to complete the activity. If activity was not attempted, code reason: 7-Patient Refused. 9-Not Applicable-not attempted and the patient did not perform the activity before the current illness, exacerbation or injury. 10-Not Attempted due to Environmental Limitations-(lack of equipment, weather restraints, etc.). 88-Not Attempted due to Medical Conditions or Safety Concerns. Weight Bearing Full Weight Bearing Full Weight Bearing Exercises Supine Ex: Ankle pumps, Quad Set, Glut sets, Heel Slides (assisted left), Straight leg raise (assisted left), Hip abd/add Supine Reps: 10 (x2) Seated Therapy Exercises: Ankle pumps, Long arc quads Seated Reps: 15 Treatments pt. was unsure of routine and ARU practices and much education was done regarding schedule and time requirements as well as what to expect after critical illness. Assessment Current Status: Poor Progress poor tolerance for Rx, O2 sats waivering at 9L O2, position change influencing sats and periods of dyspnea PT Short Term Goals Short Term Goals Time Frame: Jan 06, 2020 Roll Left & Right: 6 Sit to lyin Lying to sitting on side of be: 6 Sit to stand: 4 Chair/hcl-hg-xzvsc transfer: 4 Toilet transfer: 4 Walk 10 feet: 4 Walk 50 feet with two turns: 4 PT Field Placement Director Goals [facility] Goals PT Field Placement Director Goals Time Frame: Jan 13, 2020 Roll Left & Right (QC): 6 Sit to Lying (QC): 6 Lying-Sitting on Side/Bed(QC): 6 Sit to Stand (QC): 6 Chair/Cew-kd-Ixcgu Xfer(QC): 6 Toilet Transfer (QC): 5 Car Transfer (QC): 5 Does the Patient Walk: Yes Walk 10 feet (QC): 5 Walk 50ft with 2 Turns (QC): 5 Walk 150 ft (QC): 5 Walking 10ft on Uneven Surface: 5 1 Step (curb) (QC): 4 4 Steps (QC): 4 12 Steps (QC): 88 Picking up an Object (QC): 4 Does the Pt use WC or Scooter?: Yes Wheel 50 feet with 2 turns (QC: 6 Type: Manual Wheel 150 feet: 6 Type: Manual PT Plan Treatment/Plan Treatment Plan: Continue Plan of Care Treatment Plan: Bed Mobility, Education, Functional Activity Shahab, Functional Strength, Group Therapy, Gait, Safety, Therapeutic Exercise, Transfers Treatment Duration: Jan 20, 2020 Frequency: Modified Program (IRF) (21/09) Estimated Hrs Per Day: 1.5 hours per day Patient and/or Family Agrees t: Yes Safety Risks/Education Patient Education: Correct Positioning, Disease Process, Safety Issues Teaching Recipient: Patient Teaching Methods: Discussion Time/GCodes Time In: 800 Time Out: 900 Total Billed Treatment Time: 60 Total Billed Treatment 1,FA30m,EX30m CADE TOUSSAINT SHEET ROCK TAPER Dec 31, 2019 09:00
--- NOTE | 2019-12-31 09:47 | NUR ---
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 Patient was an inpatient at [facility] 12/12-12/29 with acute respiratory failure and pneumonia from Covid+. Patient describes being quite independent and active prior to Covid diagnosis[place]5 [place]. Other diagnoses are, in part, new O2 dependence, GERD, HTN, Hyperlipidemia, advanced age. Patient resides at home with her spouse Dougie Bautista. He was also Covid+ and hospitalized at the same time as patient but has since recovered enough to be discharged home. He will be the primary caregiver for patient once she is able to discharge, she expresses she is very ready to get back home as soon as safely able to do so. PCP: Dr. Kayla Hurley MD, [place] PHARMACY: [facility] INSURANCE: Medicare, Foods You Can Supplement DME: Patient has FWW from an ankle surgery in the past, she states she has not used a walker in years. Therapy team to explore assistive devices needed for patient home performance and safety. Anticipate a discharge with supplemental O2. Mr. Bautista has new home O2 through [employer] and he stated patient's items should be ordered through the same agency. He understands that patient may need some private pay DME and he is prepared to purchase what is recommended. BARRIERS TO DISCHARGE PLANNING: Patient is very debilitated at this time, fatigued, needs frequent rest periods and supplemental O2. During interview, patient was in recliner and was pursed lip breathing, she stated she had been talking the last hour which made her short of air. General recovery should be at a level where patient can navigate at home independently within her own range of stamina with, of course, assumed continued recovery over time. Will need to learn to navigate with FWW and supplemental O2 if O2 Rx is required. Spouse is only available caregiver unless private persons are scheduled, he remains on new home O2 and in a continued recovery phase of his own. CONTACTS: Patient and spouse have 3 sons, none local, residing in [place], [place], and [place], [place]. She lists only her spouse as a contact: Dougie Bautista [address] [place] [address] CELL: [phone] Their son Sy Bautista is here from [facility] at this time. He is a workers compensation attorney and able to work from a home setting. Patient and spouse understand the purpose and process of the weekly patient care conference and that patient's first review will be January 04.
--- NOTE | 2019-12-31 09:59 | PM&R Progress Note ---
Subjective HPI/CC On Admission Date Seen by Provider: Dec 31, 2019 Time Seen by Provider: 10:00 Subjective/Events-last exam Pt had some significant problems with hypotension and near syncope episode Pt has not been eating and drinking Lactic acid elevated at 3.5 Dr. Dolan saw her in consultation and recommended IV antibiotics and IV fluids WBC 21.9 Sodium level 129 Pt very fragile Desaturated to 83% when she got out of bed Conferred with RN Checked meds and labs Reviewed therapy notes Review of Systems General: Fatigue, Malaise Pulmonary: Dyspnea, Cough Neurological: Weakness Focused Exam Lactate Level 12/31/19 10:45: Lactic Acid Level 4.74*H 12/31/19 12:45: Lactic Acid Level 4.11*H Objective Exam Vital Signs Vital Signs Date Time Temp Pulse Resp B/P (MAP) Pulse Ox O2 Delivery O2 Flow Rate FiO2 12/31/19 20:01 High Flow N/C 5.00 12/31/19 16:00 36.0 78 20 111/55 (73) 97 Capillary Refill : Less Than 3 Seconds General Appearance: No Apparent Distress, WD/WN, Chronically ill, Other (frail) HEENT: PERRL/EOMI, Normal ENT Inspection, Pharynx Normal Neck: Full Range of Motion, Normal Inspection, Non Tender, Supple, Carotid Bruit Respiratory: Chest Non Tender, Lungs Clear, No Accessory Muscle Use, No Respiratory Distress, Decreased Breath Sounds Cardiovascular: Regular Rate, Rhythm, No Edema, No Gallop, No JVD, No Murmur, Normal Peripheral Pulses Gastrointestinal: Normal Bowel Sounds, No Organomegaly, No Pulsatile Mass, Non Tender, Soft Back: Normal Inspection, No CVA Tenderness, No Vertebral Tenderness Extremity: Normal Capillary Refill, Normal Inspection, Normal Range of Motion, Non Tender, No Calf Tenderness, No Pedal Edema Neurologic/Psychiatric: Alert, Oriented x3, No Motor/Sensory Deficits, Normal Mood/Affect, inspector casing II-XII Norm as Tested, Abnormal Gait, Motor Weakness (weakness of all extremities 3/5) Skin: Normal Color, Warm/Dry Lymphatic: No Adenopathy Results/Procedures Lab Laboratory Tests 12/31/19 07:37 Patient resulted labs reviewed. FIM Transfers Therapy Code Descriptions/Definitions Functional [place] Measure: 0=Not Assessed/NA 4=Minimal Assistance 1=Total Assistance 5=Supervision or Setup 2=Maximal Assistance 6=Modified [place] 3=Moderate Assistance 7=Complete IndependenceSCALE: Activities may be completed with or without assistive devices. 4-Joyyblatwl-ngeqwul completes the activity by him/herself with no assistance from a helper. 5-Set-up or Clean-up Assistance-helper sets up or cleans up; patient completes activity. [place] assists only prior to or following the activity. 4-Supervision or Touching Assistance-helper provides verbal cues and/or touching /steadying and/or contact guard assistance as patient completes activity. Assistance may be provided throughout the activity or intermittently. 3-Partial/Moderate Assistance-helper does LESS THAN HALF the effort. [place] lifts, holds or supports trunk or limbs, but provides less than half the effort. 2-Substantial/Maximal Assistance-helper does MORE THAN HALF the effort. [place] lifts or holds trunk or limbs and provides more than half the effort. 0-Mjrtuuqqv-tbaalg does ALL the effort. Patient does none of the effort to complete the activity. Or, the assistance of 2 or more helpers is required for the patient to complete the activity. If activity was not attempted, code reason: 7-Patient Refused. 9-Not Applicable-not attempted and the patient did not perform the activity before the current illness, exacerbation or injury. 10-Not Attempted due to Environmental Limitations-(lack of equipment, weather restraints, etc.). 88-Not Attempted due to Medical Conditions or Safety Concerns. Roll Left to Right (QC): 6 Sit to Lying (QC): 3 Sit to Stand (QC): 3 Chair/Ugr-uv-Aenrb Xfer(QC): 3 Car Transfer (QC): 3 Gait Training Does the Patient Walk?: Yes Walk 10 feet (QC): 4 Walk 50 ft with 2 Turns(QC): 88 Walk 150 ft (QC): 88 Walking 10ft/uneven surface-QC: 88 Gait Assistive Device: FWW Wheelchair Training Does the Pt Use a Wheelchair?: Yes Distance: 20' Wheel 50 ft with 2 turns (QC): 3 Wheel 150 ft (QC): 88 Type of Wheelchair: Manual Stair Training 1 Step (curb) (QC): 88 4 Steps (QC): 88 12 Steps (QC): 88 Balance Picking up an Object (QC): 88 ADL-Treatment Eating (QC): 7 Oral Hygiene (QC): 7 Shower/Bathe Self (QC): 3 Upper Body Dressing (QC): 7 Lower Body Dressing (QC): 7 On/Off Footwear (QC): 3 Toileting Hygiene (QC): 2 Assessment/Plan Assessment and Plan Assess & Plan/Chief Complaint Assessment: Debility from COVID 19 PNA 12/13/19 admitted to [facility] O2 dependence new onset HTN HLP Advanced age GERD Plan: IRF protocol Monitor O2 Check labs 12/31/19: IVF IV abx empiric Volume depletion with dehydration causing lactic acidosis not sepsis (1) COVID-19 Status: Acute (2) GERD (gastroesophageal reflux disease) (3) Hypertension (4) Hyperlipemia (5) Advanced age (6) Supplemental oxygen dependent (7) PNA (pneumonia) Status: Acute (8) Acute respiratory failure due to COVID-19 Status: Acute CORI MOODY DO Dec 31, 2019 09:59
--- NOTE | 2019-12-31 10:01 | Individualized Plan of Care ---
Individualized Plan of Care Rehab Nursing IPOC Order Admission Date Dec 30, 2019 at 11:00 Current Orders Orders Admission Order(Inpt,Obs,Sdc) (12/30/19 10:16) Vital Signs: Per Unit Policy ( 08,16,00 (12/30/19 10:16) Abdi Parsons , (12/30/19 10:16) Sequential Compression Device Q4H (12/30/19 10:16) Router Operator Pin-Inpt Rehab Con (12/30/19 10:16) Rehab Nursing Orders-Ipoc (12/30/19 10:16) Physical Therapy Rehab Orders (12/30/19 10:16) Occupational Therapy Rehab Ord (12/30/19 10:16) Speech Therapy Rehab Orders (12/30/19 10:16) Cbc With Automated Diff (12/31/19 06:00) Comprehensive Metabolic Panel (12/31/19 06:00) Intake & Output 06,14, (12/30/19 10:16) Precautions (Aru) (12/30/19 10:16) Rehab-Intensity Of Therapy (12/30/19 10:16) Initiate Admission Nursing Pro .admission (12/30/19 10:16) Alprazolam Tablet (Xanax Tablet) (12/30/19 10:30) Calcium Carbonate Chew Tablet (Antacid C (12/30/19 10:30) Diphenhydramine Tablet (Benadryl Tablet) (12/30/19 10:30) Docusate Sodium Capsule (Colace Capsule) (12/30/19 21:00) Docusate Sodium Capsule (Colace Capsule) (12/30/19 10:30) Bisacodyl Suppository (Dulcolax Supposit (12/30/19 10:30) Lactulose Oral Solution (Enulose Oral So (12/30/19 10:30) Na Phos/Na Biphos Enema (Fleet Enema Norberto (12/30/19 10:30) Guaifenesin/Codeine Syrup (Robitussin Ac (12/30/19 10:30) Loperamide Tablet (Imodium Tablet) (12/30/19 10:30) Melatonin Tablet (Melatonin Tablet) (12/30/19 10:30) Polyethylene Glycol Powder Pkt (Miralax (12/30/19 21:00) Ondansetron Oral Dissolve Tab (Zofran (12/30/19 10:30) Senna S Tablet (Senokot S Tablet) (12/30/19 21:00) Initiate Admission Nursing Pro .admission (12/30/19 10:16) Admission Arrival Bed Request (12/30/19 11:32) Code/Resuscitation (12/30/19 12:11) Ensure Enlive (12/30/19 Lunch) Sodium 2g (2000 Mg) (12/30/19 Lunch) Acetaminophen Tablet/Caplet (Tylenol T (12/30/19 12:15) Albuterol Inhaler (Ventolin Hfa) (12/30/19 14:00) Atenolol Tablet (Tenormin Tablet) (12/31/19 09:00) Atorvastatin Tablet (Lipitor Tablet) (12/30/19 21:00) Enoxaparin Injection (Lovenox Injection) (12/30/19 21:00) Furosemide Injection (Lasix Injection) (12/31/19 09:00) Ondansetron Injection (Zofran Injectio (12/30/19 12:15) Pantoprazole Tablet (Protonix Tablet) (12/31/19 09:00) Hydralazine Tablet (Apresoline Tablet) (12/30/19 12:15) Incentive Spirometry Initial (12/30/19 12:11) Mat Initiate Protocol (12/30/19 12:11) Incentive Spirometry (Nursing) Q2H (12/30/19 12:11) Aspirin Enteric Coated Tablet (Ecotrin T (12/30/19 21:00) Cholecalciferol Capsule/Tablet (Vitamin (12/31/19 09:00) Therapeutic Multivitamin Tab (Vitamins, (12/31/19 07:00) Enoxaparin Injection (Lovenox Injection) (12/31/19 09:00) Ambulate 08,12,20 (12/30/19 13:09) Sequential Compression Device Q4H (12/30/19 13:09) Dvt/Vte Risk - Notifiy Physici Q4H (12/30/19 13:09) Catheter(Urinary) Discontinue (12/30/19 13:55) Nursing Communication (Order) (12/30/19 14:30) Patient Visit (12/30/19 ) Pt Eval Moderate Complexity (12/30/19 ) Functional Activities, Ea 15 (12/30/19 ) Patient Visit (12/30/19 ) Exercise Therap, Ea 15 Min (12/30/19 ) Functional Activities, Ea 15 (12/30/19 ) Sodium Chloride Flush (Catheter Flush Sy (12/30/19 16:00) Sodium Chloride Flush (Catheter Flush Sy (12/30/19 22:00) Manual Differential (12/31/19 07:37) Procalcitonin (Pct) (12/31/19 09:59) Lactic Acid Analyzer (12/31/19 09:59) Arterial Blood Draw (12/31/19 09:59) Chest 1 View, Ap/Pa Only (12/31/19 09:59) Telemetry (12/31/19 11:10) Telemetry Nursing Assessment ( (12/31/19 11:10) Consult Pulmonology (12/31/19 11:22) Piperacillin/Tazobactam (Bulk) (Zosyn In (12/31/19 18:00) Mrsa Screen Physician Request (12/31/19 11:33) Mrsa Nursing Screening/Treatme .admit (12/31/19 11:33) Fibrin Degradation Products (12/31/19 11:33) Ct Angio Chest W (12/31/19 11:33) Lactated Ringers (Lr 1000 Ml Iv Solution (12/31/19 11:45) Piperacillin/Tazobactam (Bulk) (Zosyn In (12/31/19 12:00) Ua Culture If Indicated (12/31/19 18:10) Lactated Ringers (Lr 1000 Ml Iv Solution (12/31/19 11:45) Iohexol Injection (Omnipaque 350 Mg/Ml 1 (12/31/19 12:00) Received Contrast (Hold Metformin- Contr (12/31/19 12:00) Ns (Ivpb) (Sodium Chloride 0.9% Ivpb Bag (12/31/19 12:00) Arterial Blood Gas (12/31/19 12:16) Arterial Blood Draw (12/31/19 12:16) Nursing Communication (Order) (12/31/19 13:59) Patient Visit (12/31/19 ) Speech Sound Lang Comp (12/31/19 ) Treat. Speech/Lang/Voice (12/31/19 ) Patient Visit (12/31/19 ) Functional Activities, Ea 15 (12/31/19 ) Exercise Therap, Ea 15 Min (12/31/19 ) Nursing Communication (Order) (12/31/19 16:57) Catheter(Urinary) Insert & Ass 03,15 (12/31/19 18:06) Urine Culture (12/31/19 18:09) Consult Cardiology (12/31/19 19:17) Rehab Nursing Orders: Ongoing Assess. of Cognitive Status, Ongoing Assess. of Function Status, Bladder Management, Bladder Scan, Bladder Training, Bowel Management, Bowel Training, Disease Management & Educaiton, DVT Prophylaxis, Fall Prevention, Fluid/Electrolyte/Nutrition Mgmt, Infection Prevention, Medication Management & Education, Management of Risks & Complications, Nutrition Management, Pain Management, Patient/Family Support, Safety Management, Swallow Precautions Intensity of Therapy to be met Patient to be seen: Min.3h per day/5 of 7d PT IPOC Problem List: Activity Tolerance, Functional Strength, Safety, Balance, Gait, Transfer, Bed Mobility, ROM Treatment Plan: Continue Plan of Care Bed Mobility, Education, Functional Activity Shahab, Functional Strength, Group Therapy, Gait, Safety, Therapeutic Exercise, Transfers Treatment Duration: Jan 20, 2020 Frequency: Modified Program (IRF) (21/09) Estimated Hrs Per Day: 1.5 hours per day OT IPOC Problems: Decreased Activ Tolerance, Dependent Transfers, Impaired Funct Balance, Impaired I ADL's, Impaired Self-Care Skills OT Treatment, Training and Edu: Yes Plan of Care: ADL Retraining, Functional Mobility, UE Funct Exercise/Act Treatment Duration: Jan 13, 2020 Frequency: At least 5 of 7 days/Wk (IRF) Estimated Hrs Per Day: 1.[address] IPOC Speech Therapy Treatment Plan: Modify Plan, See Comments Treatment Duration: Dec 31, 2019 Frequency: Modified Program (IRF) Estimated Hrs Per Day: Other Router Operator Pin/Case Mgmt Router Operator Pin/Case Managemen: Discharge Planning Dietitian/[place] Supervisor Dietitian/[place] Supervisor to monitor nutritional status and make changes and/or recommendations as needed and work with speech pathology on dietary upgrades as the occur. Physician IPOC Medical Issues being managed closely and that require the 24 hour availability o f a physician: Lengthy COVID-19 hospital course with syncope and lactic acidosis from volume depletion and severe desaturation will require close observation for decompensation Medical Issues: Bowel/Bladder Function, DVT Prophylaxis, Falls Precautions, Fluid/Electrolyte/Nutrition Balance, Infection Protection, Pain Management Brief Synthesis of Preadmission Screen, Post-Admission Evaluation, and Therapy Evaluations: PT OT will focus on regaining strength while energy conservation skills taught and monitor O2 saturation in meantime Medical Prognosis: Guarded Anticipated Length of Stay: 10 days CORI MOODY DO Dec 31, 2019 10:01
[2019-12-31 10:16] VITALS: BP 122/57
[2019-12-31] MEDS: PANTOPRAZOLE 40 MG (PROTONIX) TAB PO SCH (10:21)
[2019-12-31] MEDS: DOCUSATE SODIUM 100 MG (COLACE) CAP PO SCH ×2 (10:22→20:37)
[2019-12-31] MEDS: VITAMIN D3 10 MCG (400 UNITS) TABLET PO SCH (10:22)
[2019-12-31] MEDS: ATENOLOL 25 MG (TENORMIN) TAB PO SCH (10:22)
[2019-12-31] MEDS: SENNA W/DOCUSATE (SENOKOT S) TABLET PO SCH ×2 (10:23→20:37)
[2019-12-31] MEDS: polyethylene glycoL POWDER 17 GM (MIRALAX) PACK PO SCH ×2 (10:23→20:37)
--- NOTE | 2019-12-31 10:24 | NUR ---
Pt states that she slept better last night than anytime since she has been here.
[2019-12-31 10:33] VITALS: BP 94/50
[2019-12-31 10:46] VITALS: BP 131/66
--- NOTE | 2019-12-31 10:47 | Occupational Ther Daily Note ---
OT Current Status-Daily Note Subjective 1015: Pt up in recliner upon entry. Pt's nurse present, vitals assessed: 122/57, 02 94%. Pt alert/ oriented. Pt agrees to tx, agrees to getting dressed and states desire for toileting. 1110: Pt agrees for OT assist in bottom cleaning/ rolling. Pt states "breathing just fine now." 1130: (10 min break due to many people in room). Mental Status/Objective Patient Orientation: Normal For Age Attachments: Oxygen ADL-Treatment Therapy Code Descriptions/Definitions Functional [place] Measure: 0=Not Assessed/NA 4=Minimal Assistance 1=Total Assistance 5=Supervision or Setup 2=Maximal Assistance 6=Modified [place] 3=Moderate Assistance 7=Complete IndependenceSCALE: Activities may be completed with or without assistive devices. 9-Gdnquiorfe-qhhudwn completes the activity by him/herself with no assistance from a helper. 5-Set-up or Clean-up Assistance-helper sets up or cleans up; patient completes activity. [place] assists only prior to or following the activity. 4-Supervision or Touching Assistance-helper provides verbal cues and/or touching/steadying and/or contact guard assistance as patient completes activity. Assistance may be provided throughout the activity or intermittently. 3-Partial/Moderate Assistance-helper does LESS THAN HALF the effort. [place] lifts, holds or supports trunk or limbs, but provides less than half the effort. 2-Substantial/Maximal Assistance-helper does MORE THAN HALF the effort. [place] lifts or holds trunk or limbs and provides more than half the effort. 5-Jkhbdhwvg-ltfcrv does ALL the effort. Patient does none of the effort to complete the activity. Or, the assistance of 2 or more helpers is required for the patient to complete the activity. If activity was not attempted, code reason: 7-Patient Refused. 9-Not Applicable-not attempted and the patient did not perform the activity before the current illness, exacerbation or injury. 10-Not Attempted due to Environmental Limitations-(lack of equipment, weather restraints, etc.). 88-Not Attempted due to Medical Conditions or Safety Concerns. Eating (QC): 4 (cues) Shower/Bathe Self (QC): 7 Toileting Hygiene (QC): 1 Toilet Transfer (QC): 4 Other Treatment 1015-Pt sit to stand with CGA x2. Pt ambulates ~3 steps to BSC, sits with control. Pt sits for ~1 min and able to have BM, pt suddenly stares blankly with wide eyes, R arm extends forward and slightly pulsates as pt continues to have BM in commode with CGA and nurse/ OT witness. Pt is cooled with cloth, pt able to state appropriate statements. Pt states does not know what happened, has never passed out so does not know what happened. Vitals: 94/50 with 80% 02 which steadily climbs to 90%. Pt's commode brought to EOB, pt transferred with TD to bed/ encouraged to lay supine. Pt states, "I haven't wiped," appropriately. Pt is encouraged to lay and will wipe later. 1110-Pt rolls with cues with IND. Pt is assisted in wiping bottom, replacing soiled linens from under pt in bed. Pt assisted to HOB with Ax2. Pt left with nursing. 1130- Pt upright in bed. Pt continues on 02, states no difficulty breathing. Pt finishes pills, stating difficulty managing feeding due to decreased shoulder strength. Pt is educated on proper positioning/ use of pillows for assist for tasks to conserve energy. Pt provided with hand sponge and green theraputty with beads to work towards higher fx UE tolerance. Pt states, "It feels nice to have something to do." Pt completed taking beads from putty with good motor control and fair endurance/ strength. Pt is educated on purpose of task and to complete while sitting upright. Pt states pain in L knee while moving. Use of therapeutic massage for relaxation and edema management, use of lotion and retrograde massage to guide fluid from LLE. Pt educated on purpose and is wrapped with TOBY bandage with limited tension for slight compression. Pt left in bed with all needs met, call light in reach. Education OT Patient Education: Energy conservation, Modified ADL techniques, Purpose of tx/functional activities, Safety issues, Transfer techniques Teaching Recipient: Patient Teaching Methods: Demonstration, Discussion Response to Teaching: Verbalize Understanding, Return Demonstration OT Short Term Goals Short Term Goals Time Frame: Jan 06, 2020 Eatin Oral hygiene: 4 Toileting hygiene: 3 Shower/bathe self: 3 Upper body dressin Lower body dressin Putting on/taking off footwear: 4 OT On Site Soil Evaluator Goals Care Home Goals Time Frame: Jan 13, 2020 Eating (QC): 6 Oral Hygiene (QC): 6 Toileting Hygiene (QC): 6 Shower/Bathe Self (QC): 4 Upper Body Dressing (QC): 4 Lower Body Dressing (QC): 4 On/Off Footwear (QC): 6 Additional Goals: 1-Demonstrate ADL Tasks, 2-Verbalize Understanding, 3- ImproveStrength/Shahab 1=Demonstrate adherence to instructed precautions during ADL tasks. 2=Patient will verbalize/demonstrate understanding of assistive devices/modifica tions for ADL. 3=Patient will improve strength/tolerance for activity to enable patient to perform ADL's. OT Education/Plan Problem List/Assessment Assessment: Decreased Activ Tolerance, Decreased UE Strength, Dependent Transfers, Impaired Funct Balance, Impaired I ADL's, Impaired Self-Care Skills Discharge Recommendations Plan/Recommendations: Continue POC Therapy Discharge Recommendati: Home & Family, Post Acute OT Treatment Plan/Plan of Care Treatment,Training & Education: Yes Patient would benefit from OT for education, treatment and training to promote independence in ADL's, mobility, safety and/or upper extremity function for ADL's. Plan of Care: ADL Retraining, Functional Mobility, UE Funct Exercise/Act Treatment Duration: Jan 13, 2020 Frequency: At least 5 of 7 days/Wk (IRF) Estimated Hrs Per Day: 1.5 hours per day Agreement: Yes Rehab Potential: Good Time/GCodes Start Time: 10:15 (1110; 1130) Stop Time: 10:35 (1120; 1215) Total Time Billed (hr/min): 75 (20+10+45) Billed Treatment Time 2761-6194: 1, ADL (20) [id number]: 1, ADL (10) 4054-7342: 1, MAS (15), EX 2 (30)= 45 Total: 75 BRENDA VINES OTR Dec 31, 2019 10:47
[2019-12-31 11:03] VITALS: BP 117/68
--- NOTE | 2019-12-31 11:09 | Diagnostic Imaging Report ---
INDICATION: Hypoxia. TECHNIQUE: Single view chest 10:27 AM. CORRELATION STUDY: 12/25/2019 FINDINGS: Heart size is mildly enlarged. Vasculature remains mildly congested. Scattered pulmonary parenchymal densities are present but overall there has been significant improvement in aeration through the lung tanner. Probable small pleural effusions. IMPRESSION: 1. Previously noted bilateral pulmonary opacities have significantly improved. There maybe some residual infiltrate and/or edema at both lung bases along with small effusions. Dictated by: Dictated on workstation # [id number]
--- NOTE | 2019-12-31 11:29 | NUR ---
DR. CRAWFORD IN & SPOKE W PT. DR. MOODY NOTIFIED THAT ICU STATES THAT THEY HAVE NO TELEMETRY UNITS AVAILABLE.
--- NOTE | 2019-12-31 11:42 | Pulmonary Progress Note ---
Subjective Time Seen by a Provider: 11:37 Subjective/Events-last exam Called to bedside secondary to acute syncope and increasing oxygen requirements. Sepsis Event Evaluation Height, Weight, BMI Height: 5'1.00" Weight: 148lbs. 0.0oz. [id number]; 24.07 BMI Method: Focused Exam Lactate Level 12/31/19 10:45: Lactic Acid Level 4.74*H Lactic Acid Level Laboratory Tests Test 12/31/19 10:45 Lactic Acid Level 4.74 MMOL/L (0.50-2.00) *H Exam Exam Vital Signs Date Time Temp Pulse Resp B/P (MAP) Pulse Ox O2 Delivery O2 Flow Rate FiO2 12/31/19 11:03 82 22 117/68 (84) 95 Nasal Cannula 5.00 12/31/19 11:00 98 High Flow N/C 8.00 12/31/19 11:00 97 Nasal Cannula 4.00 12/31/19 10:59 85 22 98 Nasal Cannula 5.00 12/31/19 10:46 36.4 81 22 131/66 (87) 100 Nasal Cannula 6.00 12/31/19 10:33 94/50 (65) 12/31/19 10:16 94 20 122/57 (78) 98 Nasal Cannula 7.00 12/31/19 06:04 94 High Flow N/C 6.00 12/31/19 06:00 35.9 58 18 124/59 (80) 94 Nasal Cannula 5.00 12/31/19 01:19 97 High Flow N/C 6.00 12/30/19 22:04 High Flow N/C 6.00 12/30/19 19:08 96 High Flow N/C 6.00 12/30/19 17:00 36.8 79 20 121/62 (81) 93 Nasal Cannula 5.00 12/30/19 15:46 Nasal Cannula 5.00 12/30/19 14:50 96 High Flow N/C 6.00 12/30/19 11:45 36.2 93 20 156/82 96 Nasal Cannula 6.00 I & O 12/31/19 07:00 Intake Total 840 ml Output Total 1675 ml Balance -835 ml Height & Weight Height: 5'1.00" Weight: 148lbs. 0.0oz. 67.623618bj; 24.07 BMI Method: General Appearance: WD/WN, Anxious, Chronically ill, Mild Distress HEENT: PERRL/EOMI, Normal ENT Inspection, Pharynx Normal Neck: Full Range of Motion, Normal Inspection, Non Tender, Supple, Carotid Bruit Respiratory: Chest Non Tender, Accessory Muscle Use (mild increased WOB), Decreased Breath Sounds, Rales Cardiovascular: Regular Rate, Rhythm, No Edema, No Gallop, No JVD, No Murmur, Normal Peripheral Pulses Capillary Refill: Less Than 3 Seconds Extremity: Normal Capillary Refill, Normal Inspection, Normal Range of Motion, Non Tender, No Calf Tenderness, No Pedal Edema Neurologic/Psychiatric: Alert, Oriented x3, No Motor/Sensory Deficits, Normal Mood/Affect, core stacker II-XII Norm as Tested, Abnormal Gait, Motor Weakness (weakness of all extremities 3/5) Skin: Normal Color, Warm/Dry Lymphatic: No Adenopathy Results Lab Laboratory Tests 12/31/19 07:37 Assessment/Plan Assessment/Plan PNA r/o PE with hypoxia -Oxygne -Start Zosyn -Check UA and sputum culture -Check CTA chest s/p syncope probably secondary to dehydration and vasovagal -IVF Metabolic lactic acidosis secondary to dehydration and worsening PNA - -Restart Abx -Give a liter bolus of LR -Hold Lasix s/p COVID 19 EVELYN CRAWFORD DO Dec 31, 2019 11:42
[2019-12-31] MEDS ORDERED: LACTATED RINGERS 1,000 ML IV SCH (11:45)
[2019-12-31] MEDS: LACTATED RINGERS 1,000 ML IV SCH ×3 (11:51→21:59)
[2019-12-31] MEDS ORDERED: HOLD METFORMIN - RECEIVED CONTRAST 20 ML VIAL IV SCH (12:00)
[2019-12-31] MEDS ORDERED: PIPERACILLIN/TAZO 4.5 GM/NS 100 ML IV ONE ×2 (12:00)
[2019-12-31] MEDS ORDERED: IOHEXOL 350 MG/ML 100 ML (OMNIPAQUE 350) VIAL IV ONE (12:00)
[2019-12-31] MEDS ORDERED: NS 100 ML (IVPB) BAG IV ONE (12:00)
[2019-12-31 12:25] LABS: ABG BASE EXCESS 12.5 MMOL/L (-2.5-2.5); ABG OXYGEN SATURATION 100 % (94-100); ABG PCO2 43 MMHG (35-45); ABG PH 7.53 (7.37-7.43); ABG PO2 125 MMHG (79-93); ABG TCO2 37.8 MMOL/L (21.0-31.0)
[2019-12-31 12:26] LABS: ALLENS TEST YES-POS; INSPIRED O2 7L HF; PATIENT TEMP 36.1; VENTILATOR NO
--- NOTE | 2019-12-31 13:08 | ST Cognitive Linguistic Eval ---
Speech Evaluation-General Medical Diagnosis Post-Covid, pneumonia Onset Date: Dec 13, 2019 Therapy Diagnosis Therapy Diagnosis: Cognitive-communication Referral Referring Physician: Dr. Hawkins Medical History Pertinent Medical History: HTN Reviewed History: Yes Social History Current Living Status: Spouse Speech PLF-Current Status Prior Level of Function Patient lives in the home with her of 63 years. Patient was independent for most of her daily needs. Subjective Patient was pleasant and cooperative with the cognitive assessment. Pain Numeric Pain Scale: 9 Language Eval: Auditory Comprehends Simple Yes/No Ques: Functional Indent/Objects [place]: Functional Ident/Pics in [place]: Functional Follows 1-Step Commands: Functional Follows Complex Directions: Mild Follows General Conversations: Functional Language Eval: Verbal Language Completes Spontaneous Greeting: Functional Produces Auto, Serial Info: Functional Imitates Simple Words/Phrases: Functional Word Finding: Functional Requests Basic Needs: Functional States Basic Personal Info: Functional Expresses Complex Ideas: Mild Objective Cognitive Domain Attention: WNL Memory: Mild Problem Solving: Functional Visuospatial Skills: WNL Composite Severity Rating: Mild Clock Drawing Severity Rating: WNL Objective Formal/Standardized Tests [facility] Mental Status (UMS) Results 25/30, Mild Neurocognitive Disorder range of function Oral Motor/Speech Production Within Normal Limits Impression Patient is a pleasant 89 y/o female who was admitted to the ARU due to recently having COVID-19. Patient was given the SLUMS with a score of 25/30 obtained. This score is in the MNCD range of function and is indicative of further services. ST will deliver speech services with focus on improving level of cognitive function so that she can return home safer. Speech Patient Assess Expression of Ideas/Wants: Exhibits (3) Understanding Verbal Content: Usually Understands (3) Brief Interview-Mental Status: Yes Repetition of Three Words: Three (3) Temporal Orientation: Year: Correct (3) Temporal Orientation: Month: Accurate within 5 days(2) Temporal Orientation: Day: Correct (1) Recall : Wear to say "Sock": Yes,after cueing (1) Recall : Color: Yes, after cueing (1) Recall : Bed: Yes,after cueing (1) Memory/Recall Ability: Current season, That he or she is in a hsp/hsp unit Speech Short Term Goals Short Term Goals Short Term Goals 1) Patient will complete memory tasks related to her daily needs at 80% or greater with minimal cues. 2) Patient will complete safety awareness tasks related to her daily needs at 80% or greater with minimal cues. 3) Patient will complete problem solving tasks related to her daily needs at 80% or greater with minimal cues. Speech Residential Goals Residential Goals Patient will improve cognitive-communication tasks in order to require minimal assist with daily needs. Speech-Plan Patient/Family Goals Patient/Family Goals: Patient plans on returning to her home where she lives with her . Treatment Plan Speech Therapy Treatment Plan: Continue Plan of Care Treatment Duration: Jan 14, 2020 Frequency: 4 times per week (Patient will receive skilled ST 4-5x per week) Estimated Hrs Per Day: .5 hour per day Rehab Potential: Good Barriers to Learning: Patient's recent illness, age Pt/Family Agrees to Plan: Yes Safety Risks/Education Teaching Recipient: Patient Teaching Methods: Discussion Response to Teaching: Verbalize Understanding Education Topics Provided: Safety within her room, communication of wants/needs Time Speech Therapy Time In: 09:00 Speech Therapy Time Out: 09:30 Total Billed Time: 30 Billed Treatment Time 1, MICHAEL RODRIGUEZ [address] ST Dec 31, 2019 13:08
--- NOTE | 2019-12-31 13:57 | NUR ---
No more Lactic Acid blood draws per Dr. Hawkins, states that pt is dehydrated, not septic. Call placed to Lab & informed them. Pt has another one due at 2:45. States that she will cancel it. Pt returned per bed to her room after CT scan.
--- NOTE | 2019-12-31 14:04 | NUR ---
RD ASSESSMENT PMHx: HTN; HLD; CA(melanoma) PT INTERACTION: Pt was awake and pleasant during nutrition assessment. Pt states current appetite is "lousy since I got here." Note avg PO intake 26% x1d in IRF, per chart review. Pt states following a regular diet order at home, and has no issues with chewing/swallowing food. Pt states no recent issues with nausea, vomiting, constipation, or diarrhea. Note last BM was 12/29, and pt currently on bowel regimen of colace BID; senna BID; and miralax BID, per chart review. Pt states no recent wt changes and that she is trying to lose weight. Note unable to determine recent wt hx, per chart review. ABNORMAL NUTRITION-RELATED LAB VALUES LOW: Na 129; Cl 82; Pro 5.8; alb 3.1 HIGH: BUN 42; glu 178; ALT 58 Est. kcal needs: 1425 kcal | 25 kcal/kg Est. Pro needs: 57 g Pro | 1.0 g Pro/kg PES STATEMENT: Inadequate oral intake (NI-2.1) related to loss of appetite as evidenced by pt interview | avg PO intake 26% x1d INTERVENTION: Continue with current diet order of 2000mg Na diet. Continue with current supplementation order of Ensure Enlive with meals TID, for increased kcal intake. Provides 350 kcal and 20 g Pro per serving. Encouraged pt to eat when able. Will continue to follow and reassess as pt needs, intake, and status change. Jessica Petit, MS RD LD
--- NOTE | 2019-12-31 14:11 | NUR ---
0900 SCHEDULED DOSE OF LASIX IV WAS NOT ADMINISTERED THIS AM.
--- NOTE | 2019-12-31 14:26 | Diagnostic Imaging Report ---
PROCEDURE: CT angiography of the chest with contrast. TECHNIQUE: Multiple contiguous axial images were obtained through the chest after uneventful bolus administration of intravenous contrast. 3D reconstructed CTA MIP acquisitions were also performed. Auto Exposure Controls were utilized during the CT exam to meet ALARA standards for radiation dose reduction. INDICATION: Syncope. COMPARISON: No prior studies are available for comparison. FINDINGS: Evaluation of the pulmonary arterial system is without evidence of thromboembolism. No filling defects are seen within central, lobar or segmental branches. The thoracic aorta is normal caliber. No dissection is identified. No pericardial or pleural fluid is identified. Upper lung tanner demonstrate patchy groundglass infiltrates bilaterally. There is also airspace infiltrate in bilateral lower lobes posteriorly as well as right middle lobe. Interlobular septal thickening is present as well. No discrete mass is identified. Upper abdomen is unremarkable. IMPRESSION: 1. No evidence of pulmonary embolism or thoracic aortic dissection. 2. Bilateral pulmonary infiltrates likely on infectious/inflammatory basis. There are some prominent interstitial markings as well and underlying interstitial fibrotic changes cannot be entirely excluded. No other significant abnormality is detected. Dictated by: Dictated on workstation # [id number]
--- NOTE | 2019-12-31 14:58 | Physical Therapy Daily Note ---
PT Daily Note-Current Subjective Pt. in bed and states she has"been through it today" Agrees to bed exercises. Pain Numeric Pain Scale: 5-Moderate Pain Location: Left Location Body Site: Knee Pain Description: Pressure Comment: dawson with knee flexion/heel slides attempts Mental Status Patient Orientation: Person, Place Attachments: Oxygen (9L), Other-See Comments (corrie wrap left knee) Transfers SCALE: Activities may be completed with or without assistive devices. 4-Rxyqonvlry-knhseil completes the activity by him/herself with no assistance from a helper. 5-Set-up or Clean-up Assistance-helper sets up or cleans up; patient completes activity. [place] assists only prior to or following the activity. 4-Supervision or Touching Assistance-helper provides verbal cues and/or touching/steadying and/or contact guard assistance as patient completes activity. Assistance may be provided throughout the activity or intermittently. 3-Partial/Moderate Assistance-helper does LESS THAN HALF the effort. [place] lifts, holds or supports trunk or limbs, but provides less than half the effort. 2-Substantial/Maximal Assistance-helper does MORE THAN HALF the effort. [place] lifts or holds trunk or limbs and provides more than half the effort. 9-Sfddwjjrq-puqjbi does ALL the effort. Patient does none of the effort to complete the activity. Or, the assistance of 2 or more helpers is required for the patient to complete the activity. If activity was not attempted, code reason: 7-Patient Refused. 9-Not Applicable-not attempted and the patient did not perform the activity before the current illness, exacerbation or injury. 10-Not Attempted due to Environmental Limitations-(lack of equipment, weather restraints, etc.). 88-Not Attempted due to Medical Conditions or Safety Concerns. rolling left to right min assist, pushing self up in bed using rails at top and flexed knee planted foot on right pt.required min assist to push herself up in bed, pt has slid down in bed Weight Bearing Full Weight Bearing Full Weight Bearing Exercises Supine Ex: Ankle pumps, Quad Set, Rolling, Glut sets, Heel Slides (assisted left), Scooting (up in bed min assist), Straight leg raise, Hip abd/add Supine Reps: 12 Treatments shoulder flexion, shoulder abduction in sitting x 12 ea Assessment Current Status: Fair Progress no c/o SOB , no dyspnea noted, fatigued very easily PT Short Term Goals Short Term Goals Time Frame: Jan 06, 2020 Roll Left & Right: 6 Sit to lyin Lying to sitting on side of be: 6 Sit to stand: 4 Chair/ept-qy-snqvt transfer: 4 Toilet transfer: 4 Walk 10 feet: 4 Walk 50 feet with two turns: 4 PT [place] Goals Penitentiary Goals PT [place] Goals Time Frame: Jan 13, 2020 Roll Left & Right (QC): 6 Sit to Lying (QC): 6 Lying-Sitting on Side/Bed(QC): 6 Sit to Stand (QC): 6 Chair/Qil-fl-Hmioo Xfer(QC): 6 Toilet Transfer (QC): 5 Car Transfer (QC): 5 Does the Patient Walk: Yes Walk 10 feet (QC): 5 Walk 50ft with 2 Turns (QC): 5 Walk 150 ft (QC): 5 Walking 10ft on Uneven Surface: 5 1 Step (curb) (QC): 4 4 Steps (QC): 4 12 Steps (QC): 88 Picking up an Object (QC): 4 Does the Pt use WC or Scooter?: Yes Wheel 50 feet with 2 turns (QC: 6 Type: Manual Wheel 150 feet: 6 Type: Manual PT Plan Treatment/Plan Treatment Plan: Continue Plan of Care Treatment Plan: Bed Mobility, Education, Functional Activity Shahab, Functional Strength, Group Therapy, Gait, Safety, Therapeutic Exercise, Transfers Treatment Duration: Jan 20, 2020 Frequency: Modified Program (IRF) (21/09) Estimated Hrs Per Day: 1.5 hours per day Patient and/or Family Agrees t: Yes Safety Risks/Education Patient Education: Transfer Techniques, Correct Positioning, Safety Issues Teaching Recipient: Patient Teaching Methods: Demonstration, Discussion Response to Teaching: Verbalize Understanding, Return Demonstration, Reinforcement Needed Time/GCodes Time In: 1435 Time Out: 1455 Total Billed Treatment Time: 20 Total Billed Treatment 1,EX20m CADE TOUSSAINT BACKEND PYTHON DEVELOPER Dec 31, 2019 14:58
[2019-12-31 16:00] VITALS: BP 111/55
--- NOTE | 2019-12-31 16:06 | NUR ---
CM/SS VOTING Inquiry was made regarding the upcoming election and whether patient had an alternate plan to vote due to her hospitalization. She indicated her spouse would bring her ballot for completion if she was not able to discharge timely.
--- NOTE | 2019-12-31 16:54 | NUR ---
CONFIRMED W DR. CRAWFORD THE IVF OF L/R ON THE EMAR D/T HE HAD CHARTED & SAID THIS AM THAT IT WOULD JUST BE 1 BOLUS LITER OF IVF'S. REC'D ORDER TO CONTINUE W THE IVF'S ORDERED ON THE EMAR. NOTIFIED OF THE CTA, & LACTIC ACID RESULTS.
--- NOTE | 2019-12-31 18:07 | NUR ---
PT WAS UNABLE TO VOID WHEN PLACED ON BEDPAN. BLADDER SCAN SHOWED 462cc. NOTIFIED DR. MOODY & REC'D ORDER TO INSERT PAREDES.
[2019-12-31 18:17] LABS: BILIRUBIN,URINE NEGATIVE (NEGATIVE); CLARITY,URINE CLEAR; COLOR,URINE YELLOW; GLUCOSE, URINE (UA) NEGATIVE (NEGATIVE); KETONES,URINE NEGATIVE (NEGATIVE); LEUKOCYTE ESTERASE ,URINE NEGATIVE (NEGATIVE); NITRITE,URINE NEGATIVE (NEGATIVE); PH,URINE 6.5 (5-9); PROTEIN,URINE NEGATIVE (NEGATIVE)
[2019-12-31 18:26] LABS: BACTERIA,URINE NEGATIVE /HPF; RBC,URINE RARE /HPF; YEAST,URINE FEW /HPF
[2019-12-31] MEDS: PIPERACILLIN/TAZOBACTAM (BULK) 4.5 GM in NS (IVPB) 100 ML IV SCH (18:33)
[2019-12-31] MEDS: ASPIRIN E.C. 81 MG (ECOTRIN) TAB PO SCH (20:37)
--- NOTE | 2019-12-31 21:15 | NUR ---
Dr Hawkins notified that telemetry is still not available per ICU. Order received to micky'
[2020-01-01] VITALS (11 sets, daily range): BP systolic 110–149; BP diastolic 52–66
[2020-01-01] MEDS: PIPERACILLIN/TAZOBACTAM (BULK) 4.5 GM in NS (IVPB) 100 ML IV SCH ×3 (02:00→19:00)
[2020-01-01] MEDS: RT-ALBUTEROL INHALER HFA (VENTOLIN HFA) 18 GM IH SCH ×6 (03:24→19:39)
[2020-01-01] MEDS: LACTATED RINGERS 1,000 ML IV SCH (03:30)
[2020-01-01 04:57] LABS: BASOPHILS % (AUTO) 0 % (0-10); EOSINOPHILS # (AUTO) 0.5 10^3/uL (0.0-0.3); EOSINOPHILS % (AUTO) 2 % (0-10); LYMPHOCYTES # (AUTO) 2.2 10^3/uL (1.0-4.0); LYMPHOCYTES % (AUTO) 11 % (12-44); MEAN CORPUSCULAR HEMOGLOBIN 29 pg (25-34); MEAN CORPUSCULAR HGB CONC 34 g/dL (32-36); MEAN CORPUSCULAR VOLUME 86 fL (80-99); MEAN PLATELET VOLUME 11.2 fL (9.0-12.2); MONOCYTES # (AUTO) 1.3 10^3/uL (0.0-1.0); MONOCYTES % (AUTO) 6 % (0-12); NEUTROPHILS # (AUTO) 15.3 10^3/uL (1.8-7.8); NEUTROPHILS % (AUTO) 75 % (42-75); PLATELET COUNT 136 10^3/uL (130-400); WHITE BLOOD COUNT 20.6 10^3/uL (4.3-11.0)
[2020-01-01 05:20] LABS: POTASSIUM 3.8 MMOL/L (3.6-5.0)
[2020-01-01 05:21] LABS: HEMATOCRIT 18 % (35-52)
[2020-01-01 05:35] LABS: ALBUMIN 2.3 GM/DL (3.2-4.5); BILIRUBIN,TOTAL 0.5 MG/DL (0.1-1.0); CALCIUM 7.7 MG/DL (8.5-10.1); CREATININE SERUM 0.89 MG/DL (0.60-1.30); TOTAL PROTEIN 4.4 GM/DL (6.4-8.2)
[2020-01-01] MEDS: CATHETER FLUSH 10 ML SYR IV SCH ×3 (05:40→20:20)
[2020-01-01] MEDS: MULTIVIT W/MINERALS TAB (THERAGRAN M) PO SCH (06:20)
[2020-01-01] MEDS ORDERED: NS IV 500 ML 500 ML IV SCH ×2 (06:20→06:30)
--- NOTE | 2020-01-01 06:24 | PM&R Progress Note ---
Subjective HPI/CC On Admission Date Seen by Provider: Jan 01, 2020 Time Seen by Provider: 12:00 Subjective/Events-last exam 01/01/20: 2 units of blood ordered for hgb 6.0 Dr Hinojosa updated me on the hemoccult positive stools so I spoke to Dr Hector and he will consult in case endo needed but she is very fragile and unsure she can undergo this procedure at this time but if necessary will require it PPI and Carafate ordered Eating a bit better, [employer]ake brought in Pt had some significant problems with hypotension and near syncope episode Pt has not been eating and drinking Lactic acid elevated at 3.5 Dr. Dolan saw her in consultation and recommended IV antibiotics and IV fluids WBC 21.9 Sodium level 129 Pt very fragile Desaturated to 83% when she got out of bed Conferred with RN Checked meds and labs Reviewed therapy notes Review of Systems General: Fatigue, Malaise Pulmonary: Dyspnea Neurological: Weakness Focused Exam Lactate Level 12/31/19 10:45: Lactic Acid Level 4.74*H 12/31/19 12:45: Lactic Acid Level 4.11*H Objective Exam Vital Signs Vital Signs Date Time Temp Pulse Resp B/P (MAP) Pulse Ox O2 Delivery O2 Flow Rate FiO2 01/01/20 16:44 36.5 88 20 115/58 96 High Flow N/C 01/01/20 16:40 4.00 Capillary Refill : Less Than 3 Seconds General Appearance: No Apparent Distress, WD/WN, Chronically ill, Other (frail) HEENT: PERRL/EOMI, Normal ENT Inspection, Pharynx Normal Neck: Full Range of Motion, Normal Inspection, Non Tender, Supple, Carotid Bruit Respiratory: Chest Non Tender, Lungs Clear, No Accessory Muscle Use, No Respiratory Distress, Decreased Breath Sounds Cardiovascular: Regular Rate, Rhythm, No Edema, No Gallop, No JVD, No Murmur, Normal Peripheral Pulses Gastrointestinal: Normal Bowel Sounds, No Organomegaly, No Pulsatile Mass, Non Tender, Soft Back: Normal Inspection, No CVA Tenderness, No Vertebral Tenderness Extremity: Normal Capillary Refill, Normal Inspection, Normal Range of Motion, Non Tender, No Calf Tenderness, No Pedal Edema Neurologic/Psychiatric: Alert, Oriented x3, No Motor/Sensory Deficits, Normal Mood/Affect, digital asset manager II-XII Norm as Tested, Abnormal Gait, Motor Weakness (weakness of all extremities 3/5) Skin: Normal Color, Warm/Dry Lymphatic: No Adenopathy Results/Procedures Lab Laboratory Tests 01/01/20 04:40 Patient resulted labs reviewed. FIM Transfers Therapy Code Descriptions/Definitions Functional [place] Measure: 0=Not Assessed/NA 4=Minimal Assistance 1=Total Assistance 5=Supervision or Setup 2=Maximal Assistance 6=Modified [place] 3=Moderate Assistance 7=Complete IndependenceSCALE: Activities may be completed with or without assistive devices. 3-Zimprlgstw-yviwlis completes the activity by him/herself with no assistance from a helper. 5-Set-up or Clean-up Assistance-helper sets up or cleans up; patient completes activity. [place] assists only prior to or following the activity. 4-Supervision or Touching Assistance-helper provides verbal cues and/or touching/steadying and/or contact guard assistance as patient completes activity. Assistance may be provided throughout the activity or intermittently. 3-Partial/Moderate Assistance-helper does LESS THAN HALF the effort. [place] lifts, holds or supports trunk or limbs, but provides less than half the effort. 2-Substantial/Maximal Assistance-helper does MORE THAN HALF the effort. [place] lifts or holds trunk or limbs and provides more than half the effort. 6-Uerollifx-nukasp does ALL the effort. Patient does none of the effort to complete the activity. Or, the assistance of 2 or more helpers is required for the patient to complete the activity. If activity was not attempted, code reason: 7-Patient Refused. 9-Not Applicable-not attempted and the patient did not perform the activity before the current illness, exacerbation or injury. 10-Not Attempted due to Environmental Limitations-(lack of equipment, weather restraints, etc.). 88-Not Attempted due to Medical Conditions or Safety Concerns. Roll Left to Right (QC): 6 Sit to Lying (QC): 3 Sit to Stand (QC): 3 Chair/Ite-te-Osjmp Xfer(QC): 3 Car Transfer (QC): 3 Gait Training Does the Patient Walk?: Yes Walk 10 feet (QC): 4 Walk 50 ft with 2 Turns(QC): 88 Walk 150 ft (QC): 88 Walking 10ft/uneven surface-QC: 88 Gait Assistive Device: FWW Wheelchair Training Does the Pt Use a Wheelchair?: Yes Distance: 20' Wheel 50 ft with 2 turns (QC): 3 Wheel 150 ft (QC): 88 Type of Wheelchair: Manual Stair Training 1 Step (curb) (QC): 88 4 Steps (QC): 88 12 Steps (QC): 88 Balance Picking up an Object (QC): 88 ADL-Treatment Eating (QC): 4 (cues) Oral Hygiene (QC): 7 Shower/Bathe Self (QC): 7 Upper Body Dressing (QC): 7 Lower Body Dressing (QC): 7 On/Off Footwear (QC): 3 Toileting Hygiene (QC): 1 Toilet Transfer (QC): 4 Assessment/Plan Assessment and Plan Assess & Plan/Chief Complaint Assessment: Debility from COVID 19 PNA 12/13/19 admitted to [facility] O2 dependence new onset HTN HLP Advanced age GERD Hemoccult + stools Anemia requiring 2 units of blood 01/01/20 Plan: IRF protocol Monitor O2 Check labs 12/31/19: IVF IV abx empiric Volume depletion with dehydration causing lactic acidosis not sepsis 01/01/20: HLIVF to minimize volume overload due to recent COVID and recs 2 units of blood ordered today PPI and Carafate and Dr Hector consult but too fragile for EGD at this time but if necessary will be required (1) COVID-19 Status: Acute (2) GERD (gastroesophageal reflux disease) (3) Hypertension (4) Hyperlipemia (5) Advanced age (6) Supplemental oxygen dependent (7) PNA (pneumonia) Status: Acute (8) Acute respiratory failure due to COVID-19 Status: Acute CORI MOODY DO Jan 01, 2020 06:24
[2020-01-01] MEDS ORDERED: diphenhydrAMINE 50 MG/ML INJ (BENADRYL) IVP PRN (06:30)
[2020-01-01] MEDS ORDERED: FUROSEMIDE 40 MG/4 ML INJ (LASIX) IVP ONE (06:30)
--- NOTE | 2020-01-01 08:46 | Physical Therapy Daily Note ---
PT Daily Note-Current Subjective Pt. with light on laying supine in bed requests "to get back in bed" . This [employer] [place] reorienting her that she is presently in bed. "Well then I want to be situated better". Pain Location: No Pain Reported Mental Status Patient Orientation: Confused Attachments: Oxygen Transfers SCALE: Activities may be completed with or without assistive devices. 0-Mawnmhdmvj-ogdacwa completes the activity by him/herself with no assistance from a helper. 5-Set-up or Clean-up Assistance-helper sets up or cleans up; patient completes activity. [place] assists only prior to or following the activity. 4-Supervision or Touching Assistance-helper provides verbal cues and/or touching/steadying and/or contact guard assistance as patient completes activity. Assistance may be provided throughout the activity or intermittently. 3-Partial/Moderate Assistance-helper does LESS THAN HALF the effort. [place] lifts, holds or supports trunk or limbs, but provides less than half the effort. 2-Substantial/Maximal Assistance-helper does MORE THAN HALF the effort. [place] lifts or holds trunk or limbs and provides more than half the effort. 0-Fxmnsansk-jcifzf does ALL the effort. Patient does none of the effort to c omplete the activity. Or, the assistance of 2 or more helpers is required for the patient to complete the activity. If activity was not attempted, code reason: 7-Patient Refused. 9-Not Applicable-not attempted and the patient did not perform the activity before the current illness, exacerbation or injury. 10-Not Attempted due to Environmental Limitations-(lack of equipment, weather restraints, etc.). 88-Not Attempted due to Medical Conditions or Safety Concerns. rolling left and right min assist, pt. instructed in reaching above her for rails and using left leg to push self up in bed as this [employer] [place] flattened bed for gravity assisted movement. Pt. completed this with several attempts and rested between. HOB was brought back up , pillows placed for positioning of heels free and call light at hand Weight Bearing Full Weight Bearing Full Weight Bearing Exercises Supine Ex: Ankle pumps, Heel Slides, Hip abd/add Supine Reps: 8 Assessment Current Status: Fair Progress nurse advises of hgb 6 today , no further Rx advised by nurse PT Short Term Goals Short Term Goals Time Frame: Jan 06, 2020 Roll Left & Right: 6 Sit to lyin Lying to sitting on side of be: 6 Sit to stand: 4 Chair/gnw-vs-hlpgy transfer: 4 Toilet transfer: 4 Walk 10 feet: 4 Walk 50 feet with two turns: 4 PT Halfway Goals Halfway Goals PT Digital Photographer Goals Time Frame: Jan 13, 2020 Roll Left & Right (QC): 6 Sit to Lying (QC): 6 Lying-Sitting on Side/Bed(QC): 6 Sit to Stand (QC): 6 Chair/Buo-yn-Hfmwz Xfer(QC): 6 Toilet Transfer (QC): 5 Car Transfer (QC): 5 Does the Patient Walk: Yes Walk 10 feet (QC): 5 Walk 50ft with 2 Turns (QC): 5 Walk 150 ft (QC): 5 Walking 10ft on Uneven Surface: 5 1 Step (curb) (QC): 4 4 Steps (QC): 4 12 Steps (QC): 88 Picking up an Object (QC): 4 Does the Pt use WC or Scooter?: Yes Wheel 50 feet with 2 turns (QC: 6 Type: Manual Wheel 150 feet: 6 Type: Manual PT Plan Treatment/Plan Treatment Plan: Continue Plan of Care Treatment Plan: Bed Mobility, Education, Functional Activity Shahab, Functional Strength, Group Therapy, Gait, Safety, Therapeutic Exercise, Transfers Treatment Duration: Jan 20, 2020 Frequency: Modified Program (IRF) (21/09) Estimated Hrs Per Day: 1.5 hours per day Patient and/or Family Agrees t: Yes Safety Risks/Education Patient Education: Correct Positioning Time/GCodes Time In: 755 Time Out: 810 Total Billed Treatment Time: 15 Total Billed Treatment 1,FA15m CADE TOUSSAINT [employer] [place] Jan 01, 2020 08:46
[2020-01-01] MEDS: polyethylene glycoL POWDER 17 GM (MIRALAX) PACK PO SCH ×2 (09:19→20:20)
[2020-01-01] MEDS: SENNA W/DOCUSATE (SENOKOT S) TABLET PO SCH ×2 (09:19→20:20)
[2020-01-01] MEDS: DOCUSATE SODIUM 100 MG (COLACE) CAP PO SCH ×2 (09:19→20:21)
[2020-01-01] MEDS: VITAMIN D3 10 MCG (400 UNITS) TABLET PO SCH (09:21)
[2020-01-01] MEDS: PANTOPRAZOLE 40 MG (PROTONIX) TAB PO SCH (09:21)
--- NOTE | 2020-01-01 10:38 | Consultation-Cardiology ---
HPI-Cardiology Cardiology Consultation Date of Consultation 01/01/20 Date of Admission Time Seen by Provider: 11:37 Indication: syncope HPI 89-year-old lady who was admitted on December 12 for COVID-19 pneumonia, was treated and continued to have generalized weakness and loss of energy. She was transferred to acute rehabilitation. Patient was doing well until yesterday morning when she had a syncopal episode while sitting on the toilet then another syncopal episode while she was walking. Reportedly after she laid down her blood pressure was borderline low. Denied any chest pain, still having some shortness of breath and fatigue. Her hemoglobin has dropped significantly and was noted to have leukocytosis. Home Medications & Allergies Allergies: Coded Allergies: lisinopril (Verified Allergy, Intermediate, 12/13/19) COUGH Sulfa (Sulfonamide Antibiotics) (Verified Allergy, Unknown, 01/12/15) Home Medication List Reviewed: Yes HNE-Lxmywb-[id number] Hx Patient Social History Marital Status: Employed/Student: retired Alcohol Use: Denies Use Recreational Drug Use: No Smoking Status: Never a Smoker Recent Foreign Travel: No Recent Infectious Disease Expo: No Recent Hopitalizations: Yes (PNEUMONIA, COVID) Physical Abuse Screen: No Sexual Abuse: No Immunizations Up To Date Date of Pneumonia Vaccine: Jan 13, 2013 Date of Influenza Vaccine: Nov 17, 2019 Past Medical History Discussed below Family Medical History Family History: Congestive heart failure 19 FATHER 19 MOTHER Diabetes mellitus G8 SISTER Myocardial infarction G8 BROTHER Review of Systems-General Review of Systems Constitutional: see HPI, malaise, weakness Respiratory: see HPI; No cough; dyspnea on exertion; No hemoptysis, No orthopnea, No phlegm; short of breath; No stridor, No wheezing, No other Cardiovascular: see HPI; No chest pain, No edema, No Hx of Intervention, No p alpitations, No syncope, No vascular heart diseas, No other Gastrointestinal: no symptoms reported, see HPI Genitourinary: no symptoms reported, see HPI Musculoskeletal: see HPI, back pain Skin: no symptoms reported, see HPI Psychiatric/Neurological: See HPI, Depressed Reviewed Test Results Reviewed Test Results Lab Laboratory Tests Test 12/31/19 10:45 12/31/19 12:16 12/31/19 12:45 12/31/19 18:09 Range/Units Lactic Acid Level 4.74 *H 4.11 *H 0.50-2.00 MMOL/L Blood Gas Puncture Site LEFT RADIAL Blood Gas Patient Temperature 36.1 Arterial Blood pH 7.53 H 7.37-7.43 Arterial Blood Partial Pressure CO2 43 35-45 MMHG Arterial Blood Partial Pressure O2 125 H 79-93 MMHG Arterial Blood HCO3 36 H 23-27 MMOL/L Arterial Blood Total CO2 37.8 H 21.0-31.0 MMOL/L Arterial Blood Oxygen Saturation 100 94-100 % Arterial Blood Base Excess 12.5 H -2.5-2.5 MMOL/L Tayo Test YES-POS Blood Gas Ventilator Setting NO Blood Gas Inspired Oxygen 7L HF Urine Color YELLOW Urine Clarity CLEAR Urine pH 6.5 5-9 Urine Specific Clarks <=1.005 1.016-1.022 Urine Protein NEGATIVE NEGATIVE Urine Glucose (UA) NEGATIVE NEGATIVE Urine Ketones NEGATIVE NEGATIVE Urine Nitrite NEGATIVE NEGATIVE Urine Bilirubin NEGATIVE NEGATIVE Urine Urobilinogen 0.2 < = 1.0 MG/DL Urine Leukocyte Esterase NEGATIVE NEGATIVE Urine RBC (Auto) NEGATIVE NEGATIVE Urine RBC RARE /HPF Urine WBC NONE /HPF Urine Crystals NONE /LPF Urine Bacteria NEGATIVE /HPF Urine Casts NONE /LPF Urine Mucus NEGATIVE /LPF Urine Yeast FEW H /HPF Urine Culture Indicated YES Test 01/01/20 04:40 Range/Units White Blood Count 20.6 H 4.3-11.0 10^3/uL Red Blood Count 2.06 L 3.80-5.11 10^6/uL Hemoglobin 6.0 #*L 11.5-16.0 g/dL Hematocrit 18 *L 35-52 % Mean Corpuscular Volume 86 80-99 fL Mean Corpuscular Hemoglobin 29 25-34 pg Mean Corpuscular Hemoglobin Concent 34 32-36 g/dL Red Cell Distribution Width 13.7 10.0-14.5 % Platelet Count 136 130-400 10^3/uL Mean Platelet Volume 11.2 9.0-12.2 fL Immature Granulocyte % (Auto) 6 % Neutrophils (%) (Auto) 75 42-75 % Lymphocytes (%) (Auto) 11 L 12-44 % Monocytes (%) (Auto) 6 0-12 % Eosinophils (%) (Auto) 2 0-10 % Basophils (%) (Auto) 0 0-10 % Neutrophils # (Auto) 15.3 H 1.8-7.8 10^3/uL Lymphocytes # (Auto) 2.2 1.0-4.0 10^3/uL Monocytes # (Auto) 1.3 H 0.0-1.0 10^3/uL Eosinophils # (Auto) 0.5 H 0.0-0.3 10^3/uL Basophils # (Auto) 0.0 0.0-0.1 10^3/uL Immature Granulocyte # (Auto) 1.3 H 0.0-0.1 10^3/uL Sodium Level 130 L 135-145 MMOL/L Potassium Level 3.8 3.6-5.0 MMOL/L Chloride Level 82 L 98-107 MMOL/L Carbon Dioxide Level 32 21-32 MMOL/L Anion Gap 16 H 5-14 MMOL/L Blood Urea Nitrogen 34 H 7-18 MG/DL Creatinine 0.89 0.60-1.30 MG/DL Estimat Glomerular Filtration Rate 60 BUN/Creatinine Ratio 38 Glucose Level 143 H 70-105 MG/DL Calcium Level 7.7 L 8.5-10.1 MG/DL Corrected Calcium 9.1 8.5-10.1 MG/DL Total Bilirubin 0.5 0.1-1.0 MG/DL Aspartate Amino Transf (AST/SGOT) 26 5-34 U/L Alanine Aminotransferase (ALT/SGPT) 36 0-55 U/L Alkaline Phosphatase 52 40-136 U/L Total Protein 4.4 L 6.4-8.2 GM/DL Albumin 2.3 L 3.2-4.5 GM/DL Physical Exam Physical Exam Vital Signs Vital Signs - First Documented 12/30/19 11:00 Temp 36.2 Pulse 93 Resp 20 B/P (MAP) 156/82 (106) Pulse Ox 96 O2 Delivery Nasal Cannula O2 Flow Rate 6.00 Capillary Refill : Less Than 3 Seconds Height, Weight, BMI Height: 5'1.00" Weight: 148lbs. 0.0oz. 67.827939pt; 24.07 BMI Method: General Appearance: No Apparent Distress, WD/WN, Chronically ill, Other (frail) Eyes: Bilateral Eye Normal Inspection, Bilateral Eye PERRL HEENT: PERRL/EOMI, Normal ENT Inspection, Pharynx Normal Neck: Full Range of Motion, Normal Inspection, Non Tender, Supple, Carotid Bruit Respiratory: Chest Non Tender, Lungs Clear, No Accessory Muscle Use, No Respiratory Distress, Decreased Breath Sounds Cardiovascular: Regular Rate, Rhythm, No Edema, No Gallop, No JVD, No Murmur, Normal Peripheral Pulses Gastrointestinal: Normal Bowel Sounds, No Organomegaly, No Pulsatile Mass, Non Tender, Soft Back: Normal Inspection, No CVA Tenderness, No Vertebral Tenderness Extremity: Normal Capillary Refill, Normal Inspection, Normal Range of Motion, Non Tender, No Calf Tenderness, No Pedal Edema Neurologic/Psychiatric: Alert, Oriented x3, No Motor/Sensory Deficits, Normal Mood/Affect, banking representative II-XII Norm as Tested, Abnormal Gait, Motor Weakness (weakness of all extremities 3/5) Skin: Normal Color, Warm/Dry Lymphatic: No Adenopathy A/P-Cardiology Admission Diagnosis Syncope Anemia Hypotension Pneumonia Assessment/Plan Syncope, probably secondary to hypotensive episode. Received IV fluid, getting blood transfusion at this point. I discontinued atenolol. Continue to monitor Anemia, acute, probably acute GI loss, has been maintained on PPI. Receiving blood transfusion, monitor H&H. Elevated lactic acid, elevated leukocytosis, questionable sepsis, chest x-ray showed improvement compared to baseline. Managed by primary care team COVID 19 pneumonia, diagnosed on December 13, 2019, treated and has improved, still having generalized debility and receiving physical therapy History of hypertension, I discontinued atenolol due to syncope, continue to monitor blood pressure Hyperlipidemia, continue to monitor lipids Chronic kidney disease stage III, follows with sponge maker in [place]. Continue to monitor Multiple risk factors for coronary artery disease, last stress test was done in November 2017 showing poor exercise tolerance, breast attenuation with no significant ischemia or infarction Hypertensive heart disease, echocardiogram done in 2017 showing ejection fraction 55-65 percent, grade 2 diastolic dysfunction, left atrial dilatation 4.15 cm, mild MR, PA 30 mmHg. Continue to monitor History of breast biopsy, melanoma surgery Strong family history of heart disease History of mild bilateral carotid stenosis follows with heart and vascular care. Most recent carotid ultrasound was done in December 2018. Continue to monitor Clinical Quality Measures DVT/VTE Risk/Contraindication: Risk Factor Score Per Nursin RFS Level Per Nursing on Admit: 4+=Very High DANK SINGH MD Jan 01, 2020 10:38 am
[2020-01-01] MEDS ORDERED: FUROSEMIDE 40 MG/4 ML INJ (LASIX) ONE (13:02)
--- NOTE | 2020-01-01 14:17 | NUR ---
PT CALLED HER ON THE PHONE & ASKED HIM TO BRING HER A [facility] CHICKEN POT PIE FOR SUPPER.
--- NOTE | 2020-01-01 15:24 | NUR ---
New IV was started prior to blood administration w #20 in Rt A/C, d/t the current IV was a 22. IV was started by Alfred Mora RN. Blood transfused well, w/o problems through this, noticed that the needle had dislodged when turning pt, so was removed. Notified nsg road supervisor of engines of need for IV re-start. Attempting to re-start IV by 4th floor RN now, she stuck twice unsuccessfully. States that she will notify another RN & ask for her to try.
--- NOTE | 2020-01-01 15:44 | NUR ---
Call made to Joe in Pharmacy & notified that this morning's dose of Zosyn was missed d/t blood transfusion.
--- NOTE | 2020-01-01 15:46 | NUR ---
Unable to start another #20 IV for blood transfusion by 3 other RN's. Will use the current #22 IV site, as it draws blood, & flushes good as recommended by RN PEDIATRIC ICU, Rhonda, states that they have to do that in ICU when can't get a bigger IV in.
[2020-01-01] MEDS: SALINE NASAL SPRAY (OCEAN) 45 ML BTL PRN (15:55)
[2020-01-01] MEDS: SOD CHL GEL 0.5 OZ (AYR SALINE NASAL GEL) TUBE TOP PRN (15:59)
[2020-01-01] MEDS ORDERED: PANTOPRAZOLE 40 MG (PROTONIX) TAB PO ONE (17:15)
[2020-01-01] MEDS ORDERED: SUCRALFATE 1 GM (CARAFATE) TAB ONE ×2 (18:12→20:15)
[2020-01-01] MEDS: SUCRALFATE 1 GM (CARAFATE) TAB PO SCH ×2 (18:12→20:21)
--- NOTE | 2020-01-01 19:00 | NUR ---
MADALYN NOT GIVEN D/T 2ND UNIT OF BLOOD INFUSING. 05/11 DONE. Addendum: 01/01/20 at 1902 by JIM CAMPOS RN PT TOLERATING TRANSFUSIONS MARY, SMOOTH CAMEJO
[2020-01-01] MEDS: ASPIRIN E.C. 81 MG (ECOTRIN) TAB PO SCH (20:20)
[2020-01-02] MEDS: PIPERACILLIN/TAZOBACTAM (BULK) 4.5 GM in NS (IVPB) 100 ML IV SCH ×3 (02:14→18:21)
[2020-01-02] MEDS: RT-ALBUTEROL INHALER HFA (VENTOLIN HFA) 18 GM IH SCH ×5 (05:00→23:07)
[2020-01-02] MEDS: CATHETER FLUSH 10 ML SYR IV SCH ×3 (05:51→20:52)
[2020-01-02] MEDS: SUCRALFATE 1 GM (CARAFATE) TAB PO SCH ×4 (05:56→20:49)
[2020-01-02] MEDS: MULTIVIT W/MINERALS TAB (THERAGRAN M) PO SCH (05:56)
[2020-01-02 06:06] LABS: BASOPHILS # (AUTO) 0.1 10^3/uL (0.0-0.1); BASOPHILS % (AUTO) 0 % (0-10); EOSINOPHILS # (AUTO) 0.4 10^3/uL (0.0-0.3); EOSINOPHILS % (AUTO) 2 % (0-10); HEMATOCRIT 26 % (35-52); HEMOGLOBIN 8.5 g/dL (11.5-16.0); LYMPHOCYTES # (AUTO) 1.5 10^3/uL (1.0-4.0); LYMPHOCYTES % (AUTO) 9 % (12-44); MEAN CORPUSCULAR HEMOGLOBIN 29 pg (25-34); MEAN CORPUSCULAR HGB CONC 33 g/dL (32-36); MEAN CORPUSCULAR VOLUME 88 fL (80-99); MEAN PLATELET VOLUME 10.2 fL (9.0-12.2); MONOCYTES % (AUTO) 6 % (0-12); NEUTROPHILS # (AUTO) 13.3 10^3/uL (1.8-7.8); NEUTROPHILS % (AUTO) 78 % (42-75); PLATELET COUNT 254 10^3/uL (130-400); WHITE BLOOD COUNT 17.1 10^3/uL (4.3-11.0)
[2020-01-02 06:17] LABS: ALANINE AMINOTRANSFERASE 35 U/L (0-55); ALBUMIN 2.5 GM/DL (3.2-4.5); ALKALINE PHOSPHATASE 57 U/L (40-136); BILIRUBIN,TOTAL 0.9 MG/DL (0.1-1.0); BUN/CREATININE RATIO 28; CALCIUM 7.8 MG/DL (8.5-10.1); CARBON DIOXIDE 33 MMOL/L (21-32); CHLORIDE 91 MMOL/L (98-107); CREATININE SERUM 0.87 MG/DL (0.60-1.30); GFR ESTIMATED > 60; GLUCOSE 131 MG/DL (70-105); POTASSIUM 3.9 MMOL/L (3.6-5.0); SODIUM 134 MMOL/L (135-145); TOTAL PROTEIN 4.8 GM/DL (6.4-8.2)
[2020-01-02] MEDS: VITAMIN D3 10 MCG (400 UNITS) TABLET PO SCH (09:59)
[2020-01-02] MEDS: PANTOPRAZOLE 40 MG (PROTONIX) TAB PO SCH ×2 (09:59→20:49)
--- NOTE | 2020-01-02 11:09 | CONSULTATION REPORT ---
DATE OF SERVICE: PRIMARY CARE PHYSICIAN: Dr. Hawkins. ATTENDING PRIMARY CARE PHYSICIAN: Kayla Hurley MD. HISTORY OF PRESENT ILLNESS: The patient is an 89-year-old female known to us in the past. She was admitted for shortness of breath as well as low oxygen saturations and was found to be coronavirus-19 positive. She was initially admitted to the ICU and did require BiPAP. During that timeframe, she states that she also had tremendous fatigue and did not eat much. She did improve and was transferred to the medical floor, where she continued to improve. Since that time, she has been negative and on oxygen nasal cannula. She still does have continued exertional shortness of breath as well as while talking for long periods. She is also weak from malnutrition. She was found to have a significant drop in her hemoglobin and was transfused 2 units, which went up appropriately. She does report a remote history of gastroesophageal reflux disease. She does not report any red blood per rectum nor any dark tarry stools. She states that she has had several colonoscopies in the past and the last one was approximately 8 to 10 years ago. PAST MEDICAL HISTORY: Hypertension and hypercholesterolemia. PAST SURGICAL HISTORY: section x2 and excision of melanoma, right foot. MEDICATIONS: LISINOPRIL and SULFA. MEDICATIONS: Aspirin 81 mg daily, atenolol 25 mg daily, Lipitor 10 mg daily, dexamethasone 4 mg daily, hydrochlorothiazide 25 mg daily and losartan 100 mg daily. SOCIAL HISTORY: Negative smoke and negative alcohol. FAMILY HISTORY: Three brothers with prostate cancer. REVIEW OF SYSTEMS: This is a well-nourished female currently in no acute distress. She does have exertional shortness of breath as well as when she talks for an extended period of time. No cough or sputum production. She does report a history of gastroesophageal reflux disease; however, he does not report any epigastric pain or discomfort. She states that she has had irregular bowel movements in the past, but does not report any red blood per rectum nor any dark tarry stools. No fever, chills with some weight loss in the past few weeks. All other review of systems are negative. PHYSICAL EXAMINATION: VITAL SIGNS: Temperature 36.6, blood pressure 124/60, pulse 73, respirations 20 and pulse ox 97% on 6 liters of nasal cannula. CHEST: Few scattered rales and rhonchi bilaterally. HEART: Regular, no murmurs. EXTREMITIES: No lower extremity edema and negative Homans sign. HEENT: No scleral icterus. NECK: No cervical lymphadenopathy. ABDOMEN: Soft, nontender and nondistended. SKIN: Warm and dry. LABORATORY DATA: WBC 17.1, hemoglobin 8.5, hematocrit 26 and platelets 254. BUN is 24 and creatinine 0.87. 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 She does have a history of gastroesophageal reflux disease and a likely source of her anemia is from the recent process that she has been through and stress gastritis as well as a possible ulceration and reflux esophagitis. We looked back at her records at a previous colonoscopy; however, at this time, she would not tolerate the colonic preparation well due to the effects of dehydration and worsening shortness of breath. Once she has rehabilitated and her respiratory status has improved, we will recommend an EGD on this admission, which we will schedule. Job ID: [id number] DocumentID: [id number] Dictated Date: 01/02/2020 10:50:13 Jewel Stringer Date: 01/02/2020 11:08:35 Dictated By: HADLEY LAAR MD [facility]
[2020-01-02] MEDS: DOCUSATE SODIUM 100 MG (COLACE) CAP PO SCH ×2 (11:18→20:49)
[2020-01-02] MEDS: polyethylene glycoL POWDER 17 GM (MIRALAX) PACK PO SCH ×2 (11:18→21:00)
[2020-01-02] MEDS: SENNA W/DOCUSATE (SENOKOT S) TABLET PO SCH ×2 (11:18→20:49)
[2020-01-02] MEDS: SALINE NASAL SPRAY (OCEAN) 45 ML BTL PRN ×2 (11:21→18:49)
[2020-01-02] MEDS: SOD CHL GEL 0.5 OZ (AYR SALINE NASAL GEL) TUBE TOP PRN ×2 (11:21→18:50)
--- NOTE | 2020-01-02 11:23 | Cardiology Progress Note ---
Subjective Date Seen by Provider: Jan 02, 2020 Time Seen by Provider: 11:22 Subjective/Events-last exam Patient is laying down in bed, feeling better. No new complaint Review of Systems General: No Chills, No Night Sweats, No Fatigue, No Malaise, No Appetite, No Other HEENT: No Head Aches, No Visual Changes, No Eye Pain, No Ear Pain, No Dysphasia, No Sinus Congestion, No Post Nasal Drip, No Sore Throat, No Other Pulmonary: No Dyspnea, No Cough, No Pleuritic Chest Pain, No Other Cardiovascular: No: Chest Pain, Palpitations, Orthopnea, Paroxysmal Noc. Dyspnea, Edema, Lt Headedness, Other Focused Exam Lactate Level 12/31/19 10:45: Lactic Acid Level 4.74*H 12/31/19 12:45: Lactic Acid Level 4.11*H Objective-Cardiology Exam Last Set of Vital Signs Vital Signs 01/02/20 01/02/20 06:00 06:50 Temp 36.6 Pulse 73 Resp 20 Pulse Ox 97 O2 Delivery High Flow N/C O2 Flow Rate 6.00 Capillary Refill : Less Than 3 Seconds I&O Intake and Output 01/02/20 00:00 Intake Total 2805 ml Output Total 2975 ml Balance -170 ml Intake Oral 1460 ml IV Total 1000 ml Other 345 ml Output Urine Total 2975 ml # Bowel Movements 1 General: Alert, Oriented X3, Cooperative HEENT: Atraumatic, PERRLA Neck: Supple, No JVD, No Thyromegaly Lungs: Clear to Auscultation, Normal Air Movement Heart: Regular Rate, Normal S1, Normal S2, No Murmurs Abdomen: Normal Bowel Sounds, Soft, No Tenderness, No Hepatosplenomegaly, No Masses Extremities: No Clubbing, No Cyanosis, No Edema, Normal Pulses, No Tenderness/Swelling Skin: No Rashes, No Breakdown, No Significant Lesion Neuro: Normal Gait, Normal Speech, Strength at 5/5 X4 Ext, Normal Tone, Sensation Intact Psych/Mental Status: Mental Status NL, Mood NL Results Lab Laboratory Tests 01/02/20 05:45 A/P-Cardiology Admission Diagnosis Syncope Anemia Hypotension Pneumonia Assessment/Plan Syncope, probably secondary to hypotensive episode. Received IV fluid, getting blood transfusion at this point. I discontinued atenolol. Continue to monitor Anemia, acute, probably acute GI loss, has been maintained on PPI. Receiving blood transfusion, monitor H&H. Possible EGD with Dr. Hector Elevated lactic acid, elevated leukocytosis, questionable sepsis, chest x-ray showed improvement compared to baseline. 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 Continue to monitor Multiple risk factors for coronary artery disease, last stress test was done in November 2017 showing poor exercise tolerance, breast attenuation with no sig nificant ischemia or infarction Hypertensive heart disease, echocardiogram done in 2017 showing ejection fraction 55-65 percent, grade 2 diastolic dysfunction, left atrial dilatation 4.15 cm, mild MR, PA 30 mmHg. Continue to monitor History of breast biopsy, melanoma surgery Strong family history of heart disease History of mild bilateral carotid stenosis follows with heart and vascular care. Most recent carotid ultrasound was done in December 2018. Continue to monitor Clinical Quality Measures DVT/VTE Risk/Contraindication: Risk Factor Score Per Nursin RFS Level Per Nursing on Admit: 4+=Very High DANK SINGH MD Jan 02, 2020 11:23
[2020-01-02 11:40] VITALS: BP 144/65
--- NOTE | 2020-01-02 11:44 | PM&R Progress Note ---
Subjective HPI/CC On Admission Date Seen by Provider: Jan 02, 2020 Time Seen by Provider: 12:00 Subjective/Events-last exam 01/02/20: BM yesterday No blood in BM Sodium level is 134 Zosyn still maintained Hgb 8.6 Weaning O2 to 4L/min today Dr Hinojosa and Dr Hector saw patient today 01/01/20: 2 units of blood ordered for hgb 6.0 Dr Hinojosa updated me on the hemoccult positive stools so I spoke to Dr Hector and he will consult in case endo needed but she is very fragile and unsure she can undergo this procedure at this time but if necessary will require it PPI and Carafate ordered Eating a bit better, [employer] milkshake brought in Pt had some significant problems with hypotension and near syncope episode Pt has not been eating and drinking Lactic acid elevated at 3.5 Dr. Dolan saw her in consultation and recommended IV antibiotics and IV fluids WBC 21.9 Sodium level 129 Pt very fragile Desaturated to 83% when she got out of bed Conferred with RN Checked meds and labs Reviewed therapy notes Review of Systems General: Fatigue, Malaise Pulmonary: Dyspnea Focused Exam Lactate Level 12/31/19 10:45: Lactic Acid Level 4.74*H 12/31/19 12:45: Lactic Acid Level 4.11*H Objective Exam Vital Signs Vital Signs Date Time Temp Pulse Resp B/P (MAP) Pulse Ox O2 Delivery O2 Flow Rate FiO2 01/02/20 14:10 99 High Flow N/C 4.00 01/02/20 11:40 74 20 144/65 (91) 01/02/20 06:00 36.6 Capillary Refill : Less Than 3 Seconds General Appearance: No Apparent Distress, WD/WN, Chronically ill, Other (frail) HEENT: PERRL/EOMI, Normal ENT Inspection, Pharynx Normal Neck: Full Range of Motion, Normal Inspection, Non Tender, Supple, Carotid Bruit Respiratory: Chest Non Tender, Lungs Clear, No Accessory Muscle Use, No Respiratory Distress, Decreased Breath Sounds Cardiovascular: Regular Rate, Rhythm, No Edema, No Gallop, No JVD, No Murmur, Normal Peripheral Pulses Gastrointestinal: Normal Bowel Sounds, No Organomegaly, No Pulsatile Mass, Non Tender, Soft Back: Normal Inspection, No CVA Tenderness, No Vertebral Tenderness Extremity: Normal Capillary Refill, Normal Inspection, Normal Range of Motion, Non Tender, No Calf Tenderness, No Pedal Edema Neurologic/Psychiatric: Alert, Oriented x3, No Motor/Sensory Deficits, Normal Mood/Affect, curtain roller assembler II-XII Norm as Tested, Abnormal Gait, Motor Weakness (weakness of all extremities 3/5) Skin: Normal Color, Warm/Dry Lymphatic: No Adenopathy Results/Procedures Lab Laboratory Tests 01/02/20 05:45 Patient resulted labs reviewed. FIM Transfers Therapy Code Descriptions/Definitions Functional [place] Measure: 0=Not Assessed/NA 4=Minimal Assistance 1=Total Assistance 5=Supervision or Setup 2=Maximal Assistance 6=Modified [place] 3=Moderate Assistance 7=Complete IndependenceSCALE: Activities may be completed with or without assistive devices. 3-Vlgtosejeh-fizgmfv completes the activity by him/herself with no assistance from a helper. 5-Set-up or Clean-up Assistance-helper sets up or cleans up; patient completes activity. [place] assists only prior to or following the activity. 4-Supervision or Touching Assistance-helper provides verbal cues and/or touching/steadying and/or contact guard assistance as patient completes activity. Assistance may be provided throughout the activity or intermittently. 3-Partial/Moderate Assistance-helper does LESS THAN HALF the effort. [place] lifts, holds or supports trunk or limbs, but provides less than half the effort. 2-Substantial/Maximal Assistance-helper does MORE THAN HALF the effort. [place] lifts or holds trunk or limbs and provides more than half the effort. 2-Rybtuaxqi-cmwlnu does ALL the effort. Patient does none of the effort to complete the activity. Or, the assistance of 2 or more helpers is required for the patient to complete the activity. If activity was not attempted, code reason: 7-Patient Refused. 9-Not Applicable-not attempted and the patient did not perform the activity before the current illness, exacerbation or injury. 10-Not Attempted due to Environmental Limitations-(lack of equipment, weather restraints, etc.). 88-Not Attempted due to Medical Conditions or Safety Concerns. Roll Left to Right (QC): 6 Sit to Lying (QC): 3 Sit to Stand (QC): 3 Chair/Zbq-qe-Dmdpu Xfer(QC): 3 Car Transfer (QC): 3 Gait Training Does the Patient Walk?: Yes Walk 10 feet (QC): 4 Walk 50 ft with 2 Turns(QC): 88 Walk 150 ft (QC): 88 Walking 10ft/uneven surface-QC: 88 Gait Assistive Device: FWW Wheelchair Training Does the Pt Use a Wheelchair?: Yes Distance: 20' Wheel 50 ft with 2 turns (QC): 3 Wheel 150 ft (QC): 88 Type of Wheelchair: Manual Stair Training 1 Step (curb) (QC): 88 4 Steps (QC): 88 12 Steps (QC): 88 Balance Picking up an Object (QC): 88 ADL-Treatment Eating (QC): 4 (cues) Oral Hygiene (QC): 7 Shower/Bathe Self (QC): 7 Upper Body Dressing (QC): 7 Lower Body Dressing (QC): 7 On/Off Footwear (QC): 3 Toileting Hygiene (QC): 1 Toilet Transfer (QC): 4 Assessment/Plan Assessment and Plan Assess & Plan/Chief Complaint Assessment: Debility from COVID 19 PNA 12/13/19 admitted to [facility] O2 dependence new onset HTN HLP Advanced age GERD Hemoccult + stools Anemia requiring 2 units of blood 01/01/20 Plan: IRF protocol Monitor O2 Check labs 12/31/19: IVF IV abx empiric Volume depletion with dehydration causing lactic acidosis not sepsis 01/01/20: HLIVF to minimize volume overload due to recent COVID and recs 2 units of blood ordered today PPI and Carafate and Dr Hector consult but too fragile for EGD at this time but if necessary will be required 01/02/20: Monitor labs Abx Increase po fluids Eating better with outside food (1) COVID-19 Status: Acute (2) GERD (gastroesophageal reflux disease) (3) Hypertension (4) Hyperlipemia (5) Advanced age (6) Supplemental oxygen dependent (7) PNA (pneumonia) Status: Acute (8) Acute respiratory failure due to COVID-19 Status: Acute CORI MOODY DO Jan 02, 2020 11:44
[2020-01-02 17:08] VITALS: BP 140/65
[2020-01-02] MEDS: ASPIRIN E.C. 81 MG (ECOTRIN) TAB PO SCH (20:49)
[2020-01-02] MEDS: MELATONIN 3 MG TABLET PO PRN (20:50)
[2020-01-03] MEDS: PIPERACILLIN/TAZOBACTAM (BULK) 4.5 GM in NS (IVPB) 100 ML IV SCH ×3 (02:18→18:53)
[2020-01-03] MEDS: RT-ALBUTEROL INHALER HFA (VENTOLIN HFA) 18 GM IH SCH ×6 (03:38→21:35)
[2020-01-03 04:55] LABS: BASOPHILS # (AUTO) 0.1 10^3/uL (0.0-0.1); BASOPHILS % (AUTO) 0 % (0-10); EOSINOPHILS # (AUTO) 0.3 10^3/uL (0.0-0.3); EOSINOPHILS % (AUTO) 2 % (0-10); HEMATOCRIT 25 % (35-52); HEMOGLOBIN 8.3 g/dL (11.5-16.0); LYMPHOCYTES # (AUTO) 1.3 10^3/uL (1.0-4.0); LYMPHOCYTES % (AUTO) 8 % (12-44); MEAN CORPUSCULAR HEMOGLOBIN 29 pg (25-34); MEAN CORPUSCULAR HGB CONC 33 g/dL (32-36); MEAN CORPUSCULAR VOLUME 89 fL (80-99); MEAN PLATELET VOLUME 10.3 fL (9.0-12.2); MONOCYTES # (AUTO) 0.9 10^3/uL (0.0-1.0); MONOCYTES % (AUTO) 6 % (0-12); NEUTROPHILS # (AUTO) 12.5 10^3/uL (1.8-7.8); NEUTROPHILS % (AUTO) 81 % (42-75); PLATELET COUNT 256 10^3/uL (130-400); WHITE BLOOD COUNT 15.5 10^3/uL (4.3-11.0)
[2020-01-03 05:09] LABS: ALBUMIN 2.5 GM/DL (3.2-4.5); POTASSIUM 3.6 MMOL/L (3.6-5.0)
[2020-01-03 05:10] LABS: CALCIUM 7.7 MG/DL (8.5-10.1)
[2020-01-03 05:12] LABS: TOTAL PROTEIN 4.7 GM/DL (6.4-8.2)
[2020-01-03 05:13] LABS: BILIRUBIN,TOTAL 0.9 MG/DL (0.1-1.0)
[2020-01-03 05:15] LABS: CREATININE SERUM 0.97 MG/DL (0.60-1.30)
--- NOTE | 2020-01-03 05:47 | PM&R Progress Note ---
Subjective HPI/CC On Admission Date Seen by Provider: Jan 03, 2020 Time Seen by Provider: 09:00 Subjective/Events-last exam 01/03/20: White blood cell count is down On 4 liters now 91% Atenolol was discontinued per cardiology EKG this morning due to irregular heartbeat brought in rib crib last night and she enjoyed that Cleared out her nose because it was dried out from oxygen Got up to go to the bathroom on the commode today Will DC catheter 01/02/20: BM yesterday No blood in BM Sodium level is 134 Zosyn still maintained Hgb 8.6 Weaning O2 to 4L/min today Dr Hinojosa and Dr Hector saw patient today 01/01/20: 2 units of blood ordered for hgb 6.0 Dr Hinojosa updated me on the hemoccult positive stools so I spoke to Dr Hector and he will consult in case endo needed but she is very fragile and unsure she can undergo this procedure at this time but if necessary will require it PPI and Carafate ordered Eating a bit better, [employer] milkshake brought in Pt had some significant problems with hypotension and near syncope episode Pt has not been eating and drinking Lactic acid elevated at 3.5 Dr. Dolan saw her in consultation and recommended IV antibiotics and IV fluids WBC 21.9 Sodium level 129 Pt very fragile Desaturated to 83% when she got out of bed Conferred with RN Checked meds and labs Reviewed therapy notes Review of Systems General: Fatigue, Malaise Pulmonary: Dyspnea Focused Exam Lactate Level Objective Exam Vital Signs Vital Signs Date Time Temp Pulse Resp B/P (MAP) Pulse Ox O2 Delivery O2 Flow Rate FiO2 01/04/20 02:42 97 High Flow N/C 3.00 01/03/20 19:30 150/63 (92) 01/03/20 18:43 36.8 85 22 Capillary Refill : Less Than 3 Seconds General Appearance: No Apparent Distress, WD/WN, Chronically ill, Other (frail) HEENT: PERRL/EOMI, Normal ENT Inspection, Pharynx Normal Neck: Full Range of Motion, Normal Inspection, Non Tender, Supple, Carotid Bruit Respiratory: Chest Non Tender, Lungs Clear, No Accessory Muscle Use, No Respiratory Distress, Decreased Breath Sounds Cardiovascular: Regular Rate, Rhythm, No Edema, No Gallop, No JVD, No Murmur, Normal Peripheral Pulses Gastrointestinal: Normal Bowel Sounds, No Organomegaly, No Pulsatile Mass, Non Tender, Soft Back: Normal Inspection, No CVA Tenderness, No Vertebral Tenderness Extremity: Normal Capillary Refill, Normal Inspection, Normal Range of Motion, Non Tender, No Calf Tenderness, No Pedal Edema Neurologic/Psychiatric: Alert, Oriented x3, No Motor/Sensory Deficits, Normal Mood/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 FIM Transfers Therapy Code Descriptions/Definitions Functional [place] Measure: 0=Not Assessed/NA 4=Minimal Assistance 1=Total Assistance 5=Supervision or Setup 2=Maximal Assistance 6=Modified [place] 3=Moderate Assistance 7=Complete IndependenceSCALE: Activities may be completed with or without assistive devices. 7-Gaemmkchfm-kfeuxhk completes the activity by him/herself with no assistance from a helper. 5-Set-up or Clean-up Assistance-helper sets up or cleans up; patient completes activity. [place] assists only prior to or following the activity. 4-Supervision or Touching Assistance-helper provides verbal cues and/or touching/steadying and/or contact guard assistance as patient completes activity. Assistance may be provided throughout the activity or intermittently. 3-Partial/Moderate Assistance-helper does LESS THAN HALF the effort. [place] lifts, holds or supports trunk or limbs, but provides less than half the effort. 2-Substantial/Maximal Assistance-helper does MORE THAN HALF the effort. [place] lifts or holds trunk or limbs and provides more than half the effort. 5-Qegmhgprx-uxhofi does ALL the effort. Patient does none of the effort to complete the activity. Or, the assistance of 2 or more helpers is required for the patient to complete the activity. If activity was not attempted, code reason: 7-Patient Refused. 9-Not Applicable-not attempted and the patient did not perform the activity before the current illness, exacerbation or injury. 10-Not Attempted due to Environmental Limitations-(lack of equipment, weather restraints, etc.). 88-Not Attempted due to Medical Conditions or Safety Concerns. Roll Left to Right (QC): 6 Sit to Lying (QC): 3 Sit to Stand (QC): 3 Chair/Kzh-ja-Fldhc Xfer(QC): 3 Car Transfer (QC): 3 Gait Training Does the Patient Walk?: Yes Walk 10 feet (QC): 4 Walk 50 ft with 2 Turns(QC): 88 Walk 150 ft (QC): 88 Walking 10ft/uneven surface-QC: 88 Gait Assistive Device: FWW Wheelchair Training Does the Pt Use a Wheelchair?: Yes Distance: 20' Wheel 50 ft with 2 turns (QC): 3 Wheel 150 ft (QC): 88 Type of Wheelchair: Manual Stair Training 1 Step (curb) (QC): 88 4 Steps (QC): 88 12 Steps (QC): 88 Balance Picking up an Object (QC): 88 ADL-Treatment Eating (QC): 4 (cues) Oral Hygiene (QC): 7 Shower/Bathe Self (QC): 7 Upper Body Dressing (QC): 7 Lower Body Dressing (QC): 7 On/Off Footwear (QC): 3 Toileting Hygiene (QC): 1 Toilet Transfer (QC): 4 Assessment/Plan Assessment and Plan Assess & Plan/Chief Complaint Assessment: Debility from COVID 19 PNA 12/13/[address] [facility] O2 dependence new onset HTN HLP Advanced age GERD Hemoccult + stools Anemia requiring 2 units of blood 01/01/20 Plan: IRF protocol Monitor O2 Check labs 12/31/19: IVF IV abx empiric Volume depletion with dehydration causing lactic acidosis not sepsis 01/01/20: HLIVF to minimize volume overload due to recent COVID and recs 2 units of blood ordered today PPI and Carafate and Dr Hector consult but too fragile for EGD at this time but if necessary will be required 01/02/20: Monitor labs Abx Increase po fluids Eating better with outside food 01/03/20: Monitor O2 DC catheter Continue abx but change to PO Check CXR Monitor HR (1) COVID-19 Status: Acute (2) GERD (gastroesophageal reflux disease) (3) Hypertension (4) Hyperlipemia (5) Advanced age (6) Supplemental oxygen dependent (7) PNA (pneumonia) Status: Acute (8) Acute respiratory failure due to COVID-19 Status: Acute CORI MOODY DO Jan 03, 2020 05:47
[2020-01-03 06:00] VITALS: BP 145/66
[2020-01-03] MEDS: CATHETER FLUSH 10 ML SYR IV SCH ×3 (06:04→22:00)
[2020-01-03] MEDS: SUCRALFATE 1 GM (CARAFATE) TAB PO SCH ×4 (06:06→20:32)
[2020-01-03] MEDS: MULTIVIT W/MINERALS TAB (THERAGRAN M) PO SCH (06:06)
--- NOTE | 2020-01-03 08:38 | Cardiology Progress Note ---
Subjective Date Seen by Provider: Jan 03, 2020 Time Seen by Provider: 08:00 Subjective/Events-last exam Patient is sitting up in wheelchair. Denies any chest pain or dyspnea. Review of Systems General: No Chills, No Night Sweats; Fatigue, Malaise; No Appetite, No Other HEENT: No Head Aches, No Visual Changes, No Eye Pain, No Ear Pain, No Dysphasia, No Sinus Congestion, No Post Nasal Drip, No Sore Throat, No Other Pulmonary: No Dyspnea, No Cough, No Pleuritic Chest Pain, No Other Cardiovascular: No: Chest Pain, Palpitations, Orthopnea, Paroxysmal Noc. Dyspnea, Edema, Lt Headedness, Other Focused Exam Lactate Level 12/31/19 12:45: Lactic Acid Level 4.11*H Objective-Cardiology Exam Last Set of Vital Signs Vital Signs 01/03/20 01/03/20 09:25 11:29 Temp 36.5 Pulse 95 Resp 22 B/P (MAP) 144/73 (96) Pulse Ox 92 O2 Delivery High Flow N/C O2 Flow Rate 4.00 Capillary Refill : Less Than 3 Seconds I&O Intake and Output 01/03/20 00:00 Intake Total 1900 ml Output Total 1900 ml Balance 0 ml Intake Oral 1900 ml Output Urine Total 1900 ml # Bowel Movements 1 General: Alert, Oriented X3, Cooperative HEENT: Atraumatic, PERRLA Neck: Supple, No JVD, No Thyromegaly Lungs: Clear to Auscultation, Normal Air Movement Heart: Normal S1, Normal S2, No Murmurs, Other (irregular) Abdomen: Normal Bowel Sounds, Soft, No Tenderness, No Hepatosplenomegaly, No Masses Extremities: No Clubbing, No Cyanosis, No Edema, Normal Pulses, No Tenderness/Swelling Skin: No Rashes, No Breakdown, No Significant Lesion Neuro: Normal Gait, Normal Speech, Strength at 5/5 X4 Ext, Normal Tone, Sensation Intact Psych/Mental Status: Mental Status NL, Mood NL Results Lab Laboratory Tests Test 01/03/20 04:31 Range/Units White Blood Count 15.5 H 4.3-11.0 10^3/uL Red Blood Count 2.82 L 3.80-5.11 10^6/uL Hemoglobin 8.3 L 11.5-16.0 g/dL Hematocrit 25 L 35-52 % Mean Corpuscular Volume 89 80-99 fL Mean Corpuscular Hemoglobin 29 25-34 pg Mean Corpuscular Hemoglobin Concent 33 32-36 g/dL Red Cell Distribution Width 14.4 10.0-14.5 % Platelet Count 256 130-400 10^3/uL Mean Platelet Volume 10.3 9.0-12.2 fL Immature Granulocyte % (Auto) 3 % Neutrophils (%) (Auto) 81 H 42-75 % Lymphocytes (%) (Auto) 8 L 12-44 % Monocytes (%) (Auto) 6 0-12 % Eosinophils (%) (Auto) 2 0-10 % Basophils (%) (Auto) 0 0-10 % Neutrophils # (Auto) 12.5 H 1.8-7.8 10^3/uL Lymphocytes # (Auto) 1.3 1.0-4.0 10^3/uL Monocytes # (Auto) 0.9 0.0-1.0 10^3/uL Eosinophils # (Auto) 0.3 0.0-0.3 10^3/uL Basophils # (Auto) 0.1 0.0-0.1 10^3/uL Immature Granulocyte # (Auto) 0.5 H 0.0-0.1 10^3/uL Sodium Level 132 L 135-145 MMOL/L Potassium Level 3.6 3.6-5.0 MMOL/L Chloride Level 92 L 98-107 MMOL/L Carbon Dioxide Level 30 21-32 MMOL/L Anion Gap 10 5-14 MMOL/L Blood Urea Nitrogen 20 H 7-18 MG/DL Creatinine 0.97 0.60-1.30 MG/DL Estimat Glomerular Filtration Rate 54 BUN/Creatinine Ratio 21 Glucose Level 156 H 70-105 MG/DL Calcium Level 7.7 L 8.5-10.1 MG/DL Corrected Calcium 8.9 8.5-10.1 MG/DL Total Bilirubin 0.9 0.1-1.0 MG/DL Aspartate Amino Transf (AST/SGOT) 25 5-34 U/L Alanine Aminotransferase (ALT/SGPT) 30 0-55 U/L Alkaline Phosphatase 51 40-136 U/L Total Protein 4.7 L 6.4-8.2 GM/DL Albumin 2.5 L 3.2-4.5 GM/DL A/P-Cardiology Admission Diagnosis Syncope Anemia Hypotension Pneumonia Assessment/Plan Syncope, probably secondary to hypotensive episode. Received IV fluid, s/p blood transfusion. Atenolol was discontinued. Continue to monitor Anemia, acute, probably acute GI loss, has been maintained on PPI. Receiving blood transfusion, monitor H&H. Possible EGD with Dr. Hector Elevated lactic acid, elevated leukocytosis, questionable sepsis, chest x-ray showed improvement compared to baseline. Managed by primary care team COVID 19 pneumonia, diagnosed on December 13, 2019, treated and has improved, still having generalized debility and receiving physical therapy History of hypertension, discontinued atenolol due to syncope, continue to monitor blood pressure Palpitations, EKG showing PACs/PVCs, continue to monitor. Hyperlipidemia, continue to monitor lipids Chronic kidney disease stage III, follows with chief wheelage clerk in [place]. Continue to monitor Multiple risk factors for coronary artery disease, last stress test was done in November 2017 showing poor exercise tolerance, breast attenuation with no significant ischemia or infarction Hypertensive heart disease, echocardiogram done in 2017 showing ejection fraction 55-65 percent, grade 2 diastolic dysfunction, left atrial dilatation 4.15 cm, mild MR, PA 30 mmHg. Continue to monitor History of breast biopsy, melanoma surgery Strong family history of heart disease History of mild bilateral carotid stenosis follows with heart and vascular care. Most recent carotid ultrasound was done in December 2018. Continue to monitor Patient was seen and evaluated with Lindsay, examination performed, management plan was discussed, agree with the current scribed note, I made few changes to the note using Italic font Patient is laying down comfortably in bed. No new complaint Continue to monitor H&H, possible EGD with Dr. Hector Continue to monitor blood pressure Clinical Quality Measures DVT/VTE Risk/Contraindication: Risk Factor Score Per Nursin RFS Level Per Nursing on Admit: 4+=Very High LINDSAY MOSQUERA Jan 03, 2020 08:38 DANK SINGH MD Jan 03, 2020 11:47
--- NOTE | 2020-01-03 09:02 | Physical Therapy Daily Note ---
PT Daily Note-Current Subjective Pt presents sitting in her recliner. Pt agrees to PT. Pt reports 3/10 pain in left knee with activity but zero pain when resting. Patient has an corrie wrap on left knee. Appearance At conclusion of PT treatment pt is left sitting upright in wheelchair in room under supervision of OT. Mental Status Patient Orientation: Person, Place, Eyes Open, Situation Attachments: Oxygen, [place] Catheter Left knee corrie wrapped Transfers SCALE: Activities may be completed with or without assistive devices. 9-Hjcyeeqwod-kztukrs completes the activity by him/herself with no assistance from a helper. 5-Set-up or Clean-up Assistance-helper sets up or cleans up; patient completes activity. [place] assists only prior to or following the activity. 4-Supervision or Touching Assistance-helper provides verbal cues and/or touching/steadying and/or contact guard assistance as patient completes activity. Assistance may be provided throughout the activity or intermittently. 3-Partial/Moderate Assistance-helper does LESS THAN HALF the effort. [place] lifts, holds or supports trunk or limbs, but provides less than half the effort. 2-Substantial/Maximal Assistance-helper does MORE THAN HALF the effort. [place] lifts or holds trunk or limbs and provides more than half the effort. 7-Qbprhkcsm-nnwsfp does ALL the effort. Patient does none of the effort to complete the activity. Or, the assistance of 2 or more helpers is required for the patient to complete the activity. If activity was not attempted, code reason: 7-Patient Refused. 9-Not Applicable-not attempted and the patient did not perform the activity befo re the current illness, exacerbation or injury. 10-Not Attempted due to Environmental Limitations-(lack of equipment, weather re straints, etc.). 88-Not Attempted due to Medical Conditions or Safety Concerns. Sit to Stand (QC): 3 Chair/Dmt-mz-Tfkmm Xfer(QC): 3 Weight Bearing Full Weight Bearing Full Weight Bearing Gait Training Does the Patient Walk?: Yes Distance: 5'x2 Gait Assistive Device: FWW With encouragement pt ambulates with FWW and wheelchair follow-behind, pt requires seated rest after about 5 feet; this is completed twice. Pt unable to walk distance out of room. Exercises Seated Therapy Exercises: Ankle pumps, Long arc quads, Hip flexion Seated Reps: 20 Treatments gait training and LE strengthening, dressing Assessment Current Status: Poor Progress Pt struggles with walking; requires strong CGA and cueing for how to sit <-> safely in wheelchair. Pt experienced a buckling of knee immediately after standing resulting in falling back into wheelchair without warning. Co-treated with OT from [id number]. PT worked on standing and safety during ADL's during this time, OT worked on dressing. PT Short Term Goals Short Term Goals Time Frame: Jan 06, 2020 Roll Left & Right: 6 Sit to lyin Lying to sitting on side of be: 6 Sit to stand: 4 Chair/mak-od-qaryy transfer: 4 Toilet transfer: 4 Walk 10 feet: 4 Walk 50 feet with two turns: 4 PT Senior Care Goals Senior Care Goals PT Senior Care Goals Time Frame: Jan 13, 2020 Roll Left & Right (QC): 6 Sit to Lying (QC): 6 Lying-Sitting on Side/Bed(QC): 6 Sit to Stand (QC): 6 Chair/Nit-cu-Bclhp Xfer(QC): 6 Toilet Transfer (QC): 5 Car Transfer (QC): 5 Does the Patient Walk: Yes Walk 10 feet (QC): 5 Walk 50ft with 2 Turns (QC): 5 Walk 150 ft (QC): 5 Walking 10ft on Uneven Surface: 5 1 Step (curb) (QC): 4 4 Steps (QC): 4 12 Steps (QC): 88 Picking up an Object (QC): 4 Does the Pt use WC or Scooter?: Yes Wheel 50 feet with 2 turns (QC: 6 Type: Manual Wheel 150 feet: 6 Type: Manual PT Plan Problem List Problem List: Activity Tolerance, Functional Strength, Safety, Balance, Gait, Transfer, Bed Mobility, ROM Treatment/Plan Treatment Plan: Continue Plan of Care Treatment Plan: Bed Mobility, Education, Functional Activity Shahab, Functional Strength, Group Therapy, Gait, Safety, Therapeutic Exercise, Transfers Treatment Duration: Jan 20, 2020 Frequency: Modified Program (IRF) (21/09) Estimated Hrs Per Day: 1.5 hours per day Patient and/or Family Agrees t: Yes Safety Risks/Education Patient Education: Gait Training, Transfer Techniques, Correct Positioning, Safety Issues Teaching Recipient: Patient Teaching Methods: Demonstration, Discussion Response to Teaching: Reinforcement Needed Time/GCodes Time In: 0800 Time Out: 0900 Total Billed Treatment Time: 60 Total Billed Treatment 1 visit GT 15' EX 15' FA 30' PT treatment [id number]; Co-treated with OT [id number] due to patient's limitations with strength, mobility, fatigue and ability to coordinated UEs and LEs. Pt focused on ambulating, transfers, and LE activities while OT focused on dressing and ADLs. ARIC WARD PT Jan 03, 2020 09:02
[2020-01-03] MEDS: polyethylene glycoL POWDER 17 GM (MIRALAX) PACK PO SCH ×2 (09:09→20:36)
[2020-01-03] MEDS: DOCUSATE SODIUM 100 MG (COLACE) CAP PO SCH ×2 (09:09→20:36)
[2020-01-03 09:25] VITALS: BP 144/73
[2020-01-03] MEDS: PANTOPRAZOLE 40 MG (PROTONIX) TAB PO SCH ×2 (09:30→20:32)
[2020-01-03] MEDS: VITAMIN D3 10 MCG (400 UNITS) TABLET PO SCH (09:30)
[2020-01-03] MEDS: SALINE NASAL SPRAY (OCEAN) 45 ML BTL PRN (09:31)
[2020-01-03] MEDS: SENNA W/DOCUSATE (SENOKOT S) TABLET PO SCH ×2 (09:31→20:36)
[2020-01-03] MEDS: SOD CHL GEL 0.5 OZ (AYR SALINE NASAL GEL) TUBE TOP PRN (09:31)
--- NOTE | 2020-01-03 09:47 | Occupational Ther Daily Note ---
OT Current Status-Daily Note Subjective No pain reported. Pt. does state that she feels weak and tired. Appearance Pt. up in chair with PT when OT entered room. Agrees to work with both therapies. Mental Status/Objective Patient Orientation: Person, Place Attachments: Isbell Catheter, IV, Oxygen ADL-Treatment Therapy Code Descriptions/Definitions Functional [place] Measure: 0=Not Assessed/NA 4=Minimal Assistance 1=Total Assistance 5=Supervision or Setup 2=Maximal Assistance 6=Modified [place] 3=Moderate Assistance 7=Complete IndependenceSCALE: Activities may be completed with or without assistive devices. 6-Luzzdzhvlh-sjmddpt completes the activity by him/herself with no assistance from a helper. 5-Set-up or Clean-up Assistance-helper sets up or cleans up; patient completes activity. [place] assists only prior to or following the activity. 4-Supervision or Touching Assistance-helper provides verbal cues and/or touching/steadying and/or contact guard assistance as patient completes activity. Assistance may be provided throughout the activity or intermittently. 3-Partial/Moderate Assistance-helper does LESS THAN HALF the effort. [place] lifts, holds or supports trunk or limbs, but provides less than half the effort. 2-Substantial/Maximal Assistance-helper does MORE THAN HALF the effort. [place] lifts or holds trunk or limbs and provides more than half the effort. 5-Imhhzhqov-mjfsvo does ALL the effort. Patient does none of the effort to complete the activity. Or, the assistance of 2 or more helpers is required for the patient to complete the activity. If activity was not attempted, code reason: 7-Patient Refused. 9-Not Applicable-not attempted and the patient did not perform the activity before the current illness, exacerbation or injury. 10-Not Attempted due to Environmental Limitations-(lack of equipment, weather restraints, etc.). 88-Not Attempted due to Medical Conditions or Safety Concerns. Oral Hygiene (QC): 4 (SBA to brush teeth at wheelchair level.) On/Off Footwear: 3 (Min assist and max cues to doff/don slipper socks from wheelchair level with AE.) Toileting Hygiene (QC): 1 (Pt. incontinent of stool while ambulating back to bed. Dependent for agueda care.) Other Treatment Partial co-treatment performed due to pt's fatigue and saturation levels. Pt. having difficulty with SOA with any activity, and oxygen saturations monitored throughout. Pt. is on 4 L 02. Sats remained around 93% with OT. PT facilitating transfers and LE exercises while OT facilitates UE exercises and ADL skills. Treatment slow and multiple rest breaks given. Pt. washes her face and brushes her teeth in wheelchair. Declines bathing. OT brushes her hair for her. Pt. educated on adaptive equipment and practices doffing/donning slipper socks. Pt. completes UE/LE AROM exercises to tolerance level. Pt. ambulates from wheelchair to bed with min assist and increased time with OT at end of treatment. Pt. becomes incontinent of bowel while ambulating. OT cleanses pt. agueda area. Pt. transfers sit-supine with mod assist. All needs met and nursing assessing pt. when OT left room. Education OT Patient Education: Correct positioning, Exercise program, Modified ADL techniques, Progress toward Goal/Update tx plan, Purpose of tx/functional activities, Reviewed precautions, Rehab process, Transfer techniques Teaching Recipient: Patient Teaching Methods: Demonstration, Discussion Response to Teaching: Verbalize Understanding, Return Demonstration, Reinforcement Needed OT Short Term Goals Short Term Goals Time Frame: Jan 06, 2020 Eatin Oral hygiene: 4 Toileting hygiene: 3 Shower/bathe self: 3 Upper body dressin Lower body dressin Putting on/taking off footwear: 4 OT Senior Living Goals Sports Broadcaster Goals Time Frame: Jan 13, 2020 Eating (QC): 6 Oral Hygiene (QC): 6 Toileting Hygiene (QC): 6 Shower/Bathe Self (QC): 4 Upper Body Dressing (QC): 4 Lower Body Dressing (QC): 4 On/Off Footwear (QC): 6 Additional Goals: 1-Demonstrate ADL Tasks, 2-Verbalize Understanding, 3- ImproveStrength/Shahab 1=Demonstrate adherence to instructed precautions during ADL tasks. 2=Patient will verbalize/demonstrate understanding of assistive devices/modifications for ADL. 3=Patient will improve strength/tolerance for activity to enable patient to perform ADL's. OT Education/Plan Problem List/Assessment Assessment: Decreased Activ Tolerance, Decreased UE Strength, Dependent Transfers, Impaired Bed Mobility, Impaired Funct Balance, Impaired I ADL's, Impaired Self-Care Skills Discharge Recommendations Plan/Recommendations: Continue POC Therapy Discharge Recommendati: Post Acute OT Equpiment Recommendations-D/C: Hip Kit Treatment Plan/Plan of Care Treatment,Training & Education: Yes Patient would benefit from OT for education, treatment and training to promote independence in ADL's, mobility, safety and/or upper extremity function for ADL 's. Plan of Care: ADL Retraining, Functional Mobility, UE Funct Exercise/Act Treatment Duration: Jan 13, 2020 Frequency: At least 5 of 7 days/Wk (IRF) Estimated Hrs Per Day: 1.5 hours per day Agreement: Yes Rehab Potential: Good Time/GCodes Start Time: 08:30 Stop Time: 09:30 Total Time Billed (hr/min): 60 Billed Treatment Time 0588-7498 1, ADL x 15minutes, FA x 15minutes (Co-tx with PT. Please see above for designated roles.) [id number] FA x 15minutes, Ex x 15minutes LIZZY ADAMS OT Jan 03, 2020 09:47
--- NOTE | 2020-01-03 10:25 | Progress Note ---
EVERTON ESPOSITO MED STUDENT 01/03/20 1024: Progress Note S: No acute events overnight. Patient reports eating outside food. Had a BM. No complaints at this time. O: Vitals remarkable for 91% SpO2 on 4L EKG done this AM due to irregular heart rhythm heard on auscultation by cardiology. EKG does not show patient to be in Afib, it shows premature a trial/ventricle complexes WBC decreasing to 15.5 from 17.1 A/P: D/c catheter today. If she fails catheter d/c then will consult Dr. Yousif (urology) for further workup Surgery recommended she get an EGD done this admission once respiratory status improves - will wait on this as she still needs 4L O2 Appreciation cardiology recommendations Continue plan of care MADDIE MOODY DO 01/04/20 0526: Supervisory-Addendum Brief Verification & Attestation Participated in pt care: history, MDM, physical Personally performed: exam, history, MDM, supervision of care Care discussed with: Medical Student Procedures: n/a Results interpretation: Verified all documentation Verification and Attestation of Medical Student E/M Service A medical student performed and documented this service in my presence. I reviewed and verified all information documented by the medical student and made modifications to such information, when appropriate. I personally performed the physical exam and medical decision making. Maddie Moody, Jan 04, 2020,05:26 EVERTON ESPOSITO MED STUDENT Jan 03, 2020 10:24 MADDIE MOODY DO Jan 04, 2020 05:26
--- NOTE | 2020-01-03 13:03 | Speech Therapy Daily Note ---
Speech Daily Progress Note Subjective Date Seen by Provider: Jan 03, 2020 Time Seen by Provider: 00:30 Patient was resting in bed. She stated she was tired from her therapy. Objective Patient completed safety awareness cards "what's wrong with this scene?" with 80% accuracy with 20% cues/repetitions. Assessment Assessment Current Status: Fair Progress Treatment Plan Continue Plan of Care Speech Short Term Goals Short Term Goals Short Term Goals 1) Patient will complete memory tasks related to her daily needs at 80% or greater with minimal cues. 2) Patient will complete safety awareness tasks related to her daily needs at 80% or greater with minimal cues. 3) Patient will complete problem solving tasks related to her daily needs at 80% or greater with minimal cues. Speech Mcfp Goals Scissors Grinder Goals Patient will improve cognitive-communication tasks in order to require minimal assist with daily needs. Speech-Plan Patient/Family Goals Patient/Family Goals: Patient plans on returning to her home where she lives with her . Treatment Plan Speech Therapy Treatment Plan: Continue Plan of Care Treatment Duration: Dec 31, 2019 Frequency: 4 times per week (Patient will receive skilled ST 4-5x per week) Estimated Hrs Per Day: Other Rehab Potential: Good Barriers to Learning: Patient's recent illness, age Pt/Family Agrees to Plan: Yes Safety Risks/Education Teaching Recipient: Patient Teaching Methods: Demonstration, Discussion Response to Teaching: Verbalize Understanding, Return Demonstration Education Topics Provided: Continued safety within her room, communication of wants/needs Time Speech Therapy Time In: 11:30 Speech Therapy Time Out: 12:00 Total Billed Time: 30 Billed Treatment Time 1[address] Jan 03, 2020 13:03
--- NOTE | 2020-01-03 14:36 | Therapy Group Daily Note ---
Therapy Daily Group Note Patient Education Topic Other List Below (memory strategies) Session Ratio (pt:therapist): 4:1 Goal of Session: Memory Strategies Goal Met for this Session: Yes Pt Benefit of Group: F/U Use of Strategies @Home, Improved Cognition, Socialization Other/Notes Pt. participated in group PT OT session today . Pt. was assisted to group via w/c. Pt. was donned with mask and social spacing was insitu. Pts. introduced themselves, shared their home town and a childhood memory. Education was shared regarding long and short term memory , memory strategies and association. Memory challenge game involving matching images, that had been revealed then turned over . This patient was very good at this challenge and expressed that she enjoyed this activity. Pts. shared their own memory strategies that seem to work for them. Pt. to room after group session, call curtis at hand, needs met. Start Time: 13:00 Stop Time: 14:00 Total Billed Treatment Time: 75 Total Billed Treatment 1,GRP CADE TOUSSAINT SENIOR MAINTENANCE MACHINIST Jan 03, 2020 14:36
--- NOTE | 2020-01-03 18:05 | Progress Note ---
Subjective Date Seen by a Provider: Jan 03, 2020 Time Seen by a Provider: 18:00 Subjective/Events-last exam doing well. tolerated therapy today. no signs clinical bleed. Hb stable since tx. Objective Exam Vital Signs Date Time Temp Pulse Resp B/P (MAP) Pulse Ox O2 Delivery O2 Flow Rate FiO2 01/03/20 11:29 92 High Flow N/C 4.00 01/03/20 09:25 36.5 95 22 144/73 (96) 97 High Flow N/C 4.00 01/03/20 08:48 High Flow N/C 4.00 01/03/20 06:11 91 High Flow N/C 4.00 01/03/20 06:00 36.5 89 18 145/66 (92) 97 High Flow N/C 4.00 01/02/20 23:07 High Flow N/C 4.00 01/02/20 20:00 97 High Flow N/C 4.00 01/02/20 19:30 97 High Flow N/C 4.00 I & O 01/03/20 07:00 Intake Total 2200 ml Output Total 1650 ml Balance 550 ml Capillary Refill : Less Than 3 Seconds General Appearance: No Apparent Distress HEENT: PERRL/EOMI Respiratory: Decreased Breath Sounds, Rhonci Cardiovascular: Regular Rate, Rhythm Gastrointestinal: normal bowel sounds, non tender, soft Extremity: Normal Capillary Refill Neurologic/Psychiatric: Alert, Oriented x3 Skin: Normal Color Lymphatic: No Adenopathy Results Lab Laboratory Tests 01/03/20 04:31: White Blood Count 15.5H, Red Blood Count 2.82L, Hemoglobin 8.3L, Hematocrit 25L, Mean Corpuscular Volume 89, Mean Corpuscular Hemoglobin 29, Mean Corpuscular Hemoglobin Concent 33, Red Cell Distribution Width 14.4, Platelet Count 256, Mean Platelet Volume 10.3, Immature Granulocyte % (Auto) 3, Neutrophils (%) (Auto) 81H, Lymphocytes (%) (Auto) 8L, Monocytes (%) (Auto) 6, Eosinophils (%) (Auto) 2, Basophils (%) (Auto) 0, Neutrophils # (Auto) 12.5H, Lymphocytes # ( Auto) 1.3, Monocytes # (Auto) 0.9, Eosinophils # (Auto) 0.3, Basophils # (Auto) 0.1, Immature Granulocyte # (Auto) 0.5H, Sodium Level 132L, Potassium Level 3.6, Chloride Level 92L, Carbon Dioxide Level 30, Anion Gap 10, Blood Urea Nitrogen 20H, Creatinine 0.97, Estimat Glomerular Filtration Rate 54, BUN/Creatinine Ratio 21, Glucose Level 156H, Calcium Level 7.7L, Corrected Calcium 8.9, Total Bilirubin 0.9, Aspartate Amino Transf (AST/SGOT) 25, Alanine Aminotransferase (ALT/SGPT) 30, Alkaline Phosphatase 51, Total Protein 4.7L, Albumin 2.5L Microbiology 12/31/19 MRSA Screen - Final, Complete MRSA not isolated 12/31/19 Urine Culture - Final, Complete YEAST Assessment/Plan Assessment/Plan Assess & Plan/Chief Complaint covid-19 acute lung injury, anemia and stable upper GI bleed. cont PPI and carafate. cont therapy. if pulm and overall status improve on this admission will proceed with EGD. Clinical Quality Measures DVT/VTE Risk/Contraindication: Risk Factor Score Per Nursin RFS Level Per Nursing on Admit: 4+=Very High HADLEY LARA MD Jan 03, 2020 18:05
[2020-01-03 18:43] VITALS: BP 173/75
--- NOTE | 2020-01-03 19:10 | NUR ---
bedside report received from AD WINSTON, assume care of pt
[2020-01-03 19:30] VITALS: BP 150/63
--- NOTE | 2020-01-03 19:38 | NUR ---
Notified Dr. Hawkins earlier at 1420 after group therapy that Rt IV site was leaking. And that pt had been stuck several times day for blood transfusion by several different nurses, & were unsuccessful. Received orders for Midline IV, Which will be done tomorrow when they are back in office. To hold IV ATB until midline access can be obtained tomorrow.
--- NOTE | 2020-01-03 20:32 | NUR ---
pt refused Colace, miralax & Senokot, states had stool today, encouraged incentive q 1-2hrs, repositioned on side
--- NOTE | 2020-01-03 22:30 | NUR ---
up to commode with 2 person assist to try to void
--- NOTE | 2020-01-03 22:45 | NUR ---
had 300ml stool & urine, assisted back to bed
--- NOTE | 2020-01-03 22:55 | NUR ---
bladder scan showed 126ml
[2020-01-04] MEDS: PIPERACILLIN/TAZOBACTAM (BULK) 4.5 GM in NS (IVPB) 100 ML IV SCH (02:00)
[2020-01-04] MEDS: RT-ALBUTEROL INHALER HFA (VENTOLIN HFA) 18 GM IH SCH ×6 (02:41→22:33)
--- NOTE | 2020-01-04 05:15 | NUR ---
up to commode, felt the need to void
[2020-01-04 05:25] VITALS: BP 127/59
--- NOTE | 2020-01-04 05:30 | NUR ---
had urine and stool, 400ml
--- NOTE | 2020-01-04 05:35 | PM&R Progress Note ---
Subjective HPI/CC On Admission Date Seen by Provider: Jan 04, 2020 Time Seen by Provider: 09:00 Subjective/Events-last exam 01/04/20: Pt doing very well Less dyspnea on exertion Eating better WBC down to 13.6 Hgb stable at 8.5 Midline will be placed to finish off iron infusions Discontinued catheter and she is voiding well Overall very improved 01/03/20: White blood cell count is down On 4 liters now 91% Atenolol was discontinued per cardiology EKG this morning due to irregular heartbeat brought in rib crib last night and she enjoyed that Cleared out her nose because it was dried out from oxygen Got up to go to the bathroom on the commode today Will DC catheter 01/02/20: BM yesterday No blood in BM Sodium level is 134 Zosyn still maintained Hgb 8.6 Weaning O2 to 4L/min today Dr Hinojosa and Dr Hector saw patient today 01/01/20: 2 units of blood ordered for hgb 6.0 Dr Hinojosa updated me on the hemoccult positive stools so I spoke to Dr Hector and he will consult in case endo needed but she is very fragile and unsure she can undergo this procedure at this time but if necessary will require it PPI and Carafate ordered Eating a bit better, [employer] milkshake brought in Pt had some significant problems with hypotension and near syncope episode Pt has not been eating and drinking Lactic acid elevated at 3.5 Dr. Dolan saw her in consultation and recommended IV antibiotics and IV fluids WBC 21.9 Sodium level 129 Pt very fragile Desaturated to 83% when she got out of bed Conferred with RN Checked meds and labs Reviewed therapy notes Review of Systems General: Fatigue, Malaise Pulmonary: Dyspnea Neurological: Weakness Objective Exam Vital Signs Vital Signs Date Time Temp Pulse Resp B/P (MAP) Pulse Ox O2 Delivery O2 Flow Rate FiO2 01/04/20 19:17 98 High Flow N/C 2.00 01/04/20 16:13 36.5 103 20 117/56 (76) Capillary Refill : Less Than 3 Seconds General Appearance: No Apparent Distress, WD/WN, Chronically ill, Other (frail) HEENT: PERRL/EOMI, Normal ENT Inspection, Pharynx Normal Neck: Full Range of Motion, Normal Inspection, Non Tender, Supple, Carotid Bruit Respiratory: Chest Non Tender, Lungs Clear, No Accessory Muscle Use, No Respiratory Distress, Decreased Breath Sounds Cardiovascular: Regular Rate, Rhythm, No Edema, No Gallop, No JVD, No Murmur, Normal Peripheral Pulses Gastrointestinal: Normal Bowel Sounds, No Organomegaly, No Pulsatile Mass, Non Tender, Soft Back: Normal Inspection, No CVA Tenderness, No Vertebral Tenderness Extremity: Normal Capillary Refill, Normal Inspection, Normal Range of Motion, Non Tender, No Calf Tenderness, No Pedal Edema Neurologic/Psychiatric: Alert, Oriented x3, No Motor/Sensory Deficits, Normal Mood/Affect, contract design agent II-XII Norm as Tested, Abnormal Gait, Motor Weakness (weakness of all extremities 3/5) Skin: Normal Color, Warm/Dry Lymphatic: No Adenopathy Results/Procedures Lab Laboratory Tests 01/04/20 05:50 Patient resulted labs reviewed. FIM Transfers Therapy Code Descriptions/Definitions Functional [place] Measure: 0=Not Assessed/NA 4=Minimal Assistance 1=Total Assistance 5=Supervision or Setup 2=Maximal Assistance 6=Modified [place] 3=Moderate Assistance 7=Complete IndependenceSCALE: Activities may be completed with or without assistive devices. 0-Pplofrsgzn-jnygyiy completes the activity by him/herself with no assistance from a helper. 5-Set-up or Clean-up Assistance-helper sets up or cleans up; patient completes activity. [place] assists only prior to or following the activity. 4-Supervision or Touching Assistance-helper provides verbal cues and/or touching/steadying and/or contact guard assistance as patient completes activity. Assistance may be provided throughout the activity or intermittently. 3-Partial/Moderate Assistance-helper does LESS THAN HALF the effort. [place] lifts, holds or supports trunk or limbs, but provides less than half the effort. 2-Substantial/Maximal Assistance-helper does MORE THAN HALF the effort. [place] lifts or holds trunk or limbs and provides more than half the effort. 4-Uymozxgav-zyamef does ALL the effort. Patient does none of the effort to complete the activity. Or, the assistance of 2 or more helpers is required for the patient to complete the activity. If activity was not attempted, code reason: 7-Patient Refused. 9-Not Applicable-not attempted and the patient did not perform the activity before the current illness, exacerbation or injury. 10-Not Attempted due to Environmental Limitations-(lack of equipment, weather restraints, etc.). 88-Not Attempted due to Medical Conditions or Safety Concerns. Roll Left to Right (QC): 6 Sit to Lying (QC): 3 Sit to Stand (QC): 3 Chair/Znq-ri-Rhwhp Xfer(QC): 3 Car Transfer (QC): 3 Gait Training Does the Patient Walk?: Yes Distance: 5'x2 Walk 10 feet (QC): 4 Walk 50 ft with 2 Turns(QC): 88 Walk 150 ft (QC): 88 Walking 10ft/uneven surface-QC: 88 Gait Assistive Device: FWW Wheelchair Training Does the Pt Use a Wheelchair?: Yes Distance: 20' Wheel 50 ft with 2 turns (QC): 3 Wheel 150 ft (QC): 88 Type of Wheelchair: Manual Stair Training 1 Step (curb) (QC): 88 4 Steps (QC): 88 12 Steps (QC): 88 Balance Picking up an Object (QC): 88 ADL-Treatment Eating (QC): 4 (cues) Oral Hygiene (QC): 4 (SBA to brush teeth at wheelchair level.) Shower/Bathe Self (QC): 7 Upper Body Dressing (QC): 7 Lower Body Dressing (QC): 7 On/Off Footwear (QC): 3 (Min assist and max cues to doff/don slipper socks from wheelchair level with AE.) Toileting Hygiene (QC): 1 (Pt. incontinent of stool while ambulating back to bed. Dependent for agueda care.) Toilet Transfer (QC): 4 Assessment/Plan Assessment and Plan Assess & Plan/Chief Complaint Assessment: Debility from COVID 19 PNA 12/13/19 admitted to [facility] O2 dependence new onset HTN HLP Advanced age GERD Hemoccult + stools Anemia requiring 2 units of blood 01/01/20 Plan: IRF protocol Monitor O2 Check labs 12/31/19: IVF IV abx empiric Volume depletion with dehydration causing lactic acidosis not sepsis 01/01/20: HLIVF to minimize volume overload due to recent COVID and recs 2 units of blood ordered today PPI and Carafate and Dr Hector consult but too fragile for EGD at this time but if necessary will be required 01/02/20: Monitor labs Abx Increase po fluids Eating better with outside food 01/03/20: Monitor O2 DC catheter Continue abx but change to PO Check CXR Monitor HR 01/04/20: Monitor O2 Increase activity Venofer PO abx (1) COVID-19 Status: Acute (2) GERD (gastroesophageal reflux disease) (3) Hypertension (4) Hyperlipemia (5) Advanced age (6) Supplemental oxygen dependent (7) PNA (pneumonia) Status: Acute (8) Acute respiratory failure due to COVID-19 Status: Acute CORI MOODY DO Jan 04, 2020 05:35
--- NOTE | 2020-01-04 05:38 | NUR ---
bladder scan showed 96ml
[2020-01-04 05:59] LABS: BASOPHILS # (AUTO) 0.1 10^3/uL (0.0-0.1); BASOPHILS % (AUTO) 0 % (0-10); EOSINOPHILS # (AUTO) 0.3 10^3/uL (0.0-0.3); EOSINOPHILS % (AUTO) 2 % (0-10); HEMATOCRIT 26 % (35-52); HEMOGLOBIN 8.5 g/dL (11.5-16.0); LYMPHOCYTES # (AUTO) 1.4 10^3/uL (1.0-4.0); LYMPHOCYTES % (AUTO) 11 % (12-44); MEAN CORPUSCULAR HEMOGLOBIN 30 pg (25-34); MEAN CORPUSCULAR HGB CONC 33 g/dL (32-36); MEAN CORPUSCULAR VOLUME 90 fL (80-99); MEAN PLATELET VOLUME 10.2 fL (9.0-12.2); MONOCYTES # (AUTO) 0.8 10^3/uL (0.0-1.0); MONOCYTES % (AUTO) 6 % (0-12); NEUTROPHILS # (AUTO) 10.8 10^3/uL (1.8-7.8); NEUTROPHILS % (AUTO) 79 % (42-75); PLATELET COUNT 245 10^3/uL (130-400); WHITE BLOOD COUNT 13.6 10^3/uL (4.3-11.0)
[2020-01-04] MEDS: CATHETER FLUSH 10 ML SYR IV SCH ×3 (06:00→22:07)
[2020-01-04 06:25] LABS: ALANINE AMINOTRANSFERASE 27 U/L (0-55); ALBUMIN 2.6 GM/DL (3.2-4.5); ALKALINE PHOSPHATASE 51 U/L (40-136); BILIRUBIN,TOTAL 0.9 MG/DL (0.1-1.0); BUN/CREATININE RATIO 24; CALCIUM 8.1 MG/DL (8.5-10.1); CARBON DIOXIDE 32 MMOL/L (21-32); CHLORIDE 92 MMOL/L (98-107); CREATININE SERUM 0.87 MG/DL (0.60-1.30); GFR ESTIMATED > 60; GLUCOSE 151 MG/DL (70-105); POTASSIUM 3.4 MMOL/L (3.6-5.0); SODIUM 134 MMOL/L (135-145); TOTAL PROTEIN 5.1 GM/DL (6.4-8.2)
[2020-01-04] MEDS: MULTIVIT W/MINERALS TAB (THERAGRAN M) PO SCH (06:26)
[2020-01-04] MEDS: SUCRALFATE 1 GM (CARAFATE) TAB PO SCH ×4 (06:26→20:39)
--- NOTE | 2020-01-04 08:06 | Diagnostic Imaging Report ---
EXAMINATION: Chest radiograph, portable AP view. DATE: 01/04/2020 5:36 AM hours. INDICATION: 89-year-old female, follow-up pneumonia. COMPARISON: December 31, 2019. FINDINGS: Stable overall appearance of the cardiomediastinal silhouette. There is no identified pneumothorax. There are multifocal bilateral interstitial and alveolar opacities which appear essentially unchanged. IMPRESSION: 1. Grossly unchanged nonspecific multifocal bilateral interstitial and alveolar lung opacities. Dictated by: Dictated on workstation # [id number]
[2020-01-04] MEDS: VITAMIN D3 10 MCG (400 UNITS) TABLET PO SCH (08:15)
[2020-01-04] MEDS: PANTOPRAZOLE 40 MG (PROTONIX) TAB PO SCH ×2 (08:15→20:39)
[2020-01-04] MEDS: CEFDINIR 300 MG (OMNICEF) CAP PO SCH ×2 (08:15→20:39)
[2020-01-04] MEDS: SENNA W/DOCUSATE (SENOKOT S) TABLET PO SCH ×2 (08:18→20:44)
[2020-01-04] MEDS: DOCUSATE SODIUM 100 MG (COLACE) CAP PO SCH ×2 (08:18→20:43)
[2020-01-04] MEDS: polyethylene glycoL POWDER 17 GM (MIRALAX) PACK PO SCH ×2 (08:18→20:43)
--- NOTE | 2020-01-04 08:46 | Cardiology Progress Note ---
Subjective Date Seen by Provider: Jan 04, 2020 Time Seen by Provider: 08:00 Subjective/Events-last exam patient is sitting up in chair. Denies any new complaints, denies any chest pain or palpitations Objective-Cardiology Exam Last Set of Vital Signs Vital Signs 01/04/20 01/04/20 05:25 07:44 Temp 36.2 Pulse 92 Resp 16 B/P (MAP) 127/59 (81) Pulse Ox 95 O2 Delivery High Flow N/C O2 Flow Rate 3.00 Capillary Refill : Less Than 3 Seconds I&O Intake and Output 01/04/20 00:00 Intake Total 1740 ml Output Total 1400 ml Balance 340 ml Intake Oral 1740 ml Output Urine Total 1400 ml # Bowel Movements 1 General: Alert, Oriented X3, Cooperative HEENT: Atraumatic, PERRLA Neck: Supple, No JVD, No Thyromegaly Lungs: Clear to Auscultation, Normal Air Movement Heart: Normal S1, Normal S2, No Murmurs, Other (irregular) Abdomen: Normal Bowel Sounds, Soft, No Tenderness, No Hepatosplenomegaly, No Masses Extremities: No Clubbing, No Cyanosis, No Edema, Normal Pulses, No Tenderness/Swelling Skin: No Rashes, No Breakdown, No Significant Lesion Neuro: Normal Gait, Normal Speech, Strength at 5/5 X4 Ext, Normal Tone, Sensation Intact Psych/Mental Status: Mental Status NL, Mood NL Results Lab Laboratory Tests 01/04/20 05:50 A/P-Cardiology Admission Diagnosis Syncope Anemia Hypotension Pneumonia Assessment/Plan Syncope, probably secondary to hypotensive episode. blood pressure is improved Received IV fluid, s/p blood transfusion. Atenolol was discontinued. Continue to monitor Anemia, acute, probably acute GI loss, has been maintained on PPI. Receiving blood transfusion, monitor H&H. Will likely need endoscopy at a later time Elevated lactic acid, elevated leukocytosis, questionable sepsis, chest x-ray showed improvement compared to baseline. Managed by primary care team COVID 19 pneumonia, diagnosed on December 13, 2019, treated and has improved, still having generalized debility and receiving physical therapy History of hypertension, discontinued atenolol due to syncope, continue to monitor blood pressure Palpitations, EKG showing PACs/PVCs, continue to monitor. Hyperlipidemia, continue to monitor lipids Chronic kidney disease stage III, follows with therapeutic activities services worker in [place]. Continue to monitor Multiple risk factors for coronary artery disease, last stress test was done in November 2017 showing poor exercise tolerance, breast attenuation with no significant ischemia or infarction Hypertensive heart disease, echocardiogram done in 2018 showing ejection fraction 55-65 percent, grade 2 diastolic dysfunction, left atrial dilatation 4.15 cm, mild MR, PA 30 mmHg. Continue to monitor History of breast biopsy, melanoma surgery Strong family history of heart disease History of mild bilateral carotid stenosis follows with heart and vascular care. Most recent carotid ultrasound was done in December 2018. Continue to monitor Patient was seen and evaluated with Lindsay, examination performed, management plan was discussed, agree with the current scribed note, I made few changes to the note using Italic font outpatient was seen at bedside sitting comfortably Discussed management Plan with Dr. Hawkins, continue to monitor H&H. Continue to hold atenolol for another day and monitor blood pressure Clinical Quality Measures DVT/VTE Risk/Contraindication: Risk Factor Score Per Nursin RFS Level Per Nursing on Admit: 4+=Very High LINDSAY MOSQUERA Jan 04, 2020 8:46 am DANK SINGH MD Jan 04, 2020 9:14 am
--- NOTE | 2020-01-04 10:01 | Physical Therapy Daily Note ---
PT Daily Note-Current Subjective Pt finishing donning pants with OT as FINANCIAL SECRETARY enters room. Pt agrees to PT/OT co- treat due to dropping O2 Sat. with tx, increased fatigue and need for 2 skilled clinicians. Mental Status Patient Orientation: Person, Place, Situation Attachments: Oxygen (3L to start tx then 4L during) Transfers SCALE: Activities may be completed with or without assistive devices. 8-Pcsydpdqwq-qfhgyht completes the activity by him/herself with no assistance from a helper. 5-Set-up or Clean-up Assistance-helper sets up or cleans up; patient completes activity. [place] assists only prior to or following the activity. 4-Supervision or Touching Assistance-helper provides verbal cues and/or touching/steadying and/or contact guard assistance as patient completes activity. Assistance may be provided throughout the activity or intermittently. 3-Partial/Moderate Assistance-helper does LESS THAN HALF the effort. [place] lifts, holds or supports trunk or limbs, but provides less than half the effort. 2-Substantial/Maximal Assistance-helper does MORE THAN HALF the effort. [place] lifts or holds trunk or limbs and provides more than half the effort. 4-Xmnfztpuc-rgydzi does ALL the effort. Patient does none of the effort to complete the activity. Or, the assistance of 2 or more helpers is required for the patient to complete the activity. If activity was not attempted, code reason: 7-Patient Refused. 9-Not Applicable-not attempted and the patient did not perform the activity before the current illness, exacerbation or injury. 10-Not Attempted due to Environmental Limitations-(lack of equipment, weather restraints, etc.). 88-Not Attempted due to Medical Conditions or Safety Concerns. Sit to Stand (QC): 4 Toilet Transfer (QC): 3 Weight Bearing Full Weight Bearing Full Weight Bearing Gait Training Does the Patient Walk?: Yes Distance: 20', 30' Walk 10 feet (QC): 4 Gait Assistive Device: FWW Pt fatigues easily and need RB for SOA and fatigue. Exercises Seated Therapy Exercises: Ankle pumps, Long arc quads, Hip flexion, Glut set Seated Reps: 10 Treatments FINANCIAL SECRETARY comes into room so that OT/PT could assess her together. PT facilitated LE exercises/transfers while OT assessed UE exercises, hand placement on walker, and transfers as well. Oxygen saturations monitored throughout treatment. Pt. stood with min assist and ambulated with walker, approximately 15 feet, x 2 trials. At end of first trial, her sats were 92%. At end of second trial her sats were 88%. They came back up to 94% with increased time, and therapy increased oxygen while up from 3 L to 4 L. Pt. rested and then was taken to therapy gym via wheelchair. Pt. alternated completing UE/LE exercises actively, in all planes. Multiple rest breaks taken in between each exercise. Pt. taken back to room and transferred to toilet with mod assist. Completed toileting task with max assist. All needs met back in bed. Assessment Current Status: Fair Progress Pt is still limited by SOA and fatigue/weakness at this time. PT Short Term Goals Short Term Goals Time Frame: Jan 06, 2020 Roll Left & Right: 6 Sit to lyin Lying to sitting on side of be: 6 Sit to stand: 4 Chair/nvn-qp-buipm transfer: 4 Toilet transfer: 4 Walk 10 feet: 4 Walk 50 feet with two turns: 4 PT Lapel Padder Blindstitch Goals Lapel Padder Blindstitch Goals PT Lapel Padder Blindstitch Goals Time Frame: Jan 13, 2020 Roll Left & Right (QC): 6 Sit to Lying (QC): 6 Lying-Sitting on Side/Bed(QC): 6 Sit to Stand (QC): 6 Chair/Wne-ts-Gpseq Xfer(QC): 6 Toilet Transfer (QC): 5 Car Transfer (QC): 5 Does the Patient Walk: Yes Walk 10 feet (QC): 5 Walk 50ft with 2 Turns (QC): 5 Walk 150 ft (QC): 5 Walking 10ft on Uneven Surface: 5 1 Step (curb) (QC): 4 4 Steps (QC): 4 12 Steps (QC): 88 Picking up an Object (QC): 4 Does the Pt use WC or Scooter?: Yes Wheel 50 feet with 2 turns (QC: 6 Type: Manual Wheel 150 feet: 6 Type: Manual PT Plan Problem List Problem List: Activity Tolerance, Functional Strength, Safety, Gait, Transfer Treatment/Plan Treatment Plan: Continue Plan of Care Treatment Plan: Bed Mobility, Education, Functional Activity Shahab, Functional Strength, Group Therapy, Gait, Safety, Therapeutic Exercise, Transfers Treatment Duration: Jan 20, 2020 Frequency: Modified Program (IRF) (21/09) Estimated Hrs Per Day: 1.5 hours per day Patient and/or Family Agrees t: Yes Safety Risks/Education Patient Education: Gait Training, Transfer Techniques, Correct Positioning, Safety Issues Teaching Recipient: Patient Teaching Methods: Discussion Response to Teaching: Verbalize Understanding Time/GCodes Time In: 900 Time Out: 1000 Total Billed Treatment Time: 60 Total Billed Treatment 1, GT (20m), EX (15m) & FA x2 (25m) Co-treat w/OT for 60m (900-1000) BEN CEDEÑO FINANCIAL SECRETARY Jan 04, 2020 10:01
--- NOTE | 2020-01-04 10:49 | NUR ---
CM/SS CONCURRENT DOCUMENTATION Reviewed patient EMR and overall status in preparation for patient care conference tomorrow. Anticipate that patient will not yet be ready for a target discharge date, remains quite debilitated from Covid 19.
[2020-01-04] MEDS ORDERED: IRON SUCROSE 200 MG/10 ML (VENOFER) VIAL IV ONE (12:37)
[2020-01-04] MEDS: IRON SUCROSE 200 MG/10 ML (VENOFER) VIAL IV SCH (12:43)
--- NOTE | 2020-01-04 14:45 | Occupational Ther Daily Note ---
OT Current Status-Daily Note Subjective Pt. reports that she is feeling a little better today. Appearance Pt. up in reclining chair. Agrees to work with OT. Mental Status/Objective Patient Orientation: Person, Place ADL-Treatment Therapy Code Descriptions/Definitions Functional [place] Measure: 0=Not Assessed/NA 4=Minimal Assistance 1=Total Assistance 5=Supervision or Setup 2=Maximal Assistance 6=Modified [place] 3=Moderate Assistance 7=Complete IndependenceSCALE: Activities may be completed with or without assistive devices. 9-Ooewtnvibi-aczdlbo completes the activity by him/herself with no assistance from a helper. 5-Set-up or Clean-up Assistance-helper sets up or cleans up; patient completes activity. [place] assists only prior to or following the activity. 4-Supervision or Touching Assistance-helper provides verbal cues and/or touching/steadying and/or contact guard assistance as patient completes activity. Assistance may be provided throughout the activity or intermittently. 3-Partial/Moderate Assistance-helper does LESS THAN HALF the effort. [place] lifts, holds or supports trunk or limbs, but provides less than half the effort. 2-Substantial/Maximal Assistance-helper does MORE THAN HALF the effort. [place] lifts or holds trunk or limbs and provides more than half the effort. 9-Teufahacd-gtvgzs does ALL the effort. Patient does none of the effort to complete the activity. Or, the assistance of 2 or more helpers is required for the patient to complete the activity. If activity was not attempted, code reason: 7-Patient Refused. 9-Not Applicable-not attempted and the patient did not perform the activity before the current illness, exacerbation or injury. 10-Not Attempted due to Environmental Limitations-(lack of equipment, weather restraints, etc.). 88-Not Attempted due to Medical Conditions or Safety Concerns. Shower/Bathe Self (QC): 4 (CGA in stance to wash agueda area in stance.) Upper Body Dressing (QC): 4 Lower Body Dressing (QC): 2 (Max assist overall to thread pants and brief over feet, and then over hips in stance when tired.) Toileting Hygiene (QC): 2 (Pt. requires max assist due to fatigue to doff pants/brief and don them over hips. Required assist to cleanse rear agueda area for thoroughness.) Toilet Transfer (QC): 3 (Mod assist.) Other Treatment Completed partial co-treatment with PT due to fatigue and level of skilled treatment needed. Pt. and OT worked on sponge bathing/dressing up in chair. Pt. declines attempting to shower, stating, "I shouldn't push it just yet." After ADLs, PT comes into room so that OT/PT could assess her together. PT facilitated LE exercises/transfers while OT assessed UE exercises, hand placement on walker, and transfers as well. Oxygen saturations monitored throughout treatment. Pt. stood with min assist and ambulated with walker, approximately 15 feet, x 2 trials. At end of first trial, her sats were 92%. At end of second trial her sats were 88%. They came back up to 94% with increased time, and therapy increased oxygen while up from 3 L to 4 L. Pt. rested and then was taken to therapy gym via wheelchair. Pt. alternated completing UE/LE exercises actively, in all planes. Multiple rest breaks taken in between each exercise. Pt. taken back to room and transferred to toilet with mod assist. Completed toileting task with max assist. All needs met back in bed. Education OT Patient Education: Correct positioning, Exercise program, Modified ADL techniques, Progress toward Goal/Update tx plan, Purpose of tx/functional activities, Reviewed precautions, Rehab process, Transfer techniques, Use of adapted equipment Teaching Recipient: Patient Teaching Methods: Demonstration, Discussion Response to Teaching: Verbalize Understanding, Return Demonstration OT Short Term Goals Short Term Goals Time Frame: Jan 06, 2020 Eatin Oral hygiene: 4 Toileting hygiene: 3 Shower/bathe self: 3 Upper body dressin Lower body dressin Putting on/taking off footwear: 4 OT Care Home Goals Care Home Goals Time Frame: Jan 13, 2020 Eating (QC): 6 Oral Hygiene (QC): 6 Toileting Hygiene (QC): 6 Shower/Bathe Self (QC): 4 Upper Body Dressing (QC): 4 Lower Body Dressing (QC): 4 On/Off Footwear (QC): 6 Additional Goals: 1-Demonstrate ADL Tasks, 2-Verbalize Understanding, 3- ImproveStrength/Shahab 1=Demonstrate adherence to instructed precautions during ADL tasks. 2=Patient will verbalize/demonstrate understanding of assistive devices/modifications for ADL. 3=Patient will improve strength/tolerance for activity to enable patient to perform ADL's. OT Education/Plan Problem List/Assessment Assessment: Decreased Activ Tolerance, Dependent Transfers, Impaired Funct Balance, Impaired I ADL's, Impaired Self-Care Skills Discharge Recommendations Plan/Recommendations: Continue POC Therapy Discharge Recommendati: Post Acute OT Treatment Plan/Plan of Care Treatment,Training & Education: Yes Patient would benefit from OT for education, treatment and training to promote independence in ADL's, mobility, safety and/or upper extremity function for ADL's. Plan of Care: ADL Retraining, Functional Mobility, UE Funct Exercise/Act Treatment Duration: Jan 13, 2020 Frequency: At least 5 of 7 days/Wk (IRF) Estimated Hrs Per Day: 1.5 hours per day Agreement: Yes Rehab Potential: Good Time/GCodes Start Time: 08:30 Stop Time: 10:00 Total Time Billed (hr/min): 90 Billed Treatment Time 3626-9053 1, ADL x 30minutes [id number] ADL x 15minutes, FA x 30minutes, Ex x 15minutes LIZZY ADAMS OT Jan 04, 2020 14:45
--- NOTE | 2020-01-04 15:42 | Physical Therapy Daily Note ---
PT Daily Note-Current Subjective Pt laying Supine in bed. Pt agrees to PT. Pain Location: No Pain Reported Mental Status Patient Orientation: Person, Place, Situation Attachments: Oxygen (3L) Transfers SCALE: Activities may be completed with or without assistive devices. 5-Hyxxeahoyh-swqbivq completes the activity by him/herself with no assistance from a helper. 5-Set-up or Clean-up Assistance-helper sets up or cleans up; patient completes activity. [place] assists only prior to or following the activity. 4-Supervision or Touching Assistance-helper provides verbal cues and/or touching /steadying and/or contact guard assistance as patient completes activity. Assistance may be provided throughout the activity or intermittently. 3-Partial/Moderate Assistance-helper does LESS THAN HALF the effort. [place] lifts, holds or supports trunk or limbs, but provides less than half the effort. 2-Substantial/Maximal Assistance-helper does MORE THAN HALF the effort. [place] lifts or holds trunk or limbs and provides more than half the effort. 9-Vfgsqnnmu-mqnuxj does ALL the effort. Patient does none of the effort to complete the activity. Or, the assistance of 2 or more helpers is required for the patient to complete the activity. If activity was not attempted, code reason: 7-Patient Refused. 9-Not Applicable-not attempted and the patient did not perform the activity before the current illness, exacerbation or injury. 10-Not Attempted due to Environmental Limitations-(lack of equipment, weather restraints, etc.). 88-Not Attempted due to Medical Conditions or Safety Concerns. Weight Bearing Full Weight Bearing Full Weight Bearing Exercises Supine Ex: Ankle pumps, Quad Set, Glut sets, Heel Slides, Straight leg raise, Hip abd/add Supine Reps: 10 Treatments GROCERY CASHIER reviews/issues written HEP for Supine & Seated Ex. Pt completes and pt is repositioned in bed so she could finish lunch. Assessment Current Status: Good Progress Pt fatigues easily, needing RB. PT Short Term Goals Short Term Goals Time Frame: Jan 06, 2020 Roll Left & Right: 6 Sit to lyin Lying to sitting on side of be: 6 Sit to stand: 4 Chair/gbn-ug-qdjtf transfer: 4 Toilet transfer: 4 Walk 10 feet: 4 Walk 50 feet with two turns: 4 PT Prison Goals Prison Goals PT Prison Goals Time Frame: Jan 13, 2020 Roll Left & Right (QC): 6 Sit to Lying (QC): 6 Lying-Sitting on Side/Bed(QC): 6 Sit to Stand (QC): 6 Chair/Tbw-mm-Bnjpq Xfer(QC): 6 Toilet Transfer (QC): 5 Car Transfer (QC): 5 Does the Patient Walk: Yes Walk 10 feet (QC): 5 Walk 50ft with 2 Turns (QC): 5 Walk 150 ft (QC): 5 Walking 10ft on Uneven Surface: 5 1 Step (curb) (QC): 4 4 Steps (QC): 4 12 Steps (QC): 88 Picking up an Object (QC): 4 Does the Pt use WC or Scooter?: Yes Wheel 50 feet with 2 turns (QC: 6 Type: Manual Wheel 150 feet: 6 Type: Manual PT Plan Problem List Problem List: Activity Tolerance, Functional Strength Treatment/Plan Treatment Plan: Continue Plan of Care Treatment Plan: Bed Mobility, Education, Functional Activity Shahab, Functional Strength, Group Therapy, Gait, Safety, Therapeutic Exercise, Transfers Treatment Duration: Jan 20, 2020 Frequency: Modified Program (IRF) (21/09) Estimated Hrs Per Day: 1.5 hours per day Patient and/or Family Agrees t: Yes Safety Risks/Education Patient Education: Issued Written HEP, Safety Issues Teaching Recipient: Patient Teaching Methods: Discussion Response to Teaching: Verbalize Understanding Time/GCodes Time In: 1300 Time Out: 1330 Total Billed Treatment Time: 30 Total Billed Treatment 1, FA (10m) & EX (20m) BEN CEDEÑO GROCERY CASHIER Jan 04, 2020 15:42
[2020-01-04 16:13] VITALS: BP 117/56
--- NOTE | 2020-01-04 16:42 | NUR ---
Spiritual care visit by CHLOE [place].
--- NOTE | 2020-01-04 18:30 | NUR ---
Follow up support provided to pt's , Dougie. Accompanied him to the guest elevators and visited on his way out. He shared about his personal recovery from Covid-19, and expressed appreciation for the hospital's compassion towards him and his . He states he visits the patient every day, and feels deep gratitude for all they have come through.
--- NOTE | 2020-01-04 19:04 | NUR ---
bedside report received from BOUBACAR WINSTON, assume care of pt
--- NOTE | 2020-01-04 20:39 | NUR ---
pt Colace, Senokot & miralax held due to loose stools, up to commode had another liq brown small stools number 3 for today
--- NOTE | 2020-01-05 05:48 | PM&R Progress Note ---
Subjective HPI/CC On Admission Date Seen by Provider: Jan 05, 2020 Time Seen by Provider: 09:00 Subjective/Events-last exam 01/05/20: Pt is having a few nose bleeds, we are humidfying the oxygen and using saline nasal spray She had a BM today Weaning down oxygen now to 2 liters and she was 6 liters when she was admitted Very much improved Working on stamina 01/04/20: Pt doing very well Less dyspnea on exertion Eating better WBC down to 13.6 Hgb stable at 8.5 Midline will be placed to finish off iron infusions Discontinued catheter and she is voiding well Overall very improved 01/03/20: White blood cell count is down On 4 liters now 91% Atenolol was discontinued per cardiology EKG this morning due to irregular heartbeat brought in rib crib last night and she enjoyed that Cleared out her nose because it was dried out from oxygen Got up to go to the bathroom on the commode today Will DC catheter 01/02/20: BM yesterday No blood in BM Sodium level is 134 Zosyn still maintained Hgb 8.6 Weaning O2 to 4L/min today Dr Hinojosa and Dr Hector saw patient today 01/01/20: 2 units of blood ordered for hgb 6.0 Dr Hinojosa updated me on the hemoccult positive stools so I spoke to Dr Hector and he will consult in case endo needed but she is very fragile and unsure she can undergo this procedure at this time but if necessary will require it PPI and Carafate ordered Eating a bit better, [employer] milkshake brought in Pt had some significant problems with hypotension and near syncope episode Pt has not been eating and drinking Lactic acid elevated at 3.5 Dr. Dolan saw her in consultation and recommended IV antibiotics and IV fluids WBC 21.9 Sodium level 129 Pt very fragile Desaturated to 83% when she got out of bed Conferred with RN Checked meds and labs Reviewed therapy notes Review of Systems General: Fatigue Pulmonary: Dyspnea Objective Exam Vital Signs Vital Signs Date Time Temp Pulse Resp B/P (MAP) Pulse Ox O2 Delivery O2 Flow Rate FiO2 01/06/20 08:27 93 High Flow N/C 3.00 01/06/20 06:02 36.6 89 20 153/64 (93) 01/05/20 12:53 28 Capillary Refill : Less Than 3 Seconds General Appearance: No Apparent Distress, WD/WN, Chronically ill, Other (frail) HEENT: PERRL/EOMI, Normal ENT Inspection, Pharynx Normal Neck: Full Range of Motion, Normal Inspection, Non Tender, Supple, Carotid Bruit Respiratory: Chest Non Tender, Lungs Clear, No Accessory Muscle Use, No Respiratory Distress, Decreased Breath Sounds Cardiovascular: Regular Rate, Rhythm, No Edema, No Gallop, No JVD, No Murmur, Normal Peripheral Pulses Gastrointestinal: Normal Bowel Sounds, No Organomegaly, No Pulsatile Mass, Non Tender, Soft Back: Normal Inspection, No CVA Tenderness, No Vertebral Tenderness Extremity: Normal Capillary Refill, Normal Inspection, Normal Range of Motion, Non Tender, No Calf Tenderness, No Pedal Edema Neurologic/Psychiatric: Alert, Oriented x3, No Motor/Sensory Deficits, Normal Mood/Affect, medication manager II-XII Norm as Tested, Abnormal Gait, Motor Weakness (weakness of all extremities 3/5) Skin: Normal Color, Warm/Dry Lymphatic: No Adenopathy Results/Procedures Lab Patient resulted labs reviewed. FIM Transfers Therapy Code Descriptions/Definitions Functional [place] Measure: 0=Not Assessed/NA 4=Minimal Assistance 1=Total Assistance 5=Supervision or Setup 2=Maximal Assistance 6=Modified [place] 3=Moderate Assistance 7=Complete IndependenceSCALE: Activities may be completed with or without assistive devices. 2-Xvtqcgmaea-ublohtd completes the activity by him/herself with no assistance from a helper. 5-Set-up or Clean-up Assistance-helper sets up or cleans up; patient completes activity. [place] assists only prior to or following the activity. 4-Supervision or Touching Assistance-helper provides verbal cues and/or touching/steadying and/or contact guard assistance as patient completes activity. Assistance may be provided throughout the activity or intermittently. 3-Partial/Moderate Assistance-helper does LESS THAN HALF the effort. [place] lifts, holds or supports trunk or limbs, but provides less than half the effort. 2-Substantial/Maximal Assistance-helper does MORE THAN HALF the effort. [place] lifts or holds trunk or limbs and provides more than half the effort. 9-Svisidyuq-wubtra does ALL the effort. Patient does none of the effort to complete the activity. Or, the assistance of 2 or more helpers is required for the patient to complete the activity. If activity was not attempted, code reason: 7-Patient Refused. 9-Not Applicable-not attempted and the patient did not perform the activity before the current illness, exacerbation or injury. 10-Not Attempted due to Environmental Limitations-(lack of equipment, weather restraints, etc.). 88-Not Attempted due to Medical Conditions or Safety Concerns. Roll Left to Right (QC): 6 Sit to Lying (QC): 3 Sit to Stand (QC): 4 Chair/Etx-gl-Xyhjv Xfer(QC): 3 Car Transfer (QC): 3 Gait Training Does the Patient Walk?: Yes Distance: 20', 30' Walk 10 feet (QC): 4 Walk 50 ft with 2 Turns(QC): 88 Walk 150 ft (QC): 88 Walking 10ft/uneven surface-QC: 88 Gait Assistive Device: FWW Wheelchair Training Does the Pt Use a Wheelchair?: Yes Distance: 20' Wheel 50 ft with 2 turns (QC): 3 Wheel 150 ft (QC): 88 Type of Wheelchair: Manual Stair Training 1 Step (curb) (QC): 88 4 Steps (QC): 88 12 Steps (QC): 88 Balance Picking up an Object (QC): 88 ADL-Treatment Eating (QC): 4 (cues) Oral Hygiene (QC): 4 (SBA to brush teeth at wheelchair level.) Shower/Bathe Self (QC): 4 (CGA in stance to wash [place] area in stance.) Upper Body Dressing (QC): 4 Lower Body Dressing (QC): 2 (Max assist overall to thread pants and brief over feet, and then over hips in stance when tired.) On/Off Footwear (QC): 3 (Min assist and max cues to doff/don slipper socks from wheelchair level with AE.) Toileting Hygiene (QC): 2 (Pt. requires max assist due to fatigue to doff pants/brief and don them over hips. Required assist to cleanse rear agueda area for thoroughness.) Toilet Transfer (QC): 3 (Mod assist.) Assessment/Plan Assessment and Plan Assess & Plan/Chief Complaint Assessment: Debility from COVID 19 PNA 12/13/19 admitted to [facility] O2 dependence new onset HTN HLP Advanced age GERD Hemoccult + stools Anemia requiring 2 units of blood 01/01/20 Plan: IRF protocol Monitor O2 Check labs 12/31/19: IVF IV abx empiric Volume depletion with dehydration causing lactic acidosis not sepsis 01/01/20: HLIVF to minimize volume overload due to recent COVID and recs 2 units of blood ordered today PPI and Carafate and Dr Hector consult but too fragile for EGD at this time but if necessary will be required 01/02/20: Monitor labs Abx Increase po fluids Eating better with outside food 01/03/20: Monitor O2 DC catheter Continue abx but change to PO Check CXR Monitor HR 01/04/20: Monitor O2 Increase activity Venofer PO abx 01/05/20: Continue to wean O2 Nosebleed management from O2 (1) COVID-19 Status: Acute (2) GERD (gastroesophageal reflux disease) (3) Hypertension (4) Hyperlipemia (5) Advanced age (6) Supplemental oxygen dependent (7) PNA (pneumonia) Status: Acute (8) Acute respiratory failure due to COVID-19 Status: Acute CORI MOODY DO Jan 05, 2020 05:48
[2020-01-05 05:56] VITALS: BP 142/65
[2020-01-05] MEDS: SUCRALFATE 1 GM (CARAFATE) TAB PO SCH ×4 (06:34→20:04)
[2020-01-05] MEDS: MULTIVIT W/MINERALS TAB (THERAGRAN M) PO SCH (06:34)
[2020-01-05] MEDS: CATHETER FLUSH 10 ML SYR IV SCH ×3 (06:36→21:40)
[2020-01-05] MEDS: RT-ALBUTEROL INHALER HFA (VENTOLIN HFA) 18 GM IH SCH ×4 (07:15→19:40)
[2020-01-05] MEDS: SENNA W/DOCUSATE (SENOKOT S) TABLET PO SCH ×2 (08:45→20:05)
[2020-01-05] MEDS: DOCUSATE SODIUM 100 MG (COLACE) CAP PO SCH ×2 (08:45→20:05)
[2020-01-05] MEDS: polyethylene glycoL POWDER 17 GM (MIRALAX) PACK PO SCH ×2 (08:45→20:05)
[2020-01-05] MEDS: VITAMIN D3 10 MCG (400 UNITS) TABLET PO SCH (08:46)
[2020-01-05] MEDS: PANTOPRAZOLE 40 MG (PROTONIX) TAB PO SCH ×2 (08:46→20:04)
[2020-01-05] MEDS: CEFDINIR 300 MG (OMNICEF) CAP PO SCH ×2 (08:46→20:04)
--- NOTE | 2020-01-05 10:58 | Physical Therapy Daily Note ---
PT Daily Note-Current Subjective Pt. agrees to Rx, feels she has made progress. Pain Numeric Pain Scale: 4 Location: Left Location Body Site: Knee Pain Description: Ache Comment: edema ad limited ROM left knee continues Mental Status Patient Orientation: Normal For Age Attachments: Oxygen (2-3 L) Transfers SCALE: Activities may be completed with or without assistive devices. 0-Infqbbusgx-qmakyhi completes the activity by him/herself with no assistance from a helper. 5-Set-up or Clean-up Assistance-helper sets up or cleans up; patient completes activity. [place] assists only prior to or following the activity. 4-Supervision or Touching Assistance-helper provides verbal cues and/or touching/steadying and/or contact guard assistance as patient completes activity. Assistance may be provided throughout the activity or intermittently. 3-Partial/Moderate Assistance-helper does LESS THAN HALF the effort. [place] lifts, holds or supports trunk or limbs, but provides less than half the effort. 2-Substantial/Maximal Assistance-helper does MORE THAN HALF the effort. [place] lifts or holds trunk or limbs and provides more than half the effort. 6-Ycucrjvty-iilmfr does ALL the effort. Patient does none of the effort to complete the activity. Or, the assistance of 2 or more helpers is required for the patient to complete the activity. If activity was not attempted, code reason: 7-Patient Refused. 9-Not Applicable-not attempted and the patient did not perform the activity before the current illness, exacerbation or injury. 10-Not Attempted due to Environmental Limitations-(lack of equipment, weather restraints, etc.). 88-Not Attempted due to Medical Conditions or Safety Concerns. Sit to Stand (QC): 6 Chair/Kht-xz-Ogvhk Xfer(QC): 6 Toilet Transfer (QC): 4 verbal cuing for reaching for chair arms etc 1st time to use toilet in bathroom, used BSC over toilet Weight Bearing Full Weight Bearing Full Weight Bearing Gait Training Does the Patient Walk?: Yes Walk 10 feet (QC): 4 Gait Persons Needed: 1 Gait Assistive Device: FWW O2 at 3L portable gait 15 ft x 3 CGA and w/c to follow as well as O2 tank assist. Sats at 90% and above, HR 117- 134 Exercises Seated Therapy Exercises: Ankle pumps, Sit to stand, Long arc quads, Hip flexion Seated Reps: 10 Treatments needs assist to manage pants up down on toilet Assessment Current Status: Good Progress titrating off O2 better, increased gait dist and tolerance PT Short Term Goals Short Term Goals Time Frame: Jan 06, 2020 Roll Left & Right: 6 Sit to lyin Lying to sitting on side of be: 6 Sit to stand: 4 Chair/lwb-wq-zgejr transfer: 4 Toilet transfer: 4 Walk 10 feet: 4 Walk 50 feet with two turns: 4 PT Half-Way Goals Decorative Engraver Apprentice Goals PT Half-Way Goals Time Frame: Jan 13, 2020 Roll Left & Right (QC): 6 Sit to Lying (QC): 6 Lying-Sitting on Side/Bed(QC): 6 Sit to Stand (QC): 6 Chair/Fri-zf-Rdzpr Xfer(QC): 6 Toilet Transfer (QC): 5 Car Transfer (QC): 5 Does the Patient Walk: Yes Walk 10 feet (QC): 5 Walk 50ft with 2 Turns (QC): 5 Walk 150 ft (QC): 5 Walking 10ft on Uneven Surface: 5 1 Step (curb) (QC): 4 4 Steps (QC): 4 12 Steps (QC): 88 Picking up an Object (QC): 4 Does the Pt use WC or Scooter?: Yes Wheel 50 feet with 2 turns (QC: 6 Type: Manual Wheel 150 feet: 6 Type: Manual PT Plan Treatment/Plan Treatment Plan: Continue Plan of Care Treatment Plan: Bed Mobility, Education, Functional Activity Shahab, Functional Strength, Group Therapy, Gait, Safety, Therapeutic Exercise, Transfers Treatment Duration: Jan 20, 2020 Frequency: Modified Program (IRF) (21/09) Estimated Hrs Per Day: 1.5 hours per day Patient and/or Family Agrees t: Yes Safety Risks/Education Patient Education: Gait Training, Transfer Techniques, Correct Positioning, Disease Process, Safety Issues Teaching Recipient: Patient Teaching Methods: Demonstration, Discussion Response to Teaching: Verbalize Understanding, Return Demonstration, Reinforcement Needed Time/GCodes Time In: 1000 Time Out: 1100 Total Billed Treatment Time: 60 Total Billed Treatment 1,FA30m,GT30m CADE TOUSSAINT ROTARY FURNACE TENDER Jan 05, 2020 10:58
--- NOTE | 2020-01-05 12:27 | Cardiology Progress Note ---
Subjective Date Seen by Provider: Jan 05, 2020 Time Seen by Provider: 08:00 Subjective/Events-last exam Patient complains of nose bleed this morning. Denies any chest pain or dyspnea. Review of Systems General: No Chills, No Night Sweats, No Fatigue, No Malaise, No Appetite, No Other HEENT: No Head Aches, No Visual Changes, No Eye Pain, No Ear Pain, No Dysphasia, No Sinus Congestion, No Post Nasal Drip, No Sore Throat, No Other Pulmonary: No Dyspnea, No Cough, No Pleuritic Chest Pain, No Other Cardiovascular: No: Chest Pain, Palpitations, Orthopnea, Paroxysmal Noc. Dyspnea, Edema, Lt Headedness, Other Objective-Cardiology Exam Last Set of Vital Signs Vital Signs 01/05/20 01/05/20 01/05/20 05:56 12:53 14:07 Temp 36.6 Pulse 95 Resp 20 B/P (MAP) 142/65 (90) Pulse Ox 96 O2 Delivery High Flow N/C O2 Flow Rate 2.00 FiO2 28 Capillary Refill : Less Than 3 Seconds I&O Intake and Output 01/05/20 00:00 Intake Total 2530 ml Output Total 700 ml Balance 1830 ml Intake Oral 2410 ml IV Total 120 ml Urine/Stool Mix 700 ml # Voids 3 # Bowel Movements 3 General: Alert, Oriented X3, Cooperative HEENT: Atraumatic, PERRLA Neck: Supple, No JVD, No Thyromegaly Lungs: Clear to Auscultation, Normal Air Movement Heart: Normal S1, Normal S2, No Murmurs, Other (irregular) Abdomen: Normal Bowel Sounds, Soft, No Tenderness, No Hepatosplenomegaly, No Masses Extremities: No Clubbing, No Cyanosis, No Edema, Normal Pulses, No Tenderness/Swelling Skin: No Rashes, No Breakdown, No Significant Lesion Neuro: Normal Gait, Normal Speech, Strength at 5/5 X4 Ext, Normal Tone, Sensation Intact Psych/Mental Status: Mental Status NL, Mood NL A/P-Cardiology Admission Diagnosis Syncope Anemia Hypotension Pneumonia Assessment/Plan Syncope, probably secondary to hypotensive episode. blood pressure is improved Received IV fluid, s/p blood transfusion. Atenolol was discontinued. Continue to monitor Anemia, acute, probably acute GI loss, has been maintained on PPI. Receiving blood transfusion, monitor H&H. Will likely need endoscopy at a later time Elevated lactic acid, elevated leukocytosis, questionable sepsis, chest x-ray showed improvement compared to baseline. Managed by primary care team COVID 19 pneumonia, diagnosed on December 13, 2019, treated and has improved, still having generalized debility and receiving physical therapy History of hypertension, discontinued atenolol due to syncope, continue to monitor blood pressure Palpitations, EKG showing PACs/PVCs, continue to monitor. Hyperlipidemia, continue to monitor lipids Chronic kidney disease stage III, follows with research center partner in [place]. Continue to monitor Multiple risk factors for coronary artery disease, last stress test was done in November 2017 showing poor exercise tolerance, breast attenuation with no significant ischemia or infarction Hypertensive heart disease, echocardiogram done in 2017 showing ejection fraction 55-65 percent, grade 2 diastolic dysfunction, left atrial dilatation 4.15 cm, mild MR, PA 30 mmHg. Continue to monitor History of breast biopsy, melanoma surgery Strong family history of heart disease History of mild bilateral carotid stenosis follows with heart and vascular care. Most recent carotid ultrasound was done in December 2018. Continue to monitor Patient was seen and evaluated with Lindsay, examination performed, management plan was discussed, agree with the current scribed note, I made few changes to the note using Italic font Patient is sitting in a chair, feeling better. No new complaint Continue to monitor blood pressure and heart rate Clinical Quality Measures DVT/VTE Risk/Contraindication: Risk Factor Score Per Nursin RFS Level Per Nursing on Admit: 4+=Very High LINDSAY MOSQUERA Jan 05, 2020 12:27 pm DANK SINGH MD Jan 05, 2020 3:00 pm
--- NOTE | 2020-01-05 12:48 | Occupational Ther Daily Note ---
OT Current Status-Daily Note Subjective No pain reported. Pt. verbalizes that she does not sleep well at night, and plans to start taking Melatonin. Appearance Pt. is up in chair when OT enters room. Agrees to work with therapy. Mental Status/Objective Patient Orientation: Person, Place Attachments: Oxygen ADL-Treatment Therapy Code Descriptions/Definitions Functional [place] Measure: 0=Not Assessed/NA 4=Minimal Assistance 1=Total Assistance 5=Supervision or Setup 2=Maximal Assistance 6=Modified [place] 3=Moderate Assistance 7=Complete IndependenceSCALE: Activities may be completed with or without assistive devices. 0-Rcebyxpwqw-mdudepv completes the activity by him/herself with no assistance from a helper. 5-Set-up or Clean-up Assistance-helper sets up or cleans up; patient completes activity. [place] assists only prior to or following the activity. 4-Supervision or Touching Assistance-helper provides verbal cues and/or touching/steadying and/or contact guard assistance as patient completes activity. Assistance may be provided throughout the activity or intermittently. 3-Partial/Moderate Assistance-helper does LESS THAN HALF the effort. [place] lifts, holds or supports trunk or limbs, but provides less than half the effort. 2-Substantial/Maximal Assistance-helper does MORE THAN HALF the effort. [place] lifts or holds trunk or limbs and provides more than half the effort. 5-Flmoyhycu-gfhijx does ALL the effort. Patient does none of the effort to complete the activity. Or, the assistance of 2 or more helpers is required for the patient to complete the activity. If activity was not attempted, code reason: 7-Patient Refused. 9-Not Applicable-not attempted and the patient did not perform the activity before the current illness, exacerbation or injury. 10-Not Attempted due to Environmental Limitations-(lack of equipment, weather restraints, etc.). 88-Not Attempted due to Medical Conditions or Safety Concerns. Shower/Bathe Self (QC): 3 (CGA in stance. Min assist to wash left foot.) Upper Body Dressing (QC): 5 Lower Body Dressing (QC): 4 (Cues and increased time to don brief and pants over feet. CGA in stance to don over hips.) On/Off Footwear: 3 (Pt. able to don slipper sock on right foot. Requires min assist with sock aide to don on left foot.) Other Treatment Pt. declines showering, but agrees to sponge bathe up in chair. Pt. requires frequent rest breaks, but overall is doing better with fatigue and ADL skills. Pt. is able to stand with SBA, and requires CGA in stance for balance. Pt. is able to brush her hair, and all needs are met up in chair after treatment. Education OT Patient Education: Correct positioning, Modified ADL techniques, Progress toward Goal/Update tx plan, Purpose of tx/functional activities, Reviewed precautions, Rehab process, Transfer techniques Teaching Recipient: Patient Teaching Methods: Demonstration, Discussion Response to Teaching: Verbalize Understanding, Return Demonstration OT Short Term Goals Short Term Goals Time Frame: Jan 06, 2020 Eatin Oral hygiene: 4 Toileting hygiene: 3 Shower/bathe self: 3 Upper body dressin Lower body dressin Putting on/taking off footwear: 4 OT Flotation Operator Goals Nursing Home Goals Time Frame: Jan 13, 2020 Eating (QC): 6 Oral Hygiene (QC): 6 Toileting Hygiene (QC): 6 Shower/Bathe Self (QC): 4 Upper Body Dressing (QC): 4 Lower Body Dressing (QC): 4 On/Off Footwear (QC): 6 Additional Goals: 1-Demonstrate ADL Tasks, 2-Verbalize Understanding, 3- ImproveStrength/Shahab 1=Demonstrate adherence to instructed precautions during ADL tasks. 2=Patient will verbalize/demonstrate understanding of assistive devices/modifications for ADL. 3=Patient will improve strength/tolerance for activity to enable patient to perform ADL's. OT Education/Plan Problem List/Assessment Assessment: Decreased Activ Tolerance, Dependent Transfers, Impaired I ADL's, Impaired Self-Care Skills Discharge Recommendations Plan/Recommendations: Continue POC Therapy Discharge Recommendati: Home & Family, Post Acute OT Equpiment Recommendations-D/C: Hip Kit Treatment Plan/Plan of Care Treatment,Training & Education: Yes Patient would benefit from OT for education, treatment and training to promote independence in ADL's, mobility, safety and/or upper extremity function for ADL's. Plan of Care: ADL Retraining, Functional Mobility, UE Funct Exercise/Act Treatment Duration: Jan 13, 2020 Frequency: At least 5 of 7 days/Wk (IRF) Estimated Hrs Per Day: 1.5 hours per day Agreement: Yes Rehab Potential: Good Time/GCodes Start Time: 09:00 Stop Time: 10:00 Total Time Billed (hr/min): 60 Billed Treatment Time 1, ADL x 4 LIZZY ADAMS OT Jan 05, 2020 12:48
[2020-01-05 12:53] VITALS: BP 142/65
--- NOTE | 2020-01-05 14:36 | Physical Therapy Daily Note ---
PT Daily Note-Current Subjective Pt. in bed, agrees to short Rx. Mental Status Patient Orientation: Normal For Age Attachments: Oxygen (1.5 L O2) Transfers SCALE: Activities may be completed with or without assistive devices. 0-Ezsdigiari-eveunlt completes the activity by him/herself with no assistance from a helper. 5-Set-up or Clean-up Assistance-helper sets up or cleans up; patient completes activity. [place] assists only prior to or following the activity. 4-Supervision or Touching Assistance-helper provides verbal cues and/or touching/steadying and/or contact guard assistance as patient completes activity. Assistance may be provided throughout the activity or intermittently. 3-Partial/Moderate Assistance-helper does LESS THAN HALF the effort. [place] lifts, holds or supports trunk or limbs, but provides less than half the effort. 2-Substantial/Maximal Assistance-helper does MORE THAN HALF the effort. [place] lifts or holds trunk or limbs and provides more than half the effort. 4-Lgorcxsni-udqysi does ALL the effort. Patient does none of the effort to complete the activity. Or, the assistance of 2 or more helpers is required for the patient to complete the activity. If activity was not attempted, code reason: 7-Patient Refused. 9-Not Applicable-not attempted and the patient did not perform the activity before the current illness, exacerbation or injury. 10-Not Attempted due to Environmental Limitations-(lack of equipment, weather restraints, etc.). 88-Not Attempted due to Medical Conditions or Safety Concerns. rolling, sup to sit to sup CGA Weight Bearing Full Weight Bearing Full Weight Bearing Exercises Supine Ex: Ankle pumps, Quad Set, Rolling, Heel Slides, Hip abd/add Supine Reps: 10 Treatments O2 tubing extension applied, pt was educated in use of extended O2 tubing for ambulation to bathroom. Pt. had previously used BSC at bedside, now progressed to be able to ambulate in to [facility] with extended O2 tubing Assessment Current Status: Good Progress PT Short Term Goals Short Term Goals Time Frame: Jan 06, 2020 Roll Left & Right: 6 Sit to lyin Lying to sitting on side of be: 6 Sit to stand: 4 Chair/rhe-gk-jrvpn transfer: 4 Toilet transfer: 4 Walk 10 feet: 4 Walk 50 feet with two turns: 4 PT Fabrication Specialist Goals Custodial Goals PT Fabrication Specialist Goals Time Frame: Jan 13, 2020 Roll Left & Right (QC): 6 Sit to Lying (QC): 6 Lying-Sitting on Side/Bed(QC): 6 Sit to Stand (QC): 6 Chair/Hsl-jk-Culxn Xfer(QC): 6 Toilet Transfer (QC): 5 Car Transfer (QC): 5 Does the Patient Walk: Yes Walk 10 feet (QC): 5 Walk 50ft with 2 Turns (QC): 5 Walk 150 ft (QC): 5 Walking 10ft on Uneven Surface: 5 1 Step (curb) (QC): 4 4 Steps (QC): 4 12 Steps (QC): 88 Picking up an Object (QC): 4 Does the Pt use WC or Scooter?: Yes Wheel 50 feet with 2 turns (QC: 6 Type: Manual Wheel 150 feet: 6 Type: Manual PT Plan Treatment/Plan Treatment Plan: Continue Plan of Care Treatment Plan: Bed Mobility, Education, Functional Activity Shahab, Functional Strength, Group Therapy, Gait, Safety, Therapeutic Exercise, Transfers Treatment Duration: Jan 20, 2020 Frequency: Modified Program (IRF) (21/09) Estimated Hrs Per Day: 1.5 hours per day Patient and/or Family Agrees t: Yes Safety Risks/Education Patient Education: Transfer Techniques Time/GCodes Time In: 1335 Time Out: 1350 Total Billed Treatment Time: 15 Total Billed Treatment 1,FAJimmym CADE TOUSSAINT PTA Jan 05, 2020 14:36
--- NOTE | 2020-01-05 14:44 | Occupational Ther Daily Note ---
OT Current Status-Daily Note Subjective No pain reported. Appearance Pt. in bed but agrees to work with OT. Mental Status/Objective Patient Orientation: Person, Place Attachments: Oxygen ADL-Treatment Therapy Code Descriptions/Definitions Functional [place] Measure: 0=Not Assessed/NA 4=Minimal Assistance 1=Total Assistance 5=Supervision or Setup 2=Maximal Assistance 6=Modified [place] 3=Moderate Assistance 7=Complete IndependenceSCALE: Activities may be completed with or without assistive devices. 6-Myacvxorzi-dnyjgmr completes the activity by him/herself with no assistance from a helper. 5-Set-up or Clean-up Assistance-helper sets up or cleans up; patient completes activity. [place] assists only prior to or following the activity. 4-Supervision or Touching Assistance-helper provides verbal cues and/or touching/steadying and/or contact guard assistance as patient completes activity. Assistance may be provided throughout the activity or intermittently. 3-Partial/Moderate Assistance-helper does LESS THAN HALF the effort. [place] lifts, holds or supports trunk or limbs, but provides less than half the effort. 2-Substantial/Maximal Assistance-helper does MORE THAN HALF the effort. [place] lifts or holds trunk or limbs and provides more than half the effort. 0-Cdayqesho-ynlmfb does ALL the effort. Patient does none of the effort to complete the activity. Or, the assistance of 2 or more helpers is required for the patient to complete the activity. If activity was not attempted, code reason: 7-Patient Refused. 9-Not Applicable-not attempted and the patient did not perform the activity before the current illness, exacerbation or injury. 10-Not Attempted due to Environmental Limitations-(lack of equipment, weather restraints, etc.). 88-Not Attempted due to Medical Conditions or Safety Concerns. Other Treatment Pt. completed bilateral UE exercises at bed level for continued strengthening. Pt. completed 6 exercises actively, in all planes, x 10 reps each. Pt. states that she has to "recover a little" between each one, and takes minimal rest break. However, pt. acknowledges that this is getting easier and her recovery time is less. Pt. on 03/11 L 02 and her sats are 96%. Pt. tolerated treatment well and resting in bed at end of treatment. Education OT Patient Education: Correct positioning, Exercise program Teaching Recipient: Patient Teaching Methods: Demonstration, Discussion Response to Teaching: Verbalize Understanding, Return Demonstration OT Short Term Goals Short Term Goals Time Frame: Jan 06, 2020 Eatin Oral hygiene: 4 Toileting hygiene: 3 Shower/bathe self: 3 Upper body dressin Lower body dressin Putting on/taking off footwear: 4 OT Senior Care Goals Senior Care Goals Time Frame: Jan 13, 2020 Eating (QC): 6 Oral Hygiene (QC): 6 Toileting Hygiene (QC): 6 Shower/Bathe Self (QC): 4 Upper Body Dressing (QC): 4 Lower Body Dressing (QC): 4 On/Off Footwear (QC): 6 Additional Goals: 1-Demonstrate ADL Tasks, 2-Verbalize Understanding, 3- ImproveStrength/Shhaab 1=Demonstrate adherence to instructed precautions during ADL tasks. 2=Patient will verbalize/demonstrate understanding of assistive devices/modifications for ADL. 3=Patient will improve strength/tolerance for activity to enable patient to perform ADL's. OT Education/Plan Problem List/Assessment Assessment: Decreased Activ Tolerance, Decreased UE Strength, Dependent [place] sfers, Impaired I ADL's, Impaired Self-Care Skills Discharge Recommendations Plan/Recommendations: Continue POC Therapy Discharge Recommendati: Home & Family, Post Acute OT Treatment Plan/Plan of Care Treatment,Training & Education: Yes Patient would benefit from OT for education, treatment and training to promote independence in ADL's, mobility, safety and/or upper extremity function for ADL's. Plan of Care: ADL Retraining, Functional Mobility, UE Funct Exercise/Act Treatment Duration: Jan 13, 2020 Frequency: At least 5 of 7 days/Wk (IRF) Estimated Hrs Per Day: 1.5 hours per day Agreement: Yes Rehab Potential: Good Time/GCodes Start Time: 14:00 Stop Time: 14:15 Total Time Billed (hr/min): 15 Billed Treatment Time 1, Ex BRYANLUNALIZZY OT Jan 05, 2020 14:44
--- NOTE | 2020-01-05 15:33 | Speech Therapy Daily Note ---
Speech Daily Progress Note Subjective Date Seen by Provider: Jan 05, 2020 Time Seen by Provider: 00:30 Patient was resting in her bed and states she gets tired easy. Objective Patient completed a series of general information questions at the intermediate level with 80% given 20% cues. Assessment Assessment Current Status: Good Progress Treatment Plan Continue Plan of Care Speech Short Term Goals Short Term Goals Short Term Goals 1) Patient will complete memory tasks related to her daily needs at 80% or greater with minimal cues. 2) Patient will complete safety awareness tasks related to her daily needs at 80% or greater with minimal cues. 3) Patient will complete problem solving tasks related to her daily needs at 80% or greater with minimal cues. Speech Director Of Solutions Architecture Goals Skilled Nursing Goals Patient will improve cognitive-communication tasks in order to require minimal assist with daily needs. Speech-Plan Patient/Family Goals Patient/Family Goals: Patient plans on returning to her home where she lives with her . Treatment Plan Speech Therapy Treatment Plan: Continue Plan of Care Treatment Duration: Dec 31, 2019 Frequency: 4 times per week (Patient will receive skilled ST 4-5x per week) Estimated Hrs Per Day: Other Rehab Potential: Good Barriers to Learning: Patient has mild memory deficits which may interfere with her safety upon return home Pt/Family Agrees to Plan: Yes Safety Risks/Education Teaching Recipient: Patient Teaching Methods: Demonstration, Discussion Response to Teaching: Verbalize Understanding, Return Demonstration Education Topics Provided: Continued safety within her room and communication of wants/needs Time Speech Therapy Time In: 11:00 Speech Therapy Time Out: 11:30 Total Billed Time: 30 Billed Treatment Time 1, ASHVIN Price Jan 05, 2020 15:33
[2020-01-05] MEDS ORDERED: RT-ALBUTEROL INHALER HFA (VENTOLIN HFA) 18 GM IH PRN (17:00)
[2020-01-05 17:17] VITALS: BP 136/75
--- NOTE | 2020-01-05 20:00 | NUR ---
REQUESTED MELATONIN FOR SLEEP. ASSISTED UP TO BATHROOM AND STATES PLEASED THAT IS TOLERATING ACTIVITY BETTER. O2 SAT 88% AND INCREASED TO 3L BY R.T. STATES VOIDING BETTER.
[2020-01-05] MEDS: MELATONIN 3 MG TABLET PO PRN (20:04)
[2020-01-06] MEDS: RT-ALBUTEROL INHALER HFA (VENTOLIN HFA) 18 GM IH SCH ×4 (03:54→22:13)
[2020-01-06 06:02] VITALS: BP 153/64
[2020-01-06] MEDS: MULTIVIT W/MINERALS TAB (THERAGRAN M) PO SCH (06:05)
[2020-01-06] MEDS: SUCRALFATE 1 GM (CARAFATE) TAB PO SCH ×4 (06:05→20:23)
[2020-01-06] MEDS: CATHETER FLUSH 10 ML SYR IV SCH ×3 (06:06→21:05)
--- NOTE | 2020-01-06 06:30 | NUR ---
SLEPT 9 HOURS STRAIGHT LAST NIGHT. UP TO BATHROOM AND CHAIR WITH NO COMPLAINTS THIS AM.
--- NOTE | 2020-01-06 06:30 | NUR ---
STATES LOOSE STOOL ALMOST EVERY TIME SHE VOIDS.
--- NOTE | 2020-01-06 08:18 | Cardiology Progress Note ---
Subjective Date Seen by Provider: Jan 06, 2020 Time Seen by Provider: 07:50 Subjective/Events-last exam Patient sitting up in bed, denies any chest pain or palpitations. Review of Systems General: No Chills, No Night Sweats, No Fatigue, No Malaise, No Appetite, No Other HEENT: No Head Aches, No Visual Changes, No Eye Pain, No Ear Pain, No Dysphasia, No Sinus Congestion, No Post Nasal Drip, No Sore Throat, No Other Pulmonary: No Dyspnea, No Cough, No Pleuritic Chest Pain, No Other Cardiovascular: No: Chest Pain, Palpitations, Orthopnea, Paroxysmal Noc. Dyspnea, Edema, Lt Headedness, Other Objective-Cardiology Exam Last Set of Vital Signs Vital Signs 01/05/20 01/06/20 01/06/20 12:53 06:02 08:27 Temp 36.6 Pulse 89 Resp 20 B/P (MAP) 153/64 (93) Pulse Ox 93 O2 Delivery High Flow N/C O2 Flow Rate 3.00 FiO2 28 Capillary Refill : Less Than 3 Seconds I&O Intake and Output 01/06/20 00:00 Intake Total 2030 ml Balance 2030 ml Intake Oral 2030 ml # Voids 6 # Bowel Movements 3 General: Alert, Oriented X3, Cooperative HEENT: Atraumatic, PERRLA Neck: Supple, No JVD, No Thyromegaly Lungs: Clear to Auscultation, Normal Air Movement Heart: Normal S1, Normal S2, No Murmurs, Other (irregular) Abdomen: Normal Bowel Sounds, Soft, No Tenderness, No Hepatosplenomegaly, No Masses Extremities: No Clubbing, No Cyanosis, No Edema, Normal Pulses, No Tenderness/Swelling Skin: No Rashes, No Breakdown, No Significant Lesion Neuro: Normal Gait, Normal Speech, Strength at 5/5 X4 Ext, Normal Tone, Sensation Intact Psych/Mental Status: Mental Status NL, Mood NL A/P-Cardiology Admission Diagnosis Syncope Anemia Hypotension Pneumonia Assessment/Plan Syncope, probably secondary to hypotensive episode. blood pressure is improved Received IV fluid, s/p blood transfusion. Atenolol was discontinued. Continue to monitor Anemia, acute, probably acute GI loss, has been maintained on PPI. Receiving blood transfusion, monitor H&H. Will likely need endoscopy at a later time Elevated lactic acid, elevated leukocytosis, questionable sepsis, chest x-ray showed improvement compared to baseline. Managed by primary care team COVID 19 pneumonia, diagnosed on December 13, 2019, treated and has improved, still having generalized debility and receiving physical therapy History of hypertension, discontinued atenolol due to syncope, continue to monitor blood pressure Palpitations, EKG showing PACs/PVCs, continue to monitor. Hyperlipidemia, continue to monitor lipids Chronic kidney disease stage III, follows with book binder in [place]. Continue to monitor Multiple risk factors for coronary artery disease, last stress test was done in November 2017 showing poor exercise tolerance, breast attenuation with no significant ischemia or infarction Hypertensive heart disease, echocardiogram done in 2017 showing ejection fraction 55-65 percent, grade 2 diastolic dysfunction, left atrial dilatation 4.15 cm, mild MR, PA 30 mmHg. Continue to monitor History of breast biopsy, melanoma surgery Strong family history of heart disease History of mild bilateral carotid stenosis follows with heart and vascular care. Most recent carotid ultrasound was done in December 2018. Continue to monitor Patient was seen and evaluated with Lindsay, examination performed, management plan was discussed, agree with the current scribed note, I made few changes to the note using Italic font Patient was seen at bedside sitting comfortably, no new complaint No chest pain or shortness of breath Continue to monitor H&H, monitor blood pressure Clinical Quality Measures DVT/VTE Risk/Contraindication: Risk Factor Score Per Nursin RFS Level Per Nursing on Admit: 4+=Very High LINDSAY MOSQUERA Jan 06, 2020 8:18 am DANK SINGH MD Jan 06, 2020 8:33 am
[2020-01-06] MEDS: CEFDINIR 300 MG (OMNICEF) CAP PO SCH ×2 (09:29→20:22)
[2020-01-06] MEDS: DOCUSATE SODIUM 100 MG (COLACE) CAP PO SCH ×2 (09:29→20:25)
[2020-01-06] MEDS: VITAMIN D3 10 MCG (400 UNITS) TABLET PO SCH (09:29)
[2020-01-06] MEDS: IRON SUCROSE 200 MG/10 ML (VENOFER) VIAL IV SCH (09:29)
[2020-01-06] MEDS: PANTOPRAZOLE 40 MG (PROTONIX) TAB PO SCH ×2 (09:29→20:23)
[2020-01-06] MEDS: SENNA W/DOCUSATE (SENOKOT S) TABLET PO SCH ×2 (09:30→20:25)
[2020-01-06] MEDS: polyethylene glycoL POWDER 17 GM (MIRALAX) PACK PO SCH ×2 (09:30→20:25)
--- NOTE | 2020-01-06 09:43 | Occupational Ther Daily Note ---
OT Current Status-Daily Note Subjective Pt. in bed and reports that she slept well last night. No pain reported. Mental Status/Objective Patient Orientation: Person, Place, Time Attachments: Oxygen ADL-Treatment Therapy Code Descriptions/Definitions Functional [place] Measure: 0=Not Assessed/NA 4=Minimal Assistance 1=Total Assistance 5=Supervision or Setup 2=Maximal Assistance 6=Modified [place] 3=Moderate Assistance 7=Complete IndependenceSCALE: Activities may be completed with or without assistive devices. 9-Yvolgumbhd-kvsvllb completes the activity by him/herself with no assistance from a helper. 5-Set-up or Clean-up Assistance-helper sets up or cleans up; patient completes activity. [place] assists only prior to or following the activity. 4-Supervision or Touching Assistance-helper provides verbal cues and/or touching/steadying and/or contact guard assistance as patient completes activity. Assistance may be provided throughout the activity or intermittently. 3-Partial/Moderate Assistance-helper does LESS THAN HALF the effort. [place] lif ts, holds or supports trunk or limbs, but provides less than half the effort. 2-Substantial/Maximal Assistance-helper does MORE THAN HALF the effort. [place] lifts or holds trunk or limbs and provides more than half the effort. 5-Eqynnxpzu-jxapnf does ALL the effort. Patient does none of the effort to complete the activity. Or, the assistance of 2 or more helpers is required for the patient to complete the activity. If activity was not attempted, code reason: 7-Patient Refused. 9-Not Applicable-not attempted and the patient did not perform the activity before the current illness, exacerbation or injury. 10-Not Attempted due to Environmental Limitations-(lack of equipment, weather restraints, etc.). 88-Not Attempted due to Medical Conditions or Safety Concerns. On/Off Footwear: 5 (Pt. able to don shoes after they were brought to her.) Other Treatment Pt. agrees to work with OT. She states that she slept well last night. OT and pt. talked in depth regarding taking a shower. Pt. states that she still is not quite up to it, but that she promises to do so tomorrow. She states that she wo uld like to stay in the clothing she is wearing, but will work on other things. Pt. is able to transfer supine-sit with SBA. Pt. on 3 L 02 when OT walked in, and RT checked sats. Sats at 93%. Pt. able to don shoes after they were given to her. Pt. agrees to ambulate, and is able to ambulate with walker and CGA approximately 20 feet. She requests to sit down in wheelchair. OT takes her into gym and pt. completes 10 minutes on arm bike at min resistance and slow pace, with goals for overall endurance. No SOA noted. OT and pt. played [employer] for history, as pt. states that she is interested in this. This assists with cognitive memory. Pt. did well. Pt. then completed series of fine motor strengthening tasks, as she states that she feels weak "all over." Tolerated this well. Pt. encouraged to attempt ambulation back to room. Pt. able to ambulate approximately 10 feet with walker, with CGA, and then requests to sit down. Rest break given and pt. states that she is very fatigued. Pt. taken to room via wheelchair. Transferred to bed with SBA. Pt. able to transfer sit- supine with SBA. All needs met. Education OT Patient Education: Correct positioning, Exercise program, Modified ADL techniques, Progress toward Goal/Update tx plan, Purpose of tx/functional activities, Reviewed precautions, Rehab process, Transfer techniques Teaching Recipient: Patient Teaching Methods: Demonstration, Discussion Response to Teaching: Verbalize Understanding, Return Demonstration OT Short Term Goals Short Term Goals Time Frame: Jan 06, 2020 Eatin Oral hygiene: 4 Toileting hygiene: 3 Shower/bathe self: 3 Upper body dressin Lower body dressin Putting on/taking off footwear: 4 OT Halfway Goals Insurance Policy Issue Clerk Goals Time Frame: Jan 13, 2020 Eating (QC): 6 Oral Hygiene (QC): 6 Toileting Hygiene (QC): 6 Shower/Bathe Self (QC): 4 Upper Body Dressing (QC): 4 Lower Body Dressing (QC): 4 On/Off Footwear (QC): 6 Additional Goals: 1-Demonstrate ADL Tasks, 2-Verbalize Understanding, 3- ImproveStrength/Shahab 1=Demonstrate adherence to instructed precautions during ADL tasks. 2=Patient will verbalize/demonstrate understanding of assistive devices/ modifications for ADL. 3=Patient will improve strength/tolerance for activity to enable patient to perform ADL's. OT Education/Plan Problem List/Assessment Assessment: Decreased Activ Tolerance, Impaired I ADL's, Impaired Self-Care Skills Discharge Recommendations Plan/Recommendations: Continue POC Therapy Discharge Recommendati: Home & Family, Post Acute OT Treatment Plan/Plan of Care Treatment,Training & Education: Yes Patient would benefit from OT for education, treatment and training to promote independence in ADL's, mobility, safety and/or upper extremity function for ADL's. Plan of Care: ADL Retraining, Functional Mobility, UE Funct Exercise/Act Treatment Duration: Jan 13, 2020 Frequency: At least 5 of 7 days/Wk (IRF) Estimated Hrs Per Day: 1.5 hours per day Agreement: Yes Rehab Potential: Good Time/GCodes Start Time: 08:15 Stop Time: 09:30 Total Time Billed (hr/min): 75 Billed Treatment Time 1, ADL x 15minutes, Ex x 15minutes, FA x 45minutes LIZZY ADAMS OT Jan 06, 2020 09:43
--- NOTE | 2020-01-06 10:48 | PM&R Progress Note ---
Subjective HPI/CC On Admission Date Seen by Provider: Jan 06, 2020 Time Seen by Provider: 11:00 Subjective/Events-last exam 01/06/20: Pt doing very well today Continuing to wean off oxygen Crackles in the lungs lower lobes compel me to have her aggressively use the acapella and the IS Bowels are moving pretty well Denies any significant pain No SOB 01/05/20: Pt is having a few nose bleeds, we are humidfying the oxygen and using saline nasal spray She had a BM today Weaning down oxygen now to 2 liters and she was 6 liters when she was admitted Very much improved Working on stamina 01/04/20: Pt doing very well Less dyspnea on exertion Eating better WBC down to 13.6 Hgb stable at 8.5 Midline will be placed to finish off iron infusions Discontinued catheter and she is voiding well Overall very improved 01/03/20: White blood cell count is down On 4 liters now 91% Atenolol was discontinued per cardiology EKG this morning due to irregular heartbeat brought in rib crib last night and she enjoyed that Cleared out her nose because it was dried out from oxygen Got up to go to the bathroom on the commode today Will DC catheter 01/02/20: BM yesterday No blood in BM Sodium level is 134 Zosyn still maintained Hgb 8.6 Weaning O2 to 4L/min today Dr Hinojosa and Dr Hector saw patient today 01/01/20: 2 units of blood ordered for hgb 6.0 Dr Hinojosa updated me on the hemoccult positive stools so I spoke to Dr Hector and he will consult in case endo needed but she is very fragile and unsure she can undergo this procedure at this time but if necessary will require it PPI and Carafate ordered Eating a bit better, [employer] mil[employer]ake brought in Pt had some significant problems with hypotension and near syncope episode Pt has not been eating and drinking Lactic acid elevated at 3.5 Dr. Dolan saw her in consultation and recommended IV antibiotics and IV fluids WBC 21.9 Sodium level 129 Pt very fragile Desaturated to 83% when she got out of bed Conferred with RN Checked meds and labs Reviewed therapy notes Review of Systems General: Fatigue Pulmonary: Dyspnea Objective Exam Vital Signs Vital Signs Date Time Temp Pulse Resp B/P (MAP) Pulse Ox O2 Delivery O2 Flow Rate FiO2 01/06/20 17:36 36.7 106 20 148/70 (96) 97 Nasal Cannula 3.00 01/05/20 12:53 28 Capillary Refill : Less Than 3 Seconds General Appearance: No Apparent Distress, WD/WN, Chronically ill, Other (frail) HEENT: PERRL/EOMI, Normal ENT Inspection, Pharynx Normal Neck: Full Range of Motion, Normal Inspection, Non Tender, Supple, Carotid Bruit Respiratory: Chest Non Tender, Lungs Clear, No Accessory Muscle Use, No Respiratory Distress, Decreased Breath Sounds Cardiovascular: Regular Rate, Rhythm, No Edema, No Gallop, No JVD, No Murmur, Normal Peripheral Pulses Gastrointestinal: Normal Bowel Sounds, No Organomegaly, No Pulsatile Mass, Non Tender, Soft Back: Normal Inspection, No CVA Tenderness, No Vertebral Tenderness Extremity: Normal Capillary Refill, Normal Inspection, Normal Range of Motion, Non Tender, No Calf Tenderness, No Pedal Edema Neurologic/Psychiatric: Alert, Oriented x3, No Motor/Sensory Deficits, Normal Mood/Affect, laundry marker supervisor II-XII Norm as Tested, Abnormal Gait, Motor Weakness (weakness of all extremities 3/5) Skin: Normal Color, Warm/Dry Lymphatic: No Adenopathy Results/Procedures Lab Patient resulted labs reviewed. FIM Transfers Therapy Code Descriptions/Definitions Functional [place] Measure: 0=Not Assessed/NA 4=Minimal Assistance 1=Total Assistance 5=Supervision or Setup 2=Maximal Assistance 6=Modified [place] 3=Moderate Assistance 7=Complete IndependenceSCALE: Activities may be completed with or without assistive devices. 4-Xkoveaaedp-ahfxroq completes the activity by him/herself with no assistance from a helper. 5-Set-up or Clean-up Assistance-helper sets up or cleans up; patient completes activity. [place] assists only prior to or following the activity. 4-Supervision or Touching Assistance-helper provides verbal cues and/or touchi ng/steadying and/or contact guard assistance as patient completes activity. Assistance may be provided throughout the activity or intermittently. 3-Partial/Moderate Assistance-helper does LESS THAN HALF the effort. [place] lifts, holds or supports trunk or limbs, but provides less than half the effort. 2-Substantial/Maximal Assistance-helper does MORE THAN HALF the effort. [place] lifts or holds trunk or limbs and provides more than half the effort. 1-Oxdemporc-fzvuap does ALL the effort. Patient does none of the effort to complete the activity. Or, the assistance of 2 or more helpers is required for the patient to complete the activity. If activity was not attempted, code reason: 7-Patient Refused. 9-Not Applicable-not attempted and the patient did not perform the activity before the current illness, exacerbation or injury. 10-Not Attempted due to Environmental Limitations-(lack of equipment, weather restraints, etc.). 88-Not Attempted due to Medical Conditions or Safety Concerns. Roll Left to Right (QC): 6 Sit to Lying (QC): 3 Sit to Stand (QC): 6 Chair/Bdb-ie-Lclzr Xfer(QC): 6 Car Transfer (QC): 3 Gait Training Does the Patient Walk?: Yes Distance: 20', 30' Walk 10 feet (QC): 4 Walk 50 ft with 2 Turns(QC): 88 Walk 150 ft (QC): 88 Walking 10ft/uneven surface-QC: 88 Gait Persons Needed: 1 Gait Assistive Device: FWW Wheelchair Training Does the Pt Use a Wheelchair?: Yes Distance: 20' Wheel 50 ft with 2 turns (QC): 3 Wheel 150 ft (QC): 88 Type of Wheelchair: Manual Stair Training 1 Step (curb) (QC): 88 4 Steps (QC): 88 12 Steps (QC): 88 Balance Picking up an Object (QC): 88 ADL-Treatment Eating (QC): 4 (cues) Oral Hygiene (QC): 4 (SBA to brush teeth at wheelchair level.) Shower/Bathe Self (QC): 3 (CGA in stance. Min assist to wash left foot.) Upper Body Dressing (QC): 5 Lower Body Dressing (QC): 4 (Cues and increased time to don brief and pants over feet. CGA in stance to don over hips.) On/Off Footwear (QC): 5 (Pt. able to don shoes after they were brought to her.) Toileting Hygiene (QC): 2 (Pt. requires max assist due to fatigue to doff pants/brief and don them over hips. Required assist to cleanse rear agueda area for thoroughness.) Toilet Transfer (QC): 3 (Mod assist.) Assessment/Plan Assessment and Plan Assess & Plan/Chief Complaint Assessment: Debility from COVID 19 PNA 12/13/19 admitted to [facility] O2 dependence new onset HTN HLP Advanced age GERD Hemoccult + stools Anemia requiring 2 units of blood 01/01/20 Plan: IRF protocol Monitor O2 Check labs 12/31/19: IVF IV abx empiric Volume depletion with dehydration causing lactic acidosis not sepsis 01/01/20: HLIVF to minimize volume overload due to recent COVID and recs 2 units of blood ordered today PPI and Carafate and Dr Hector consult but too fragile for EGD at this time but if necessary will be required 01/02/20: Monitor labs Abx Increase po fluids Eating better with outside food 01/03/20: Monitor O2 DC catheter Continue abx but change to PO Check CXR Monitor HR 01/04/20: Monitor O2 Increase activity Venofer PO abx 01/05/20: Continue to wean O2 Nosebleed management from O2 01/06/20: Wean O2 IS use Monitor BP (1) COVID-19 Status: Acute (2) GERD (gastroesophageal reflux disease) (3) Hypertension (4) Hyperlipemia (5) Advanced age (6) Supplemental oxygen dependent (7) PNA (pneumonia) Status: Acute (8) Acute respiratory failure due to COVID-19 Status: Acute CORI MOODY DO Jan 06, 2020 10:48
--- NOTE | 2020-01-06 12:14 | Physical Therapy Daily Note ---
PT Daily Note-Current Subjective Pt laying Supine in bed upon arrival. Pt is receiving Iron at this time but agrees to PT. Pain Location: No Pain Reported Mental Status Patient Orientation: Person, Place, Situation Attachments: Oxygen (3L) Transfers SCALE: Activities may be completed with or without assistive devices. 2-Ashhoehgqh-hgdnfou completes the activity by him/herself with no assistance from a helper. 5-Set-up or Clean-up Assistance-helper sets up or cleans up; patient completes activity. [place] assists only prior to or following the activity. 4-Supervision or Touching Assistance-helper provides verbal cues and/or touching/steadying and/or contact guard assistance as patient completes activity. Assistance may be provided throughout the activity or intermittently. 3-Partial/Moderate Assistance-helper does LESS THAN HALF the effort. [place] lifts, holds or supports trunk or limbs, but provides less than half the effort. 2-Substantial/Maximal Assistance-helper does MORE THAN HALF the effort. [place] lifts or holds trunk or limbs and provides more than half the effort. 7-Oklvnnysk-fhpoqn does ALL the effort. Patient does none of the effort to complete the activity. Or, the assistance of 2 or more helpers is required for the patient to complete the activity. If activity was not attempted, code reason: 7-Patient Refused. 9-Not Applicable-not attempted and the patient did not perform the activity before the current illness, exacerbation or injury. 10-Not Attempted due to Environmental Limitations-(lack of equipment, weather restraints, etc.). 88-Not Attempted due to Medical Conditions or Safety Concerns. Sit to Stand (QC): 4 Toilet Transfer (QC): 4 Weight Bearing Full Weight Bearing Full Weight Bearing Gait Training Does the Patient Walk?: Yes Distance: 100' Walk 10 feet (QC): 5 Walk 50 ft with 2 Turns(QC): 5 Gait Persons Needed: 1 Gait Assistive Device: FWW Wheelchair Training Does the Pt Use a Wheelchair?: Yes Wheel 50 ft with 2 turns (QC): 5 Type of Wheelchair: Manual Exercises Supine Ex: Ankle pumps, Quad Set, Glut sets, Heel Slides, Straight leg raise, Hip abd/add Supine Reps: 10 Treatments Completes Supine Ex in bed while Iron is running. TF to standing and amb. in hallway. Pt uses NuStep for 10m at WL 4 followed by RB. Pt propels WCH in hallway before using BR in room. Pt advised it might be a few minutes so CONSUMER INSIGHT ANALYST instructs on use of call light when finished. Assessment Current Status: Good Progress Pt is gaining strength and activity tolerance. PT Short Term Goals Short Term Goals Time Frame: Jan 06, 2020 Roll Left & Right: 6 Sit to lyin Lying to sitting on side of be: 6 Sit to stand: 4 Chair/qjn-nl-rasnp transfer: 4 Toilet transfer: 4 Walk 10 feet: 4 Walk 50 feet with two turns: 4 PT Networking Specialist Goals [facility] Goals PT [facility] Goals Time Frame: Jan 13, 2020 Roll Left & Right (QC): 6 Sit to Lying (QC): 6 Lying-Sitting on Side/Bed(QC): 6 Sit to Stand (QC): 6 Chair/Tcq-nm-Ctcrb Xfer(QC): 6 Toilet Transfer (QC): 5 Car Transfer (QC): 5 Does the Patient Walk: Yes Walk 10 feet (QC): 5 Walk 50ft with 2 Turns (QC): 5 Walk 150 ft (QC): 5 Walking 10ft on Uneven Surface: 5 1 Step (curb) (QC): 4 4 Steps (QC): 4 12 Steps (QC): 88 Picking up an Object (QC): 4 Does the Pt use WC or Scooter?: Yes Wheel 50 feet with 2 turns (QC: 6 Type: Manual Wheel 150 feet: 6 Type: Manual PT Plan Problem List Problem List: Activity Tolerance, Transfer Treatment/Plan Treatment Plan: Continue Plan of Care Treatment Plan: Bed Mobility, Education, Functional Activity Shahab, Functional Strength, Group Therapy, Gait, Safety, Therapeutic Exercise, Transfers Treatment Duration: Jan 20, 2020 Frequency: Modified Program (IRF) (21/09) Estimated Hrs Per Day: 1.5 hours per day Patient and/or Family Agrees t: Yes Safety Risks/Education Patient Education: Gait Training, Transfer Techniques, Correct Positioning, W/C Management, Safety Issues Teaching Recipient: Patient Teaching Methods: Discussion Response to Teaching: Verbalize Understanding Time/GCodes Time In: 1000 Time Out: 1100 Total Billed Treatment Time: 60 Total Billed Treatment 1, GT (20m), WCH (10m), FA (10m) & EX (20m) BEN CEDEÑO PTA Jan 06, 2020 12:14
--- NOTE | 2020-01-06 13:19 | Speech Therapy Daily Note ---
Speech Daily Progress Note Subjective Date Seen by Provider: Jan 06, 2020 Time Seen by Provider: 00:30 Patient was resting in her bed following her PT session. She states she was proud of herself for how much more she is able to do now. Objective Patient completed a series of questions related to her daily routine at home with 80% accuracy given minimal cuing. Assessment Assessment Current Status: Good Progress Treatment Plan Continue Plan of Care Speech Short Term Goals Short Term Goals Short Term Goals 1) Patient will complete memory tasks related to her daily needs at 80% or greater with minimal cues. 2) Patient will complete safety awareness tasks related to her daily needs at 80% or greater with minimal cues. 3) Patient will complete problem solving tasks related to her daily needs at 80% or greater with minimal cues. Speech Sap Solutions Architect Goals Sap Solutions Architect Goals Patient will improve cognitive-communication tasks in order to require minimal assist with daily needs. Speech-Plan Patient/Family Goals Patient/Family Goals: Patient plans on returning to her home where she lives with her . Treatment Plan Speech Therapy Treatment Plan: Continue Plan of Care Treatment Duration: Dec 31, 2019 Frequency: 4 times per week (Patient will receive skilled ST 4-5x per week) Estimated Hrs Per Day: Other Rehab Potential: Good Barriers to Learning: Patient's serious illness, age Pt/Family Agrees to Plan: Yes Safety Risks/Education Teaching Recipient: Patient Teaching Methods: Demonstration, Discussion Response to Teaching: Verbalize Understanding, Return Demonstration Education Topics Provided: Safety within her room, communication of wants/needs Time Speech Therapy Time In: 11:00 Speech Therapy Time Out: 11:30 Total Billed Time: 30 Billed Treatment Time 1, ASHVIN Price Jan 06, 2020 13:19
[2020-01-06] MEDS: LACTOBACILLUS ACIDOPHILUS (PROBIOTIC) CAPSULE PO SCH ×2 (14:20→17:05)
--- NOTE | 2020-01-06 14:33 | Physical Therapy Daily Note ---
PT Daily Note-Current Subjective Pt laying Supine in bed. Pt agrees to PT. Pain Location: No Pain Reported Mental Status Patient Orientation: Person, Place, Situation Attachments: Oxygen (3L) Transfers SCALE: Activities may be completed with or without assistive devices. 4-Gswtttnhon-grlcnxh completes the activity by him/herself with no assistance from a helper. 5-Set-up or Clean-up Assistance-helper sets up or cleans up; patient completes activity. [place] assists only prior to or following the activity. 4-Supervision or Touching Assistance-helper provides verbal cues and/or touching /steadying and/or contact guard assistance as patient completes activity. Assistance may be provided throughout the activity or intermittently. 3-Partial/Moderate Assistance-helper does LESS THAN HALF the effort. [place] lifts, holds or supports trunk or limbs, but provides less than half the effort. 2-Substantial/Maximal Assistance-helper does MORE THAN HALF the effort. [place] lifts or holds trunk or limbs and provides more than half the effort. 8-Lfqxgbydy-cpjrnb does ALL the effort. Patient does none of the effort to complete the activity. Or, the assistance of 2 or more helpers is required for the patient to complete the activity. If activity was not attempted, code reason: 7-Patient Refused. 9-Not Applicable-not attempted and the patient did not perform the activity before the current illness, exacerbation or injury. 10-Not Attempted due to Environmental Limitations-(lack of equipment, weather restraints, etc.). 88-Not Attempted due to Medical Conditions or Safety Concerns. Weight Bearing Full Weight Bearing Full Weight Bearing Treatments Pt Ed over progress and what pt can do to continue making progress. Pt declines need for BR. Pt resting in bed with all needs met, call light in hand. Assessment Current Status: Good Progress Pt is improving with activity tolerance and strength. PT Short Term Goals Short Term Goals Time Frame: Jan 06, 2020 Roll Left & Right: 6 Sit to lyin Lying to sitting on side of be: 6 Sit to stand: 4 Chair/uam-em-cdego transfer: 4 Toilet transfer: 4 Walk 10 feet: 4 Walk 50 feet with two turns: 4 PT Senior Qa Analyst Goals Senior Qa Analyst Goals PT Senior Qa Analyst Goals Time Frame: Jan 13, 2020 Roll Left & Right (QC): 6 Sit to Lying (QC): 6 Lying-Sitting on Side/Bed(QC): 6 Sit to Stand (QC): 6 Chair/Exg-hc-Qogxh Xfer(QC): 6 Toilet Transfer (QC): 5 Car Transfer (QC): 5 Does the Patient Walk: Yes Walk 10 feet (QC): 5 Walk 50ft with 2 Turns (QC): 5 Walk 150 ft (QC): 5 Walking 10ft on Uneven Surface: 5 1 Step (curb) (QC): 4 4 Steps (QC): 4 12 Steps (QC): 88 Picking up an Object (QC): 4 Does the Pt use WC or Scooter?: Yes Wheel 50 feet with 2 turns (QC: 6 Type: Manual Wheel 150 feet: 6 Type: Manual PT Plan Problem List Problem List: Activity Tolerance, Safety Treatment/Plan Treatment Plan: Continue Plan of Care Treatment Plan: Bed Mobility, Education, Functional Activity Shahab, Functional Strength, Group Therapy, Gait, Safety, Therapeutic Exercise, Transfers Treatment Duration: Jan 20, 2020 Frequency: Modified Program (IRF) (21/09) Estimated Hrs Per Day: 1.5 hours per day Patient and/or Family Agrees t: Yes Safety Risks/Education Patient Education: Correct Positioning, Safety Issues Teaching Recipient: Patient Teaching Methods: Discussion Response to Teaching: Verbalize Understanding Time/GCodes Time In: 1405 Time Out: 1420 Total Billed Treatment Time: 15 Total Billed Treatment 1, FA (15m) BEN CEDEÑO PTA Jan 06, 2020 14:33
--- NOTE | 2020-01-06 14:52 | NUR ---
CM/SS PATIENT CARE CONFERENCE Visited with patient to review Summary of conference. She is in agreement to her reassessment January 11, and a tentative target discharge of January 14. She did express disappointment at the thought of staying that much longer. Bike Designer assured her if she was functionally/medically ready for discharge prior to that she would discharge home ahead of the target. As noted, her spouse was also a Covid patient at the same time, he recovered enough to return home. One of their sons is there now from [place], another son is considering taking a turn to come stay with Mr. Bautista. Patient indicates her thinks he is well enough to stay alone, patient understandably continues with her concern for his well-being. A safe discharge plan will have to include an understanding of patient's level of need regarding standby/caregiving as it pertains to what her spouse can provide and whether additional family/persons need to be available. Anticipate patient will need home O2, HHC services are included in the post hospital plan.
[2020-01-06 17:36] VITALS: BP 148/70
--- NOTE | 2020-01-06 19:04 | NUR ---
bedside report received from CARLY WINSTON, assume care of pt
[2020-01-06] MEDS: MELATONIN 3 MG TABLET PO PRN (20:23)
--- NOTE | 2020-01-06 20:23 | NUR ---
pt refused Colace, Senokot & miralax, pt had liq brown medium stool, restful sleep measures done
[2020-01-07 05:46] VITALS: BP 150/65
[2020-01-07] MEDS: CATHETER FLUSH 10 ML SYR IV SCH ×3 (06:12→20:33)
[2020-01-07] MEDS: SUCRALFATE 1 GM (CARAFATE) TAB PO SCH ×4 (06:12→20:32)
[2020-01-07] MEDS: MULTIVIT W/MINERALS TAB (THERAGRAN M) PO SCH (06:12)
[2020-01-07] MEDS: CEFDINIR 300 MG (OMNICEF) CAP PO SCH ×2 (07:26→20:32)
[2020-01-07] MEDS: DOCUSATE SODIUM 100 MG (COLACE) CAP PO SCH ×2 (07:26→20:46)
[2020-01-07] MEDS: polyethylene glycoL POWDER 17 GM (MIRALAX) PACK PO SCH ×2 (07:26→20:46)
[2020-01-07] MEDS: PANTOPRAZOLE 40 MG (PROTONIX) TAB PO SCH ×2 (07:26→20:33)
[2020-01-07] MEDS: LACTOBACILLUS ACIDOPHILUS (PROBIOTIC) CAPSULE PO SCH ×3 (07:26→16:58)
[2020-01-07] MEDS: VITAMIN D3 10 MCG (400 UNITS) TABLET PO SCH (07:26)
[2020-01-07] MEDS: SENNA W/DOCUSATE (SENOKOT S) TABLET PO SCH ×2 (07:26→20:47)
--- NOTE | 2020-01-07 08:55 | Physical Therapy Daily Note ---
PT Daily Note-Current Subjective Pt. up in recliner, agrees to Rx. Initially confused as to why she might need to start walking in to the bathroom to toilet vs using BSC. Educated and instructed about transitioning to home and simulating home situation. At end of Rx opt. very agreeable to practicing and working on use of extended O2 tubing and management etc Pain Numeric Pain Scale: 3 Location: Left Location Body Site: Knee Pain Description: Ache Mental Status Patient Orientation: Normal For Age Attachments: Oxygen (3L), Other-See Comments (mask while out of room) O2 ext was added previous Rx to allow pt. to ambulate in to bthrm for toileting Transfers SCALE: Activities may be completed with or without assistive devices. 1-Puwzrsbejk-bblllbq completes the activity by him/herself with no assistance from a helper. 5-Set-up or Clean-up Assistance-helper sets up or cleans up; patient completes a ctivity. [place] assists only prior to or following the activity. 4-Supervision or Touching Assistance-helper provides verbal cues and/or touching/steadying and/or contact guard assistance as patient completes activity. Assistance may be provided throughout the activity or intermittently. 3-Partial/Moderate Assistance-helper does LESS THAN HALF the effort. [place] lifts, holds or supports trunk or limbs, but provides less than half the effort. 2-Substantial/Maximal Assistance-helper does MORE THAN HALF the effort. [place] lifts or holds trunk or limbs and provides more than half the effort. 9-Kepwvjtys-lqikhf does ALL the effort. Patient does none of the effort to complete the activity. Or, the assistance of 2 or more helpers is required for the patient to complete the activity. If activity was not attempted, code reason: 7-Patient Refused. 9-Not Applicable-not attempted and the patient did not perform the activity before the current illness, exacerbation or injury. 10-Not Attempted due to Environmental Limitations-(lack of equipment, weather restraints, etc.). 88-Not Attempted due to Medical Conditions or Safety Concerns. Sit to Stand (QC): 6 Chair/Ngd-wp-Ssbuy Xfer(QC): 6 Toilet Transfer (QC): 6 Weight Bearing Full Weight Bearing Full Weight Bearing Gait Training Does the Patient Walk?: Yes Walk 10 feet (QC): 4 Walk 50 ft with 2 Turns(QC): 4 Walk 150 ft (QC): 88 Gait Persons Needed: 1 Gait Assistive Device: FWW much instruction with extended O2 tubing, safe turning and managing tubing while sitting and during gait in safe manner so as to prevent falls Exercises Supine Ex: Ankle pumps, Quad Set, Glut sets, Heel Slides, Short Arc Quads, Scooting (up in reclined recliner), Straight leg raise, Hip abd/add Supine Reps: 15 Treatments O2 sats 88-92% on 3 L O2 during gait activity pt. dyspneic and required rest and then recovered to >90% at rest on 3 L. Instructed in use of recliner for more comfort, better elevation of LEs and indep in managing head recline etc. Assessment Current Status: Good Progress Pt. feels she will be on O2 at home and will need to be indep in managing ext O2 tubing safely during gait and about her home PT Short Term Goals Short Term Goals Time Frame: Jan 06, 2020 Roll Left & Right: 6 Sit to lyin Lying to sitting on side of be: 6 Sit to stand: 4 Chair/acn-mu-csmci transfer: 4 Toilet transfer: 4 Walk 10 feet: 4 Walk 50 feet with two turns: 4 PT Notch Grinder Goals Usp Goals PT Notch Grinder Goals Time Frame: Jan 13, 2020 Roll Left & Right (QC): 6 Sit to Lying (QC): 6 Lying-Sitting on Side/Bed(QC): 6 Sit to Stand (QC): 6 Chair/Awl-rb-Xtfwl Xfer(QC): 6 Toilet Transfer (QC): 5 Car Transfer (QC): 5 Does the Patient Walk: Yes Walk 10 feet (QC): 5 Walk 50ft with 2 Turns (QC): 5 Walk 150 ft (QC): 5 Walking 10ft on Uneven Surface: 5 1 Step (curb) (QC): 4 4 Steps (QC): 4 12 Steps (QC): 88 Picking up an Object (QC): 4 Does the Pt use WC or Scooter?: Yes Wheel 50 feet with 2 turns (QC: 6 Type: Manual Wheel 150 feet: 6 Type: Manual PT Plan Treatment/Plan Treatment Plan: Continue Plan of Care Treatment Plan: Bed Mobility, Education, Functional Activity Shahab, Functional Strength, Group Therapy, Gait, Safety, Therapeutic Exercise, Transfers Treatment Duration: Jan 20, 2020 Frequency: Modified Program (IRF) (15/7) Estimated Hrs Per Day: 1.5 hours per day Patient and/or Family Agrees t: Yes Safety Risks/Education Patient Education: Gait Training, Transfer Techniques, Correct Positioning, Di sease Process, Safety Issues Teaching Recipient: Patient Teaching Methods: Demonstration, Discussion Response to Teaching: Verbalize Understanding, Return Demonstration, Reinforcement Needed Time/GCodes Time In: 800 Time Out: 900 Total Billed Treatment Time: 60 Total Billed Treatment 1,GT25m,EX15m,FA20m CADE TOUSSAINT CUSTOMER SOLUTIONS REPRESENTATIVE Jan 07, 2020 08:55
--- NOTE | 2020-01-07 10:41 | Occupational Ther Daily Note ---
OT Current Status-Daily Note Subjective Pt was in recliner. Pt no c/o pain. Agreed to therapy. Mental Status/Objective Patient Orientation: Person, Place, Time, Situation Attachments: IV, Oxygen (3 L) ADL-Treatment Pt transferred to restroom using FWW, CGA. Pt don/doff UE/LE clothing. Pt stated needing to use restroom, able to hike own pants over hips, cleansed buttocks area. Pt used FWW, SBA getting into shower. Pt performed washing lower body/perineal area, sit to stand using grab bars to stabilize while SANCHEZ washed buttocks. Pt washed upper body with SBA. Pt transferred from shower bench to w/c, CGA. Pt able to thread feet into briefs/pants, sit to stand to hike pants over hips using FWW to stabilize. Pt had set up with upper body dressing. Pt propelled to sink to perform oral care, hair brushing/drying. Pt propelled back into room to get compression socks on to reduce swelling. Pt threaded R foot into sock, L foot used sock aid. Pt transferred from w/c to bed, SBA. Call light/phone in reach. All needs met. Therapy Code Descriptions/Definitions Functional [place] Measure: 0=Not Assessed/NA 4=Minimal Assistance 1=Total Assistance 5=Supervision or Setup 2=Maximal Assistance 6=Modified [place] 3=Moderate Assistance 7=Complete IndependenceSCALE: Activities may be completed with or without assistive devices. 5-Jbuqftynhw-wmtxgdu completes the activity by him/herself with no assistance from a helper. 5-Set-up or Clean-up Assistance-helper sets up or cleans up; patient completes activity. [place] assists only prior to or following the activity. 4-Supervision or Touching Assistance-helper provides verbal cues and/or touching/steadying and/or contact guard assistance as patient completes activity. Assistance may be provided throughout the activity or intermittently. 3-Partial/Moderate Assistance-helper does LESS THAN HALF the effort. [place] lifts, holds or supports trunk or limbs, but provides less than half the effort. 2-Substantial/Maximal Assistance-helper does MORE THAN HALF the effort. [place] lifts or holds trunk or limbs and provides more than half the effort. 2-Dbnmpojam-jfmbqx does ALL the effort. Patient does none of the effort to complete the activity. Or, the assistance of 2 or more helpers is required for the patient to complete the activity. If activity was not attempted, code reason: 7-Patient Refused. 9-Not Applicable-not attempted and the patient did not perform the activity before the current illness, exacerbation or injury. 10-Not Attempted due to Environmental Limitations-(lack of equipment, weather restraints, etc.). 88-Not Attempted due to Medical Conditions or Safety Concerns. Oral Hygiene (QC): 6 Bathing Location: L Arm, R Arm, L Upper Leg, R Upper Leg, L Lower Leg (including foot), R Lower Leg (including foot), Chest, Abdomen, Perineal Area Shower/Bathe Self (QC): 3 Upper Body Dressing (QC): 5 Lower Body Dressing (QC): 4 On/Off Footwear: 3 (compression socks placed on) Toileting Hygiene (QC): 4 Toilet Transfer (QC): 4 OT Short Term Goals Short Term Goals Time Frame: Jan 06, 2020 Eatin Oral hygiene: 4 Toileting hygiene: 3 Shower/bathe self: 3 Upper body dressin Lower body dressin Putting on/taking off footwear: 4 OT Airfield Manager Goals Airfield Manager Goals Time Frame: Jan 13, 2020 Eating (QC): 6 Oral Hygiene (QC): 6 Toileting Hygiene (QC): 6 Shower/Bathe Self (QC): 4 Upper Body Dressing (QC): 4 Lower Body Dressing (QC): 4 On/Off Footwear (QC): 6 Additional Goals: 1-Demonstrate ADL Tasks, 2-Verbalize Understanding, 3-ImproveStrength/Shahab 1=Demonstrate adherence to instructed precautions during ADL tasks. 2=Patient will verbalize/demonstrate understanding of assistive devices/modifications for ADL. 3=Patient will improve strength/tolerance for activity to enable patient to perform ADL's. OT Education/Plan Problem List/Assessment Assessment: Decreased Activ Tolerance, Decreased UE Strength, Impaired Funct Balance, Impaired I ADL's, Impaired Self-Care Skills Discharge Recommendations Plan/Recommendations: Continue POC Treatment Plan/Plan of Care Patient would benefit from OT for education, treatment and training to promote independence in ADL's, mobility, safety and/or upper extremity function for ADL's. Plan of Care: ADL Retraining, Functional Mobility, UE Funct Exercise/Act Treatment Duration: Jan 13, 2020 Frequency: At least 5 of 7 days/Wk (IRF) Estimated Hrs Per Day: 1.5 hours per day Agreement: Yes Rehab Potential: Good Time/GCodes Start Time: 09:30 Stop Time: 10:45 Total Time Billed (hr/min): 75 Billed Treatment Time 1 visit- ADL 5 (75 mins) DARNELL BROOKS Jan 07, 2020 10:41
--- NOTE | 2020-01-07 11:32 | Speech Therapy Daily Note ---
Speech Daily Progress Note Subjective Date Seen by Provider: Jan 07, 2020 Time Seen by Provider: 00:30 Patient was resting in her recliner following her other therapy when I entered her room. Patient was sleepy during the session but was able to participate. Objective Patient completed a series of recall of words presented from 4-5 with 80% given min to mod verbal cues. Assessment Assessment Current Status: Good Progress Treatment Plan Continue Plan of Care Speech Short Term Goals Short Term Goals Short Term Goals 1) Patient will complete memory tasks related to her daily needs at 80% or greater with minimal cues. 2) Patient will complete safety awareness tasks related to her daily needs at 80% or greater with minimal cues. 3) Patient will complete problem solving tasks related to her daily needs at 80% or greater with minimal cues. Speech Epic Analyst Goals Intermediate Goals Patient will improve cognitive-communication tasks in order to require minimal assist with daily needs. Speech-Plan Patient/Family Goals Patient/Family Goals: Patient is scheduled to return to her home where she lives with her on 01/15/2020. Treatment Plan Speech Therapy Treatment Plan: Continue Plan of Care Treatment Duration: Dec 31, 2019 Frequency: 4 times per week (Patient will receive skilled ST 4-5x per week) Estimated Hrs Per Day: Other Rehab Potential: Good Barriers to Learning: Patient's recent serious illness, age Pt/Family Agrees to Plan: Yes Safety Risks/Education Teaching Recipient: Patient Teaching Methods: Demonstration, Discussion Response to Teaching: Verbalize Understanding, Return Demonstration Education Topics Provided: Continued safety within her room Time Speech Therapy Time In: 09:00 Speech Therapy Time Out: 09:30 Total Billed Time: 30 Billed Treatment Time 1, ASHVIN Price Jan 07, 2020 11:32
--- NOTE | 2020-01-07 12:19 | PM&R Progress Note ---
Subjective HPI/CC On Admission Date Seen by Provider: Jan 07, 2020 Time Seen by Provider: 12:20 Subjective/Events-last exam 01/07/20: Improved BM+ No pain reported 01/06/20: Pt doing very well today Continuing to wean off oxygen Crackles in the lungs lower lobes compel me to have her aggressively use the acapella and the IS Bowels are moving pretty well Denies any significant pain No SOB 01/05/20: Pt is having a few nose bleeds, we are humidfying the oxygen and using saline nasal spray She had a BM today Weaning down oxygen now to 2 liters and she was 6 liters when she was admitted Very much improved Working on stamina 01/04/20: Pt doing very well Less dyspnea on exertion Eating better WBC down to 13.6 Hgb stable at 8.5 Midline will be placed to finish off iron infusions Discontinued catheter and she is voiding well Overall very improved 01/03/20: White blood cell count is down On 4 liters now 91% Atenolol was discontinued per cardiology EKG this morning due to irregular heartbeat brought in rib crib last night and she enjoyed that Cleared out her nose because it was dried out from oxygen Got up to go to the bathroom on the commode today Will DC catheter 01/02/20: BM yesterday No blood in BM Sodium level is 134 Zosyn still maintained Hgb 8.6 Weaning O2 to 4L/min today Dr Hinojosa and Dr Hector saw patient today 01/01/20: 2 units of blood ordered for hgb 6.0 Dr Hinojosa updated me on the hemoccult positive stools so I spoke to Dr Hector and he will consult in case endo needed but she is very fragile and unsure she can undergo this procedure at this time but if necessary will require it PPI and Carafate ordered Eating a bit better, [employer] milkshake brought in Pt had some significant problems with hypotension and near syncope episode Pt has not been eating and drinking Lactic acid elevated at 3.5 Dr. Dolan saw her in consultation and recommended IV antibiotics and IV fluids WBC 21.9 Sodium level 129 Pt very fragile Desaturated to 83% when she got out of bed Conferred with RN Checked meds and labs Reviewed therapy notes Review of Systems Pulmonary: Dyspnea Neurological: Weakness Objective Exam Vital Signs Vital Signs Date Time Temp Pulse Resp B/P (MAP) Pulse Ox O2 Delivery O2 Flow Rate FiO2 01/08/20 05:08 36.4 112 18 153/84 (107) 93 Nasal Cannula 2.00 01/05/20 12:53 28 Capillary Refill : Less Than 3 Seconds General Appearance: No Apparent Distress, WD/WN, Chronically ill, Other (frail) HEENT: PERRL/EOMI, Normal ENT Inspection, Pharynx Normal Neck: Full Range of Motion, Normal Inspection, Non Tender, Supple, Carotid Bruit Respiratory: Chest Non Tender, Lungs Clear, No Accessory Muscle Use, No Respiratory Distress, Decreased Breath Sounds Cardiovascular: Regular Rate, Rhythm, No Edema, No Gallop, No JVD, No Murmur, Normal Peripheral Pulses Gastrointestinal: Normal Bowel Sounds, No Organomegaly, No Pulsatile Mass, Non Tender, Soft Back: Normal Inspection, No CVA Tenderness, No Vertebral Tenderness Extremity: Normal Capillary Refill, Normal Inspection, Normal Range of Motion, Non Tender, No Calf Tenderness, No Pedal Edema Neurologic/Psychiatric: Alert, Oriented x3, No Motor/Sensory Deficits, Normal Mood/Affect, waste 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 FIM Transfers Therapy Code Descriptions/Definitions Functional [place] Measure: 0=Not Assessed/NA 4=Minimal Assistance 1=Total Assistance 5=Supervision or Setup 2=Maximal Assistance 6=Modified [place] 3=Moderate Assistance 7=Complete IndependenceSCALE: Activities may be completed with or without assistive devices. 6-Ijktuzuzcz-tpumjlv completes the activity by him/herself with no assistance from a helper. 5-Set-up or Clean-up Assistance-helper sets up or cleans up; patient completes activity. [place] assists only prior to or following the activity. 4-Supervision or Touching Assistance-helper provides verbal cues and/or touching/steadying and/or contact guard assistance as patient completes activity. Assistance may be provided throughout the activity or intermittently. 3-Partial/Moderate Assistance-helper does LESS THAN HALF the effort. [place] lifts, holds or supports trunk or limbs, but provides less than half the effort. 2-Substantial/Maximal Assistance-helper does MORE THAN HALF the effort. [place] lifts or holds trunk or limbs and provides more than half the effort. 0-Mftuwvfqo-uvlvuv does ALL the effort. Patient does none of the effort to complete the activity. Or, the assistance of 2 or more helpers is required for the patient to complete the activity. If activity was not attempted, code reason: 7-Patient Refused. 9-Not Applicable-not attempted and the patient did not perform the activity before the current illness, exacerbation or injury. 10-Not Attempted due to Environmental Limitations-(lack of equipment, weather restraints, etc.). 88-Not Attempted due to Medical Conditions or Safety Concerns. Roll Left to Right (QC): 6 Sit to Lying (QC): 3 Sit to Stand (QC): 6 Chair/Huq-vh-Ddmuu Xfer(QC): 6 Car Transfer (QC): 3 Gait Training Does the Patient Walk?: Yes Distance: 100' Walk 10 feet (QC): 4 Walk 50 ft with 2 Turns(QC): 4 Walk 150 ft (QC): 88 Walking 10ft/uneven surface-QC: 88 Gait Persons Needed: 1 Gait Assistive Device: FWW Wheelchair Training Does the Pt Use a Wheelchair?: Yes Distance: 20' Wheel 50 ft with 2 turns (QC): 5 Wheel 150 ft (QC): 88 Type of Wheelchair: Manual Stair Training 1 Step (curb) (QC): 88 4 Steps (QC): 88 12 Steps (QC): 88 Balance Picking up an Object (QC): 88 ADL-Treatment Eating (QC): 4 (cues) Oral Hygiene (QC): 6 Bathing Location: L Arm, R Arm, L Upper Leg, R Upper Leg, L Lower Leg (including foot), R Lower Leg (including foot), Chest, Abdomen, Perineal Area Shower/Bathe Self (QC): 4 Upper Body Dressing (QC): 5 Lower Body Dressing (QC): 4 On/Off Footwear (QC): 3 (compression socks placed on) Toileting Hygiene (QC): 4 Toilet Transfer (QC): 4 Assessment/Plan Assessment and Plan Assess & Plan/Chief Complaint Assessment: Debility from COVID 19 PNA 12/13/[address] [facility] O2 dependence new onset HTN HLP Advanced age GERD Hemoccult + stools Anemia requiring 2 units of blood 01/01/20 Plan: IRF protocol Monitor O2 Check labs 12/31/19: IVF IV abx empiric Volume depletion with dehydration causing lactic acidosis not sepsis 01/01/20: HLIVF to minimize volume overload due to recent COVID and recs 2 units of blood ordered today PPI and Carafate and Dr Hector consult but too fragile for EGD at this time but if necessary will be required 01/02/20: Monitor labs Abx Increase po fluids Eating better with outside food 01/03/20: Monitor O2 DC catheter Continue abx but change to PO Check CXR Monitor HR 01/04/20: Monitor O2 Increase activity Venofer PO abx 01/05/20: Continue to wean O2 Nosebleed management from O2 01/06/20: Wean O2 IS use Monitor BP 01/07/20: Improved overall Wean O2 Dramatic response to therapy (1) COVID-19 Status: Acute (2) GERD (gastroesophageal reflux disease) (3) Hypertension (4) Hyperlipemia (5) Advanced age (6) Supplemental oxygen dependent (7) PNA (pneumonia) Status: Acute (8) Acute respiratory failure due to COVID-19 Status: Acute CORI MOODY DO Jan 07, 2020 12:19
--- NOTE | 2020-01-07 13:14 | Physical Therapy Daily Note ---
PT Daily Note-Current Subjective Pt. agrees to Ex in bed. States she is fatigued and happy to be able to rest after this Pain Numeric Pain Scale: 3 Location: Left Location Body Site: Knee Pain Description: Ache Mental Status Patient Orientation: Normal For Age Attachments: Oxygen Transfers SCALE: Activities may be completed with or without assistive devices. 1-Fbfftqcorv-tagvxbe completes the activity by him/herself with no assistance from a helper. 5-Set-up or Clean-up Assistance-helper sets up or cleans up; patient completes activity. [place] assists only prior to or following the activity. 4-Supervision or Touching Assistance-helper provides verbal cues and/or touching/steadying and/or contact guard assistance as patient completes activity. Assistance may be provided throughout the activity or intermittently. 3-Partial/Moderate Assistance-helper does LESS THAN HALF the effort. [place] lifts, holds or supports trunk or limbs, but provides less than half the effort. 2-Substantial/Maximal Assistance-helper does MORE THAN HALF the effort. [place] lifts or holds trunk or limbs and provides more than half the effort. 8-Hwsizdpre-gwcnxd does ALL the effort. Patient does none of the effort to complete the activity. Or, the assistance of 2 or more helpers is required for the patient to complete the activity. If activity was not attempted, code reason: 7-Patient Refused. 9-Not Applicable-not attempted and the patient did not perform the activity before the current illness, exacerbation or injury. 10-Not Attempted due to Environmental Limitations-(lack of equipment, weather restraints, etc.). 88-Not Attempted due to Medical Conditions or Safety Concerns. Roll Left & Right (QC): 6 Weight Bearing Full Weight Bearing Full Weight Bearing Exercises Supine Ex: Bridging, Ankle pumps, Quad Set, Rolling, Heel Slides, Short Arc Quads, Scooting, Straight leg raise, Hip abd/add Supine Reps: 15 Assessment Current Status: Good Progress PT Short Term Goals Short Term Goals Time Frame: Jan 06, 2020 Roll Left & Right: 6 Sit to lyin Lying to sitting on side of be: 6 Sit to stand: 4 Chair/zkr-sf-ptbps transfer: 4 Toilet transfer: 4 Walk 10 feet: 4 Walk 50 feet with two turns: 4 PT Senior Living Goals Senior Living Goals PT Senior Living Goals Time Frame: Jan 13, 2020 Roll Left & Right (QC): 6 Sit to Lying (QC): 6 Lying-Sitting on Side/Bed(QC): 6 Sit to Stand (QC): 6 Chair/Xhm-kn-Egsay Xfer(QC): 6 Toilet Transfer (QC): 5 Car Transfer (QC): 5 Does the Patient Walk: Yes Walk 10 feet (QC): 5 Walk 50ft with 2 Turns (QC): 5 Walk 150 ft (QC): 5 Walking 10ft on Uneven Surface: 5 1 Step (curb) (QC): 4 4 Steps (QC): 4 12 Steps (QC): 88 Picking up an Object (QC): 4 Does the Pt use WC or Scooter?: Yes Wheel 50 feet with 2 turns (QC: 6 Type: Manual Wheel 150 feet: 6 Type: Manual PT Plan Treatment/Plan Treatment Plan: Continue Plan of Care Treatment Plan: Bed Mobility, Education, Functional Activity Shahab, Functional Strength, Group Therapy, Gait, Safety, Therapeutic Exercise, Transfers Treatment Duration: Jan 20, 2020 Frequency: Modified Program (IRF) (21/09) Estimated Hrs Per Day: 1.5 hours per day Patient and/or Family Agrees t: Yes Safety Risks/Education Patient Education: Correct Positioning Time/GCodes Time In: 1300 Time Out: 1315 Total Billed Treatment Time: 15 Total Billed Treatment 1,EX15m CADE TOUSSAINT PTA Jan 07, 2020 13:14
--- NOTE | 2020-01-07 13:58 | NUR ---
"RD ASSESSMENT PMHx: HTN; HLD; CA(melanoma) PT INTERACTION: Pt was awake and pleasant during nutrition follow-up. Pt states she has been eating better since last assessment. Note avg PO intake 67% x4d, per chart review. Pt states no issues with nausea, vomiting, constipation, or diarrhea since last assessment. Note last BM was 01/06, and pt currently on bowel regimen of colace BID, senna BID, and miralax BID, per chart review. ABNORMAL NUTRITION-RELATED LAB VALUES LOW: Na 134; K 3.4; Cl 94; Ca 8.1; Pro 5.1; alb 2.6 HIGH: Est. kcal needs: 1400 kcal | 25 kcal/kg Est. Pro needs: 56 g Pro | 1. 0 g Pro/kg PES STATEMENT: Inadequate oral intake (NI-2.1) related to loss of appetite as evidenced by pt interview | avg PO intake 67% x4d INTERVENTION: Continue with current diet order of 2000mg Na diet. Continue with current supplementation order of Ensure Enlive with meals TID, for increased kcal intake. Provides 350 kcal and 20 g Pro per serving. Encouraged pt to eat when able. Will continue to follow and reassess as pt needs, intake, and status change. Jessica Petit, MS RD LD"
[2020-01-07] MEDS: RT-ALBUTEROL INHALER HFA (VENTOLIN HFA) 18 GM IH SCH ×3 (15:25→19:02)
[2020-01-07 17:40] VITALS: BP 170/85
[2020-01-07 18:00] VITALS: BP 158/88
[2020-01-07 18:24] VITALS: BP 148/80
[2020-01-07] MEDS: MELATONIN 3 MG TABLET PO PRN (20:33)
[2020-01-08 05:08] VITALS: BP 153/84
[2020-01-08] MEDS: RT-ALBUTEROL INHALER HFA (VENTOLIN HFA) 18 GM IH SCH ×3 (06:12→17:25)
[2020-01-08] MEDS: MULTIVIT W/MINERALS TAB (THERAGRAN M) PO SCH (06:38)
[2020-01-08] MEDS: SUCRALFATE 1 GM (CARAFATE) TAB PO SCH ×4 (06:38→20:48)
[2020-01-08] MEDS: CATHETER FLUSH 10 ML SYR IV SCH ×3 (06:38→20:49)
[2020-01-08] MEDS: VITAMIN D3 10 MCG (400 UNITS) TABLET PO SCH (08:16)
[2020-01-08] MEDS: CEFDINIR 300 MG (OMNICEF) CAP PO SCH ×2 (08:16→20:48)
[2020-01-08] MEDS: PANTOPRAZOLE 40 MG (PROTONIX) TAB PO SCH ×2 (08:16→20:48)
[2020-01-08] MEDS: IRON SUCROSE 200 MG/10 ML (VENOFER) VIAL IV SCH (08:16)
[2020-01-08] MEDS: LACTOBACILLUS ACIDOPHILUS (PROBIOTIC) CAPSULE PO SCH ×3 (08:16→17:04)
[2020-01-08] MEDS: polyethylene glycoL POWDER 17 GM (MIRALAX) PACK PO SCH ×2 (08:17→19:59)
[2020-01-08] MEDS: SENNA W/DOCUSATE (SENOKOT S) TABLET PO SCH ×2 (08:17→20:00)
[2020-01-08] MEDS: DOCUSATE SODIUM 100 MG (COLACE) CAP PO SCH ×2 (08:17→19:59)
--- NOTE | 2020-01-08 10:18 | Physical Therapy Daily Note ---
PT Daily Note-Current Subjective Pt in bed upon arrival; agrees to PT tx. Pain Numeric Pain Scale: 0-No Pain Location: No Pain Reported Mental Status Patient Orientation: Person, Place, Time, Situation Attachments: Central Line, Oxygen (3L) Transfers SCALE: Activities may be completed with or without assistive devices. 4-Uwajzveizs-ilpbfjg completes the activity by him/herself with no assistance from a helper. 5-Set-up or Clean-up Assistance-helper sets up or cleans up; patient completes activity. [place] assists only prior to or following the activity. 4-Supervision or Touching Assistance-helper provides verbal cues and/or touching/steadying and/or contact guard assistance as patient completes activity. Assistance may be provided throughout the activity or intermittently. 3-Partial/Moderate Assistance-helper does LESS THAN HALF the effort. [place] lifts, holds or supports trunk or limbs, but provides less than half the effort. 2-Substantial/Maximal Assistance-helper does MORE THAN HALF the effort. [place] lifts or holds trunk or limbs and provides more than half the effort. 7-Zdnnrdxct-fkbmds does ALL the effort. Patient does none of the effort to complete the activity. Or, the assistance of 2 or more helpers is required for the patient to complete the activity. If activity was not attempted, code reason: 7-Patient Refused. 9-Not Applicable-not attempted and the patient did not perform the activity before the current illness, exacerbation or injury. 10-Not Attempted due to Environmental Limitations-(lack of equipment, weather restraints, etc.). 88-Not Attempted due to Medical Conditions or Safety Concerns. Weight Bearing Full Weight Bearing Full Weight Bearing Exercises Supine Ex: Ankle pumps, Quad Set, Glut sets, Heel Slides, Short Arc Quads, Straight leg raise, Hip abd/add Supine Reps: 15 (x 2) Treatments Supine ex completed. Pt remains in bed w/ call light and bedside table w/in reach and all needs met, at end of tx. Assessment Current Status: Fair Progress Pt had difficulty initiating ex w/ LLE d/t swelling in knee, but once pt began was able to w/ no issues. PT Short Term Goals Short Term Goals Time Frame: Jan 06, 2020 Roll Left & Right: 6 Sit to lyin Lying to sitting on side of be: 6 Sit to stand: 4 Chair/ugh-de-lrrwp transfer: 4 Toilet transfer: 4 Walk 10 feet: 4 Walk 50 feet with two turns: 4 PT Care Home Goals Port Engineer Goals PT Care Home Goals Time Frame: Jan 13, 2020 Roll Left & Right (QC): 6 Sit to Lying (QC): 6 Lying-Sitting on Side/Bed(QC): 6 Sit to Stand (QC): 6 Chair/Asv-dg-Gunkr Xfer(QC): 6 Toilet Transfer (QC): 5 Car Transfer (QC): 5 Does the Patient Walk: Yes Walk 10 feet (QC): 5 Walk 50ft with 2 Turns (QC): 5 Walk 150 ft (QC): 5 Walking 10ft on Uneven Surface: 5 1 Step (curb) (QC): 4 4 Steps (QC): 4 12 Steps (QC): 88 Picking up an Object (QC): 4 Does the Pt use WC or Scooter?: Yes Wheel 50 feet with 2 turns (QC: 6 Type: Manual Wheel 150 feet: 6 Type: Manual PT Plan Problem List Problem List: Activity Tolerance, Functional Strength, Safety, Transfer, Bed Mobility, ROM Treatment/Plan Treatment Plan: Continue Plan of Care Treatment Plan: Bed Mobility, Education, Functional Activity Shahab, Functional Strength, Group Therapy, Gait, Safety, Therapeutic Exercise, Transfers Treatment Duration: Jan 20, 2020 Frequency: Modified Program (IRF) (21/09) Estimated Hrs Per Day: 1.5 hours per day Patient and/or Family Agrees t: Yes Safety Risks/Education Patient Education: Safety Issues Teaching Recipient: Patient Teaching Methods: Discussion Response to Teaching: Verbalize Understanding Time/GCodes Time In: 0935 Time Out: 0950 Total Billed Treatment Time: 15 Total Billed Treatment 1, EX (15m) NUBIA CASIANO EDITORIAL DIRECTOR Jan 08, 2020 10:18
--- NOTE | 2020-01-08 11:24 | PM&R Progress Note ---
Subjective HPI/CC On Admission Date Seen by Provider: Jan 08, 2020 Time Seen by Provider: 11:30 Subjective/Events-last exam 01/08/20: Patient doing very well Reading a new book No pain BM+ 2L/min now 01/07/20: Improved BM+ No pain reported 01/06/20: Pt doing very well today Continuing to wean off oxygen Crackles in the lungs lower lobes compel me to have her aggressively use the acapella and the IS Bowels are moving pretty well Denies any significant pain No SOB 01/05/20: Pt is having a few nose bleeds, we are humidfying the oxygen and using saline nasal spray She had a BM today Weaning down oxygen now to 2 liters and she was 6 liters when she was admitted Very much improved Working on stamina 01/04/20: Pt doing very well Less dyspnea on exertion Eating better WBC down to 13.6 Hgb stable at 8.5 Midline will be placed to finish off iron infusions Discontinued catheter and she is voiding well Overall very improved 01/03/20: White blood cell count is down On 4 liters now 91% Atenolol was discontinued per cardiology EKG this morning due to irregular heartbeat brought in rib crib last night and she enjoyed that Cleared out her nose because it was dried out from oxygen Got up to go to the bathroom on the commode today Will DC catheter 01/02/20: BM yesterday No blood in BM Sodium level is 134 Zosyn still maintained Hgb 8.6 Weaning O2 to 4L/min today Dr Hinojosa and Dr Hector saw patient today 01/01/20: 2 units of blood ordered for hgb 6.0 Dr Hinojosa updated me on the hemoccult positive stools so I spoke to Dr Hector and he will consult in case endo needed but she is very fragile and unsure she can undergo this procedure at this time but if necessary will require it PPI and Carafate ordered Eating a bit better, [employer] milkshake brought in Pt had some significant problems with hypotension and near syncope episode Pt has not been eating and drinking Lactic acid elevated at 3.5 Dr. Dolan saw her in consultation and recommended IV antibiotics and IV fluids WBC 21.9 Sodium level 129 Pt very fragile Desaturated to 83% when she got out of bed Conferred with RN Checked meds and labs Reviewed therapy notes Review of Systems General: Fatigue Pulmonary: Dyspnea Objective Exam Vital Signs Vital Signs Date Time Temp Pulse Resp B/P (MAP) Pulse Ox O2 Delivery O2 Flow Rate FiO2 01/09/20 05:09 36.5 94 20 140/65 (90) 92 Nasal Cannula 2.00 01/05/20 12:53 28 Capillary Refill : Less Than 3 Seconds General Appearance: No Apparent Distress, WD/WN, Chronically ill, Other (frail) HEENT: PERRL/EOMI, Normal ENT Inspection, Pharynx Normal Neck: Full Range of Motion, Normal Inspection, Non Tender, Supple, Carotid Bruit Respiratory: Chest Non Tender, Lungs Clear, No Accessory Muscle Use, No Respiratory Distress, Decreased Breath Sounds Cardiovascular: Regular Rate, Rhythm, No Edema, No Gallop, No JVD, No Murmur, Normal Peripheral Pulses Gastrointestinal: Normal Bowel Sounds, No Organomegaly, No Pulsatile Mass, Non Tender, Soft Back: Normal Inspection, No CVA Tenderness, No Vertebral Tenderness Extremity: Normal Capillary Refill, Normal Inspection, Normal Range of Motion, Non Tender, No Calf Tenderness, No Pedal Edema Neurologic/Psychiatric: Alert, Oriented x3, No Motor/Sensory Deficits, Normal Mood/Affect, black top roller II-XII Norm as Tested, Abnormal Gait, Motor Weakness (weakness of all extremities 3/5) Skin: Normal Color, Warm/Dry Lymphatic: No Adenopathy Results/Procedures Lab Patient resulted labs reviewed. FIM Transfers Therapy Code Descriptions/Definitions Functional [place] Measure: 0=Not Assessed/NA 4=Minimal Assistance 1=Total Assistance 5=Supervision or Setup 2=Maximal Assistance 6=Modified [place] 3=Moderate Assistance 7=Complete IndependenceSCALE: Activities may be completed with or without assistive devices. 1-Amonjfvcvx-hubpbfu completes the activity by him/herself with no assistance from a helper. 5-Set-up or Clean-up Assistance-helper sets up or cleans up; patient completes activity. [place] assists only prior to or following the activity. 4-Supervision or Touching Assistance-helper provides verbal cues and/or touching/steadying and/or contact guard assistance as patient completes activity. Assistance may be provided throughout the activity or intermittently. 3-Partial/Moderate Assistance-helper does LESS THAN HALF the effort. [place] lifts, holds or supports trunk or limbs, but provides less than half the effort. 2-Substantial/Maximal Assistance-helper does MORE THAN HALF the effort. [place] lifts or holds trunk or limbs and provides more than half the effort. 4-Oyeorksxg-wvonnf does ALL the effort. Patient does none of the effort to complete the activity. Or, the assistance of 2 or more helpers is required for the patient to complete the activity. If activity was not attempted, code reason: 7-Patient Refused. 9-Not Applicable-not attempted and the patient did not perform the activity before the current illness, exacerbation or injury. 10-Not Attempted due to Environmental Limitations-(lack of equipment, weather restraints, etc.). 88-Not Attempted due to Medical Conditions or Safety Concerns. Roll Left to Right (QC): 6 Sit to Lying (QC): 3 Sit to Stand (QC): 6 Chair/Bht-ia-Ikcee Xfer(QC): 6 Car Transfer (QC): 3 Gait Training Does the Patient Walk?: Yes Distance: 100' Walk 10 feet (QC): 4 Walk 50 ft with 2 Turns(QC): 4 Walk 150 ft (QC): 88 Walking 10ft/uneven surface-QC: 88 Gait Persons Needed: 1 Gait Assistive Device: FWW Wheelchair Training Does the Pt Use a Wheelchair?: Yes Distance: 20' Wheel 50 ft with 2 turns (QC): 5 Wheel 150 ft (QC): 88 Type of Wheelchair: Manual Stair Training 1 Step (curb) (QC): 88 4 Steps (QC): 88 12 Steps (QC): 88 Balance Picking up an Object (QC): 88 ADL-Treatment Eating (QC): 4 (cues) Oral Hygiene (QC): 6 Bathing Location: L Arm, R Arm, L Upper Leg, R Upper Leg, L Lower Leg (including foot), R Lower Leg (including foot), Chest, Abdomen, Perineal Area Shower/Bathe Self (QC): 3 Upper Body Dressing (QC): 5 Lower Body Dressing (QC): 4 On/Off Footwear (QC): 3 (compression socks placed on) Toileting Hygiene (QC): 4 Toilet Transfer (QC): 4 Assessment/Plan Assessment and Plan Assess & Plan/Chief Complaint Assessment: Debility from COVID 19 PNA 12/13/19 admitted to [facility] O2 dependence new onset HTN HLP Advanced age GERD Hemoccult + stools Anemia requiring 2 units of blood 10/24/20 Plan: IRF protocol Monitor O2 Check labs 12/31/19: IVF IV abx empiric Volume depletion with dehydration causing lactic acidosis not sepsis 01/01/20: HLIVF to minimize volume overload due to recent COVID and recs 2 units of blood ordered today PPI and Carafate and Dr Hector consult but too fragile for EGD at this time but if necessary will be required 01/02/20: Monitor labs Abx Increase po fluids Eating better with outside food 01/03/20: Monitor O2 DC catheter Continue abx but change to PO Check CXR Monitor HR 01/04/20: Monitor O2 Increase activity Venofer PO abx 01/05/20: Continue to wean O2 Nosebleed management from O2 01/06/20: Wean O2 IS use Monitor BP 01/07/20: Improved overall Wean O2 Dramatic response to therapy 01/08/20: Dramatic improvement Weaning O2 (1) COVID-19 Status: Acute (2) GERD (gastroesophageal reflux disease) (3) Hypertension (4) Hyperlipemia (5) Advanced age (6) Supplemental oxygen dependent (7) PNA (pneumonia) Status: Acute (8) Acute respiratory failure due to COVID-19 Status: Acute CORI MOODY DO Jan 08, 2020 11:24
--- NOTE | 2020-01-08 11:45 | NUR ---
NOTIFIED DR SINGH OF INCREASING BP OVER PAST SEVERAL DAYS. NEW ORDERS GIVEN TO RESTART ATENOLOL.
[2020-01-08] MEDS ORDERED: ATENOLOL 25 MG (TENORMIN) TAB PO ONE (13:15)
[2020-01-08 13:45] VITALS: BP 143/67
[2020-01-08 17:13] VITALS: BP 154/70
[2020-01-08] MEDS: MELATONIN 3 MG TABLET PO PRN (20:48)
[2020-01-08] MEDS: RT-ALBUTEROL SULF 2.5 MG/3 ML PRE-MIX VIAL INH SCH (23:15)
--- NOTE | 2020-01-09 01:00 | NUR ---
Fall Daylight Savings Time. Clocks turned back one hour.
[2020-01-09 05:09] VITALS: BP 140/65
[2020-01-09] MEDS: MULTIVIT W/MINERALS TAB (THERAGRAN M) PO SCH (06:24)
[2020-01-09] MEDS: CATHETER FLUSH 10 ML SYR IV SCH ×3 (06:24→20:18)
[2020-01-09] MEDS: SUCRALFATE 1 GM (CARAFATE) TAB PO SCH ×4 (06:24→20:16)
[2020-01-09] MEDS: RT-ALBUTEROL SULF 2.5 MG/3 ML PRE-MIX VIAL INH SCH (07:17)
[2020-01-09] MEDS: VITAMIN D3 10 MCG (400 UNITS) TABLET PO SCH (09:05)
[2020-01-09] MEDS: ATENOLOL 25 MG (TENORMIN) TAB PO SCH (09:05)
[2020-01-09] MEDS: PANTOPRAZOLE 40 MG (PROTONIX) TAB PO SCH ×2 (09:06→20:16)
[2020-01-09] MEDS: SENNA W/DOCUSATE (SENOKOT S) TABLET PO SCH ×2 (09:06→20:15)
[2020-01-09] MEDS: LACTOBACILLUS ACIDOPHILUS (PROBIOTIC) CAPSULE PO SCH ×3 (09:06→18:27)
[2020-01-09] MEDS: polyethylene glycoL POWDER 17 GM (MIRALAX) PACK PO SCH ×2 (09:06→20:15)
[2020-01-09] MEDS: DOCUSATE SODIUM 100 MG (COLACE) CAP PO SCH ×2 (09:06→20:16)
--- NOTE | 2020-01-09 09:24 | Cardiology Progress Note ---
Subjective Date Seen by Provider: Jan 09, 2020 Time Seen by Provider: 09:23 Subjective/Events-last exam Patient is laying down in bed. No new complaint Review of Systems General: No Chills, No Night Sweats, No Fatigue, No Malaise, No Appetite, No Other HEENT: No Head Aches, No Visual Changes, No Eye Pain, No Ear Pain, No Dysphasia, No Sinus Congestion, No Post Nasal Drip, No Sore Throat, No Other Pulmonary: No Dyspnea, No Cough, No Pleuritic Chest Pain, No Other Cardiovascular: No: Chest Pain, Palpitations, Orthopnea, Paroxysmal Noc. Dyspnea, Edema, Lt Headedness, Other Objective-Cardiology Exam Last Set of Vital Signs Vital Signs 01/05/20 01/09/20 01/09/20 01/09/20 12:53 05:09 07:17 09:09 Temp 36.5 Pulse 94 Resp 20 B/P (MAP) 140/65 (90) Pulse Ox 96 O2 Delivery High Flow N/C O2 Flow Rate 2.00 FiO2 28 Capillary Refill : Less Than 3 Seconds I&O Intake and Output 01/09/20 00:00 Intake Total 1610 ml Balance 1610 ml Intake Oral 1610 ml # Voids 6 # Bowel Movements 5 General: Alert, Oriented X3, Cooperative HEENT: Atraumatic, PERRLA Neck: Supple, No JVD, No Thyromegaly Lungs: Clear to Auscultation, Normal Air Movement Heart: Normal S1, Normal S2, No Murmurs, Other (irregular) Abdomen: Normal Bowel Sounds, Soft, No Tenderness, No Hepatosplenomegaly, No Masses Extremities: No Clubbing, No Cyanosis, No Edema, Normal Pulses, No Tenderness/Swelling Skin: No Rashes, No Breakdown, No Significant Lesion Neuro: Normal Gait, Normal Speech, Strength at 5/5 X4 Ext, Normal Tone, Sensation Intact Psych/Mental Status: Mental Status NL, Mood NL A/P-Cardiology Admission Diagnosis Syncope Anemia Hypotension Pneumonia Assessment/Plan Syncope, probably secondary to hypotensive episode. blood pressure is improved Received IV fluid, s/p blood transfusion. Atenolol was discontinued. Continue to monitor Anemia, acute, probably acute GI loss, has been maintained on PPI. Receiving blood transfusion, monitor H&H. COVID 19 pneumonia, diagnosed on December 13, 2019, treated and has improved, still having generalized debility and receiving physical therapy History of hypertension, discontinued atenolol due to syncope, continue to monitor blood pressure Palpitations, EKG showing PACs/PVCs, continue to monitor. 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 Continue to monitor Multiple risk factors for coronary artery disease, last stress test was done in November 2017 showing poor exercise tolerance, breast attenuation with no significant ischemia or infarction Hypertensive heart disease, echocardiogram done in 2017 showing ejection fraction 55-65 percent, grade 2 diastolic dysfunction, left atrial dilatation 4.15 cm, mild MR, PA 30 mmHg. Continue to monitor History of breast biopsy, melanoma surgery Strong family history of heart disease History of mild bilateral carotid stenosis follows with heart and vascular care. Most recent carotid ultrasound was done in December 2018. Continue to monitor Clinical Quality Measures DVT/VTE Risk/Contraindication: Risk Factor Score Per Nursin RFS Level Per Nursing on Admit: 4+=Very High DANK SINGH MD Jan 09, 2020 09:24
--- NOTE | 2020-01-09 12:19 | PM&R Progress Note ---
Subjective HPI/CC On Admission Date Seen by Provider: Jan 09, 2020 Time Seen by Provider: 10:30 Subjective/Events-last exam 01/09/20: Dyspnea on exertion only now SBP 130's now Holding laxatives due to loose stools Stand by assist now 01/08/20: Patient doing very well Reading a new book No pain BM+ 2L/min now 01/07/20: Improved BM+ No pain reported 01/06/20: Pt doing very well today Continuing to wean off oxygen Crackles in the lungs lower lobes compel me to have her aggressively use the acapella and the IS Bowels are moving pretty well Denies any significant pain No SOB 01/05/20: Pt is having a few nose bleeds, we are humidfying the oxygen and using saline nasal spray She had a BM today Weaning down oxygen now to 2 liters and she was 6 liters when she was admitted Very much improved Working on stamina 01/04/20: Pt doing very well Less dyspnea on exertion Eating better WBC down to 13.6 Hgb stable at 8.5 Midline will be placed to finish off iron infusions Discontinued catheter and she is voiding well Overall very improved 01/03/20: White blood cell count is down On 4 liters now 91% Atenolol was discontinued per cardiology EKG this morning due to irregular heartbeat brought in rib crib last night and she enjoyed that Cleared out her nose because it was dried out from oxygen Got up to go to the bathroom on the commode today Will DC catheter 01/02/20: BM yesterday No blood in BM Sodium level is 134 Zosyn still maintained Hgb 8.6 Weaning O2 to 4L/min today Dr Hinojosa and Dr Hector saw patient today 01/01/20: 2 units of blood ordered for hgb 6.0 Dr Hinojosa updated me on the hemoccult positive stools so I spoke to Dr Hector and he will consult in case endo needed but she is very fragile and unsure she can undergo this procedure at this time but if necessary will require it PPI and Carafate ordered Eating a bit better, [employer] milkshake brought in Pt had some significant problems with hypotension and near syncope episode Pt has not been eating and drinking Lactic acid elevated at 3.5 Dr. Dolan saw her in consultation and recommended IV antibiotics and IV fluids WBC 21.9 Sodium level 129 Pt very fragile Desaturated to 83% when she got out of bed Conferred with RN Checked meds and labs Reviewed therapy notes Review of Systems General: Fatigue Pulmonary: Dyspnea Neurological: Weakness Objective Exam Vital Signs Vital Signs Date Time Temp Pulse Resp B/P (MAP) Pulse Ox O2 Delivery O2 Flow Rate FiO2 01/09/20 18:26 37.0 84 96 01/09/20 17:30 18 143/63 (89) Nasal Cannula 2.00 01/05/20 12:53 28 Capillary Refill : Less Than 3 Seconds General Appearance: No Apparent Distress, WD/WN, Chronically ill, Other (frail) HEENT: PERRL/EOMI, Normal ENT Inspection, Pharynx Normal Neck: Full Range of Motion, Normal Inspection, Non Tender, Supple, Carotid Bruit Respiratory: Chest Non Tender, Lungs Clear, No Accessory Muscle Use, No Respiratory Distress, Decreased Breath Sounds Cardiovascular: Regular Rate, Rhythm, No Edema, No Gallop, No JVD, No Murmur, Normal Peripheral Pulses Gastrointestinal: Normal Bowel Sounds, No Organomegaly, No Pulsatile Mass, Non Tender, Soft Back: Normal Inspection, No CVA Tenderness, No Vertebral Tenderness Extremity: Normal Capillary Refill, Normal Inspection, Normal Range of Motion, Non Tender, No Calf Tenderness, No Pedal Edema Neurologic/Psychiatric: Alert, Oriented x3, No Motor/Sensory Deficits, Normal Mood/Affect, camera technician II-XII Norm as Tested, Abnormal Gait, Motor Weakness (weakness of all extremities 3/5) Skin: Normal Color, Warm/Dry Lymphatic: No Adenopathy Results/Procedures Lab Patient resulted labs reviewed. FIM Transfers Therapy Code Descriptions/Definitions Functional [place] Measure: 0=Not Assessed/NA 4=Minimal Assistance 1=Total Assistance 5=Supervision or Setup 2=Maximal Assistance 6=Modified [place] 3=Moderate Assistance 7=Complete IndependenceSCALE: Activities may be completed with or without assistive devices. 1-Ucxprwyakm-bprqxes completes the activity by him/herself with no assistance from a helper. 5-Set-up or Clean-up Assistance-helper sets up or cleans up; patient completes activity. [place] assists only prior to or following the activity. 4-Supervision or Touching Assistance-helper provides verbal cues and/or touching/steadying and/or contact guard assistance as patient completes activity. Assistance may be provided throughout the activity or intermittently. 3-Partial/Moderate Assistance-helper does LESS THAN HALF the effort. [place] lifts, holds or supports trunk or limbs, but provides less than half the effort. 2-Substantial/Maximal Assistance-helper does MORE THAN HALF the effort. [place] lifts or holds trunk or limbs and provides more than half the effort. 0-Xtubrzbqb-mqvjmt does ALL the effort. Patient does none of the effort to complete the activity. Or, the assistance of 2 or more helpers is required for the patient to complete the activity. If activity was not attempted, code reason: 7-Patient Refused. 9-Not Applicable-not attempted and the patient did not perform the activity before the current illness, exacerbation or injury. 10-Not Attempted due to Environmental Limitations-(lack of equipment, weather restraints, etc.). 88-Not Attempted due to Medical Conditions or Safety Concerns. Roll Left to Right (QC): 6 Sit to Lying (QC): 3 Sit to Stand (QC): 6 Chair/Pie-xl-Kleqq Xfer(QC): 6 Car Transfer (QC): 3 Gait Training Does the Patient Walk?: Yes Distance: 100' Walk 10 feet (QC): 4 Walk 50 ft with 2 Turns(QC): 4 Walk 150 ft (QC): 88 Walking 10ft/uneven surface-QC: 88 Gait Persons Needed: 1 Gait Assistive Device: FWW Wheelchair Training Does the Pt Use a Wheelchair?: Yes Distance: 20' Wheel 50 ft with 2 turns (QC): 5 Wheel 150 ft (QC): 88 Type of Wheelchair: Manual Stair Training 1 Step (curb) (QC): 88 4 Steps (QC): 88 12 Steps (QC): 88 Balance Picking up an Object (QC): 88 ADL-Treatment Eating (QC): 4 (cues) Oral Hygiene (QC): 6 Bathing Location: L Arm, R Arm, L Upper Leg, R Upper Leg, L Lower Leg (including foot), R Lower Leg (including foot), Chest, Abdomen, Perineal Area Shower/Bathe Self (QC): 3 Upper Body Dressing (QC): 5 Lower Body Dressing (QC): 4 On/Off Footwear (QC): 3 (compression socks placed on) Toileting Hygiene (QC): 4 Toilet Transfer (QC): 4 Assessment/Plan Assessment and Plan Assess & Plan/Chief Complaint Assessment: Debility from COVID 19 PNA 12/13/[address] [facility] O2 dependence new onset HTN HLP Advanced age GERD Hemoccult + stools Anemia requiring 2 units of blood 01/01/20 Plan: IRF protocol Monitor O2 Check labs 12/31/19: IVF IV abx empiric Volume depletion with dehydration causing lactic acidosis not sepsis 01/01/20: HLIVF to minimize volume overload due to recent COVID and recs 2 units of blood ordered today PPI and Carafate and Dr Hector consult but too fragile for EGD at this time but if necessary will be required 01/02/20: Monitor labs Abx Increase po fluids Eating better with outside food 01/03/20: Monitor O2 DC catheter Continue abx but change to PO Check CXR Monitor HR 01/04/20: Monitor O2 Increase activity Venofer PO abx 01/05/20: Continue to wean O2 Nosebleed management from O2 01/06/20: Wean O2 IS use Monitor BP 01/07/20: Improved overall Wean O2 Dramatic response to therapy 01/08/20: Dramatic improvement Weaning O2 01/09/20: Wean O2 Hold laxatives Monitor closely (1) COVID-19 Status: Acute (2) GERD (gastroesophageal reflux disease) (3) Hypertension (4) Hyperlipemia (5) Advanced age (6) Supplemental oxygen dependent (7) PNA (pneumonia) Status: Acute (8) Acute respiratory failure due to COVID-19 Status: Acute CORI MOODY DO Jan 09, 2020 12:19
[2020-01-09 17:30] VITALS: BP 143/63
[2020-01-09 18:26] VITALS: BP 143/89
[2020-01-09] MEDS ORDERED: RT-ALBUTEROL SULF 2.5 MG/3 ML PRE-MIX VIAL INH PRN (18:45)
[2020-01-09] MEDS: MELATONIN 3 MG TABLET PO PRN (20:16)
[2020-01-10] MEDS: CATHETER FLUSH 10 ML SYR IV SCH ×3 (05:26→20:42)
[2020-01-10 05:52] LABS: HEMOGLOBIN 7.8 g/dL (11.5-16.0); WHITE BLOOD COUNT 8.1 10^3/uL (4.3-11.0)
[2020-01-10 06:00] VITALS: BP 145/70
[2020-01-10] MEDS: MULTIVIT W/MINERALS TAB (THERAGRAN M) PO SCH (06:14)
[2020-01-10] MEDS: SUCRALFATE 1 GM (CARAFATE) TAB PO SCH ×4 (06:14→20:42)
[2020-01-10 06:15] LABS: ALBUMIN 2.5 GM/DL (3.2-4.5); CHLORIDE 98 MMOL/L (98-107); SODIUM 135 MMOL/L (135-145)
[2020-01-10 06:16] LABS: CALCIUM 8.3 MG/DL (8.5-10.1)
[2020-01-10 06:17] LABS: GLUCOSE 121 MG/DL (70-105); TOTAL PROTEIN 5.2 GM/DL (6.4-8.2)
[2020-01-10 06:18] LABS: CARBON DIOXIDE 29 MMOL/L (21-32)
[2020-01-10 06:20] LABS: ALKALINE PHOSPHATASE 65 U/L (40-136)
[2020-01-10 06:21] LABS: CREATININE SERUM 0.79 MG/DL (0.60-1.30); GFR ESTIMATED > 60
[2020-01-10 06:22] LABS: BUN/CREATININE RATIO 28
[2020-01-10 06:24] LABS: ALANINE AMINOTRANSFERASE 45 U/L (0-55)
[2020-01-10 08:00] VITALS: BP 143/61
[2020-01-10] MEDS: VITAMIN D3 10 MCG (400 UNITS) TABLET PO SCH (08:26)
[2020-01-10] MEDS: IRON SUCROSE 200 MG/10 ML (VENOFER) VIAL IV SCH (08:26)
[2020-01-10] MEDS: polyethylene glycoL POWDER 17 GM (MIRALAX) PACK PO SCH ×2 (08:26→20:40)
[2020-01-10] MEDS: LACTOBACILLUS ACIDOPHILUS (PROBIOTIC) CAPSULE PO SCH ×3 (08:26→19:30)
[2020-01-10] MEDS: DOCUSATE SODIUM 100 MG (COLACE) CAP PO SCH ×2 (08:26→20:40)
[2020-01-10] MEDS: ATENOLOL 25 MG (TENORMIN) TAB PO SCH (08:26)
[2020-01-10] MEDS: PANTOPRAZOLE 40 MG (PROTONIX) TAB PO SCH ×2 (08:26→20:42)
[2020-01-10] MEDS: SENNA W/DOCUSATE (SENOKOT S) TABLET PO SCH ×2 (08:26→20:40)
--- NOTE | 2020-01-10 08:33 | PM&R Progress Note ---
Subjective HPI/CC On Admission Date Seen by Provider: Jan 10, 2020 Time Seen by Provider: 10:00 Subjective/Events-last exam 01/10/20: Pt doing much better Right knee edema noted Hgb 7.8 still receiving IV iron infusions so will consult Dr. Morris Overall doing pretty well except for hypoxia on exertion 01/09/20: Dyspnea on exertion only now SBP 130's now Holding laxatives due to loose stools Stand by assist now 01/08/20: Patient doing very well Reading a new book No pain BM+ 2L/min now 01/07/20: Improved BM+ No pain reported 01/06/20: Pt doing very well today Continuing to wean off oxygen Crackles in the lungs lower lobes compel me to have her aggressively use the acapella and the IS Bowels are moving pretty well Denies any significant pain No SOB 01/05/20: Pt is having a few nose bleeds, we are humidfying the oxygen and using saline nasal spray She had a BM today Weaning down oxygen now to 2 liters and she was 6 liters when she was admitted Very much improved Working on stamina 01/04/20: Pt doing very well Less dyspnea on exertion Eating better WBC down to 13.6 Hgb stable at 8.5 Midline will be placed to finish off iron infusions Discontinued catheter and she is voiding well Overall very improved 01/03/20: White blood cell count is down On 4 liters now 91% Atenolol was discontinued per cardiology EKG this morning due to irregular heartbeat brought in rib crib last night and she enjoyed that Cleared out her nose because it was dried out from oxygen Got up to go to the bathroom on the commode today Will DC catheter 01/02/20: BM yesterday No blood in BM Sodium level is 134 Zosyn still maintained Hgb 8.6 Weaning O2 to 4L/min today Dr Hinojosa and Dr Hector saw patient today 01/01/20: 2 units of blood ordered for hgb 6.0 Dr Hinojosa updated me on the hemoccult positive stools so I spoke to Dr Hector and he will consult in case endo needed but she is very fragile and unsure she can undergo this procedure at this time but if necessary will require it PPI and Carafate ordered Eating a bit better, [employer] milkshake brought in Pt had some significant problems with hypotension and near syncope episode Pt has not been eating and drinking Lactic acid elevated at 3.5 Dr. Dolan saw her in consultation and recommended IV antibiotics and IV fluids WBC 21.9 Sodium level 129 Pt very fragile Desaturated to 83% when she got out of bed Conferred with RN Checked meds and labs Reviewed therapy notes Review of Systems General: Fatigue, Malaise Neurological: Weakness Objective Exam Vital Signs Vital Signs Date Time Temp Pulse Resp B/P (MAP) Pulse Ox O2 Delivery O2 Flow Rate FiO2 01/10/20 19:00 83 01/10/20 17:37 37.0 18 164/72 (102) 95 Nasal Cannula 1.00 01/05/20 12:53 28 Capillary Refill : Less Than 3 Seconds General Appearance: No Apparent Distress, WD/WN, Chronically ill, Other (frail) HEENT: PERRL/EOMI, Normal ENT Inspection, Pharynx Normal Neck: Full Range of Motion, Normal Inspection, Non Tender, Supple, Carotid Bruit Respiratory: Chest Non Tender, Lungs Clear, No Accessory Muscle Use, No Respiratory Distress, Decreased Breath Sounds Cardiovascular: Regular Rate, Rhythm, No Edema, No Gallop, No JVD, No Murmur, Normal Peripheral Pulses Gastrointestinal: Normal Bowel Sounds, No Organomegaly, No Pulsatile Mass, Non Tender, Soft Back: Normal Inspection, No CVA Tenderness, No Vertebral Tenderness Extremity: Normal Capillary Refill, Normal Inspection, Normal Range of Motion, Non Tender, No Calf Tenderness, No Pedal Edema Neurologic/Psychiatric: Alert, Oriented x3, No Motor/Sensory Deficits, Normal Mood/Affect, wood carver II-XII Norm as Tested, Abnormal Gait, Motor Weakness (weakness of all extremities 3/5) Skin: Normal Color, Warm/Dry Lymphatic: No Adenopathy Results/Procedures Lab Laboratory Tests 01/10/20 05:20 Patient resulted labs reviewed. FIM Transfers Therapy Code Descriptions/Definitions Functional [place] Measure: 0=Not Assessed/NA 4=Minimal Assistance 1=Total Assistance 5=Supervision or Setup 2=Maximal Assistance 6=Modified [place] 3=Moderate Assistance 7=Complete IndependenceSCALE: Activities may be completed with or without assistive devices. 3-Ajjntdbosn-vpvslyv completes the activity by him/herself with no assistance from a helper. 5-Set-up or Clean-up Assistance-helper sets up or cleans up; patient completes activity. [place] assists only prior to or following the activity. 4-Supervision or Touching Assistance-helper provides verbal cues and/or touching/steadying and/or contact guard assistance as patient completes activity. Assistance may be provided throughout the activity or intermittently. 3-Partial/Moderate Assistance-helper does LESS THAN HALF the effort. [place] lifts, holds or supports trunk or limbs, but provides less than half the effort. 2-Substantial/Maximal Assistance-helper does MORE THAN HALF the effort. [place] lifts or holds trunk or limbs and provides more than half the effort. 5-[place]-uclevw does ALL the effort. Patient does none of the effort to complete the activity. Or, the assistance of 2 or more helpers is required for the patient to complete the activity. If activity was not attempted, code reason: 7-Patient Refused. 9-Not Applicable-not attempted and the patient did not perform the activity before the current illness, exacerbation or injury. 10-Not Attempted due to Environmental Limitations-(lack of equipment, weather restraints, etc.). 88-Not Attempted due to Medical Conditions or Safety Concerns. Roll Left to Right (QC): 6 Sit to Lying (QC): 3 Sit to Stand (QC): 6 Chair/Uho-ew-Xzdka Xfer(QC): 6 Car Transfer (QC): 3 Gait Training Does the Patient Walk?: Yes Distance: 100' Walk 10 feet (QC): 4 Walk 50 ft with 2 Turns(QC): 4 Walk 150 ft (QC): 88 Walking 10ft/uneven surface-QC: 88 Gait Persons Needed: 1 Gait Assistive Device: FWW Wheelchair Training Does the Pt Use a Wheelchair?: Yes Distance: 20' Wheel 50 ft with 2 turns (QC): 5 Wheel 150 ft (QC): 88 Type of Wheelchair: Manual Stair Training 1 Step (curb) (QC): 88 4 Steps (QC): 88 12 Steps (QC): 88 Balance Picking up an Object (QC): 88 ADL-Treatment Eating (QC): 4 (cues) Oral Hygiene (QC): 6 Bathing Location: L Arm, R Arm, L Upper Leg, R Upper Leg, L Lower Leg (including foot), R Lower Leg (including foot), Chest, Abdomen, Perineal Area Shower/Bathe Self (QC): 3 Upper Body Dressing (QC): 5 Lower Body Dressing (QC): 4 On/Off Footwear (QC): 3 (compression socks placed on) Toileting Hygiene (QC): 4 Toilet Transfer (QC): 4 Assessment/Plan Assessment and Plan Assess & Plan/Chief Complaint Assessment: Debility from COVID 19 PNA 12/13/19 admitted to [facility] O2 dependence new onset HTN HLP Advanced age GERD Hemoccult + stools Anemia requiring 2 units of blood 01/01/20 Plan: IRF protocol Monitor O2 Check labs 12/31/19: IVF IV abx empiric Volume depletion with dehydration causing lactic acidosis not sepsis 01/01/20: HLIVF to minimize volume overload due to recent COVID and recs 2 units of blood ordered today PPI and Carafate and Dr Hector consult but too fragile for EGD at this time but if necessary will be required 01/02/20: Monitor labs Abx Increase po fluids Eating better with outside food 01/03/20: Monitor O2 DC catheter Continue abx but change to PO Check CXR Monitor HR 01/04/20: Monitor O2 Increase activity Venofer PO abx 01/05/20: Continue to wean O2 Nosebleed management from O2 01/06/20: Wean O2 IS use Monitor BP 01/07/20: Improved overall Wean O2 Dramatic response to therapy 01/08/20: Dramatic improvement Weaning O2 01/09/20: Wean O2 Hold laxatives Monitor closely 01/10/20: Hematology consult for anemia Hemoglobin 7.8 today Monitor closely (1) COVID-19 Status: Acute (2) GERD (gastroesophageal reflux disease) (3) Hypertension (4) Hyperlipemia (5) Advanced age (6) Supplemental oxygen dependent (7) PNA (pneumonia) Status: Acute (8) Acute respiratory failure due to COVID-19 Status: Acute CORI MOODY DO Jan 10, 2020 08:33
--- NOTE | 2020-01-10 08:39 | Cardiology Progress Note ---
Subjective Date Seen by Provider: Jan 10, 2020 Time Seen by Provider: 08:37 Subjective/Events-last exam Patient sitting up in bed, denies any chest pain or dyspnea. C/o left knee and calf pain and swelling, increasing over the weekend. Review of Systems General: No Chills, No Night Sweats, No Fatigue, No Malaise, No Appetite, No Other HEENT: No Head Aches, No Visual Changes, No Eye Pain, No Ear Pain, No Dysphasia, No Sinus Congestion, No Post Nasal Drip, No Sore Throat, No Other Pulmonary: No Dyspnea, No Cough, No Pleuritic Chest Pain, No Other Cardiovascular: Palpitations; No: Chest Pain, Orthopnea, Paroxysmal Noc. D yspnea, Edema, Lt Headedness, Other Objective-Cardiology Exam Last Set of Vital Signs Vital Signs 01/05/20 01/10/20 01/10/20 12:53 06:00 09:00 Temp 36.4 Pulse 88 Resp 18 B/P (MAP) 145/70 (95) Pulse Ox 95 O2 Delivery Nasal Cannula O2 Flow Rate 1.00 FiO2 28 Capillary Refill : Less Than 3 Seconds I&O Intake and Output 01/10/20 00:00 Intake Total 1380 ml Balance 1380 ml Intake Oral 1380 ml # Voids 7 # Bowel Movements 2 General: Alert, Oriented X3, Cooperative HEENT: Atraumatic, PERRLA Neck: Supple, No JVD, No Thyromegaly Lungs: Clear to Auscultation, Normal Air Movement Heart: Normal S1, Normal S2, No Murmurs, Other (irregular) Abdomen: Normal Bowel Sounds, Soft, No Tenderness, No Hepatosplenomegaly, No Masses Extremities: No Clubbing, No Cyanosis, Normal Pulses, No Tenderness/Swelling, Other (LLE edema) Skin: No Rashes, No Breakdown, No Significant Lesion Neuro: Normal Gait, Normal Speech, Strength at 5/5 X4 Ext, Normal Tone, Sensation Intact Psych/Mental Status: Mental Status NL, Mood NL Results Lab Laboratory Tests 01/10/20 05:20 A/P-Cardiology Admission Diagnosis Syncope Anemia Hypotension Pneumonia Assessment/Plan Syncope, probably secondary to hypotensive episode. blood pressure is improved Received IV fluid, s/p blood transfusion. Atenolol was discontinued. Continue to monitor Anemia, acute, probably acute GI loss, has been maintained on PPI. Monitor H&H. COVID 19 pneumonia, diagnosed on December 13, 2019, treated and has improved, still having generalized debility and receiving physical therapy History of hypertension, atenolol restarted, continue to monitor. Palpitations, EKG showing PACs/PVCs, I will monitor on telemetry for 48 hours LLE pain and edema, I will evaluate LLE venous duplex. Hyperlipidemia, continue to monitor lipids Chronic kidney disease stage III, follows with food and beverage associate in [place]. Continue to monitor Multiple risk factors for coronary artery disease, last stress test was done in November 2017 showing poor exercise tolerance, breast attenuation with no significant ischemia or infarction Hypertensive heart disease, echocardiogram done in 2017 showing ejection fraction 55-65 percent, grade 2 diastolic dysfunction, left atrial dilatation 4.15 cm, mild MR, PA 30 mmHg. Continue to monitor History of breast biopsy, melanoma surgery Strong family history of heart disease History of mild bilateral carotid stenosis follows with heart and vascular care. Most recent carotid ultrasound was done in December 2018. Continue to monitor Patient was seen and evaluated with [place], examination performed, management plan was discussed, agree with the current scribed note, I made few changes to the note using Italic font Patient reporting mild palpitation on and off, I'll place on telemetry for 48 hours and monitor Continue on current medication, continue on atenolol and monitor Clinical Quality Measures DVT/VTE Risk/Contraindication: Risk Factor Score Per Nursin RFS Level Per Nursing on Admit: 4+=Very High LINDSAY MOSQUERA Jan 10, 2020 8:39 am DANK SINGH MD Jan 10, 2020 11:56 am
--- NOTE | 2020-01-10 08:58 | Physical Therapy Daily Note ---
PT Daily Note-Current Subjective Pt. agrees to Rx. States her left knee does not hurt in supine but with ROM and end range pt. c/o 6/10 pain. Pain Numeric Pain Scale: 6 Location: Left Location Body Site: Knee Pain Description: Ache Appearance much edema noted LLE distal to above left knee. corrie applied, discussed with nursing, possible doppler study etc Mental Status Patient Orientation: Person, Place, Time, Situation Attachments: Oxygen (1-2 L), Other-See Comments (corrie wrap left LE, mask while out of room) Transfers SCALE: Activities may be completed with or without assistive devices. 8-Zycmzglemt-awhhtbq completes the activity by him/herself with no assistance from a helper. 5-Set-up or Clean-up Assistance-helper sets up or cleans up; patient completes activity. Alexander assists only prior to or following the activity. 4-Supervision or Touching Assistance-helper provides verbal cues and/or touching/steadying and/or contact guard assistance as patient completes activity. Assistance may be provided throughout the activity or intermittently. 3-Partial/Moderate Assistance-helper does LESS THAN HALF the effort. Alexander lifts, holds or supports trunk or limbs, but provides less than half the effort. 2-Substantial/Maximal Assistance-helper does MORE THAN HALF the effort. Alexander lifts or holds trunk or limbs and provides more than half the effort. 7-Lfsgqeovk-yngotf does ALL the effort. Patient does none of the effort to complete the activity. Or, the assistance of 2 or more helpers is required for the patient to complete the activity. If activity was not attempted, code reason: 7-Patient Refused. 9-Not Applicable-not attempted and the patient did not perform the activity before the current illness, exacerbation or injury. 10-Not Attempted due to Environmental Limitations-(lack of equipment, weather restraints, etc.). 88-Not Attempted due to Medical Conditions or Safety Concerns. Lying to Sitting/Side of Bed(Q: 6 Sit to Stand (QC): 6 Chair/Prg-ie-Agvcm Xfer(QC): 6 Car Transfer (QC): 6 Weight Bearing Full Weight Bearing Full Weight Bearing Gait Training Does the Patient Walk?: Yes Walk 10 feet (QC): 6 Walk 50 ft with 2 Turns(QC): 6 Gait Persons Needed: 1 Gait Assistive Device: FWW gait on 1.5 L 1st 55ft with sats dropping to 86% , quick recovery to 94% and O2 increased to 2L, gait again 60ft , and 65 ft with sats steady over 90%. dyspnea noted but quick recovery Exercises Supine Ex: Bridging, Ankle pumps, Quad Set, Rolling, Glut sets, Heel Slides, Short Arc Quads, Scooting, Straight leg raise, Hip abd/add Supine Reps: 12 (x2) Assessment Current Status: Good Progress sats steady over 90% at 2L, better gait stability, left knee edema and pain continues PT Short Term Goals Short Term Goals Time Frame: Jan 06, 2020 Roll Left & Right: 6 Sit to lyin Lying to sitting on side of be: 6 Sit to stand: 4 Chair/hmx-lk-uilqk transfer: 4 Toilet transfer: 4 Walk 10 feet: 4 Walk 50 feet with two turns: 4 PT Software Applications Developer Goals Halfway Goals PT Software Applications Developer Goals Time Frame: Jan 13, 2020 Roll Left & Right (QC): 6 Sit to Lying (QC): 6 Lying-Sitting on Side/Bed(QC): 6 Sit to Stand (QC): 6 Chair/Qrj-ir-Qtgqh Xfer(QC): 6 Toilet Transfer (QC): 5 Car Transfer (QC): 5 Does the Patient Walk: Yes Walk 10 feet (QC): 5 Walk 50ft with 2 Turns (QC): 5 Walk 150 ft (QC): 5 Walking 10ft on Uneven Surface: 5 1 Step (curb) (QC): 4 4 Steps (QC): 4 12 Steps (QC): 88 Picking up an Object (QC): 4 Does the Pt use WC or Scooter?: Yes Wheel 50 feet with 2 turns (QC: 6 Type: Manual Wheel 150 feet: 6 Type: Manual PT Plan Treatment/Plan Treatment Plan: Continue Plan of Care Treatment Plan: Bed Mobility, Education, Functional Activity Shahab, Functional Strength, Group Therapy, Gait, Safety, Therapeutic Exercise, Transfers Treatment Duration: Jan 20, 2020 Frequency: Modified Program (IRF) (21/09) Estimated Hrs Per Day: 1.5 hours per day Patient and/or Family Agrees t: Yes Safety Risks/Education Patient Education: Gait Training, Transfer Techniques, Correct Positioning, Disease Process, Safety Issues Teaching Recipient: Patient Teaching Methods: Demonstration, Discussion Response to Teaching: Verbalize Understanding, Return Demonstration, Reinforcement Needed Time/GCodes Time In: 800 Time Out: 900 Total Billed Treatment Time: 60 Total Billed Treatment 1,FA15m,GT25m,EX20m CADE TOUSSAINT DINING ROOM HOST Jan 10, 2020 08:58
--- NOTE | 2020-01-10 09:26 | Speech Therapy Daily Note ---
Speech Daily Progress Note Subjective Date Seen by Provider: Jan 10, 2020 Time Seen by Provider: 00:30 Patient was resting in her recliner, alert and much more spry today. Objective Patient completed a series of "what's wrong with this scene?" related to safety at 90% with minimal cues. Assessment Assessment Current Status: Good Progress Treatment Plan Continue Plan of Care Speech Short Term Goals Short Term Goals Short Term Goals 1) Patient will complete memory tasks related to her daily needs at 80% or greater with minimal cues. 2) Patient will complete safety awareness tasks related to her daily needs at 80% or greater with minimal cues. 3) Patient will complete problem solving tasks related to her daily needs at 80% or greater with minimal cues. Speech Substation Operator Helper Generation Goals Retirement Goals Patient will improve cognitive-communication tasks in order to require minimal assist with daily needs. Speech-Plan Patient/Family Goals Patient/Family Goals: Patient is scheduled to discharge to home on 01/15/2020. Treatment Plan Speech Therapy Treatment Plan: Continue Plan of Care Treatment Duration: Dec 31, 2019 Frequency: 4 times per week (Patient will receive skilled ST 4-5x per week) Estimated Hrs Per Day: Other Rehab Potential: Good Barriers to Learning: Patient's recent serious illness, age Pt/Family Agrees to Plan: Yes Safety Risks/Education Teaching Recipient: Patient Teaching Methods: Demonstration, Discussion Response to Teaching: Verbalize Understanding, Return Demonstration Education Topics Provided: Continued safety within her room Time Speech Therapy Time In: 09:00 Speech Therapy Time Out: 09:30 Total Billed Time: 30 Billed Treatment Time 1, ASHVIN Price Jan 10, 2020 09:26
--- NOTE | 2020-01-10 13:13 | Occupational Ther Daily Note ---
OT Current Status-Daily Note Subjective No pain reported. Appearance Pt. in bed. Agrees to work with OT. Mental Status/Objective Patient Orientation: Person, Place Attachments: Oxygen Pt. on IV iron. Nursing okay for pt. to work with OT. ADL-Treatment Therapy Code Descriptions/Definitions Functional Robinson Measure: 0=Not Assessed/NA 4=Minimal Assistance 1=Total Assistance 5=Supervision or Setup 2=Maximal Assistance 6=Modified Robinson 3=Moderate Assistance 7=Complete IndependenceSCALE: Activities may be completed with or without assistive devices. 6-Hivkyqngmd-eocwoye completes the activity by him/herself with no assistance from a helper. 5-Set-up or Clean-up Assistance-helper sets up or cleans up; patient completes activity. [place] assists only prior to or following the activity. 4-Supervision or Touching Assistance-helper provides verbal cues and/or touching/steadying and/or contact guard assistance as patient completes activity. Assistance may be provided throughout the activity or intermittently. 3-Partial/Moderate Assistance-helper does LESS THAN HALF the effort. [place] lifts, holds or supports trunk or limbs, but provides less than half the effort. 2-Substantial/Maximal Assistance-helper does MORE THAN HALF the effort. [place] lifts or holds trunk or limbs and provides more than half the effort. 4-Tdzhzznjn-bsthlk does ALL the effort. Patient does none of the effort to complete the activity. Or, the assistance of 2 or more helpers is required for the patient to complete the activity. If activity was not attempted, code reason: 7-Patient Refused. 9-Not Applicable-not attempted and the patient did not perform the activity before the current illness, exacerbation or injury. 10-Not Attempted due to Environmental Limitations-(lack of equipment, weather restraints, etc.). 88-Not Attempted due to Medical Conditions or Safety Concerns. Pt. declines showering and states that she would like to stay in the warm clothes that she is currently in. States that she will shower and change tomorrow. Does agree to work with OT. OT okay'd with nursing first that pt. is able to participate while iron infusion is running. Nursing okays this. Pt. transfers supine-sit with SBA using bed rail, and ambulates with CGA to therapy gym using walker. Pt. participates in series of UE strengthening activities, such as arm bike x 13 minutes at min resistance. Pt. participated in cognitive trivia task during this activity, and tolerated it well. Pt. then donned 1 lb. wrist weights and completed therapy peg activity with reaching back and forth. Tolerated this well, but states that she is tired. OT asks her if there is anything of significance that she is concerned about being able to do once she is home. She states that she is concerned about getting from supine-sit without the use of a bedrail. Therefore, she has asked her spouse to look for one. OT shows pt method that she can use with the back of a regular chair, and pt. is able to demonstrate in and out of bed with this method. OT then takes chair away, and has pt. practice without use of it. She is able to transfer from supine to/from sit position without use of rail or back of chair. She states that she didn't realize that she had made that much progress. Pt. is encouraged, and transfers to wheelchair with CGA. Pt. requests to go back to room via wheelchair as she is tired. Pt. transfers to bed with SBA. All needs met in room. Education OT Patient Education: Correct positioning ( ), Exercise program, Modified ADL techniques, Progress toward Goal/Update tx plan, Purpose of tx/functional activities, Reviewed precautions, Rehab process, Transfer techniques Teaching Recipient: Patient Teaching Methods: Demonstration, Discussion Response to Teaching: Verbalize Understanding, Return Demonstration OT Short Term Goals Short Term Goals Time Frame: Jan 06, 2020 Eatin Oral hygiene: 4 Toileting hygiene: 3 Shower/bathe self: 3 Upper body dressin Lower body dressin Putting on/taking off footwear: 4 OT Brim Pouncing Machine Operator Goals Shelter Goals Time Frame: Jan 13, 2020 Eating (QC): 6 Oral Hygiene (QC): 6 Toileting Hygiene (QC): 6 Shower/Bathe Self (QC): 4 Upper Body Dressing (QC): 4 Lower Body Dressing (QC): 4 On/Off Footwear (QC): 6 Additional Goals: 1-Demonstrate ADL Tasks, 2-Verbalize Understanding, 3-ImproveStrength/Shahab 1=Demonstrate adherence to instructed precautions during ADL tasks. 2=Patient will verbalize/demonstrate understanding of assistive devices/modifications for ADL. 3=Patient will improve strength/tolerance for activity to enable patient to perform ADL's. OT Education/Plan Problem List/Assessment Assessment: Decreased Activ Tolerance, Decreased UE Strength, Impaired I ADL's, Impaired Self-Care Skills Discharge Recommendations Plan/Recommendations: Continue POC Therapy Discharge Recommendati: Home & Family Treatment Plan/Plan of Care Treatment,Training & Education: Yes Patient would benefit from OT for education, treatment and training to promote independence in ADL's, mobility, safety and/or upper extremity function for ADL's. Plan of Care: ADL Retraining, Functional Mobility, UE Funct Exercise/Act Treatment Duration: Jan 13, 2020 Frequency: At least 5 of 7 days/Wk (IRF) Estimated Hrs Per Day: 1.5 hours per day Agreement: Yes Rehab Potential: Good Time/GCodes Start Time: 09:40 Stop Time: 10:40 Total Time Billed (hr/min): 60 Billed Treatment Time 1, Ex x 15minutes, FA x 45minutes LIZZY ADAMS OT Jan 10, 2020 13:13
[2020-01-10] MEDS: CHLORASEPTIC LOZENGE MM PRN ×2 (14:26→19:43)
--- NOTE | 2020-01-10 14:32 | Therapy Group Daily Note ---
Therapy Daily Group Note Patient Education Topic Home Safety Exercises LE Seated Exercise, UE Exercise Session Ratio (pt:therapist): 3:1 Goal of Session: Education on ARU Expectations, Home Safety Strategies, UE/LE Strengthing Goal Met for this Session: Yes Pt Benefit of Group: F/U Use of Strategies @Home, Increased Functional Safety, Socialization Other/Notes Pt. participated in group PT OT session. Pt. ambulated to and from session with assist for CGA and O2 and FWW. Pt. introduced herself and was very social, sharing her home safety tips and experiences . Pts. all participated in seated U&L extremity exercises, and were educated in Home safety techniques via Cognitive Securitydy Home safety tossed bag in basket in lieu of buzzer. Pt. returned to room with call curtis at hand and needs met after session Start Time: 13:00 Stop Time: 14:10 Total Billed Treatment Time: 70 Total Billed Treatment 1,GRP CADE TOUSSAINT GRAPHICS PRODUCTION SPECIALIST Jan 10, 2020 14:32
[2020-01-10 17:37] VITALS: BP 164/72
[2020-01-10] MEDS: MELATONIN 3 MG TABLET PO PRN (20:42)
--- NOTE | 2020-01-10 23:28 | CONSULTATION REPORT ---
DATE OF SERVICE: 01/10/2020 The patient is admitted to room 222. PHYSICIAN REQUESTING CONSULTATION: Maddie Hawkins DO IMPRESSION: 1. An 89-year-old female admitted to the hospital on 12/13/2019 with COVID-19. 2. Currently on rehabilitation due to deconditioning and dyspnea on exertion. 3. Significant anemia noted on 12/31/2019 with hemoglobin level of 6.0. Status post transfusion with 2 units of packed red blood cells. Currently, on Venofer infusions x1 gram in divided doses. 4. FOBT positive on 01/01/2020, indicating possible gastrointestinal blood loss. 5. Surgical evaluation completed and not considered an ideal candidate for EGD and colonoscopy because of ongoing pulmonary issues and hypoxia. RECOMMENDATIONS: 1. Complete the course of parenteral iron therapy as you are doing. 2. I will obtain a CBC with smear and reticulocyte count tomorrow morning. Also obtain a CMP, LDH, TSH, B12, and folic acid levels. 3. Continue rehabilitation as you are doing and monitor hemoglobin level serially. If this is dropping to lower 7s, we would recommend transfusion to maintain hemoglobin more than or equal to 8 grams per deciliter because of her age and cardiac as well as pulmonary status. 4. We will follow the patient with you. BRIEF HISTORY: The patient is an 89-year-old female who was admitted to the hospital on 12/13/2019 with fever and shortness of breath and diagnosed with COVID-19. Her was also admitted at the same time. She did not require intubation, but did require high flow oxygen. As she was not recovering fast and had continued weakness, she was moved to inpatient rehabilitation unit. She has become anemic throughout her hospital stay with a hemoglobin level down to 6.0 on 12/31/2019 requiring 2 units of packed red blood cell transfusion. Since then, she is on Venofer in divided doses for a total of 1 gram. Hematology consultation was requested for further evaluation and recommendations. PAST MEDICAL HISTORY: Essentially unremarkable with no major medical problems. She has had three to four breast biopsies, over the years, none of which were malignant. 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 PAST SURGICAL HISTORY: No major surgeries. SOCIAL HISTORY: The patient is and lives in [place], [place]. She has three sons, one of whom lives in [place], another in [place], [place] and third son in [place]. 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 No history of tobacco, alcohol or recreational drug use. FAMILY HISTORY: Unremarkable with no major hematological problems in the family. Three of her brothers were diagnosed with prostate cancer in their 60s or 70s. No other malignancies in the family. PHYSICAL EXAMINATION: GENERAL: Today showed an elderly female, weak and pale appearing, awake and oriented, answering questions appropriately. VITAL SIGNS: Temperature was 36.4 degrees centigrade, pulse rate of 88, respirations 18, blood pressure 145/70 with oxygen saturation of 95% on 2 liters of oxygen by nasal cannula. HEENT: Normocephalic, extraocular muscles intact, conjunctivae pale, oral mucosa moist. NECK: Supple, with no JVD. No cervical, supraclavicular or axillary lymphadenopathy palpable. CHEST: Symmetrical. LUNGS: With diminished breath sounds in the bases with scattered wheezes and rales. CARDIOVASCULAR: Regular in rate and rhythm. No murmurs or gallops heard. ABDOMEN: Soft, nontender with no hepatosplenomegaly or other masses palpable. EXTREMITIES: Showed no edema. No petechiae or ecchymoses noted. NEUROLOGIC: Showed no focal motor deficits. Overall, motor strength was 4/5 bilaterally. LABORATORY DATA: CBC done today showed WBC 8.1, hemoglobin 7.8, MCV 95, platelet count 274,000 today. On 01/01/2020, her WBC was 20.6, hemoglobin 6.0, MCV 86 and platelet count 136,000. Chemistry panel showed normal electrolytes. BUN was 22 and creatinine 0.79 with GFR more than 60 mL per minute. Nonfasting glucose was 121. Liver function studies were normal except albumin level of 2.5. Fecal occult blood test done on 01/01/2020 was positive. Thank you for allowing me to participate in this patient's care. I will follow the patient with you and make appropriate recommendations. Job ID: [id number] DocumentID: [id number] Dictated Date: 01/10/2020 17:00:14 Strategic Partner Development Manager Date: 01/10/2020 23:28:42 Dictated By: ARCENIO HARPER MD [facility]
[2020-01-11 05:25] VITALS: BP 162/70
[2020-01-11] MEDS: CATHETER FLUSH 10 ML SYR IV SCH ×3 (05:32→20:38)
[2020-01-11] MEDS: MULTIVIT W/MINERALS TAB (THERAGRAN M) PO SCH (05:33)
[2020-01-11] MEDS: SUCRALFATE 1 GM (CARAFATE) TAB PO SCH ×4 (05:33→20:39)
[2020-01-11 05:50] LABS: ABSOLUTE RETIC # 271 10e9/uL (24-90); BASOPHILS % (AUTO) 0 % (0-10); EOSINOPHILS # (AUTO) 0.6 10^3/uL (0.0-0.3); EOSINOPHILS % (AUTO) 8 % (0-10); HEMATOCRIT 26 % (35-52); HEMOGLOBIN 8.1 g/dL (11.5-16.0); LYMPHOCYTES # (AUTO) 2.4 10^3/uL (1.0-4.0); LYMPHOCYTES % (AUTO) 29 % (12-44); MEAN CORPUSCULAR HEMOGLOBIN 29 pg (25-34); MEAN CORPUSCULAR HGB CONC 31 g/dL (32-36); MEAN CORPUSCULAR VOLUME 95 fL (80-99); MEAN PLATELET VOLUME 9.9 fL (9.0-12.2); MONOCYTES # (AUTO) 0.9 10^3/uL (0.0-1.0); MONOCYTES % (AUTO) 11 % (0-12); NEUTROPHILS # (AUTO) 4.1 10^3/uL (1.8-7.8); NEUTROPHILS % (AUTO) 50 % (42-75); PLATELET COUNT 268 10^3/uL (130-400); RETICULOCYTE % 9.79 % (0.50-2.40); WHITE BLOOD COUNT 8.1 10^3/uL (4.3-11.0)
[2020-01-11 05:52] LABS: ALBUMIN 2.5 GM/DL (3.2-4.5); CHLORIDE 99 MMOL/L (98-107); POTASSIUM 3.7 MMOL/L (3.6-5.0); SODIUM 136 MMOL/L (135-145)
[2020-01-11 05:53] LABS: CALCIUM 8.2 MG/DL (8.5-10.1)
[2020-01-11 05:54] LABS: GLUCOSE 112 MG/DL (70-105)
[2020-01-11 05:55] LABS: TOTAL PROTEIN 5.3 GM/DL (6.4-8.2)
[2020-01-11 05:56] LABS: BILIRUBIN,TOTAL 0.9 MG/DL (0.1-1.0); CARBON DIOXIDE 28 MMOL/L (21-32)
[2020-01-11 05:58] LABS: ALKALINE PHOSPHATASE 66 U/L (40-136); CREATININE SERUM 0.74 MG/DL (0.60-1.30); GFR ESTIMATED > 60
[2020-01-11 05:59] LABS: BUN/CREATININE RATIO 24
[2020-01-11 06:01] LABS: ALANINE AMINOTRANSFERASE 44 U/L (0-55)
[2020-01-11 06:08] LABS: ATYPICAL LYMPHOCYTES 4 %; BAND NEUTROPHILS 1 %; EOSINOPHILS % (MANUAL) 10 %; LYMPHOCYTES % (MANUAL) 20 %; METAMYELOCYTES % 1 %; MONOCYTES % (MANUAL) 10 %; NEUTROPHILS % (MANUAL) 54 %
[2020-01-11 06:09] LABS: ANISOCYTOSIS MODERATE; POLYCHROMASIA MARKED
[2020-01-11 08:00] VITALS: BP 134/60
--- NOTE | 2020-01-11 08:11 | Cardiology Progress Note ---
Subjective Date Seen by Provider: Jan 11, 2020 Time Seen by Provider: 08:10 Subjective/Events-last exam Patient is laying down in bed, feeling better. No new complaint Review of Systems General: No Chills, No Night Sweats; Fatigue, Malaise; No Appetite, No Other HEENT: No Head Aches, No Visual Changes, No Eye Pain, No Ear Pain, No Dysphasia, No Sinus Congestion, No Post Nasal Drip, No Sore Throat, No Other Pulmonary: No Dyspnea, No Cough, No Pleuritic Chest Pain, No Other Cardiovascular: No: Chest Pain, Palpitations, Orthopnea, Paroxysmal Noc. Dyspnea, Edema, Lt Headedness, Other Objective-Cardiology Exam Last Set of Vital Signs Vital Signs 01/05/20 01/11/20 12:53 05:25 Temp 36.2 Pulse 79 Resp 18 B/P (MAP) 162/70 (100) Pulse Ox 96 O2 Delivery Nasal Cannula O2 Flow Rate 2.00 FiO2 28 Capillary Refill : Less Than 3 Seconds I&O Intake and Output 01/11/20 00:00 Intake Total 1310 ml Balance 1310 ml Intake Oral 1310 ml # Voids 7 # Bowel Movements 4 General: Alert, Oriented X3, Cooperative HEENT: Atraumatic, PERRLA Neck: Supple, No JVD, No Thyromegaly Lungs: Clear to Auscultation, Normal Air Movement Heart: Normal S1, Normal S2, No Murmurs, Other (irregular) Abdomen: Normal Bowel Sounds, Soft, No Tenderness, No Hepatosplenomegaly, No Masses Extremities: No Clubbing, No Cyanosis, Normal Pulses, No Tenderness/Swelling, Other (LLE edema) Skin: No Rashes, No Breakdown, No Significant Lesion Neuro: Normal Gait, Normal Speech, Strength at 5/5 X4 Ext, Normal Tone, Sensation Intact Psych/Mental Status: Mental Status NL, Mood NL Results Lab Laboratory Tests 01/11/20 05:20 A/P-Cardiology Admission Diagnosis Syncope Anemia Hypotension Pneumonia Assessment/Plan Syncope, probably secondary to hypotensive episode. blood pressure is improved Received IV fluid, s/p blood transfusion. Atenolol was discontinued. Continue to monitor Palpitation, 12-lead EKG showed occasional atrial and ventricular premature contractions she was placed on telemetric, no arrhythmia was detected so far. Continue to monitor Anemia, acute, probably acute GI loss, has been maintained on PPI. Monitor H&H. COVID 19 pneumonia, diagnosed on December 13, 2019, treated and has improved, still having generalized debility and receiving physical therapy Hypertension, poorly controlled, restarted on atenolol, continue to monitor blood pressure LLE pain and edema, I will evaluate LLE venous duplex. Hyperlipidemia, continue to monitor lipids Chronic kidney disease stage III, follows with risk modeler in [place]. Continue to monitor Multiple risk factors for coronary artery disease, last stress test was done in November 2017 showing poor exercise tolerance, breast attenuation with no significant ischemia or infarction Hypertensive heart disease, echocardiogram done in 2018 showing ejection fraction 55-65 percent, grade 2 diastolic dysfunction, left atrial dilatation 4.15 cm, mild MR, PA 30 mmHg. Continue to monitor History of breast biopsy, melanoma surgery Strong family history of heart disease History of mild bilateral carotid stenosis follows with heart and vascular care. Most recent carotid ultrasound was done in December 2018. Continue to monitor Clinical Quality Measures DVT/VTE Risk/Contraindication: Risk Factor Score Per Nursin RFS Level Per Nursing on Admit: 4+=Very High DANK SINGH MD Jan 11, 2020 08:11
[2020-01-11] MEDS: LACTOBACILLUS ACIDOPHILUS (PROBIOTIC) CAPSULE PO SCH ×3 (08:38→17:09)
[2020-01-11] MEDS: PANTOPRAZOLE 40 MG (PROTONIX) TAB PO SCH ×2 (08:38→20:39)
[2020-01-11] MEDS: VITAMIN D3 10 MCG (400 UNITS) TABLET PO SCH (08:38)
[2020-01-11] MEDS: ATENOLOL 25 MG (TENORMIN) TAB PO SCH (08:39)
[2020-01-11] MEDS: SENNA W/DOCUSATE (SENOKOT S) TABLET PO SCH ×2 (08:39→19:35)
[2020-01-11] MEDS: polyethylene glycoL POWDER 17 GM (MIRALAX) PACK PO SCH ×2 (08:39→19:34)
[2020-01-11] MEDS: DOCUSATE SODIUM 100 MG (COLACE) CAP PO SCH ×2 (08:39→19:34)
--- NOTE | 2020-01-11 08:55 | PM&R Progress Note ---
Subjective HPI/CC On Admission Date Seen by Provider: Jan 11, 2020 Time Seen by Provider: 09:00 Subjective/Events-last exam 01/11/20: Pt doing okay but lungs sound a bit more coarse Hgb: 8.1 Dr. Crockett consulted Cough continues, cough drops ordered Bowels are moving 01/10/20: Pt doing much better Right knee edema noted Hgb 7.8 still receiving IV iron infusions so will consult Dr. Morris Overall doing pretty well except for hypoxia on exertion 01/09/20: Dyspnea on exertion only now SBP 130's now Holding laxatives due to loose stools Stand by assist now 01/08/20: Patient doing very well Reading a new book No pain BM+ 2L/min now 01/07/20: Improved BM+ No pain reported 01/06/20: Pt doing very well today Continuing to wean off oxygen Crackles in the lungs lower lobes compel me to have her aggressively use the acapella and the IS Bowels are moving pretty well Denies any significant pain No SOB 01/05/20: Pt is having a few nose bleeds, we are humidfying the oxygen and using saline na aleja spray She had a BM today Weaning down oxygen now to 2 liters and she was 6 liters when she was admitted Very much improved Working on stamina 01/04/20: Pt doing very well Less dyspnea on exertion Eating better WBC down to 13.6 Hgb stable at 8.5 Midline will be placed to finish off iron infusions Discontinued catheter and she is voiding well Overall very improved 01/03/20: White blood cell count is down On 4 liters now 91% Atenolol was discontinued per cardiology EKG this morning due to irregular heartbeat brought in rib crib last night and she enjoyed that Cleared out her nose because it was dried out from oxygen Got up to go to the bathroom on the commode today Will DC catheter 01/02/20: BM yesterday No blood in BM Sodium level is 134 Zosyn still maintained Hgb 8.6 Weaning O2 to 4L/min today Dr Hinojosa and Dr Hector saw patient today 01/01/20: 2 units of blood ordered for hgb 6.0 Dr Hinojosa updated me on the hemoccult positive stools so I spoke to Dr Hector and he will consult in case endo needed but she is very fragile and unsure she can undergo this procedure at this time but if necessary will require it PPI and Carafate ordered Eating a bit better, [employer] milkshake brought in Pt had some significant problems with hypotension and near syncope episode Pt has not been eating and drinking Lactic acid elevated at 3.5 Dr. Dolan saw her in consultation and recommended IV antibiotics and IV fluids WBC 21.9 Sodium level 129 Pt very fragile Desaturated to 83% when she got out of bed Conferred with RN Checked meds and labs Reviewed therapy notes Review of Systems General: Fatigue Pulmonary: Dyspnea Objective Exam Vital Signs Vital Signs Date Time Temp Pulse Resp B/P (MAP) Pulse Ox O2 Delivery O2 Flow Rate FiO2 01/11/20 20:00 High Flow N/C 2.00 01/11/20 19:00 80 01/11/20 16:30 36.8 20 126/83 (97) 94 01/05/20 12:53 28 Capillary Refill : Less Than 3 Seconds General Appearance: No Apparent Distress, WD/WN, Chronically ill, Other (frail) HEENT: PERRL/EOMI, Normal ENT Inspection, Pharynx Normal Neck: Full Range of Motion, Normal Inspection, Non Tender, Supple, Carotid Bruit Respiratory: Chest Non Tender, No Accessory Muscle Use, No Respiratory Distress, Decreased Breath Sounds, Rales Cardiovascular: Regular Rate, Rhythm, No Edema, No Gallop, No JVD, No Murmur, Normal Peripheral Pulses Gastrointestinal: Normal Bowel Sounds, No Organomegaly, No Pulsatile Mass, Non Tender, Soft Back: Normal Inspection, No CVA Tenderness, No Vertebral Tenderness Extremity: Normal Capillary Refill, Normal Inspection, Normal Range of Motion, Non Tender, No Calf Tenderness, No Pedal Edema Neurologic/Psychiatric: Alert, Oriented x3, No Motor/Sensory Deficits, Normal Mood/Affect, packer sausage and wiener II-XII Norm as Tested, Abnormal Gait, Motor Weakness (weakness of all extremities 3/5) Skin: Normal Color, Warm/Dry Lymphatic: No Adenopathy Results/Procedures Lab Laboratory Tests 01/11/20 05:20 Patient resulted labs reviewed. FIM Transfers Therapy Code Descriptions/Definitions Functional [place] Measure: 0=Not Assessed/NA 4=Minimal Assistance 1=Total Assistance 5=Supervision or Setup 2=Maximal Assistance 6=Modified [place] 3=Moderate Assistance 7=Complete IndependenceSCALE: Activities may be completed with or without assistive devices. 9-Qpztezsqxc-slxrysn completes the activity by him/herself with no assistance from a helper. 5-Set-up or Clean-up Assistance-helper sets up or cleans up; patient completes activity. [place] assists only prior to or following the activity. 4-Supervision or Touching Assistance-helper provides verbal cues and/or touching/steadying and/or contact guard assistance as patient completes activity. Assistance may be provided throughout the activity or intermittently. 3-Partial/Moderate Assistance-helper does LESS THAN HALF the effort. [place] lifts, holds or supports trunk or limbs, but provides less than half the effort. 2-Substantial/Maximal Assistance-helper does MORE THAN HALF the effort. [place] lifts or holds trunk or limbs and provides more than half the effort. 3-Eqqiofocd-wbqmbg does ALL the effort. Patient does none of the effort to complete the activity. Or, the assistance of 2 or more helpers is required for the patient to complete the activity. If activity was not attempted, code reason: 7-Patient Refused. 9-Not Applicable-not attempted and the patient did not perform the activity before the current illness, exacerbation or injury. 10-Not Attempted due to Environmental Limitations-(lack of equipment, weather restraints, etc.). 88-Not Attempted due to Medical Conditions or Safety Concerns. Roll Left to Right (QC): 6 Sit to Lying (QC): 3 Sit to Stand (QC): 6 Chair/Xgm-oz-Cwkii Xfer(QC): 6 Car Transfer (QC): 6 Gait Training Does the Patient Walk?: Yes Distance: 100' Walk 10 feet (QC): 6 Walk 50 ft with 2 Turns(QC): 6 Walk 150 ft (QC): 88 Walking 10ft/uneven surface-QC: 88 Gait Persons Needed: 1 Gait Assistive Device: FWW Wheelchair Training Does the Pt Use a Wheelchair?: Yes Distance: 20' Wheel 50 ft with 2 turns (QC): 5 Wheel 150 ft (QC): 88 Type of Wheelchair: Manual Stair Training 1 Step (curb) (QC): 88 4 Steps (QC): 88 12 Steps (QC): 88 Balance Picking up an Object (QC): 88 ADL-Treatment Eating (QC): 4 (cues) Oral Hygiene (QC): 6 Bathing Location: L Arm, R Arm, L Upper Leg, R Upper Leg, L Lower Leg (including foot), R Lower Leg (including foot), Chest, Abdomen, Perineal Area Shower/Bathe Self (QC): 3 Upper Body Dressing (QC): 5 Lower Body Dressing (QC): 4 On/Off Footwear (QC): 3 (compression socks placed on) Toileting Hygiene (QC): 4 Toilet Transfer (QC): 4 Assessment/Plan Assessment and Plan Assess & Plan/Chief Complaint Assessment: Debility from COVID 19 PNA 12/13/19 admitted to [facility] O2 dependence new onset HTN HLP Advanced age GERD Hemoccult + stools Anemia requiring 2 units of blood 01/01/20 Plan: IRF protocol Monitor O2 Check labs 12/31/19: IVF IV abx empiric Volume depletion with dehydration causing lactic acidosis not sepsis 01/01/20: HLIVF to minimize volume overload due to recent COVID and recs 2 units of blood ordered today PPI and Carafate and Dr Hector consult but too fragile for EGD at this time but if necessary will be required 01/02/20: Monitor labs Abx Increase po fluids Eating better with outside food 01/03/20: Monitor O2 DC catheter Continue abx but change to PO Check CXR Monitor HR 01/04/20: Monitor O2 Increase activity Venofer PO abx 01/05/20: Continue to wean O2 Nosebleed management from O2 01/06/20: Wean O2 IS use Monitor BP 01/07/20: Improved overall Wean O2 Dramatic response to therapy 01/08/20: Dramatic improvement Weaning O2 01/09/20: Wean O2 Hold laxatives Monitor closely 01/10/20: Hematology consult for anemia Hemoglobin 7.8 today Monitor closely 01/11/20: CXR noted Dr Dolan to review case due to coarseness lungs (1) COVID-19 Status: Acute (2) GERD (gastroesophageal reflux disease) (3) Hypertension (4) Hyperlipemia (5) Advanced age (6) Supplemental oxygen dependent (7) PNA (pneumonia) Status: Acute (8) Acute respiratory failure due to COVID-19 Status: Acute CORI MOODY DO Jan 11, 2020 08:55
--- NOTE | 2020-01-11 10:25 | Speech Therapy Daily Note ---
Speech Daily Progress Note Subjective Date Seen by Provider: Jan 11, 2020 Time Seen by Provider: 00:30 Patient was resting in her bed. She states she didn't sleep as well last night. She also reports the DrAlban heard some crackles in her lungs. Objective Patient completed a series of q/a related to her daily needs when she returns home at 90% with minimal cues. Assessment Assessment Current Status: Good Progress Treatment Plan Continue Plan of Care Speech Short Term Goals Short Term Goals Short Term Goals 1) Patient will complete memory tasks related to her daily needs at 80% or greater with minimal cues. 2) Patient will complete safety awareness tasks related to her daily needs at 80% or greater with minimal cues. 3) Patient will complete problem solving tasks related to her daily needs at 80% or greater with minimal cues. Speech Repairer Recreational Vehicle Goals Repairer Recreational Vehicle Goals Patient will improve cognitive-communication tasks in order to require minimal assist with daily needs. Speech-Plan Patient/Family Goals Patient/Family Goals: Patient plans on returning to her home where she lives with her . Treatment Plan Speech Therapy Treatment Plan: Continue Plan of Care Treatment Duration: Dec 31, 2019 Frequency: 4 times per week (Patient will receive skilled ST 4-5x per week) Estimated Hrs Per Day: Other Rehab Potential: Good Barriers to Learning: Patient's recent illness, age Pt/Family Agrees to Plan: Yes Safety Risks/Education Teaching Recipient: Patient Teaching Methods: Demonstration, Discussion Response to Teaching: Verbalize Understanding, Return Demonstration Education Topics Provided: Continued safety within her room, communication of wants/needs Time Speech Therapy Time In: 09:00 Speech Therapy Time Out: 09:30 Total Billed Time: 30 Billed Treatment Time 1, ASHVIN Price Jan 11, 2020 10:25
--- NOTE | 2020-01-11 11:56 | Physical Therapy Daily Note ---
PT Daily Note-Current Subjective Pt laying Supine in bed upon arrival. Pt agrees to PT. Pain Numeric Pain Scale: 3 Location: Left Location Body Site: Knee Pain Description: Ache Mental Status Patient Orientation: Person, Place, Situation Attachments: Oxygen (2L) Transfers SCALE: Activities may be completed with or without assistive devices. 2-Xogqgkmkol-pcqkrcz completes the activity by him/herself with no assistance from a helper. 5-Set-up or Clean-up Assistance-helper sets up or cleans up; patient completes activity. [place] assists only prior to or following the activity. 4-Supervision or Touching Assistance-helper provides verbal cues and/or touching/steadying and/or contact guard assistance as patient completes activity. Assistance may be provided throughout the activity or intermittently. 3-Partial/Moderate Assistance-helper does LESS THAN HALF the effort. [place] lifts, holds or supports trunk or limbs, but provides less than half the effort. 2-Substantial/Maximal Assistance-helper does MORE THAN HALF the effort. [place] lifts or holds trunk or limbs and provides more than half the effort. 7-Yxjsiimrs-qpvdjq does ALL the effort. Patient does none of the effort to complete the activity. Or, the assistance of 2 or more helpers is required for the patient to complete the activity. If activity was not attempted, code reason: 7-Patient Refused. 9-Not Applicable-not attempted and the patient did not perform the activity before the current illness, exacerbation or injury. 10-Not Attempted due to Environmental Limitations-(lack of equipment, weather restraints, etc.). 88-Not Attempted due to Medical Conditions or Safety Concerns. Lying to Sitting/Side of Bed(Q: 5 Weight Bearing Full Weight Bearing Full Weight Bearing Exercises Supine Ex: Ankle pumps, Quad Set, Glut sets, Heel Slides, Straight leg raise, H ip abd/add Supine Reps: 15 Treatments Completes Supine Ex with a couple short RB. Pt and PRINCIPAL DATA ARCHITECT discuss pt ed items including proper positioning for elevation of knees due to swelling as well as sitting up as much as possible for proper breathing. Discussion of continued movement to promote healing and decrease swelling. Pt takes med from Nurse to end tx. All needs met, call light in hand. Assessment Current Status: Good Progress Pt continues to improve ROM and strength during tx. PT Short Term Goals Short Term Goals Time Frame: Jan 06, 2020 Roll Left & Right: 6 Sit to lyin Lying to sitting on side of be: 6 Sit to stand: 4 Chair/wpa-wm-geuga transfer: 4 Toilet transfer: 4 Walk 10 feet: 4 Walk 50 feet with two turns: 4 PT Retirement Goals Retirement Goals PT Plasterer Spray Gun Goals Time Frame: Jan 13, 2020 Roll Left & Right (QC): 6 Sit to Lying (QC): 6 Lying-Sitting on Side/Bed(QC): 6 Sit to Stand (QC): 6 Chair/Doi-tm-Temhe Xfer(QC): 6 Toilet Transfer (QC): 5 Car Transfer (QC): 5 Does the Patient Walk: Yes Walk 10 feet (QC): 5 Walk 50ft with 2 Turns (QC): 5 Walk 150 ft (QC): 5 Walking 10ft on Uneven Surface: 5 1 Step (curb) (QC): 4 4 Steps (QC): 4 12 Steps (QC): 88 Picking up an Object (QC): 4 Does the Pt use WC or Scooter?: Yes Wheel 50 feet with 2 turns (QC: 6 Type: Manual Wheel 150 feet: 6 Type: Manual PT Plan Problem List Problem List: Activity Tolerance Treatment/Plan Treatment Plan: Continue Plan of Care Treatment Plan: Bed Mobility, Education, Functional Activity Shahab, Functional Strength, Group Therapy, Gait, Safety, Therapeutic Exercise, Transfers Treatment Duration: Jan 20, 2020 Frequency: Modified Program (IRF) (21/09) Estimated Hrs Per Day: 1.5 hours per day Patient and/or Family Agrees t: Yes Safety Risks/Education Patient Education: Correct Positioning, Safety Issues Teaching Recipient: Patient Teaching Methods: Discussion Response to Teaching: Verbalize Understanding Time/GCodes Time In: 1100 Time Out: 1145 Total Billed Treatment Time: 45 Total Billed Treatment 1, EX (20m) & FA x2 (25m) BEN CEDEÑO PRINCIPAL DATA ARCHITECT Jan 11, 2020 11:56
[2020-01-11] MEDS ORDERED: FUROSEMIDE 40 MG/4 ML INJ (LASIX) IVP NR (12:45)
[2020-01-11] MEDS ORDERED: KCL 20 MEQ TAB (K-DUR) PO NR (12:45)
[2020-01-11] MEDS ORDERED: RT-ALBUTEROL/IPRATROPIUM 3 ML (DUONEB) VIAL INH PRN (12:45)
--- NOTE | 2020-01-11 13:03 | Diagnostic Imaging Report ---
INDICATION: Rales. TIME OF EXAM: 12:34 p.m. COMPARISON: Correlation is made with prior chest from 01/04/2020. FINDINGS: Heart is enlarged but stable. Patchy airspace infiltrates in bilateral upper and bilateral lower lobes persist and are similar to perhaps slightly increased, particularly in the right base. There is central congestion present. No significant effusion is seen. There is no pneumothorax. IMPRESSION: Increasing patchy bilateral pulmonary infiltrates when compared with examination from 01/04/2020. Dictated by: Dictated on workstation # [id number]
--- NOTE | 2020-01-11 13:09 | Occupational Ther Daily Note ---
OT Current Status-Daily Note Subjective No pain reported. Appearance Pt. in bathroom when OT entered room. Pt. using toilet. Agrees to shower after toileting task. Mental Status/Objective Patient Orientation: Person, Place Attachments: IV, Oxygen ADL-Treatment Therapy Code Descriptions/Definitions Functional [place] Measure: 0=Not Assessed/NA 4=Minimal Assistance 1=Total Assistance 5=Supervision or Setup 2=Maximal Assistance 6=Modified [place] 3=Moderate Assistance 7=Complete IndependenceSCALE: Activities may be completed with or without assistive devices. 9-Vkirfaybfz-fsheoci completes the activity by him/herself with no assistance from a helper. 5-Set-up or Clean-up Assistance-helper sets up or cleans up; patient completes activity. [place] assists only prior to or following the activity. 4-Supervision or Touching Assistance-helper provides verbal cues and/or touching/steadying and/or contact guard assistance as patient completes activity. Assistance may be provided throughout the activity or intermittently. 3-Partial/Moderate Assistance-helper does LESS THAN HALF the effort. [place] lifts, holds or supports trunk or limbs, but provides less than half the effort. 2-Substantial/Maximal Assistance-helper does MORE THAN HALF the effort. [place] lifts or holds trunk or limbs and provides more than half the effort. 5-Ufmxhmnky-gjdpdr does ALL the effort. Patient does none of the effort to complete the activity. Or, the assistance of 2 or more helpers is required for the patient to complete the activity. If activity was not attempted, code reason: 7-Patient Refused. 9-Not Applicable-not attempted and the patient did not perform the activity befo re the current illness, exacerbation or injury. 10-Not Attempted due to Environmental Limitations-(lack of equipment, weather re straints, etc.). 88-Not Attempted due to Medical Conditions or Safety Concerns. Oral Hygiene (QC): 5 (Set up at sink seated.) Shower/Bathe Self (QC): 4 (SBA to shower. Pt. able to bathe all parts.) Upper Body Dressing (QC): 3 (Min assist to adjust shirt after she donned it.) Lower Body Dressing (QC): 4 (SBA with use of AE.) On/Off Footwear: 3 (Min assist with use of AE.) Toileting Hygiene (QC): 4 Toilet Transfer (QC): 4 Other Treatment After showering, pt. ambulated with walker and CGA to sink area. She sat in a chair to brush teeth, blow dry and brush hair, and apply face cream. She ambulated to bed and transferred with SBA after this. All needs met. Education OT Patient Education: Correct positioning, Modified ADL techniques, Progress toward Goal/Update tx plan, Purpose of tx/functional activities, Reviewed precautions, Rehab process, Transfer techniques, Use of adapted equipment Teaching Recipient: Patient Teaching Methods: Demonstration, Discussion Response to Teaching: Verbalize Understanding, Return Demonstration OT Short Term Goals Short Term Goals Time Frame: Jan 06, 2020 Eatin Oral hygiene: 4 Toileting hygiene: 3 Shower/bathe self: 3 Upper body dressin Lower body dressin Putting on/taking off footwear: 4 OT Care Home Goals Care Home Goals Time Frame: Jan 13, 2020 Eating (QC): 6 Oral Hygiene (QC): 6 Toileting Hygiene (QC): 6 Shower/Bathe Self (QC): 4 Upper Body Dressing (QC): 4 Lower Body Dressing (QC): 4 On/Off Footwear (QC): 6 Additional Goals: 1-Demonstrate ADL Tasks, 2-Verbalize Understanding, 3- ImproveStrength/Shahab 1=Demonstrate adherence to instructed precautions during ADL tasks. 2=Patient will verbalize/demonstrate understanding of assistive devices/modifications for ADL. 3=Patient will improve strength/tolerance for activity to enable patient to perform ADL's. OT Education/Plan Problem List/Assessment Assessment: Decreased Activ Tolerance, Impaired I ADL's, Impaired Self-Care Sk ills Discharge Recommendations Plan/Recommendations: Continue POC Therapy Discharge Recommendati: Home & Family, Post Acute OT Equpiment Recommendations-D/C: Hip Kit Treatment Plan/Plan of Care Treatment,Training & Education: Yes Patient would benefit from OT for education, treatment and training to promote independence in ADL's, mobility, safety and/or upper extremity function for ADL's. Plan of Care: ADL Retraining, Functional Mobility, UE Funct Exercise/Act Treatment Duration: Jan 13, 2020 Frequency: At least 5 of 7 days/Wk (IRF) Estimated Hrs Per Day: 1.5 hours per day Agreement: Yes Rehab Potential: Good Time/GCodes Start Time: 09:30 Stop Time: 10:45 Total Time Billed (hr/min): 75 Billed Treatment Time 1, ADL x 5 LIZZY ADAMS OT Jan 11, 2020 13:09
--- NOTE | 2020-01-11 15:19 | Physical Therapy Daily Note ---
PT Daily Note-Current Subjective Pt laying Supine in bed upon arrival. Pt agrees to PT but declines amb. due to receiving Lasix and does not want to be far from BR. Pain Location: No Pain Reported Mental Status Patient Orientation: Person, Place, Situation Attachments: Oxygen Transfers SCALE: Activities may be completed with or without assistive devices. 2-Hmixoudlps-vsiifdu completes the activity by him/herself with no assistance from a helper. 5-Set-up or Clean-up Assistance-helper sets up or cleans up; patient completes activity. [place] assists only prior to or following the activity. 4-Supervision or Touching Assistance-helper provides verbal cues and/or touching/steadying and/or contact guard assistance as patient completes activity. Assistance may be provided throughout the activity or intermittently. 3-Partial/Moderate Assistance-helper does LESS THAN HALF the effort. [place] lifts, holds or supports trunk or limbs, but provides less than half the effort. 2-Substantial/Maximal Assistance-helper does MORE THAN HALF the effort. [place] lifts or holds trunk or limbs and provides more than half the effort. 5-Flpgberhw-vbflfj does ALL the effort. Patient does none of the effort to complete the activity. Or, the assistance of 2 or more helpers is required for the patient to complete the activity. If activity was not attempted, code reason: 7-Patient Refused. 9-Not Applicable-not attempted and the patient did not perform the activity before the current illness, exacerbation or injury. 10-Not Attempted due to Environmental Limitations-(lack of equipment, weather restraints, etc.). 88-Not Attempted due to Medical Conditions or Safety Concerns. Weight Bearing Full Weight Bearing Full Weight Bearing Exercises Supine Ex: Bridging, Heel Slides, Straight leg raise, Hip abd/add Supine Reps: 15 Treatments Pt reviews written HEP. Pt declines need to use BR, reviewed positioning and elevated B LE on pillows. Pt is able to scoot up in bed as well as lift B LE for positioning with pillow. All needs met, call light in hand. Assessment Current Status: Good Progress Pt is a little nervous due to increased BR use due to Lasix. PT Short Term Goals Short Term Goals Time Frame: Jan 06, 2020 Roll Left & Right: 6 Sit to lyin Lying to sitting on side of be: 6 Sit to stand: 4 Chair/lxi-ej-fekqm transfer: 4 Toilet transfer: 4 Walk 10 feet: 4 Walk 50 feet with two turns: 4 PT Care Home Goals Track Liner Operator Goals PT Care Home Goals Time Frame: Jan 13, 2020 Roll Left & Right (QC): 6 Sit to Lying (QC): 6 Lying-Sitting on Side/Bed(QC): 6 Sit to Stand (QC): 6 Chair/Zbt-ux-Afinv Xfer(QC): 6 Toilet Transfer (QC): 5 Car Transfer (QC): 5 Does the Patient Walk: Yes Walk 10 feet (QC): 5 Walk 50ft with 2 Turns (QC): 5 Walk 150 ft (QC): 5 Walking 10ft on Uneven Surface: 5 1 Step (curb) (QC): 4 4 Steps (QC): 4 12 Steps (QC): 88 Picking up an Object (QC): 4 Does the Pt use WC or Scooter?: Yes Wheel 50 feet with 2 turns (QC: 6 Type: Manual Wheel 150 feet: 6 Type: Manual PT Plan Treatment/Plan Treatment Plan: Continue Plan of Care Treatment Plan: Bed Mobility, Education, Functional Activity Shahab, Functional Strength, Group Therapy, Gait, Safety, Therapeutic Exercise, Transfers Treatment Duration: Jan 20, 2020 Frequency: Modified Program (IRF) (21/09) Estimated Hrs Per Day: 1.5 hours per day Patient and/or Family Agrees t: Yes Safety Risks/Education Patient Education: Issued Written HEP, Correct Positioning, Safety Issues Teaching Recipient: Patient Teaching Methods: Discussion Response to Teaching: Verbalize Understanding Time/GCodes Time In: 1430 Time Out: 1500 Total Billed Treatment Time: 30 Total Billed Treatment 1, FA x2 (30m) BEN CEDEÑO PTA Jan 11, 2020 15:19
[2020-01-11 16:30] VITALS: BP 126/83
[2020-01-11] MEDS: MELATONIN 3 MG TABLET PO PRN (20:39)
[2020-01-12 05:25] VITALS: BP 178/78
--- NOTE | 2020-01-12 05:39 | Pulmonary Progress Note ---
Subjective Time Seen by a Provider: 05:37 Sepsis Event Evaluation Height, Weight, BMI Height: 5'1.00" Weight: 148lbs. 0.0oz. [id number]; 24.07 BMI Method: Exam Exam Vital Signs Date Time Temp Pulse Resp B/P (MAP) Pulse Ox O2 Delivery O2 Flow Rate FiO2 01/12/20 05:25 36.8 85 17 178/78 (111) 94 Nasal Cannula 1.00 01/12/20 01:00 80 01/11/20 20:00 High Flow N/C 2.00 01/11/20 19:27 Nasal Cannula 1.00 01/11/20 19:00 80 01/11/20 16:30 36.8 81 20 126/83 (97) 94 Nasal Cannula 1.00 01/11/20 12:50 73 01/11/20 09:00 94 Nasal Cannula 1.00 01/11/20 08:00 80 134/60 (84) 94 Nasal Cannula 1.00 01/11/20 06:37 86 I & O 01/12/20 07:00 Intake Total 270 ml Balance 270 ml Height & Weight Height: 5'1.00" Weight: 148lbs. 0.0oz. [id number]; 24.07 BMI Method: General Appearance: No Apparent Distress, WD/WN, Chronically ill, Other (frail) HEENT: PERRL/EOMI, Normal ENT Inspection, Pharynx Normal Neck: Full Range of Motion, Normal Inspection, Non Tender, Supple, Carotid Bruit Respiratory: Chest Non Tender, No Accessory Muscle Use, No Respiratory Distress, Decreased Breath Sounds, Rales Cardiovascular: Regular Rate, Rhythm, No Edema, No Gallop, No JVD, No Murmur, Normal Peripheral Pulses Capillary Refill: Less Than 3 Seconds Gastrointestinal: normal bowel sounds, non tender, soft Extremity: Normal Capillary Refill, Normal Inspection, Normal Range of Motion, Non Tender, No Calf Tenderness, No Pedal Edema Neurologic/Psychiatric: Alert, Oriented x3, No Motor/Sensory Deficits, Normal Mood/Affect, head esthetician II-XII Norm as Tested, Abnormal Gait, Motor Weakness (weakness of all extremities 3/5) Skin: Normal Color, Warm/Dry Lymphatic: No Adenopathy Results Lab Laboratory Tests 01/11/20 05:20 Assessment/Plan Assessment/Plan PNA r/o PE with hypoxia -Oxygen -Start Zosyn -Check UA and sputum culture -Check CTA chest s/p syncope probably secondary to dehydration and vasovagal -IVF Metabolic lactic acidosis secondary to dehydration and worsening PNA - -Restart Abx -Give a liter bolus of LR -Hold Lasix s/p COVID 19 EVELYN CRAWFORD DO Jan 12, 2020 05:39
[2020-01-12 05:43] LABS: BASOPHILS % (AUTO) 0 % (0-10); EOSINOPHILS # (AUTO) 0.6 10^3/uL (0.0-0.3); EOSINOPHILS % (AUTO) 8 % (0-10); HEMATOCRIT 27 % (35-52); HEMOGLOBIN 8.1 g/dL (11.5-16.0); LYMPHOCYTES # (AUTO) 2.1 10^3/uL (1.0-4.0); LYMPHOCYTES % (AUTO) 29 % (12-44); MEAN CORPUSCULAR HEMOGLOBIN 29 pg (25-34); MEAN CORPUSCULAR HGB CONC 30 g/dL (32-36); MEAN CORPUSCULAR VOLUME 96 fL (80-99); MEAN PLATELET VOLUME 9.7 fL (9.0-12.2); MONOCYTES # (AUTO) 0.7 10^3/uL (0.0-1.0); MONOCYTES % (AUTO) 10 % (0-12); NEUTROPHILS # (AUTO) 3.8 10^3/uL (1.8-7.8); NEUTROPHILS % (AUTO) 52 % (42-75); PLATELET COUNT 285 10^3/uL (130-400); WHITE BLOOD COUNT 7.3 10^3/uL (4.3-11.0)
[2020-01-12 05:52] LABS: ALBUMIN 2.6 GM/DL (3.2-4.5); CHLORIDE 98 MMOL/L (98-107); POTASSIUM 3.6 MMOL/L (3.6-5.0); SODIUM 138 MMOL/L (135-145)
[2020-01-12 05:53] LABS: CALCIUM 8.4 MG/DL (8.5-10.1)
[2020-01-12 05:55] LABS: GLUCOSE 116 MG/DL (70-105); TOTAL PROTEIN 5.3 GM/DL (6.4-8.2)
[2020-01-12 05:56] LABS: BILIRUBIN,TOTAL 0.9 MG/DL (0.1-1.0); CARBON DIOXIDE 31 MMOL/L (21-32)
[2020-01-12 05:58] LABS: ALKALINE PHOSPHATASE 66 U/L (40-136); CREATININE SERUM 0.77 MG/DL (0.60-1.30); GFR ESTIMATED > 60
[2020-01-12 06:00] LABS: BUN/CREATININE RATIO 32
[2020-01-12 06:01] LABS: ALANINE AMINOTRANSFERASE 39 U/L (0-55); MAGNESIUM 1.5 MG/DL (1.6-2.4)
[2020-01-12] MEDS: SUCRALFATE 1 GM (CARAFATE) TAB PO SCH ×4 (06:20→20:48)
[2020-01-12] MEDS: MULTIVIT W/MINERALS TAB (THERAGRAN M) PO SCH (06:20)
[2020-01-12] MEDS: CATHETER FLUSH 10 ML SYR IV SCH ×3 (06:21→20:50)
[2020-01-12 06:23] VITALS: BP 159/73
[2020-01-12] MEDS: IRON SUCROSE 200 MG/10 ML (VENOFER) VIAL IV SCH (07:09)
[2020-01-12] MEDS: PANTOPRAZOLE 40 MG (PROTONIX) TAB PO SCH ×2 (07:09→20:48)
[2020-01-12] MEDS: LACTOBACILLUS ACIDOPHILUS (PROBIOTIC) CAPSULE PO SCH ×3 (07:09→15:25)
[2020-01-12] MEDS: ATENOLOL 25 MG (TENORMIN) TAB PO SCH (07:09)
[2020-01-12] MEDS: VITAMIN D3 10 MCG (400 UNITS) TABLET PO SCH (07:14)
[2020-01-12] MEDS: SENNA W/DOCUSATE (SENOKOT S) TABLET PO SCH ×2 (07:19→19:38)
[2020-01-12] MEDS: DOCUSATE SODIUM 100 MG (COLACE) CAP PO SCH ×2 (07:19→19:37)
[2020-01-12] MEDS: polyethylene glycoL POWDER 17 GM (MIRALAX) PACK PO SCH ×2 (07:19→19:37)
[2020-01-12] MEDS: RT-ALBUTEROL/IPRATROPIUM 3 ML (DUONEB) VIAL INH SCH ×3 (07:31→20:10)
--- NOTE | 2020-01-12 08:44 | PM&R Progress Note ---
Subjective HPI/CC On Admission Date Seen by Provider: Jan 12, 2020 Time Seen by Provider: 08:45 Subjective/Events-last exam 01/12/20: Pt remains coarse on lung sounds O2 was off and was off for a couple of hours until requiring oxygen supplementation because her oxygen level was 84% Discharge is planned for Friday Decreased endurance is mostly the problem Chest X-ray reviewed Lasix given yesterday Hgb 8.1 Needs scopes because she is losing blood Will update Dr. Hector 01/11/20: Pt doing okay but lungs sound a bit more coarse Hgb: 8.1 Dr. Crockett consulted Cough continues, cough drops ordered Bowels are moving 01/10/20: Pt doing much better Right knee edema noted Hgb 7.8 still receiving IV iron infusions so will consult Dr. Morris Overall doing pretty well except for hypoxia on exertion 01/09/20: Dyspnea on exertion only now SBP 130's now Holding laxatives due to loose stools Stand by assist now 01/08/20: Patient doing very well Reading a new book No pain BM+ 2L/min now 01/07/20: Improved BM+ No pain reported 01/06/20: Pt doing very well today Continuing to wean off oxygen Crackles in the lungs lower lobes compel me to have her aggressively use the acapella and the IS Bowels are moving pretty well Denies any significant pain No SOB 01/05/20: Pt is having a few nose bleeds, we are humidfying the oxygen and using saline nasal spray She had a BM today Weaning down oxygen now to 2 liters and she was 6 liters when she was admitted Very much improved Working on stamina 01/04/20: Pt doing very well Less dyspnea on exertion Eating better WBC down to 13.6 Hgb stable at 8.5 Midline will be placed to finish off iron infusions Discontinued catheter and she is voiding well Overall very improved 01/03/20: White blood cell count is down On 4 liters now 91% Atenolol was discontinued per cardiology EKG this morning due to irregular heartbeat brought in rib crib last night and she enjoyed that Cleared out her nose because it was dried out from oxygen Got up to go to the bathroom on the commode today Will DC catheter 01/02/20: BM yesterday No blood in BM Sodium level is 134 Zosyn still maintained Hgb 8.6 Weaning O2 to 4L/min today Dr Hinojosa and Dr Hector saw patient today 01/01/20: 2 units of blood ordered for hgb 6.0 Dr Hinojosa updated me on the hemoccult positive stools so I spoke to Dr Hector and he will consult in case endo needed but she is very fragile and unsure she can undergo this procedure at this time but if necessary will require it PPI and Carafate ordered Eating a bit better, [employer] milkshake brought in Pt had some significant problems with hypotension and near syncope episode Pt has not been eating and drinking Lactic acid elevated at 3.5 Dr. Dolan saw her in consultation and recommended IV antibiotics and IV fluids WBC 21.9 Sodium level 129 Pt very fragile Desaturated to 83% when she got out of bed Conferred with RN Checked meds and labs Reviewed therapy notes Review of Systems General: Fatigue, Malaise Pulmonary: Dyspnea, Cough Focused Exam Lactate Level 01/12/20 05:25: Lactic Acid Level 1.00 Lactic Acid Level Objective Exam Vital Signs Vital Signs Date Time Temp Pulse Resp B/P (MAP) Pulse Ox O2 Delivery O2 Flow Rate FiO2 01/13/20 01:00 90 01/12/20 20:23 97 Nasal Cannula 1.00 01/12/20 17:29 36.8 18 158/68 (98) Capillary Refill : Less Than 3 Seconds General Appearance: No Apparent Distress, WD/WN, Chronically ill, Other (frail) HEENT: PERRL/EOMI, Normal ENT Inspection, Pharynx Normal Neck: Full Range of Motion, Normal Inspection, Non Tender, Supple, Carotid Bruit Respiratory: Chest Non Tender, No Accessory Muscle Use, No Respiratory Distress, Decreased Breath Sounds, Rales Cardiovascular: Regular Rate, Rhythm, No Edema, No Gallop, No JVD, No Murmur, Normal Peripheral Pulses Gastrointestinal: Normal Bowel Sounds, No Organomegaly, No Pulsatile Mass, Non Tender, Soft Back: Normal Inspection, No CVA Tenderness, No Vertebral Tenderness Extremity: Normal Capillary Refill, Normal Inspection, Normal Range of Motion, Non Tender, No Calf Tenderness, No Pedal Edema Neurologic/Psychiatric: Alert, Oriented x3, No Motor/Sensory Deficits, Normal Mood/Affect, catcher filter tip II-XII Norm as Tested, Abnormal Gait, Motor Weakness (weakness of all extremities 3/5) Skin: Normal Color, Warm/Dry Lymphatic: No Adenopathy Results/Procedures Lab Laboratory Tests 01/12/20 05:25 Patient resulted labs reviewed. FIM Transfers Therapy Code Descriptions/Definitions Functional [place] Measure: 0=Not Assessed/NA 4=Minimal Assistance 1=Total Assistance 5=Supervision or Setup 2=Maximal Assistance 6=Modified [place] 3=Moderate Assistance 7=Complete IndependenceSCALE: Activities may be completed with or without assistive devices. 9-Rmyzayhqvr-llwinmm completes the activity by him/herself with no assistance from a helper. 5-Set-up or Clean-up Assistance-helper sets up or cleans up; patient completes activity. [place] assists only prior to or following the activity. 4-Supervision or Touching Assistance-helper provides verbal cues and/or touching/steadying and/or contact guard assistance as patient completes ac tivity. Assistance may be provided throughout the activity or intermittently. 3-Partial/Moderate Assistance-helper does LESS THAN HALF the effort. [place] lifts, holds or supports trunk or limbs, but provides less than half the effort. 2-Substantial/Maximal Assistance-helper does MORE THAN HALF the effort. [place] lifts or holds trunk or limbs and provides more than half the effort. 3-Rzvxyqnbh-epdvcb does ALL the effort. Patient does none of the effort to complete the activity. Or, the assistance of 2 or more helpers is required for the patient to complete the activity. If activity was not attempted, code reason: 7-Patient Refused. 9-Not Applicable-not attempted and the patient did not perform the activity before the current illness, exacerbation or injury. 10-Not Attempted due to Environmental Limitations-(lack of equipment, weather restraints, etc.). 88-Not Attempted due to Medical Conditions or Safety Concerns. Roll Left to Right (QC): 6 Sit to Lying (QC): 3 Sit to Stand (QC): 6 Chair/Wkn-yt-Swvmd Xfer(QC): 6 Car Transfer (QC): 6 Gait Training Does the Patient Walk?: Yes Distance: 100' Walk 10 feet (QC): 6 Walk 50 ft with 2 Turns(QC): 6 Walk 150 ft (QC): 88 Walking 10ft/uneven surface-QC: 88 Gait Persons Needed: 1 Gait Assistive Device: FWW Wheelchair Training Does the Pt Use a Wheelchair?: Yes Distance: 20' Wheel 50 ft with 2 turns (QC): 5 Wheel 150 ft (QC): 88 Type of Wheelchair: Manual Stair Training 1 Step (curb) (QC): 88 4 Steps (QC): 88 12 Steps (QC): 88 Balance Picking up an Object (QC): 88 ADL-Treatment Eating (QC): 4 (cues) Oral Hygiene (QC): 5 (Set up at sink seated.) Bathing Location: L Arm, R Arm, L Upper Leg, R Upper Leg, L Lower Leg (including foot), R Lower Leg (including foot), Chest, Abdomen, Perineal Area Shower/Bathe Self (QC): 4 (SBA to shower. Pt. able to bathe all parts.) Upper Body Dressing (QC): 3 (Min assist to adjust shirt after she donned it.) Lower Body Dressing (QC): 4 (SBA with use of AE.) On/Off Footwear (QC): 3 (Min assist with use of AE.) Toileting Hygiene (QC): 4 Toilet Transfer (QC): 4 Assessment/Plan Assessment and Plan Assess & Plan/Chief Complaint Assessment: Debility from COVID 19 PNA 12/13/19 admitted to [facility] O2 dependence new onset HTN HLP Advanced age GERD Hemoccult + stools Anemia requiring 2 units of blood 01/01/20 Plan: IRF protocol Monitor O2 Check labs 12/31/19: IVF IV abx empiric Volume depletion with dehydration causing lactic acidosis not sepsis 01/01/20: HLIVF to minimize volume overload due to recent COVID and recs 2 units of blood ordered today PPI and Carafate and Dr Hector consult but too fragile for EGD at this time but if necessary will be required 01/02/20: Monitor labs Abx Increase po fluids Eating better with outside food 01/03/20: Monitor O2 DC catheter Continue abx but change to PO Check CXR Monitor HR 01/04/20: Monitor O2 Increase activity Venofer PO abx 01/05/20: Continue to wean O2 Nosebleed management from O2 01/06/20: Wean O2 IS use Monitor BP 01/07/20: Improved overall Wean O2 Dramatic response to therapy 01/08/20: Dramatic improvement Weaning O2 01/09/20: Wean O2 Hold laxatives Monitor closely 01/10/20: Hematology consult for anemia Hemoglobin 7.8 today Monitor closely 01/11/20: CXR noted Dr Dolan to review case due to coarseness lungs 01/12/20: Needs endoscopies at some point IV iron infusions completed Monitor lung status (1) COVID-19 Status: Acute (2) GERD (gastroesophageal reflux disease) (3) Hypertension (4) Hyperlipemia (5) Advanced age (6) Supplemental oxygen dependent (7) PNA (pneumonia) Status: Acute (8) Acute respiratory failure due to COVID-19 Status: Acute CORI MOODY DO Jan 12, 2020 08:43
--- NOTE | 2020-01-12 10:35 | Speech Therapy Daily Note ---
Speech Daily Progress Note Subjective Date Seen by Provider: Jan 12, 2020 Time Seen by Provider: 00:30 The patient was resting in her bed when I entered her room. She was happy to not be on the O2. Objective Patient completed a word chain at 90% with minimal cues, demo the ability to follow verbal directions. Assessment Assessment Current Status: Good Progress Treatment Plan Continue Plan of Care Speech Short Term Goals Short Term Goals Short Term Goals 1) Patient will complete memory tasks related to her daily needs at 80% or greater with minimal cues. 2) Patient will complete safety awareness tasks related to her daily needs at 80% or greater with minimal cues. 3) Patient will complete problem solving tasks related to her daily needs at 80% or greater with minimal cues. Speech [facility] Goals [facility] Account Liaison Goals Patient will improve cognitive-communication tasks in order to require minimal assist with daily needs. Speech-Plan Patient/Family Goals Patient/Family Goals: Patient plans on returning to her home upon hospital discharge. She lives with her and will have other family support as well. Treatment Plan Speech Therapy Treatment Plan: Continue Plan of Care Treatment Duration: Dec 31, 2019 Frequency: 4 times per week (Patient will receive skilled ST 4-5x per week) Estimated Hrs Per Day: Other Rehab Potential: Good Barriers to Learning: Patient's recent serious illness, age Pt/Family Agrees to Plan: Yes Safety Risks/Education Teaching Recipient: Patient Teaching Methods: Demonstration, Discussion Response to Teaching: Verbalize Understanding, Return Demonstration Education Topics Provided: Continued safety while in the ARU and upon her return home. Time Speech Therapy Time In: 09:00 Speech Therapy Time Out: 09:30 Total Billed Time: 30 Billed Treatment Time 1, ASHIVN Price Jan 12, 2020 10:35
--- NOTE | 2020-01-12 11:00 | NUR ---
C/O OF SOA. O2 SAT 84 % ON R/A. DEEP BREATHING AND RELAXING ENCOURAGED. O2 SAT UP TO 88% ON R/A. O2 RE-APPLIED AT 1 L PER MIN. O2 SAT 92 % ON 1 L O2 PER N/C. PT. STATES FEELING BETTER AFTER A FEW MINUTES.
--- NOTE | 2020-01-12 12:11 | Physical Therapy Daily Note ---
PT Daily Note-Current Subjective Pt sitting up in bed upon arrival. Pt agrees to PT. Pain Location: No Pain Reported Mental Status Patient Orientation: Person, Place, Situation Attachments: Oxygen (1L) Transfers SCALE: Activities may be completed with or without assistive devices. 1-Mgkdqzpipz-lqmumko completes the activity by him/herself with no assistance from a helper. 5-Set-up or Clean-up Assistance-helper sets up or cleans up; patient completes activity. [place] assists only prior to or following the activity. 4-Supervision or Touching Assistance-helper provides verbal cues and/or touching/steadying and/or contact guard assistance as patient completes activity. Assistance may be provided throughout the activity or intermittently. 3-Partial/Moderate Assistance-helper does LESS THAN HALF the effort. [place] lifts, holds or supports trunk or limbs, but provides less than half the effort. 2-Substantial/Maximal Assistance-helper does MORE THAN HALF the effort. [place] lifts or holds trunk or limbs and provides more than half the effort. 8-Odjnbidsp-rmoiaj does ALL the effort. Patient does none of the effort to complete the activity. Or, the assistance of 2 or more helpers is required for the patient to complete the activity. If activity was not attempted, code reason: 7-Patient Refused. 9-Not Applicable-not attempted and the patient did not perform the activity before the current illness, exacerbation or injury. 10-Not Attempted due to Environmental Limitations-(lack of equipment, weather restraints, etc.). 88-Not Attempted due to Medical Conditions or Safety Concerns. Weight Bearing Full Weight Bearing Full Weight Bearing Gait Training Does the Patient Walk?: Yes Distance: 75' x2 Walk 10 feet (QC): 5 Walk 50 ft with 2 Turns(QC): 5 Walk 150 ft (QC): 5 Gait Persons Needed: 1 Gait Assistive Device: FWW Exercises NuStep Minutes: 14 NuStep Workload: 5 Treatments Pt transfers to standing and amb. in hallway. After short RB, Pt uses NuStep for 14m at WL 5. Pt completes Supine Ex as well as using BR before end of tx. Pt resting in chair to eat lunch with all needs met, call light in hand. Assessment Current Status: Good Progress Pt is gaining strength and activity tolerance but still requires O2 at 1 L so O2 will stay above 90%. PT Short Term Goals Short Term Goals Time Frame: Jan 06, 2020 Roll Left & Right: 6 Sit to lyin Lying to sitting on side of be: 6 Sit to stand: 4 Chair/qnb-ea-hdgdd transfer: 4 Toilet transfer: 4 Walk 10 feet: 4 Walk 50 feet with two turns: 4 PT Fci Goals Fci Goals PT Fci Goals Time Frame: Jan 13, 2020 Roll Left & Right (QC): 6 Sit to Lying (QC): 6 Lying-Sitting on Side/Bed(QC): 6 Sit to Stand (QC): 6 Chair/Jpq-fg-Kdjjx Xfer(QC): 6 Toilet Transfer (QC): 5 Car Transfer (QC): 5 Does the Patient Walk: Yes Walk 10 feet (QC): 5 Walk 50ft with 2 Turns (QC): 5 Walk 150 ft (QC): 5 Walking 10ft on Uneven Surface: 5 1 Step (curb) (QC): 4 4 Steps (QC): 4 12 Steps (QC): 88 Picking up an Object (QC): 4 Does the Pt use WC or Scooter?: Yes Wheel 50 feet with 2 turns (QC: 6 Type: Manual Wheel 150 feet: 6 Type: Manual PT Plan Problem List Problem List: Activity Tolerance Treatment/Plan Treatment Plan: Continue Plan of Care Treatment Plan: Bed Mobility, Education, Functional Activity Shahab, Functional Strength, Group Therapy, Gait, Safety, Therapeutic Exercise, Transfers Treatment Duration: Jan 20, 2020 Frequency: Modified Program (IRF) (21/09) Estimated Hrs Per Day: 1.5 hours per day Patient and/or Family Agrees t: Yes Time/GCodes Time In: 1100 Time Out: 1200 Total Billed Treatment Time: 60 Total Billed Treatment 1, GT (15m), EX x2 (30m) & FA (15m) BEN CEDEÑO POULTRY PROCESS WORKER Jan 12, 2020 12:11
--- NOTE | 2020-01-12 12:58 | Occupational Ther Daily Note ---
OT Current Status-Daily Note Subjective No pain reported. Appearance Pt. in bed. Agrees to work with OT. Mental Status/Objective Patient Orientation: Person, Place ADL-Treatment Therapy Code Descriptions/Definitions Functional [place] Measure: 0=Not Assessed/NA 4=Minimal Assistance 1=Total Assistance 5=Supervision or Setup 2=Maximal Assistance 6=Modified [place] 3=Moderate Assistance 7=Complete IndependenceSCALE: Activities may be completed with or without assistive devices. 8-Zmfmahgdxo-ubolnel completes the activity by him/herself with no assistance from a helper. 5-Set-up or Clean-up Assistance-helper sets up or cleans up; patient completes activity. [place] assists only prior to or following the activity. 4-Supervision or Touching Assistance-helper provides verbal cues and/or touching/steadying and/or contact guard assistance as patient completes activity. Assistance may be provided throughout the activity or intermittently. 3-Partial/Moderate Assistance-helper does LESS THAN HALF the effort. [place] lifts, holds or supports trunk or limbs, but provides less than half the effort. 2-Substantial/Maximal Assistance-helper does MORE THAN HALF the effort. [place] lifts or holds trunk or limbs and provides more than half the effort. 4-Nojobqdus-hzqmxu does ALL the effort. Patient does none of the effort to complete the activity. Or, the assistance of 2 or more helpers is required for the patient to complete the activity. If activity was not attempted, code reason: 7-Patient Refused. 9-Not Applicable-not attempted and the patient did not perform the activity before the current illness, exacerbation or injury. 10-Not Attempted due to Environmental Limitations-(lack of equipment, weather restraints, etc.). 88-Not Attempted due to Medical Conditions or Safety Concerns. Oral Hygiene (QC): 5 (Set up seated at sink.) Toileting Hygiene (QC): 6 Toilet Transfer (QC): 4 Other Treatment Pt. off her oxygen when OT entered room. She states that it was checked at 97% and removed. Pt. transferred supine-sit with SBA, and ambulated with walker to therapy gym. Sats taken again and at 82%. Pt. put back on 2 L. Sats monitored throughout treatment, which consisted of UE strengthening tasks. Pt. donned 1 lb. wrist weights and completed fine motor activity, as well as completed 6 bilateral UE exercises x 15 reps each x 2 lb. dumbbell. Pt. required frequent rest breaks with each exercise and time to rest in between. Sats taken again with 2 L on, and they were 97%. Oxygen removed to ambulate back to room. Once in room, sats at 84%. Pt. given time to rest and deep breathe, and sats came back to 93%. Pt. transferred to bed and encouraged to have nursing check oxygen again in 10 minutes. She verbalizes understanding. All needs met. Education OT Patient Education: Correct positioning, Exercise program, Modified ADL techniques, Progress toward Goal/Update tx plan, Purpose of tx/functional activities, Reviewed precautions, Rehab process, Transfer techniques Teaching Recipient: Patient Teaching Methods: Demonstration, Discussion Response to Teaching: Verbalize Understanding, Return Demonstration OT Short Term Goals Short Term Goals Time Frame: Jan 06, 2020 Eatin Oral hygiene: 4 Toileting hygiene: 3 Shower/bathe self: 3 Upper body dressin Lower body dressin Putting on/taking off footwear: 4 OT Rn Lpn Cna Goals Group Home Goals Time Frame: Jan 13, 2020 Eating (QC): 6 Oral Hygiene (QC): 6 Toileting Hygiene (QC): 6 Shower/Bathe Self (QC): 4 Upper Body Dressing (QC): 4 Lower Body Dressing (QC): 4 On/Off Footwear (QC): 6 Additional Goals: 1-Demonstrate ADL Tasks, 2-Verbalize Understanding, 3- ImproveStrength/Shahab 1=Demonstrate adherence to instructed precautions during ADL tasks. 2=Patient will verbalize/demonstrate understanding of assistive devices/modifications for ADL. 3=Patient will improve strength/tolerance for activity to enable patient to perform ADL's. OT Education/Plan Problem List/Assessment Assessment: Decreased Activ Tolerance, Impaired I ADL's, Impaired Self-Care Skills Discharge Recommendations Plan/Recommendations: Continue POC Therapy Discharge Recommendati: Home & Family, Post Acute OT Equpiment Recommendations-D/C: Hip Kit Treatment Plan/Plan of Care Treatment,Training & Education: Yes Patient would benefit from OT for education, treatment and training to promote independence in ADL's, mobility, safety and/or upper extremity function for ADL's. Plan of Care: ADL Retraining, Functional Mobility, UE Funct Exercise/Act Treatment Duration: Jan 13, 2020 Frequency: At least 5 of 7 days/Wk (IRF) Estimated Hrs Per Day: 1.5 hours per day Agreement: Yes Rehab Potential: Good Time/GCodes Start Time: 09:30 Stop Time: 10:30 Total Time Billed (hr/min): 60 Billed Treatment Time 1, ADL x 30minutes, FA x 30minutes LIZZY ADAMS OT Jan 12, 2020 12:58
--- NOTE | 2020-01-12 13:05 | Progress Note ---
Standard Progress Note Progress Notes/Assess & Plan Date Seen by a Provider: Jan 12, 2020 Time Seen by a Provider: 13:01 Progress/Assessment & Plan 89-year-old female admitted to rehabilitation unit because of deconditioning and recovering from COVID-19. Found to have significant anemia and received 2 units of PRBC transfusion. Fecal occult blood test positive. Reticulocyte count markedly elevated at more than 200,000. Reviewed peripheral smear which showed increase in polychromatophilic cells consistent with reticulocytes. No schistocytes or spherocytes. Chemistry panel showed liver function studies to be normal especially total bilirubin. LDH minimally elevated. No evidence of hemolysis. Proceed with the endoscopic evaluation when stable from medical standpoint. Monitor hemoglobin level serially and transfuse as needed to maintain hemoglobin more than or equal to 8 g/dL because of her age, pulmonary status etc. Will follow patient with you. Focused Exam Lactate Level 01/12/20 05:25: Lactic Acid Level 1.00 ARCENIO HARPER Jan 12, 2020 13:05
--- NOTE | 2020-01-12 13:06 | Progress Note ---
Subjective Date Seen by a Provider: Jan 12, 2020 Time Seen by a Provider: 13:00 Subjective/Events-last exam doing better from respiratory standpoint. still having slow blood loss anemia. last colonoscopy appears to be greater than 10 yrs ago. Focused Exam Lactate Level 01/12/20 05:25: Lactic Acid Level 1.00 Objective Exam Vital Signs Date Time Temp Pulse Resp B/P (MAP) Pulse Ox O2 Delivery O2 Flow Rate FiO2 01/12/20 09:00 High Flow N/C 1.00 01/12/20 07:32 96 Room Air 01/12/20 06:37 79 01/12/20 06:23 71 159/73 (101) 01/12/20 05:25 36.8 85 17 178/78 (111) 94 Nasal Cannula 1.00 01/12/20 01:00 80 01/11/20 20:00 High Flow N/C 2.00 01/11/20 19:27 Nasal Cannula 1.00 01/11/20 19:00 80 01/11/20 16:30 36.8 81 20 126/83 (97) 94 Nasal Cannula 1.00 I & O 01/12/20 07:00 Intake Total 670 ml Balance 670 ml Capillary Refill : Less Than 3 Seconds General Appearance: No Apparent Distress HEENT: PERRL/EOMI Neck: Full Range of Motion Respiratory: Chest Non Tender, Decreased Breath Sounds Cardiovascular: Regular Rate, Rhythm Gastrointestinal: normal bowel sounds, non tender, soft Extremity: Normal Capillary Refill Neurologic/Psychiatric: Alert, Oriented x3 Skin: Normal Color Lymphatic: No Adenopathy Results Lab Laboratory Tests 01/12/20 05:25: White Blood Count 7.3, Red Blood Count 2.82L, Hemoglobin 8.1L, Hematocrit 27L, Mean Corpuscular Volume 96, Mean Corpuscular Hemoglobin 29, Mean Corpuscular Hemoglobin Concent 30L, Red Cell Distribution Width 16.9H, Platelet Count 285, Mean Platelet Volume 9.7, Immature Granulocyte % (Auto) 2, Neutrophils (%) (Auto) 52, Lymphocytes (%) (Auto) 29, Monocytes (%) (Auto) 10, Eosinophils (%) (Auto) 8, Basophils (%) (Auto) 0, Neutrophils # (Auto) 3.8, Lymphocytes # (Auto) 2.1, Monocytes # (Auto) 0.7, Eosinophils # (Auto) 0.6H, Basophils # (Auto) 0.0, Immature Granulocyte # (Auto) 0.1, Sodium Level 138, Potassium Level 3.6, Chloride Level 98, Carbon Dioxide Level 31, Anion Gap 9, Blood Urea Nitrogen 25H , Creatinine 0.77, Estimat Glomerular Filtration Rate > 60, BUN/Creatinine Ratio 32, Glucose Level 116H, Lactic Acid Level 1.00, Calcium Level 8.4L, Corrected Calcium 9.5, Phosphorus Level 3.0, Magnesium Level 1.5L, Total Bilirubin 0.9, Aspartate Amino Transf (AST/SGOT) 25, Alanine Aminotransferase (ALT/SGPT) 39, Alkaline Phosphatase 66, Total Protein 5.3L, Albumin 2.6L, Procalcitonin 0.10H Microbiology 12/31/19 MRSA Screen - Final, Complete MRSA not isolated 12/31/19 Urine Culture - Final, Complete YEAST Assessment/Plan Assessment/Plan Assess & Plan/Chief Complaint covid-19 acute lung injury, anemia and stable GI bleed. cont PPI and carafate. cont therapy. continues to have slow blood loss anemia. will prep and schedule fo EGD and colonoscopy for friday. Clinical Quality Measures DVT/VTE Risk/Contraindication: Risk Factor Score Per Nursin RFS Level Per Nursing on Admit: 4+=Very High HADLEY LARA MD Jan 12, 2020 13:06
[2020-01-12] MEDS ORDERED: MAGNESIUM CITRATE 300 ML BTL PO NR (13:08)
--- NOTE | 2020-01-12 14:49 | Therapy Group Daily Note ---
Therapy Daily Group Note Patient Education Topic Other List Below (Proper Transfer Techniques & Proper Use of Adaptive Equipment) Exercises LE Seated Exercise, UE Exercise Session Ratio (pt:therapist): 3:1 Goal of Session: UE/LE Strengthing, Safety with Transfers, Use of Adaptive Equipment Goal Met for this Session: Yes Pt Benefit of Group: Contributions to Others, F/U Use of Strategies @Home, Increased Functional Safety, Increased Functional Strength, Improved Cognition, Recognition of Peers, Socialization Other/Notes Pt ambulated to PT/OT Group using FWW. Group consisted of Introduction (Name, Location & What they are most excited to do after DC), Socialization, Seated UE & LE Exercises, Demonstrations of Proper Transfers and How to properly use Adaptive Equipment. Pt met goal. Pt actively participated by given personal suggestions of how to complete transfers and use equipment safely. Pt completed 8/8 Seated Exercises. Pt returned to room at the end of Group to rest in recliner with all needs met, call light next to pt. Start Time: 13:00 Stop Time: 14:00 Total Billed Treatment Time: 60 Total Billed Treatment 1, GRP BEN CEDE[employer] LIAISON Jan 12, 2020 14:49
--- NOTE | 2020-01-12 15:44 | Diagnostic Imaging Report ---
INDICATION: Shortness of breath. EXAMINATION: Portable chest at 02:15 p.m. FINDINGS: There is diffuse interstitial infiltrate in the lungs. There are no effusions or pneumothoraces. Heart size and pulmonary vascularity are normal. IMPRESSION: Diffuse interstitial infiltrates in the lungs. Overall appearance similar to the previous day. Dictated by: Dictated on workstation # [id number]
--- NOTE | 2020-01-12 16:23 | NUR ---
O2 CONT AT 1 L PER MIN. PER N/C.
[2020-01-12 17:29] VITALS: BP 158/68
[2020-01-12] MEDS: MELATONIN 3 MG TABLET PO PRN (20:48)
--- NOTE | 2020-01-13 05:52 | PM&R Progress Note ---
Subjective HPI/CC On Admission Date Seen by Provider: Jan 13, 2020 Time Seen by Provider: 11:00 Subjective/Events-last exam 01/13/20: EGD and colonoscopy tomorrow Prep tolerated well BM this am and had some blood in it Coughing is coarse 01/12/20: Pt remains coarse on lung sounds O2 was off and was off for a couple of hours until requiring oxygen supplementation because her oxygen level was 84% Discharge is planned for Friday Decreased endurance is mostly the problem Chest X-ray reviewed Lasix given yesterday Hgb 8.1 Needs scopes because she is losing blood Will update Dr. Hector 01/11/20: Pt doing okay but lungs sound a bit more coarse Hgb: 8.1 Dr. Crockett consulted Cough continues, cough drops ordered Bowels are moving 01/10/20: Pt doing much better Right knee edema noted Hgb 7.8 still receiving IV iron infusions so will consult Dr. Morris Overall doing pretty well except for hypoxia on exertion 01/09/20: Dyspnea on exertion only now SBP 130's now Holding laxatives due to loose stools Stand by assist now 01/08/20: Patient doing very well Reading a new book No pain BM+ 2L/min now 01/07/20: Improved BM+ No pain reported 01/06/20: Pt doing very well today Continuing to wean off oxygen Crackles in the lungs lower lobes compel me to have her aggressively use the acapella and the IS Bowels are moving pretty well Denies any significant pain No SOB 01/05/20: Pt is having a few nose bleeds, we are humidfying the oxygen and using saline nasal spray She had a BM today Weaning down oxygen now to 2 liters and she was 6 liters when she was admitted Very much improved Working on stamina 01/04/20: Pt doing very well Less dyspnea on exertion Eating better WBC down to 13.6 Hgb stable at 8.5 Midline will be placed to finish off iron infusions Discontinued catheter and she is voiding well Overall very improved 01/03/20: White blood cell count is down On 4 liters now 91% Atenolol was discontinued per cardiology EKG this morning due to irregular heartbeat brought in rib crib last night and she enjoyed that Cleared out her nose because it was dried out from oxygen Got up to go to the bathroom on the commode today Will DC catheter 01/02/20: BM yesterday No blood in BM Sodium level is 134 Zosyn still maintained Hgb 8.6 Weaning O2 to 4L/min today Dr Hinojosa and Dr Hector saw patient today 01/01/20: 2 units of blood ordered for hgb 6.0 Dr Hinojosa updated me on the hemoccult positive stools so I spoke to Dr Hector and he will consult in case endo needed but she is very fragile and unsure she can undergo this procedure at this time but if necessary will require it PPI and Carafate ordered Eating a bit better, [employer] milkshake brought in Pt had some significant problems with hypotension and near syncope episode Pt has not been eating and drinking Lactic acid elevated at 3.5 Dr. Dolan saw her in consultation and recommended IV antibiotics and IV fluids WBC 21.9 Sodium level 129 Pt very fragile Desaturated to 83% when she got out of bed Conferred with RN Checked meds and labs Reviewed therapy notes Review of Systems General: Fatigue, Malaise Pulmonary: Dyspnea, Cough Gastrointestinal: Hematochezia Focused Exam Lactate Level 01/12/20 05:25: Lactic Acid Level 1.00 Objective Exam Vital Signs Vital Signs Date Time Temp Pulse Resp B/P (MAP) Pulse Ox O2 Delivery O2 Flow Rate FiO2 01/14/20 01:00 68 01/13/20 20:00 High Flow N/C 1.00 01/13/20 19:55 97 01/13/20 17:00 37.0 20 143/67 (92) Capillary Refill : Less Than 3 Seconds General Appearance: No Apparent Distress, WD/WN, Chronically ill, Other (frail) HEENT: PERRL/EOMI, Normal ENT Inspection, Pharynx Normal Neck: Full Range of Motion, Normal Inspection, Non Tender, Supple, Carotid Bruit Respiratory: Chest Non Tender, No Accessory Muscle Use, No Respiratory Distress, Decreased Breath Sounds, Rales Cardiovascular: Regular Rate, Rhythm, No Edema, No Gallop, No JVD, No Murmur, Normal Peripheral Pulses Gastrointestinal: Normal Bowel Sounds, No Organomegaly, No Pulsatile Mass, Non Tender, Soft Back: Normal Inspection, No CVA Tenderness, No Vertebral Tenderness Extremity: Normal Capillary Refill, Normal Inspection, Normal Range of Motion, Non Tender, No Calf Tenderness, No Pedal Edema Neurologic/Psychiatric: Alert, Oriented x3, No Motor/Sensory Deficits, Normal Mood/Affect, adding machine mechanic II-XII Norm as Tested, Abnormal Gait, Motor Weakness (weakness of all extremities 3/5) Skin: Normal Color, Warm/Dry Lymphatic: No Adenopathy Results/Procedures Lab Patient resulted labs reviewed. FIM Transfers Therapy Code Descriptions/Definitions Functional [place] Measure: 0=Not Assessed/NA 4=Minimal Assistance 1=Total Assistance 5=Supervision or Setup 2=Maximal Assistance 6=Modified [place] 3=Moderate Assistance 7=Complete IndependenceSCALE: Activities may be completed with or without assistive devices. 6-Ulktxeymjx-kefajlv completes the activity by him/herself with no assistance from a helper. 5-Set-up or Clean-up Assistance-helper sets up or cleans up; patient completes activity. [place] assists only prior to or following the activity. 4-Supervision or Touching Assistance-helper provides verbal cues and/or touching/steadying and/or contact guard assistance as patient completes activity. Assistance may be provided throughout the activity or intermittently. 3-Partial/Moderate Assistance-helper does LESS THAN HALF the effort. [place] lifts, holds or supports trunk or limbs, but provides less than half the effort. 2-Substantial/Maximal Assistance-helper does MORE THAN HALF the effort. [place] lifts or holds trunk or limbs and provides more than half the effort. 6-Kujsqkxal-muohcc does ALL the effort. Patient does none of the effort to complete the activity. Or, the assistance of 2 or more helpers is required for the patient to complete the activity. If activity was not attempted, code reason: 7-Patient Refused. 9-Not Applicable-not attempted and the patient did not perform the activity before the current illness, exacerbation or injury. 10-Not Attempted due to Environmental Limitations-(lack of equipment, weather restraints, etc.). 88-Not Attempted due to Medical Conditions or Safety Concerns. Roll Left to Right (QC): 6 Sit to Lying (QC): 3 Sit to Stand (QC): 6 Chair/Xpp-ie-Shfoc Xfer(QC): 6 Car Transfer (QC): 6 Gait Training Does the Patient Walk?: Yes Distance: 75' x2 Walk 10 feet (QC): 5 Walk 50 ft with 2 Turns(QC): 5 Walk 150 ft (QC): 5 Walking 10ft/uneven surface-QC: 88 Gait Persons Needed: 1 Gait Assistive Device: FWW Wheelchair Training Does the Pt Use a Wheelchair?: Yes Distance: 20' Wheel 50 ft with 2 turns (QC): 5 Wheel 150 ft (QC): 88 Type of Wheelchair: Manual Stair Training 1 Step (curb) (QC): 88 4 Steps (QC): 88 12 Steps (QC): 88 Balance Picking up an Object (QC): 88 ADL-Treatment Eating (QC): 4 (cues) Oral Hygiene (QC): 5 (Set up seated at sink.) Bathing Location: L Arm, R Arm, L Upper Leg, R Upper Leg, L Lower Leg (including foot), R Lower Leg (including foot), Chest, Abdomen, Perineal Area Shower/Bathe Self (QC): 4 (SBA to shower. Pt. able to bathe all parts.) Upper Body Dressing (QC): 3 (Min assist to adjust shirt after she donned it.) Lower Body Dressing (QC): 4 (SBA with use of AE.) On/Off Footwear (QC): 3 (Min assist with use of AE.) Toileting Hygiene (QC): 6 Toilet Transfer (QC): 4 Assessment/Plan Assessment and Plan Assess & Plan/Chief Complaint Assessment: Debility from COVID 19 PNA 12/13/19 admitted to [facility] O2 dependence new onset HTN HLP Advanced age GERD Hemoccult + stools Anemia requiring 2 units of blood 01/01/20 Plan: IRF protocol Monitor O2 Check labs 12/31/19: IVF IV abx empiric Volume depletion with dehydration causing lactic acidosis not sepsis 01/01/20: HLIVF to minimize volume overload due to recent COVID and recs 2 units of blood ordered today PPI and Carafate and Dr Hector consult but too fragile for EGD at this time but if necessary will be required 01/02/20: Monitor labs Abx Increase po fluids Eating better with outside food 01/03/20: Monitor O2 DC catheter Continue abx but change to PO Check CXR Monitor HR 01/04/20: Monitor O2 Increase activity Venofer PO abx 01/05/20: Continue to wean O2 Nosebleed management from O2 01/06/20: Wean O2 IS use Monitor BP 01/07/20: Improved overall Wean O2 Dramatic response to therapy 01/08/20: Dramatic improvement Weaning O2 01/09/20: Wean O2 Hold laxatives Monitor closely 01/10/20: Hematology consult for anemia Hemoglobin 7.8 today Monitor closely 01/11/20: CXR noted Dr Dolan to review case due to coarseness lungs 01/12/20: Needs endoscopies at some point IV iron infusions completed Monitor lung status 01/13/20: ED Colonoscopy Friday Monitor closely Monitor lungs Home O2 eval tomorrow DC Sat (1) COVID-19 Status: Acute (2) GERD (gastroesophageal reflux disease) (3) Hypertension (4) Hyperlipemia (5) Advanced age (6) Supplemental oxygen dependent (7) PNA (pneumonia) Status: Acute (8) Acute respiratory failure due to COVID-19 Status: Acute CORI MOODY DO Jan 13, 2020 05:52
[2020-01-13 06:12] VITALS: BP 156/81
[2020-01-13] MEDS: SUCRALFATE 1 GM (CARAFATE) TAB PO SCH ×4 (06:26→20:23)
[2020-01-13] MEDS: MULTIVIT W/MINERALS TAB (THERAGRAN M) PO SCH (06:26)
[2020-01-13] MEDS: CATHETER FLUSH 10 ML SYR IV SCH ×3 (06:26→20:24)
--- NOTE | 2020-01-13 07:56 | Pulmonary Progress Note ---
Standard Progress Note Progress Notes Date Seen by Provider: Jan 13, 2020 Time Seen by Provider: 07:56 Assessment & Plan PNA r/o PE with hypoxia -Oxygen -Start Zosyn -Check UA and sputum culture -Check CTA chest -BNP is > 1000 -- check echo Anemia -Dr. Hector is doing colonoscopy s/p syncope probably secondary to dehydration and vasovagal -IVF s/p COVID 19 Focused Exam Lactate Level 01/12/20 05:25: Lactic Acid Level 1.00 EVELYN CRAWFORD DO Jan 13, 2020 07:56
[2020-01-13] MEDS: FOLIC ACID 1 MG TAB PO SCH (08:05)
[2020-01-13] MEDS: ATENOLOL 25 MG (TENORMIN) TAB PO SCH (08:05)
[2020-01-13] MEDS: VITAMIN D3 10 MCG (400 UNITS) TABLET PO SCH (08:05)
[2020-01-13] MEDS: PANTOPRAZOLE 40 MG (PROTONIX) TAB PO SCH ×2 (08:05→20:23)
[2020-01-13] MEDS: LACTOBACILLUS ACIDOPHILUS (PROBIOTIC) CAPSULE PO SCH ×3 (08:05→17:10)
[2020-01-13] MEDS: DOCUSATE SODIUM 100 MG (COLACE) CAP PO SCH ×2 (08:06→20:18)
[2020-01-13] MEDS: SENNA W/DOCUSATE (SENOKOT S) TABLET PO SCH ×2 (08:06→20:18)
[2020-01-13] MEDS: polyethylene glycoL POWDER 17 GM (MIRALAX) PACK PO SCH ×2 (08:06→20:18)
[2020-01-13] MEDS: RT-ALBUTEROL/IPRATROPIUM 3 ML (DUONEB) VIAL INH SCH ×3 (08:30→19:54)
--- NOTE | 2020-01-13 09:57 | Speech Therapy Daily Note ---
Speech Daily Progress Note Subjective Date Seen by Provider: Jan 13, 2020 Time Seen by Provider: 00:30 Patient was resting in bed with O2 on. Patient states she is having a colonoscopy tomorrow. Objective Patient completed "what's missing in this picture?" cards at 90% without cues. Assessment Assessment Current Status: Good Progress Treatment Plan Continue Plan of Care Speech Short Term Goals Short Term Goals Short Term Goals 1) Patient will complete memory tasks related to her daily needs at 80% or greater with minimal cues. 2) Patient will complete safety awareness tasks related to her daily needs at 80% or greater with minimal cues. 3) Patient will complete problem solving tasks related to her daily needs at 80% or greater with minimal cues. Speech Fdc Goals Fdc Goals Patient will improve cognitive-communication tasks in order to require minimal assist with daily needs. Speech-Plan Patient/Family Goals Patient/Family Goals: Patient plans on returning to her home where she lives with her . Treatment Plan Speech Therapy Treatment Plan: Continue Plan of Care Treatment Duration: Dec 31, 2019 Frequency: 4 times per week (Patient will receive skilled ST 4-5x per week) Estimated Hrs Per Day: Other Rehab Potential: Good Barriers to Learning: Patient's recent severe illness, age Pt/Family Agrees to Plan: Yes Safety Risks/Education Teaching Recipient: Patient Teaching Methods: Demonstration, Discussion Response to Teaching: Verbalize Understanding, Return Demonstration Education Topics Provided: Continued safety upon her return home Time Speech Therapy Time In: 09:00 Speech Therapy Time Out: 09:30 Total Billed Time: 30 Billed Treatment Time 1, ASHVIN Price Jan 13, 2020 09:57
[2020-01-13] MEDS ORDERED: MAGNESIUM CITRATE 300 ML BTL PO ONE (10:00)
--- NOTE | 2020-01-13 12:01 | Occupational Ther Daily Note ---
OT Current Status-Daily Note Subjective No pain reported. Appearance Pt. in bed. Agrees to work with OT. Mental Status/Objective Patient Orientation: Person, Place, Time, Situation Attachments: Oxygen, Telemetry ADL-Treatment Therapy Code Descriptions/Definitions Functional [place] Measure: 0=Not Assessed/NA 4=Minimal Assistance 1=Total Assistance 5=Supervision or Setup 2=Maximal Assistance 6=Modified [place] 3=Moderate Assistance 7=Complete IndependenceSCALE: Activities may be completed with or without assistive devices. 9-Dxuwkvlcxp-efwsaqy completes the activity by him/herself with no assistance from a helper. 5-Set-up or Clean-up Assistance-helper sets up or cleans up; patient completes activity. [place] assists only prior to or following the activity. 4-Supervision or Touching Assistance-helper provides verbal cues and/or touching/steadying and/or contact guard assistance as patient completes ac tivity. Assistance may be provided throughout the activity or intermittently. 3-Partial/Moderate Assistance-helper does LESS THAN HALF the effort. [place] lifts, holds or supports trunk or limbs, but provides less than half the effort. 2-Substantial/Maximal Assistance-helper does MORE THAN HALF the effort. [place] lifts or holds trunk or limbs and provides more than half the effort. 8-Hdtqihlfn-wnxuww does ALL the effort. Patient does none of the effort to complete the activity. Or, the assistance of 2 or more helpers is required for the patient to complete the activity. If activity was not attempted, code reason: 7-Patient Refused. 9-Not Applicable-not attempted and the patient did not perform the activity before the current illness, exacerbation or injury. 10-Not Attempted due to Environmental Limitations-(lack of equipment, weather restraints, etc.). 88-Not Attempted due to Medical Conditions or Safety Concerns. Eating (QC): 6 Oral Hygiene (QC): 5 (Seated at sink.) Shower/Bathe Self (QC): 4 (SBA while in stance to dry. Otherwise, pt. is able to shower after set up.) Upper Body Dressing (QC): 5 Lower Body Dressing (QC): 3 (Min assist for pants, as she had difficulty keeping them up and keeping balance at same time.) On/Off Footwear: 4 Toileting Hygiene (QC): 6 Toilet Transfer (QC): 6 Other Treatment Pt. agreed to shower this a.m. Pt. did well and did not use AE. States that she is feeling better. After ADLs, pt. transferred back to bed with mod I. Pt. issued red theraband and exercise handout. Pt. completed 4 bilateral UE exercises x 15 reps each, in all planes to increase overall strength and independence with daily skills. Pt. resting in bed at end of treatment. Education OT Patient Education: Correct positioning, Exercise program, Home exercise program, Modified ADL techniques, Progress toward Goal/Update tx plan, Purpose of tx/functional activities, Reviewed precautions, Rehab process, Transfer techniques Teaching Recipient: Patient Teaching Methods: Demonstration, Discussion Response to Teaching: Verbalize Understanding, Return Demonstration OT Short Term Goals Short Term Goals Time Frame: Jan 06, 2020 Eatin Oral hygiene: 4 Toileting hygiene: 3 Shower/bathe self: 3 Upper body dressin Lower body dressin Putting on/taking off footwear: 4 OT Creative Intern Goals Creative Intern Goals Time Frame: Jan 13, 2020 Eating (QC): 6 Oral Hygiene (QC): 6 Toileting Hygiene (QC): 6 Shower/Bathe Self (QC): 4 Upper Body Dressing (QC): 4 Lower Body Dressing (QC): 4 On/Off Footwear (QC): 6 Additional Goals: 1-Demonstrate ADL Tasks, 2-Verbalize Understanding, 3- ImproveStrength/Shahab 1=Demonstrate adherence to instructed precautions during ADL tasks. 2=Patient will verbalize/demonstrate understanding of assistive devices/modifications for ADL. 3=Patient will improve strength/tolerance for activity to enable patient to perform ADL's. OT Education/Plan Problem List/Assessment Assessment: Decreased Activ Tolerance, Impaired I ADL's Discharge Recommendations Plan/Recommendations: Continue POC Therapy Discharge Recommendati: Post Acute OT Treatment Plan/Plan of Care Treatment,Training & Education: Yes Patient would benefit from OT for education, treatment and training to promote independence in ADL's, mobility, safety and/or upper extremity function for ADL's. Plan of Care: ADL Retraining, Functional Mobility, UE Funct Exercise/Act Treatment Duration: Jan 13, 2020 Frequency: At least 5 of 7 days/Wk (IRF) Estimated Hrs Per Day: 1.5 hours per day Agreement: Yes Rehab Potential: Good Time/GCodes Start Time: 09:30 Stop Time: 10:45 Total Time Billed (hr/min): 75 Billed Treatment Time 1, ADL x 60minutes, Ex x 15minutes LIZZY ADAMS OT Jan 13, 2020 12:01
--- NOTE | 2020-01-13 12:18 | Physical Therapy Daily Note ---
PT Daily Note-Current Subjective Pt laying Supine in bed with HOB raised upon arrival. Pt agrees to PT. Pain Location: No Pain Reported Mental Status Patient Orientation: Person, Place, Situation Attachments: Oxygen (1L) Transfers SCALE: Activities may be completed with or without assistive devices. 0-Mzplrpgqcf-zmgfokz completes the activity by him/herself with no assistance from a helper. 5-Set-up or Clean-up Assistance-helper sets up or cleans up; patient completes activity. [place] assists only prior to or following the activity. 4-Supervision or Touching Assistance-helper provides verbal cues and/or touching/steadying and/or contact guard assistance as patient completes activity. Assistance may be provided throughout the activity or intermittently. 3-Partial/Moderate Assistance-helper does LESS THAN HALF the effort. [place] lifts, holds or supports trunk or limbs, but provides less than half the effort. 2-Substantial/Maximal Assistance-helper does MORE THAN HALF the effort. [place] lifts or holds trunk or limbs and provides more than half the effort. 5-Xtnzhrlho-phkakp does ALL the effort. Patient does none of the effort to complete the activity. Or, the assistance of 2 or more helpers is required for the patient to complete the activity. If activity was not attempted, code reason: 7-Patient Refused. 9-Not Applicable-not attempted and the patient did not perform the activity before the current illness, exacerbation or injury. 10-Not Attempted due to Environmental Limitations-(lack of equipment, weather restraints, etc.). 88-Not Attempted due to Medical Conditions or Safety Concerns. Lying to Sitting/Side of Bed(Q: 5 Sit to Stand (QC): 5 Toilet Transfer (QC): 5 Weight Bearing Full Weight Bearing Full Weight Bearing Gait Training Does the Patient Walk?: Yes Distance: 75', 200' Walk 10 feet (QC): 5 Walk 50 ft with 2 Turns(QC): 5 Walk 150 ft (QC): 5 Gait Persons Needed: 1 Gait Assistive Device: FWW Wheelchair Training Does the Pt Use a Wheelchair?: No Exercises Seated Therapy Exercises: Ankle pumps, Long arc quads, Hip flexion, Hip abd/add, Glut set Seated Reps: 15 NuStep Minutes: 13 NuStep Workload: 5 (Bumped WL to 6 for last couple of minutes) Treatments TF to standing and amb. in hallway. Completes Seated Ex as well as uses NuStep for 13m at WL 5 (see notes). Pt amb. again in hallway before returning to room to use BR and return to EOB for lunch. All needs met, call light next to pt. Assessment Current Status: Good Progress Pt still has O2 drop to 88% after ambulation but quick to recover and usually stays in low 90's throughout tx. PT Short Term Goals Short Term Goals Time Frame: Jan 06, 2020 Roll Left & Right: 6 Sit to lyin Lying to sitting on side of be: 6 Sit to stand: 4 Chair/lct-kk-obcxw transfer: 4 Toilet transfer: 4 Walk 10 feet: 4 Walk 50 feet with two turns: 4 PT Usp Goals Pss Delivery Professional Goals PT Pss Delivery Professional Goals Time Frame: Jan 13, 2020 Roll Left & Right (QC): 6 Sit to Lying (QC): 6 Lying-Sitting on Side/Bed(QC): 6 Sit to Stand (QC): 6 Chair/Iqj-ns-Wdbby Xfer(QC): 6 Toilet Transfer (QC): 5 Car Transfer (QC): 5 Does the Patient Walk: Yes Walk 10 feet (QC): 5 Walk 50ft with 2 Turns (QC): 5 Walk 150 ft (QC): 5 Walking 10ft on Uneven Surface: 5 1 Step (curb) (QC): 4 4 Steps (QC): 4 12 Steps (QC): 88 Picking up an Object (QC): 4 Does the Pt use WC or Scooter?: Yes Wheel 50 feet with 2 turns (QC: 6 Type: Manual Wheel 150 feet: 6 Type: Manual PT Plan Problem List Problem List: Activity Tolerance, Functional Strength, Gait Treatment/Plan Treatment Plan: Continue Plan of Care Treatment Plan: Bed Mobility, Education, Functional Activity Shahab, Functional Strength, Group Therapy, Gait, Safety, Therapeutic Exercise, Transfers Treatment Duration: Jan 20, 2020 Frequency: Modified Program (IRF) (21/09) Estimated Hrs Per Day: 1.5 hours per day Patient and/or Family Agrees t: Yes Safety Risks/Education Patient Education: Gait Training, Safety Issues Teaching Recipient: Patient Teaching Methods: Discussion Response to Teaching: Verbalize Understanding Time/GCodes Time In: 1100 Time Out: 1215 Total Billed Treatment Time: 75 Total Billed Treatment 1, GT x2 (25m), EX x2 (35m) & FA (15m) BEN CEDEÑO PHOTOCOPYING MACHINE OPERATOR Jan 13, 2020 12:18
--- NOTE | 2020-01-13 12:41 | Progress Note-Pre Operative ---
Pre-Operative Progress Note H&P Reviewed The H&P was reviewed, patient examined and no changes noted. Date Seen by Provider: Jan 13, 2020 Time Seen by Provider: 12:40 Date H&P Reviewed: Jan 13, 2020 Time H&P Reviewed: 12:40 Pre-Operative Diagnosis: symptomatic anemia HADLEY LARA MD Jan 13, 2020 12:41
--- NOTE | 2020-01-13 12:41 | Conscious Sedation/ASA ---
Conscious Sedation Pre-Proced Time 12:40 ASA Score 2 For ASA 3 and 4: Consider anesthesia and medical clearance. Also, for patients with a history of failed moderate sedation consider anesthesia. Airway Lungs Heart ASA score ASA 1: a normal healthy patient ASA 2: a patient with a mild systemic disease (mid diabetes, controlled hypertension, obesity ASA 3: a patient with a severe systemic disease that limits activity (angina, COPD, prior Myocardial infarction) ASA 4: a patient with an incapacitating disease that is a constant threat to life (CHF, renal failure) ASA 5: a moribund patient not expected to survive 24 hrs. (ruptured aneurysm) ASA 6: a declared brain- patient whose organs are being harvested. For emergent operations, add the letter E after the classification Mallampati Classification Grade 2 Sedation Plan Analgesia, Amnesia, Plan communicated to team members, Discussed options with patient/fam, Discussed risks with patient/fam The patient is an appropriate candidate to undergo the planned procedure, sedation, and anesthesia. The patient immediately re-assessed prior to indication. HADLEY LARA MD Jan 13, 2020 12:41
[2020-01-13] MEDS ORDERED: MAGNESIUM CITRATE 300 ML BTL PO NR ×2 (13:00→17:00)
--- NOTE | 2020-01-13 13:08 | NUR ---
Discharge planning/Care Team Conference Discussed care team conference with patient and team's recommendation to discharge home on 01/15/2020. Patient is in agreement with this discharge plan and is willing to have home health care nursing, PT and OT at discharge. Patient verbalized understanding of care team conference.
[2020-01-13 17:00] VITALS: BP 143/67
[2020-01-13] MEDS: MELATONIN 3 MG TABLET PO PRN (20:23)
[2020-01-14 05:55] VITALS: BP 164/74
[2020-01-14] MEDS: CATHETER FLUSH 10 ML SYR IV SCH ×3 (06:00→20:44)
[2020-01-14] MEDS: SUCRALFATE 1 GM (CARAFATE) TAB PO SCH ×4 (06:00→20:40)
--- NOTE | 2020-01-14 07:09 | PM&R Progress Note ---
Subjective HPI/CC On Admission Date Seen by Provider: Jan 14, 2020 Time Seen by Provider: 11:45 Subjective/Events-last exam 01/14/20: Home O2 shows one liter needs to be continued IV Lasix given at 40mg CXR reviewed, CHF changes EGD and Colonoscopy performed today Hgb stable at 8.6 01/13/20: EGD and colonoscopy tomorrow Prep tolerated well BM this am and had some blood in it Coughing is coarse 01/12/20: Pt remains coarse on lung sounds O2 was off and was off for a couple of hours until requiring oxygen supp lementation because her oxygen level was 84% Discharge is planned for Friday Decreased endurance is mostly the problem Chest X-ray reviewed Lasix given yesterday Hgb 8.1 Needs scopes because she is losing blood Will update Dr. Hector 01/11/20: Pt doing okay but lungs sound a bit more coarse Hgb: 8.1 Dr. Crockett consulted Cough continues, cough drops ordered Bowels are moving 01/10/20: Pt doing much better Right knee edema noted Hgb 7.8 still receiving IV iron infusions so will consult Dr. Morris Overall doing pretty well except for hypoxia on exertion 01/09/20: Dyspnea on exertion only now SBP 130's now Holding laxatives due to loose stools Stand by assist now 01/08/20: Patient doing very well Reading a new book No pain BM+ 2L/min now 01/07/20: Improved BM+ No pain reported 01/06/20: Pt doing very well today Continuing to wean off oxygen Crackles in the lungs lower lobes compel me to have her aggressively use the acapella and the IS Bowels are moving pretty well Denies any significant pain No SOB 01/05/20: Pt is having a few nose bleeds, we are humidfying the oxygen and using saline nasal spray She had a BM today Weaning down oxygen now to 2 liters and she was 6 liters when she was admitted Very much improved Working on stamina 01/04/20: Pt doing very well Less dyspnea on exertion Eating better WBC down to 13.6 Hgb stable at 8.5 Midline will be placed to finish off iron infusions Discontinued catheter and she is voiding well Overall very improved 01/03/20: White blood cell count is down On 4 liters now 91% Atenolol was discontinued per cardiology EKG this morning due to irregular heartbeat brought in rib crib last night and she enjoyed that Cleared out her nose because it was dried out from oxygen Got up to go to the bathroom on the commode today Will DC catheter 01/02/20: BM yesterday No blood in BM Sodium level is 134 Zosyn still maintained Hgb 8.6 Weaning O2 to 4L/min today Dr Hinojosa and Dr Hector saw patient today 01/01/20: 2 units of blood ordered for hgb 6.0 Dr Hinojosa updated me on the hemoccult positive stools so I spoke to Dr Hector and he will consult in case endo needed but she is very fragile and unsure she can undergo this procedure at this time but if necessary will require it PPI and Carafate ordered Eating a bit better, [employer] milkshake brought in Pt had some significant problems with hypotension and near syncope episode Pt has not been eating and drinking Lactic acid elevated at 3.5 Dr. Dolan saw her in consultation and recommended IV antibiotics and IV fluids WBC 21.9 Sodium level 129 Pt very fragile Desaturated to 83% when she got out of bed Conferred with RN Checked meds and labs Reviewed therapy notes Review of Systems Pulmonary: Dyspnea, Cough Focused Exam Lactate Level Objective Exam Vital Signs Vital Signs Date Time Temp Pulse Resp B/P (MAP) Pulse Ox O2 Delivery O2 Flow Rate FiO2 01/15/20 05:08 36.6 85 20 164/77 (106) 94 Nasal Cannula 1.00 Capillary Refill : Less Than 3 Seconds General Appearance: No Apparent Distress, WD/WN, Chronically ill, Other (frail) HEENT: PERRL/EOMI, Normal ENT Inspection, Pharynx Normal Neck: Full Range of Motion, Normal Inspection, Non Tender, Supple, Carotid Bruit Respiratory: Chest Non Tender, No Accessory Muscle Use, No Respiratory Distress, Decreased Breath Sounds, Rales Cardiovascular: Regular Rate, Rhythm, No Edema, No Gallop, No JVD, No Murmur, Normal Peripheral Pulses Gastrointestinal: Normal Bowel Sounds, No Organomegaly, No Pulsatile Mass, Non Tender, Soft Back: Normal Inspection, No CVA Tenderness, No Vertebral Tenderness Extremity: Normal Capillary Refill, Normal Inspection, Normal Range of Motion, Non Tender, No Calf Tenderness, No Pedal Edema Neurologic/Psychiatric: Alert, Oriented x3, No Motor/Sensory Deficits, Normal Mood/Affect, 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 FIM Transfers Therapy Code Descriptions/Definitions Functional [place] Measure: 0=Not Assessed/NA 4=Minimal Assistance 1=Total Assistance 5=Supervision or Setup 2=Maximal Assistance 6=Modified [place] 3=Moderate Assistance 7=Complete IndependenceSCALE: Activities may be completed with or without assistive devices. 6-Szmvuruiht-pbzomht completes the activity by him/herself with no assistance from a helper. 5-Set-up or Clean-up Assistance-helper sets up or cleans up; patient completes activity. [place] assists only prior to or following the activity. 4-Supervision or Touching Assistance-helper provides verbal cues and/or touching/steadying and/or contact guard assistance as patient completes a ctivity. Assistance may be provided throughout the activity or intermittently. 3-Partial/Moderate Assistance-helper does LESS THAN HALF the effort. [place] lifts, holds or supports trunk or limbs, but provides less than half the effort. 2-Substantial/Maximal Assistance-helper does MORE THAN HALF the effort. [place] lifts or holds trunk or limbs and provides more than half the effort. 1-Uscacwnxm-ctsbto does ALL the effort. Patient does none of the effort to complete the activity. Or, the assistance of 2 or more helpers is required for the patient to complete the activity. If activity was not attempted, code reason: 7-Patient Refused. 9-Not Applicable-not attempted and the patient did not perform the activity before the current illness, exacerbation or injury. 10-Not Attempted due to Environmental Limitations-(lack of equipment, weather restraints, etc.). 88-Not Attempted due to Medical Conditions or Safety Concerns. Roll Left to Right (QC): 6 Sit to Lying (QC): 3 Sit to Stand (QC): 5 Chair/Avh-jc-Uhyrc Xfer(QC): 6 Car Transfer (QC): 6 Gait Training Does the Patient Walk?: Yes Distance: 75', 200' Walk 10 feet (QC): 5 Walk 50 ft with 2 Turns(QC): 5 Walk 150 ft (QC): 5 Walking 10ft/uneven surface-QC: 88 Gait Persons Needed: 1 Gait Assistive Device: FWW Wheelchair Training Does the Pt Use a Wheelchair?: No Distance: 20' Wheel 50 ft with 2 turns (QC): 5 Wheel 150 ft (QC): 88 Type of Wheelchair: Manual Stair Training 1 Step (curb) (QC): 88 4 Steps (QC): 88 12 Steps (QC): 88 Balance Picking up an Object (QC): 88 ADL-Treatment Eating (QC): 6 Oral Hygiene (QC): 5 (Seated at sink.) Bathing Location: L Arm, R Arm, L Upper Leg, R Upper Leg, L Lower Leg (including foot), R Lower Leg (including foot), Chest, Abdomen, Perineal Area Shower/Bathe Self (QC): 4 (SBA while in stance to dry. Otherwise, pt. is able to shower after set up.) Upper Body Dressing (QC): 5 Lower Body Dressing (QC): 3 (Min assist for pants, as she had difficulty keeping them up and keeping balance at same time.) On/Off Footwear (QC): 4 Toileting Hygiene (QC): 6 Toilet Transfer (QC): 6 Assessment/Plan Assessment and Plan Assess & Plan/Chief Complaint Assessment: Debility from COVID 19 PNA 12/13/19 admitted to [facility] O2 dependence new onset HTN HLP Advanced age GERD Hemoccult + stools Anemia requiring 2 units of blood 01/01/20 Plan: IRF protocol Monitor O2 Check labs 12/31/19: IVF IV abx empiric Volume depletion with dehydration causing lactic acidosis not sepsis 01/01/20: HLIVF to minimize volume overload due to recent COVID and recs 2 units of blood ordered today PPI and Carafate and Dr Hector consult but too fragile for EGD at this time but if necessary will be required 01/02/20: Monitor labs Abx Increase po fluids Eating better with outside food 01/03/20: Monitor O2 DC catheter Continue abx but change to PO Check CXR Monitor HR 01/04/20: Monitor O2 Increase activity Venofer PO abx 01/05/20: Continue to wean O2 Nosebleed management from O2 01/06/20: Wean O2 IS use Monitor BP 01/07/20: Improved overall Wean O2 Dramatic response to therapy 01/08/20: Dramatic improvement Weaning O2 01/09/20: Wean O2 Hold laxatives Monitor closely 01/10/20: Hematology consult for anemia Hemoglobin 7.8 today Monitor closely 01/11/20: CXR noted Dr Dolan to review case due to coarseness lungs 01/12/20: Needs endoscopies at some point IV iron infusions completed Monitor lung status 01/13/20: ED Colonoscopy Friday Monitor closely Monitor lungs Home O2 eval tomorrow DC 01/14/20: DC home tomorrow EGD/Colon today to evaluate the source of the blood loss and hemoccult+ (1) COVID-19 Status: Acute (2) GERD (gastroesophageal reflux disease) (3) Hypertension (4) Hyperlipemia (5) Advanced age (6) Supplemental oxygen dependent (7) PNA (pneumonia) Status: Acute (8) Acute respiratory failure due to COVID-19 Status: Acute CORI MOODY DO Jan 14, 2020 07:09
[2020-01-14] MEDS: DOCUSATE SODIUM 100 MG (COLACE) CAP PO SCH ×2 (07:40→20:44)
[2020-01-14] MEDS: MULTIVIT W/MINERALS TAB (THERAGRAN M) PO SCH (07:40)
[2020-01-14] MEDS: LACTOBACILLUS ACIDOPHILUS (PROBIOTIC) CAPSULE PO SCH ×3 (07:40→17:33)
[2020-01-14] MEDS: FOLIC ACID 1 MG TAB PO SCH (07:41)
[2020-01-14] MEDS: polyethylene glycoL POWDER 17 GM (MIRALAX) PACK PO SCH ×2 (07:41→20:44)
[2020-01-14] MEDS: SENNA W/DOCUSATE (SENOKOT S) TABLET PO SCH ×2 (07:41→20:45)
[2020-01-14] MEDS: VITAMIN D3 10 MCG (400 UNITS) TABLET PO SCH (07:41)
[2020-01-14 07:57] LABS: BASOPHILS % (AUTO) 0 % (0-10); EOSINOPHILS # (AUTO) 0.6 10^3/uL (0.0-0.3); EOSINOPHILS % (AUTO) 8 % (0-10); HEMATOCRIT 28 % (35-52); HEMOGLOBIN 8.6 g/dL (11.5-16.0); LYMPHOCYTES # (AUTO) 1.9 10^3/uL (1.0-4.0); LYMPHOCYTES % (AUTO) 28 % (12-44); MEAN CORPUSCULAR HEMOGLOBIN 29 pg (25-34); MEAN CORPUSCULAR HGB CONC 30 g/dL (32-36); MEAN CORPUSCULAR VOLUME 96 fL (80-99); MEAN PLATELET VOLUME 9.5 fL (9.0-12.2); MONOCYTES # (AUTO) 0.7 10^3/uL (0.0-1.0); MONOCYTES % (AUTO) 10 % (0-12); NEUTROPHILS # (AUTO) 3.6 10^3/uL (1.8-7.8); NEUTROPHILS % (AUTO) 52 % (42-75); PLATELET COUNT 302 10^3/uL (130-400); WHITE BLOOD COUNT 6.9 10^3/uL (4.3-11.0)
[2020-01-14 08:16] LABS: ALANINE AMINOTRANSFERASE 32 U/L (0-55); ALBUMIN 2.7 GM/DL (3.2-4.5); ALKALINE PHOSPHATASE 73 U/L (40-136); BUN/CREATININE RATIO 21; CALCIUM 8.3 MG/DL (8.5-10.1); CARBON DIOXIDE 30 MMOL/L (21-32); CHLORIDE 99 MMOL/L (98-107); CREATININE SERUM 0.71 MG/DL (0.60-1.30); GFR ESTIMATED > 60; GLUCOSE 94 MG/DL (70-105); POTASSIUM 3.8 MMOL/L (3.6-5.0); SODIUM 138 MMOL/L (135-145); TOTAL PROTEIN 5.6 GM/DL (6.4-8.2)
[2020-01-14] MEDS: RT-ALBUTEROL/IPRATROPIUM 3 ML (DUONEB) VIAL INH SCH ×3 (08:53→19:35)
[2020-01-14] MEDS: PANTOPRAZOLE 40 MG (PROTONIX) TAB PO SCH ×2 (09:10→20:41)
[2020-01-14] MEDS: ATENOLOL 25 MG (TENORMIN) TAB PO SCH (09:10)
--- NOTE | 2020-01-14 10:05 | Diagnostic Imaging Report ---
INDICATION: Rales. TIME OF EXAM: 9:32 AM Correlation is made with prior chest from 01/12/2020. The heart is enlarged. There is worsening congestive failure when compared with prior examination from 2 days earlier. Worsening central congestion is seen with increasing interstitial and airspace pulmonary infiltrates. No significant effusion is identified. There is no pneumothorax. IMPRESSION: Worsening congestive failure when compared with examination 2 days earlier. Dictated by: Dictated on workstation # [id number]
--- NOTE | 2020-01-14 10:25 | Occupational Ther Daily Note ---
OT Current Status-Daily Note Subjective [id number]: Pt in bed. Pt alert/ oriented. Plans to d/c tomorrow. Pt agrees to ther ex, as pt states just showered yesterday. [id number]: Pt returns from colonoscopy. Pt is groggy. Pt requires assist with mobility from travel bed to pt's bed. Pt agrees to assistance. OT/ PT co-treat from [id number]. OT addresses ADLs/ UE movement/ problem solving while PT addresses fx balance/ LE movement/ transfers. Mental Status/Objective Patient Orientation: Person, Place, Situation, Normal For Age Attachments: Oxygen (1.5) ADL-Treatment Therapy Code Descriptions/Definitions Functional [place] Measure: 0=Not Assessed/NA 4=Minimal Assistance 1=Total Assistance 5=Supervision or Setup 2=Maximal Assistance 6=Modified [place] 3=Moderate Assistance 7=Complete IndependenceSCALE: Activities may be completed with or without assistive devices. 6-Wlkqiqgubp-gxpszuf completes the activity by him/herself with no assistance from a helper. 5-Set-up or Clean-up Assistance-helper sets up or cleans up; patient completes activity. [place] assists only prior to or following the activity. 4-Supervision or Touching Assistance-helper provides verbal cues and/or touching/steadying and/or contact guard assistance as patient completes activity. Assistance may be provided throughout the activity or intermittently. 3-Partial/Moderate Assistance-helper does LESS THAN HALF the effort. [place] lifts, holds or supports trunk or limbs, but provides less than half the effort. 2-Substantial/Maximal Assistance-helper does MORE THAN HALF the effort. [place] lifts or holds trunk or limbs and provides more than half the effort. 6-Pguvqlcap-unsywo does ALL the effort. Patient does none of the effort to complete the activity. Or, the assistance of 2 or more helpers is required for the patient to complete the activity. If activity was not attempted, code reason: 7-Patient Refused. 9-Not Applicable-not attempted and the patient did not perform the activity before the current illness, exacerbation or injury. 10-Not Attempted due to Environmental Limitations-(lack of equipment, weather restraints, etc.). 88-Not Attempted due to Medical Conditions or Safety Concerns. Eating (QC): 6 (NPO at this time due to scheduled colonoscopy. Post- colonoscopy, pt able to open containers and eat with IND.) Shower/Bathe Self (QC): 3 (OT completes sponge bath in bed. Pt able to assist in trunk/ arms/ face while OT completes LE washing due to pt's grogginess post- colonoscopy.) Upper Body Dressing (QC): 5 (s/u gown donning.) Lower Body Dressing (QC): 2 (max A in bed (threading BLE) due to grogginess post-colonoscopy with pt able to bridge to bring over hips.) Toileting Hygiene (QC): 6 Toilet Transfer (QC): 4 Other Treatment [id number]: Pt supine to sit with use of hand rails/ HOB elevated. 94% 02 in bed. Pt sit to stand with SBA. Ambulates to standard toilet, states she doesn't know what her s/u at home will be when she gets there so pt attempts standard toilet. Pt sits with control with use of walker, sit to stand post-toileting with use of gbs with SBA. Pt safe to transfer with standard toilet/ gb. Pt washes hands, ambulates to therapy gym. Pt completes standing endurance/ UE reaching and coordination task, standing for 5 minutes before rest break. Pt's 02 95%, 100BPM HR. Pt rests and returns to stance, completing cognitive/ visual and standing endurance task. Pt sit to stands 5x during activity, standing for ~15 sec at a time while reaching with one hand supported on walker/ table top level. Pt's 02 maintains >90. Pt returns to room, requests back to bed. Pt at 98% when left in bed with all needs met, call light in reach. Education OT Patient Education: Progress toward Goal/Update tx plan, Safety issues, Transfer techniques Teaching Recipient: Patient Teaching Methods: Demonstration, Discussion Response to Teaching: Verbalize Understanding, Return Demonstration OT Short Term Goals Short Term Goals Time Frame: Jan 06, 2020 Eatin Oral hygiene: 4 Toileting hygiene: 3 Shower/bathe self: 3 Upper body dressin Lower body dressin Putting on/taking off footwear: 4 OT Custodial Goals Custodial Goals Time Frame: Jan 13, 2020 Eating (QC): 6 Oral Hygiene (QC): 6 Toileting Hygiene (QC): 6 Shower/Bathe Self (QC): 4 Upper Body Dressing (QC): 4 Lower Body Dressing (QC): 4 On/Off Footwear (QC): 6 Additional Goals: 1-Demonstrate ADL Tasks, 2-Verbalize Understanding, 3- ImproveStrength/Shahab 1=Demonstrate adherence to instructed precautions during ADL tasks. 2=Patient will verbalize/demonstrate understanding of assistive devices/modifications for ADL. 3=Patient will improve strength/tolerance for activity to enable patient to perform ADL's. OT Education/Plan Problem List/Assessment Assessment: Decreased Activ Tolerance, Decreased UE Strength, Impaired Funct Balance, Impaired I ADL's, Impaired Self-Care Skills Discharge Recommendations Plan/Recommendations: Continue POC Therapy Discharge Recommendati: Home & Family Treatment Plan/Plan of Care Treatment,Training & Education: Yes Patient would benefit from OT for education, treatment and training to promote independence in ADL's, mobility, safety and/or upper extremity function for ADL's. Plan of Care: ADL Retraining, Functional Mobility, UE Funct Exercise/Act Treatment Duration: Jan 13, 2020 Frequency: At least 5 of 7 days/Wk (IRF) Estimated Hrs Per Day: 1.5 hours per day Agreement: Yes Rehab Potential: Good Time/GCodes Start Time: 08:00 (1330) Stop Time: 08:45 (1415) Total Time Billed (hr/min): 90 Billed Treatment Time [id number]: 1, ADL (15), EX 2 (30)= 45 [id number]: 1, ADL 3 (45) OT/ PT co-treat from [id number]. OT addresses ADLs/ UE movement/ problem solving while PT addresses fx balance/ LE movement/ transfers. Total: 90 BRENDA VINES OTR Jan 14, 2020 10:25
--- NOTE | 2020-01-14 10:38 | Pulmonary Progress Note ---
Standard Progress Note Progress Notes Date Seen by Provider: Jan 14, 2020 Assessment & Plan PNA r/o PE with hypoxia -Oxygen -- echo -- Pending -Repeat Lasix Anemia -Dr. Hector following s/p syncope probably secondary to dehydration and vasovagal s/p COVID 19 Focused Exam Lactate Level 01/12/20 05:25: Lactic Acid Level 1.00 EVELYN CRAWFORD DO Jan 14, 2020 10:38
[2020-01-14] MEDS ORDERED: KCL 20 MEQ TAB (K-DUR) PO NR (10:45)
[2020-01-14] MEDS ORDERED: FUROSEMIDE 40 MG/4 ML INJ (LASIX) IVP NR (10:45)
--- NOTE | 2020-01-14 11:36 | Speech Therapy Daily Note ---
Speech Daily Progress Note Subjective Date Seen by Provider: Jan 14, 2020 Time Seen by Provider: 00:30 The patient was resting in her bed waiting to be taken down for a colonoscopy. Objective Patient completed a series of q/a related to her daily needs upon returning home with 95% without cues. Assessment Assessment Current Status: Good Progress Treatment Plan Discontinue ST, Goals Met Speech Short Term Goals Short Term Goals Short Term Goals 1) Patient will complete memory tasks related to her daily needs at 80% or greater with minimal cues. 2) Patient will complete safety awareness tasks related to her daily needs at 80% or greater with minimal cues. 3) Patient will complete problem solving tasks related to her daily needs at 80% or greater with minimal cues. Speech Jail Goals Desktop Analyst Goals Patient will improve cognitive-communication tasks in order to require minimal assist with daily needs. Speech-Plan Patient/Family Goals Patient/Family Goals: The patient is scheduled to return to her home where she resides with her and son. Treatment Plan Speech Therapy Treatment Plan: Discontinue ST, Goals Met Treatment Duration: Jan 15, 2020 Frequency: 4 times per week (Patient will receive skilled ST 4-5x per week) Estimated Hrs Per Day: .5 hour per day Rehab Potential: Good Barriers to Learning: Patient's recent serious illness and lasting affects Pt/Family Agrees to Plan: Yes Safety Risks/Education Teaching Recipient: Patient Teaching Methods: Demonstration, Discussion Response to Teaching: Verbalize Understanding, Return Demonstration Time Speech Therapy Time In: 09:00 Speech Therapy Time Out: 09:30 Total Billed Time: 30 Billed Treatment Time 1, SLTS No QUALITY CODES: EXPRESSION OF IDEAS/WANTS: 4 UNDERSTANDING VERBAL CONTENT: 4 BRIEF INTERVIEW: YES REPETITION OF 3 WORDS: 3 TEMPORAL ORIENTATION: YEAR: CORRECT, MONTH: CORRECT, DAY: CORRECT RECALL: SOCK: YES, COLOR: YES, BED: YES MEMORY/RECALL ABILITY: SEASON, LOCATION OF HER ROOM, STAFF NAMES, THAT SHE IS IN THE HOSPITAL YANDELASHVIN Jan 14, 2020 11:36
--- NOTE | 2020-01-14 11:52 | NUR ---
O2 QUALIFICATION Addendum: 01/14/20 at 1152 by ENA PATTON RT Amended: Links added.
--- NOTE | 2020-01-14 12:03 | NUR ---
TO SCOPE ROOM PER W/C.
[2020-01-14] MEDS ORDERED: LACTATED RINGERS 1,000 ML IV ONE (12:11)
--- NOTE | 2020-01-14 12:13 | Physical Therapy Daily Note ---
PT Daily Note-Current Subjective Pt. agrees to Rx. Pt. speaks of DC to homewith concentrator. O2 cannula in nose but O2 off at wall. This HORSE AND WAGON DRIVER questions nurse , RT testing O2 for O2 qualification at home, pt. anticipating colonoscopy. Pain Location: No Pain Reported Appearance O2 sats at rest on room air 81%. O2 turned back up to 1 L per nursing. Sats then quickly recovered to 93% Transfers SCALE: Activities may be completed with or without assistive devices. 2-Exzkwsonan-bapgqsp completes the activity by him/herself with no assistance from a helper. 5-Set-up or Clean-up Assistance-helper sets up or cleans up; patient completes activity. Geraldine assists only prior to or following the activity. 4-Supervision or Touching Assistance-helper provides verbal cues and/or touching/steadying and/or contact guard assistance as patient completes activity. Assistance may be provided throughout the activity or intermittently. 3-Partial/Moderate Assistance-helper does LESS THAN HALF the effort. Geraldine lifts, holds or supports trunk or limbs, but provides less than half the effort. 2-Substantial/Maximal Assistance-helper does MORE THAN HALF the effort. Geraldine lifts or holds trunk or limbs and provides more than half the effort. 3-Uaxqmgnyg-teofzo does ALL the effort. Patient does none of the effort to complete the activity. Or, the assistance of 2 or more helpers is required for the patient to complete the activity. If activity was not attempted, code reason: 7-Patient Refused. 9-Not Applicable-not attempted and the patient did not perform the activity before the current illness, exacerbation or injury. 10-Not Attempted due to Environmental Limitations-(lack of equipment, weather restraints, etc.). 88-Not Attempted due to Medical Conditions or Safety Concerns. Roll Left & Right (QC): 6 Sit to Lying (QC): 6 Lying to Sitting/Side of Bed(Q: 6 Sit to Stand (QC): 6 Chair/Szi-oh-Rxkty Xfer(QC): 6 Toilet Transfer (QC): 6 Weight Bearing Full Weight Bearing Full Weight Bearing Gait Training Does the Patient Walk?: Yes Walk 10 feet (QC): 4 Walk 50 ft with 2 Turns(QC): 4 Walk 150 ft (QC): 4 Gait Persons Needed: 1 Gait Assistive Device: FWW 160ft, 55ft x2 FWW CGA portable O2 with education and instruction in gait with extended O2 tubing, pt. also tested by RT for O2 sats at 1L during activity. Pt. fatigued but did well and did manage tubing well at each turn, careful not to get tangled etc Exercises Supine Ex: Bridging, Ankle pumps, Quad Set, Rolling, Glut sets, Heel Slides, Short Arc Quads, Scooting, Straight leg raise, Hip abd/add Supine Reps: 15 Seated Therapy Exercises: Ankle pumps, Sit to stand, Long arc quads, Hip flexion, Hip abd/add Seated Reps: 15 Treatments pt. toileted SBA and managed tubing well for all turns etc Assessment Current Status: Good Progress PT Short Term Goals Short Term Goals Time Frame: Jan 06, 2020 Roll Left & Right: 6 Sit to lyin Lying to sitting on side of be: 6 Sit to stand: 4 Chair/qmc-xo-cuajl transfer: 4 Toilet transfer: 4 Walk 10 feet: 4 Walk 50 feet with two turns: 4 PT Database Tester Goals Prison Goals PT Database Tester Goals Time Frame: Jan 13, 2020 Roll Left & Right (QC): 6 Sit to Lying (QC): 6 Lying-Sitting on Side/Bed(QC): 6 Sit to Stand (QC): 6 Chair/Uip-eb-Vipkj Xfer(QC): 6 Toilet Transfer (QC): 5 Car Transfer (QC): 5 Does the Patient Walk: Yes Walk 10 feet (QC): 5 Walk 50ft with 2 Turns (QC): 5 Walk 150 ft (QC): 5 Walking 10ft on Uneven Surface: 5 1 Step (curb) (QC): 4 4 Steps (QC): 4 12 Steps (QC): 88 Picking up an Object (QC): 4 Does the Pt use WC or Scooter?: Yes Wheel 50 feet with 2 turns (QC: 6 Type: Manual Wheel 150 feet: 6 Type: Manual PT Plan Treatment/Plan Treatment Plan: Continue Plan of Care Treatment Plan: Bed Mobility, Education, Functional Activity Shahab, Functional Strength, Group Therapy, Gait, Safety, Therapeutic Exercise, Transfers Treatment Duration: Jan 20, 2020 Frequency: Modified Program (IRF) (21/09) Estimated Hrs Per Day: 1.5 hours per day Patient and/or Family Agrees t: Yes Safety Risks/Education Patient Education: Gait Training, Transfer Techniques, Correct Positioning, Disease Process, Safety Issues Teaching Recipient: Patient Teaching Methods: Demonstration, Discussion Response to Teaching: Verbalize Understanding, Return Demonstration, Reinforcement Needed Time/GCodes Time In: 1100 Time Out: 1200 Total Billed Treatment Time: 60 Total Billed Treatment 1,GT30m,FA10m,EX20m CADE TOUSSAINT HORSE AND WAGON DRIVER Jan 14, 2020 12:13
[2020-01-14] MEDS ORDERED: MIDAZOLAM 2 MG/2 ML (VERSED) VIAL ONE (12:15)
[2020-01-14] MEDS ORDERED: PROPOFOL INJECTION 50 ML IV ONE ×2 (12:15→12:46)
[2020-01-14] MEDS ORDERED: LIDOCAINE JELLY 2% 6 ML SYRINGE ONE (12:27)
--- NOTE | 2020-01-14 13:30 | NUR ---
TRANSFERRED FROM SCOPE ROOM PER W/C. ALERT AND COOPERATIVE. SKIN W/D. RESP. REGULAR. FREQUENT LOOSE CONGESTED NON-PRODUCTIVE COUGH AT TIMES. BP=90/44 P=80 RESP=20 O2 SAT=94 % WITH O2 AT 2 L PER MIN. PER N/C. ABD. SOFT AND NON-TENDER.
--- NOTE | 2020-01-14 13:46 | NUR ---
CM/SS DISCHARGE PLANNING Patient will discharge home tomorrow, Friday, January 15, 2020. HHC: Reviewed Medicare Compare agencies in service area, patient selected [facility] for RN PT OT and did say that if she was not satisfied with that agency she may request to change to [facility]. DME: New home O2 coordinated with [facility] as originally requested since spouse has his O2 from there at this time. Agency was attempting to complete order and delivery today to avoid a Friday on-call team involvement. Raffaele does understand a portable is needed here for discharge tomorrow and that they should partner with patient's spouse at home for the rest of the O2 set up as well as the nebulizer delivery. IMM2 reviewed, discussed, documented, charted. Patient was adamant she wanted to return home on the target date, no intention to appeal. Endurance continues compromised, patient is alert and oriented regarding self management for frequent rest periods and caution regarding ambulation/activity. Unit staff aware patient is leaving tomorrow, shrimp picker time to be confirmed through patient.
--- NOTE | 2020-01-14 14:23 | Physical Therapy Daily Note ---
PT Daily Note-Current Subjective Patient in bed and agrees to PT. Patient reports she is tired and just returned from a colonoscopy. Per RN, BP is low. Transfers SCALE: Activities may be completed with or without assistive devices. 5-Bnjrbcrwfw-lifauqs completes the activity by him/herself with no assistance from a helper. 5-Set-up or Clean-up Assistance-helper sets up or cleans up; patient completes activity. Nicholls assists only prior to or following the activity. 4-Supervision or Touching Assistance-helper provides verbal cues and/or touching/steadying and/or contact guard assistance as patient completes activity. Assistance may be provided throughout the activity or intermittently. 3-Partial/Moderate Assistance-helper does LESS THAN HALF the effort. Nicholls lifts, holds or supports trunk or limbs, but provides less than half the effort. 2-Substantial/Maximal Assistance-helper does MORE THAN HALF the effort. Nicholls lifts or holds trunk or limbs and provides more than half the effort. 7-Vfaqgnrza-fdqjpu does ALL the effort. Patient does none of the effort to complete the activity. Or, the assistance of 2 or more helpers is required for the patient to complete the activity. If activity was not attempted, code reason: 7-Patient Refused. 9-Not Applicable-not attempted and the patient did not perform the activity before the current illness, exacerbation or injury. 10-Not Attempted due to Environmental Limitations-(lack of equipment, weather restraints, etc.). 88-Not Attempted due to Medical Conditions or Safety Concerns. Roll Left & Right (QC): 6 Sit to Lying (QC): 6 Lying to Sitting/Side of Bed(Q: 6 Sit to Stand (QC): 6 Toilet Transfer (QC): 6 Weight Bearing Full Weight Bearing Full Weight Bearing Gait Training Does the Patient Walk?: Yes Distance: 15' x 2 Walk 10 feet (QC): 5 Gait Assistive Device: FWW Treatments PT/OT cotreat due to patient low BP and patient returning from procedure. PT assisted patient with rolling (bed mobility activity) while OT address ADL's. Patient ambulated to restroom and toileted self, then ambulated to sink and washed her hands independently. Patient returned to bed with needs met. Assessment Patient to dismiss to home tomorrow. PT Short Term Goals Short Term Goals Time Frame: Jan 06, 2020 Roll Left & Right: 6 Sit to lyin Lying to sitting on side of be: 6 Sit to stand: 4 Chair/sqn-dv-phxdp transfer: 4 Toilet transfer: 4 Walk 10 feet: 4 Walk 50 feet with two turns: 4 PT Fpc Goals Gasket Maker Goals PT Fpc Goals Time Frame: Jan 13, 2020 Roll Left & Right (QC): 6 Sit to Lying (QC): 6 Lying-Sitting on Side/Bed(QC): 6 Sit to Stand (QC): 6 Chair/Kbn-ni-Gycee Xfer(QC): 6 Toilet Transfer (QC): 5 Car Transfer (QC): 5 Does the Patient Walk: Yes Walk 10 feet (QC): 5 Walk 50ft with 2 Turns (QC): 5 Walk 150 ft (QC): 5 Walking 10ft on Uneven Surface: 5 1 Step (curb) (QC): 4 4 Steps (QC): 4 12 Steps (QC): 88 Picking up an Object (QC): 4 Does the Pt use WC or Scooter?: Yes Wheel 50 feet with 2 turns (QC: 6 Type: Manual Wheel 150 feet: 6 Type: Manual PT Plan Treatment/Plan Treatment Plan: Continue Plan of Care Treatment Plan: Bed Mobility, Education, Functional Activity Shahab, Functional Strength, Group Therapy, Gait, Safety, Therapeutic Exercise, Transfers Treatment Duration: Jan 20, 2020 Frequency: Modified Program (IRF) (21/09) Estimated Hrs Per Day: 1.5 hours per day Patient and/or Family Agrees t: Yes Time/GCodes Time In: 1400 Time Out: 1415 Total Billed Treatment Time: 15 Total Billed Treatment 1 visit FA 15 min (cotreat with OT) DAYRON PICKERING PT Jan 14, 2020 14:23
--- NOTE | 2020-01-14 14:30 | NUR ---
GD=199/62 P=82 EATING YOGURT. DEWAYNE. WELL. DENIES PAIN.
[2020-01-14] MEDS ORDERED: SODI0.5GEL TOP (14:47)
[2020-01-14] MEDS ORDERED: SUCR1TAB PO (14:47)
[2020-01-14] MEDS ORDERED: GUAI473L29 PO (14:47)
[2020-01-14] MEDS ORDERED: FOLI0.8T PO (14:47)
[2020-01-14] MEDS ORDERED: FURO-125 PO (14:47)
[2020-01-14] MEDS ORDERED: ALPR.25T PO (14:47)
[2020-01-14] MEDS ORDERED: PANT40TA52 PO (14:47)
--- NOTE | 2020-01-14 14:49 | D/C HH Face to Face Order ---
D/C Face to Face Orders Reconcile Patient Problems Problems Reviewed?: Yes Instructions for Patient Via [facility], Patient Instructions/FollowUp: PCP 1 week Physician to follow Patient: PCP Discharge Diet for Home: No Restrictions Patient Problems: COVID-19 Patient Data-Allergies,Ht & Wt Patient Allergies: Coded Allergies: lisinopril (Verified Allergy, Intermediate, 12/13/19) COUGH Sulfa (Sulfonamide Antibiotics) (Verified Allergy, Unknown, 01/12/15) Height (Feet): 5 Height (Inches): 1.00 Weight (Pounds): 148 Weight (Ounces): 0.0 Home Health Need/Face to Face Date of Face to Face: Jan 14, 2020 Clinical Findings: Generalized weakness and fatigue, Instability, Muscle weakness, Shortness of breath, Unsteady gait I have seen Pt rvjf-dp-caow: Yes Discharged To: Home Diagnosis/Conditions: COVID-19 Patient is Homebound due to: Sesar fall risk due to instabilty, Muscle weakness, Shortness of breath/distress Homebound Status Due to the above stated illness, injury or surgical procedure (medical condition or diagnosis) and associated clinical findings, the patient is homebound because of his/her inability to leave home except with aid of a suppo rtive device and/or person AND leaving the home requires a considerable and taxing effort or is medically contraindicated. Pt req the following assistanc: Walker Home Health Nursing Orders Home Health Services Order: Nursing Services, African Studies Professor-Evaluate & Treat, Physical Therapy-Evaluate & Treat Home Health Infusion Therapy Line Start Date: Jan 04, 2020 Certify Stmt I certify that this patient is under my care and that I, a nurse practitioner or a physician; a educational assistant working with me, had a face to face encounter that - meets the physician face to face encounter requirements with this patient as dated. CORI MOODY DO Jan 14, 2020 14:49
[2020-01-14 15:55] VITALS: BP 118/71
--- NOTE | 2020-01-14 19:04 | NUR ---
Bedside report received from BOUBACAR WINSTON, assume care of pt
--- NOTE | 2020-01-14 20:11 | Cardiology Progress Note ---
Cardiology SOAP Progress Note Objective: I&O/Vital Signs 01/14/20 01/14/20 01/14/20 01/14/20 08:53 09:00 11:43 12:43 Pulse 20 67 Pulse Ox 93 95 92 O2 Delivery High Flow N/C High Flow N/C O2 Flow Rate 1.50 1.00 1.00 01/14/20 01/14/20 01/14/20 14:24 15:55 19:37 Temp 36.6 Pulse 74 Resp 16 B/P (MAP) 118/71 (87) Pulse Ox 97 96 90 O2 Delivery High Flow N/C Nasal Cannula High Flow N/C O2 Flow Rate 1.00 1.00 1.00 01/14/20 00:00 Intake Total 2200 ml Balance 2200 ml Weight (Pounds): 148 Weight (Ounces): 0.0 Weight (Calculated Kilograms): 67.868937 Results/Procedures: Labs Laboratory Tests 01/14/20 07:45: White Blood Count 6.9, Red Blood Count 2.94L, Hemoglobin 8.6L, Hematocrit 28L, Mean Corpuscular Volume 96, Mean Corpuscular Hemoglobin 29, Mean Corpuscular Hemoglobin Concent 30L, Red Cell Distribution Width 17.0H, Platelet Count 302, M jacquie Platelet Volume 9.5, Immature Granulocyte % (Auto) 1, Neutrophils (%) (Auto) 52, Lymphocytes (%) (Auto) 28, Monocytes (%) (Auto) 10, Eosinophils (%) (Auto) 8, Basophils (%) (Auto) 0, Neutrophils # (Auto) 3.6, Lymphocytes # (Auto) 1.9, Monocytes # (Auto) 0.7, Eosinophils # (Auto) 0.6H, Basophils # (Auto) 0.0, Immature Granulocyte # (Auto) 0.1, Sodium Level 138, Potassium Level 3.8, Chloride Level 99, Carbon Dioxide Level 30, Anion Gap 9, Blood Urea Nitrogen 15, Creatinine 0.71, Estimat Glomerular Filtration Rate > 60, BUN/Creatinine Ratio 21, Glucose Level 94, Calcium Level 8.3L, Corrected Calcium 9.3, Total Bilirubin 1.0, Aspartate Amino Transf (AST/SGOT) 25, Alanine Aminotransferase (ALT/SGPT) 32, Alkaline Phosphatase 73, Total Protein 5.6L, Albumin 2.7L Microbiology 12/31/19 MRSA Screen - Final, Complete MRSA not isolated 12/31/19 Urine Culture - Final, Complete YEAST A/P: Thank you for your consultation. Please call me if you have any questions. Jeny Truong MD, FACP, FACC, FSCAI, FHRS, CCDS Interventional Cardiology Cardiac Electrophysiology Vascular Medicine and Endovascular Interventions Focused Exam Lactate Level 01/12/20 05:25: Lactic Acid Level 1.00 Lindsay TRUONG MD Jan 14, 2020 20:11
--- NOTE | 2020-01-14 20:40 | NUR ---
pt refused COLACE, SENOKOT & Miralax, up to bathroom with walker & standby assist
[2020-01-14] MEDS: MELATONIN 3 MG TABLET PO PRN (20:41)
[2020-01-15 05:08] VITALS: BP 164/77
[2020-01-15] MEDS: CATHETER FLUSH 10 ML SYR IV SCH (06:08)
[2020-01-15] MEDS: SUCRALFATE 1 GM (CARAFATE) TAB PO SCH ×2 (06:08→11:00)
[2020-01-15] MEDS: MULTIVIT W/MINERALS TAB (THERAGRAN M) PO SCH (06:09)
--- NOTE | 2020-01-15 06:17 | Discharge Summary ---
Diagnosis/Chief Complaint Date of Admission Dec 30, 2019 at 11:00 Date of Discharge Discharge Date: Jan 15, 2020 Discharge Diagnosis Assessment: Debility from COVID 19 PNA 12/13/19 admitted to [facility] O2 dependence new onset HTN HLP Advanced age GERD Hemoccult + stools Anemia requiring 2 units of blood 01/01/20 Plan: IRF protocol Monitor O2 Check labs 12/31/19: IVF IV abx empiric Volume depletion with dehydration causing lactic acidosis not sepsis 01/01/20: HLIVF to minimize volume overload due to recent COVID and recs 2 units of blood ordered today PPI and Carafate and Dr Hector consult but too fragile for EGD at this time but if necessary will be required 01/02/20: Monitor labs Abx Increase po fluids Eating better with outside food 01/03/20: Monitor O2 DC catheter Continue abx but change to PO Check CXR Monitor HR 01/04/20: Monitor O2 Increase activity Venofer PO abx 01/05/20: Continue to wean O2 Nosebleed management from O2 01/06/20: Wean O2 IS use Monitor BP 01/07/20: Improved overall Wean O2 Dramatic response to therapy 01/08/20: Dramatic improvement Weaning O2 01/09/20: Wean O2 Hold laxatives Monitor closely 01/10/20: Hematology consult for anemia Hemoglobin 7.8 today Monitor closely 01/11/20: CXR noted Dr Dolan to review case due to coarseness lungs 01/12/20: Needs endoscopies at some point IV iron infusions completed Monitor lung status 01/13/20: ED Colonoscopy Friday Monitor closely Monitor lungs Home O2 eval tomorrow DC 01/14/20: DC home tomorrow EGD/Colon today to evaluate the source of the blood loss and hemoccult+ (1) COVID-19 Status: Acute (2) GERD (gastroesophageal reflux disease) (3) Hypertension (4) Hyperlipemia (5) Advanced age (6) Supplemental oxygen dependent (7) PNA (pneumonia) Status: Acute (8) Acute respiratory failure due to COVID-19 Status: Acute Discharge Summary Discharge Physical Examination Allergies: Coded Allergies: lisinopril (Verified Allergy, Intermediate, 12/13/19) COUGH Sulfa (Sulfonamide Antibiotics) (Verified Allergy, Unknown, 01/12/15) Vitals & I&Os Vital Signs Date Time Temp Pulse Resp B/P (MAP) Pulse Ox O2 Delivery O2 Flow Rate FiO2 01/15/20 15:02 36.6 74 20 144/67 97 High Flow N/C 1.00 General Appearance: Alert, Oriented X3, Cooperative Respiratory: Clear to Auscultation Cardiovascular: Regular Rate Neuro: Normal Gait, Normal Speech, Strength at 5/5 X4 Ext Psych/Mental Status: Mental Status NL Hospital Course Was the Problem List Reviewed?: Yes Patient had an uneventful course in IRF for 17 days after recovering from COVID- 19 PNA and hypoxia. Patient had a very slow recovery with high oxygen supplementation requirements and severe anemia requiring iron infusions and Hematology consult and Dr Hector consult due to hemoccult + stools but she was too frail to undergo scopes at that time because of high O2 requirements. Patient was able to recover dramatically during her stay with increased stamina and energy conservation tools taught by therapy. She completed iron infusions but had more blood in stool ultimately requiring endoscopes during her stay which revealed no source of bleeding. Patient required 1 L/min of O2 at time of DC and was deemed stable for DC. Labs (last 24 hrs) Laboratory Tests 12/30/19 11:00: Lab Scanned Report Referred Lab Report 12/31/19 07:37: White Blood Count 21.9H, Red Blood Count 3.05L, Hemoglobin 8.9L, Hematocrit 26L, Mean Corpuscular Volume 87, Mean Corpuscular Hemoglobin 29, Mean Corpuscular Hemoglobin Concent 34, Red Cell Distribution Width 13.2, Platelet Count 416H, Mean Platelet Volume 10.4, Immature Granulocyte % (Auto) 4, Neutrophils (%) (Auto) 78H, Lymphocytes (%) (Auto) 11L, Monocytes (%) (Auto) 6, Eosinophils (%) (Auto) 2, Basophils (%) (Auto) 0, Neutrophils # (Auto) 17.0H, Lymphocytes # (Auto) 2.3, Monocytes # (Auto) 1.3H, Eosinophils # (Auto) 0.3, Basophils # (Aut o) 0.1, Immature Granulocyte # (Auto) 0.9H, Neutrophils % (Manual) 82, Lymphocytes % (Manual) 9, Monocytes % (Manual) 7, Eosinophils % (Manual) 2, Toxic Granulation 1+, Hypochromasia SLIGHT, Poikilocytosis SLIGHT, D-Dimer 1.83H , Sodium Level 129L, Potassium Level 4.1, Chloride Level 82L, Carbon Dioxide Level 35H, Anion Gap 12, Blood Urea Nitrogen 42H, Creatinine 1.08, Estimat Glomerular Filtration Rate 48, BUN/Creatinine Ratio 39, Glucose Level 178H, Calcium Level 8.6, Corrected Calcium 9.3, Total Bilirubin 0.6, Aspartate Amino Transf (AST/SGOT) 33, Alanine Aminotransferase (ALT/SGPT) 58H, Alkaline Phosphatase 71, Total Protein 5.8L, Albumin 3.1L, Procalcitonin 0.26H 12/31/19 10:45: Lactic Acid Level 4.74*H 12/31/19 12:16: Blood Gas Puncture Site LEFT RADIAL, Blood Gas Patient Temperature 36.1, Arterial Blood pH 7.53H, Arterial Blood Partial Pressure CO2 43, Arterial Blood Partial Pressure O2 125H, Arterial Blood HCO3 36H, Arterial Blood Total CO2 37.8H, Arterial Blood Oxygen Saturation 100, Arterial Blood Base Excess 12.5H, Tayo Test YES-POS, Blood Gas Ventilator Setting NO, Blood Gas Inspired Oxygen 7L HF 12/31/19 12:45: Lactic Acid Level 4.11*H 12/31/19 18:09: Urine Color YELLOW, Urine Clarity CLEAR, Urine pH 6.5, Urine Specific [place] <=1.005, Urine Protein NEGATIVE, Urine Glucose (UA) NEGATIVE, Urine Ketones NEGATIVE, Urine Nitrite NEGATIVE, Urine Bilirubin NEGATIVE, Urine Urobilinogen 0.2, Urine Leukocyte Esterase NEGATIVE, Urine RBC (Auto) NEGATIVE, Urine RBC RARE, Urine WBC NONE, Urine Crystals NONE, Urine Bacteria NEGATIVE, Urine Casts NONE, Urine Mucus NEGATIVE, Urine Yeast FEWH, Urine Culture Indicated YES 01/01/20 04:40: White Blood Count 20.6H, Red Blood Count 2.06L, Hemoglobin 6.0#*L, Hematocrit 18*L, Mean Corpuscular Volume 86, Mean Corpuscular Hemoglobin 29, Mean Corpuscular Hemoglobin Concent 34, Red Cell Distribution Width 13.7, Platelet Count 136, Mean Platelet Volume 11.2, Immature Granulocyte % (Auto) 6, Neutro phils (%) (Auto) 75, Lymphocytes (%) (Auto) 11L, Monocytes (%) (Auto) 6, Eosinophils (%) (Auto) 2, Basophils (%) (Auto) 0, Neutrophils # (Auto) 15.3H, Lymphocytes # (Auto) 2.2, Monocytes # (Auto) 1.3H, Eosinophils # (Auto) 0.5H, Basophils # (Auto) 0.0, Immature Granulocyte # (Auto) 1.3H, Sodium Level 130L, Potassium Level 3.8, Chloride Level 82L, Carbon Dioxide Level 32, Anion Gap 16H, Blood Urea Nitrogen 34H, Creatinine 0.89, Estimat Glomerular Filtration Rate 60, BUN/Creatinine Ratio 38, Glucose Level 143H, Calcium Level 7.7L, Corrected Calcium 9.1, Total Bilirubin 0.5, Aspartate Amino Transf (AST/SGOT) 26, Alanine Aminotransferase (ALT/SGPT) 36, Alkaline Phosphatase 52, Total Protein 4.4L, Albumin 2.3L 01/01/20 14:10: Stool Occult Blood Immunoassay POSITIVEH 01/02/20 05:45: White Blood Count 17.1H, Red Blood Count 2.93L, Hemoglobin 8.5#L, Hematocrit 26L , Mean Corpuscular Volume 88, Mean Corpuscular Hemoglobin 29, Mean Corpuscular Hemoglobin Concent 33, Red Cell Distribution Width 13.7, Platelet Count 254, Mean Platelet Volume 10.2, Immature Granulocyte % (Auto) 5, Neutrophils (%) (Auto) 78H, Lymphocytes (%) (Auto) 9L, Monocytes (%) (Auto) 6, Eosinophils (%) (Auto) 2, Basophils (%) (Auto) 0, Neutrophils # (Auto) 13.3H, Lymphocytes # (Auto) 1.5, Monocytes # (Auto) 1.0, Eosinophils # (Auto) 0.4H, Basophils # (Auto) 0.1, Immature Granulocyte # (Auto) 0.9H, Sodium Level 134L, Potassium Level 3.9, Chloride Level 91L, Carbon Dioxide Level 33H, Anion Gap 10, Blood Urea Nitrogen 24H, Creatinine 0.87, Estimat Glomerular Filtration Rate > 60, BUN/Creatinine Ratio 28, Glucose Level 131H, Calcium Level 7.8L, Corrected Calcium 9.0, Total Bilirubin 0.9, Aspartate Amino Transf (AST/SGOT) 30, Alanine Aminotransferase (ALT/SGPT) 35, Alkaline Phosphatase 57, Total Protein 4.8L, Albumin 2.5L 01/03/20 04:31: White Blood Count 15.5H, Red Blood Count 2.82L, Hemoglobin 8.3L, Hematocrit 25L, Mean Corpuscular Volume 89, Mean Corpuscular Hemoglobin 29, Mean Corpuscular Hemoglobin Concent 33, Red Cell Distribution Width 14.4, Platelet Count 256, Mean Platelet Volume 10.3, Immature Granulocyte % (Auto) 3, Neutrophils (%) (Auto) 81H, Lymphocytes (%) (Auto) 8L, Monocytes (%) (Auto) 6, Eosinophils (%) (Auto) 2, Basophils (%) (Auto) 0, Neutrophils # (Auto) 12.5H, Lymphocytes # (Auto) 1.3, Monocytes # (Auto) 0.9, Eosinophils # (Auto) 0.3, Basophils # (Auto) 0.1, Immature Granulocyte # (Auto) 0.5H, Sodium Level 132L, Potassium Level 3.6, Chloride Level 92L, Carbon Dioxide Level 30, Anion Gap 10, Blood Urea Nitrogen 20H, Creatinine 0.97, Estimat Glomerular Filtration Rate 54, BUN/Creatinine Ratio 21, Glucose Level 156H, Calcium Level 7.7L, Corrected Calcium 8.9, Total Bilirubin 0.9, Aspartate Amino Transf (AST/SGOT) 25, Alanine Aminotransferase (ALT/SGPT) 30, Alkaline Phosphatase 51, Total Protein 4.7L, Albumin 2.5L 01/04/20 05:50: White Blood Count 13.6H, Red Blood Count 2.86L, Hemoglobin 8.5L, Hematocrit 26L, Mean Corpuscular Volume 90, Mean Corpuscular Hemoglobin 30, Mean Corpuscular Hemoglobin Concent 33, Red Cell Distribution Width 14.9H, Platelet Count 245, Mean Platelet Volume 10.2, Immature Granulocyte % (Auto) 2, Neutrophils (%) (Auto) 79H, Lymphocytes (%) (Auto) 11L, Monocytes (%) (Auto) 6, Eosinophils (%) (Auto) 2, Basophils (%) (Auto) 0, Neutrophils # (Auto) 10.8H, Lymphocytes # (Auto) 1.4, Monocytes # (Auto) 0.8, Eosinophils # (Auto) 0.3, Basophils # (Auto) 0.1, Immature Granulocyte # (Auto) 0.3H, Sodium Level 134L, Potassium Level 3.4L , Chloride Level 92L, Carbon Dioxide Level 32, Anion Gap 10, Blood Urea Nitrogen 21H, Creatinine 0.87, Estimat Glomerular Filtration Rate > 60, BUN/Creatinine Ratio 24, Glucose Level 151H, Calcium Level 8.1L, Corrected Calcium 9.2, Total Bilirubin 0.9, Aspartate Amino Transf (AST/SGOT) 21, Alanine Aminotransferase (ALT/SGPT) 27, Alkaline Phosphatase 51, Total Protein 5.1L, Albumin 2.6L 01/10/20 05:20: White Blood Count 8.1, Red Blood Count 2.69L, Hemoglobin 7.8L, Hematocrit 26L, Mean Corpuscular Volume 95, Mean Corpuscular Hemoglobin 29, Mean Corpuscular Hemoglobin Concent 31L, Red Cell Distribution Width 16.1H, Platelet Count 274, Mean Platelet Volume 10.0, Sodium Level 135, Potassium Level 4.0, Chloride Level 98, Carbon Dioxide Level 29, Anion Gap 8, Blood Urea Nitrogen 22H, Creatinine 0.79, Estimat Glomerular Filtration Rate > 60, BUN/Creatinine Ratio 28, Glucose Level 121H, Calcium Level 8.3L, Corrected Calcium 9.5, Total Bilirubin 1.0, Aspartate Amino Transf (AST/SGOT) 32, Alanine Aminotransferase (ALT/SGPT) 45, Alkaline Phosphatase 65, Total Protein 5.2L, Albumin 2.5L 01/11/20 05:20: White Blood Count 8.1, Red Blood Count 2.77L, Hemoglobin 8.1L, Hematocrit 26L, Mean Corpuscular Volume 95, Mean Corpuscular Hemoglobin 29, Mean Corpuscular Hem oglobin Concent 31L, Red Cell Distribution Width 16.4H, Platelet Count 268, Mean Platelet Volume 9.9, Immature Granulocyte % (Auto) 2, Neutrophils (%) (Auto) 50, Lymphocytes (%) (Auto) 29, Monocytes (%) (Auto) 11, Eosinophils (%) (Auto) 8, Basophils (%) (Auto) 0, Neutrophils # (Auto) 4.1, Lymphocytes # (Auto) 2.4, Monocytes # (Auto) 0.9, Eosinophils # (Auto) 0.6H, Basophils # (Auto) 0.0, Immature Granulocyte # (Auto) 0.2H, Neutrophils % (Manual) 54, Lymphocytes % (Manual) 20, Monocytes % (Manual) 10, Eosinophils % (Manual) 10, Metamyelocytes % 1, Band Neutrophils 1, Atypical Lymphocytes 4, Polychromasia MARKED, Anisocytosis MODERATE, Absolute Reticulocyte Count 271H, Percent Reticulocyte Count 9.79H, Sodium Level 136, Potassium Level 3.7, Chloride Level 99, Carbon Dioxide Level 28, Anion Gap 9, Blood Urea Nitrogen 18, Creatinine 0.74, Estimat Glomerular Filtration Rate > 60, BUN/Creatinine Ratio 24, Glucose Level 112H, Calcium Level 8.2L, Corrected Calcium 9.4, Total Bilirubin 0.9, Aspartate Amino Transf (AST/SGOT) 30, Alanine Aminotransferase (ALT/SGPT) 44, Alkaline Phosphatase 66, Lactate Dehydrogenase 376H, B-Type Natriuretic Peptide 1381.2H, Total Protein 5.3L, Albumin 2.5L, Vitamin B12 Level 1065, Folate 14.6, Thyroid Stimulating Hormone (TSH) 2.09 01/12/20 05:25: White Blood Count 7.3, Red Blood Count 2.82L, Hemoglobin 8.1L, Hematocrit 27L, Mean Corpuscular Volume 96, Mean Corpuscular Hemoglobin 29, Mean Corpuscular Hemoglobin Concent 30L, Red Cell Distribution Width 16.9H, Platelet Count 285, Mean Platelet Volume 9.7, Immature Granulocyte % (Auto) 2, Neutrophils (%) (Auto) 52, Lymphocytes (%) (Auto) 29, Monocytes (%) (Auto) 10, Eosinophils (%) (Auto) 8, Basophils (%) (Auto) 0, Neutrophils # (Auto) 3.8, Lymphocytes # (Auto) 2.1, Monocytes # (Auto) 0.7, Eosinophils # (Auto) 0.6H, Basophils # (Auto) 0.0, Immature Granulocyte # (Auto) 0.1, Sodium Level 138, Potassium Level 3.6, Ch loride Level 98, Carbon Dioxide Level 31, Anion Gap 9, Blood Urea Nitrogen 25H, Creatinine 0.77, Estimat Glomerular Filtration Rate > 60, BUN/Creatinine Ratio 32, Glucose Level 116H, Calcium Level 8.4L, Corrected Calcium 9.5, Total Bilirubin 0.9, Aspartate Amino Transf (AST/SGOT) 25, Alanine Aminotransferase (ALT/SGPT) 39, Alkaline Phosphatase 66, Total Protein 5.3L, Albumin 2.6L, Lactic Acid Level 1.00, Phosphorus Level 3.0, Magnesium Level 1.5L, Procalcitonin 0.10H 01/14/20 07:45: White Blood Count 6.9, Red Blood Count 2.94L, Hemoglobin 8.6L, Hematocrit 28L, Mean Corpuscular Volume 96, Mean Corpuscular Hemoglobin 29, Mean Corpuscular Hemoglobin Concent 30L, Red Cell Distribution Width 17.0H, Platelet Count 302, Mean Platelet Volume 9.5, Immature Granulocyte % (Auto) 1, Neutrophils (%) (Auto) 52, Lymphocytes (%) (Auto) 28, Monocytes (%) (Auto) 10, Eosinophils (%) (Auto) 8, Basophils (%) (Auto) 0, Neutrophils # (Auto) 3.6, Lymphocytes # (Auto) 1.9, Monocytes # (Auto) 0.7, Eosinophils # (Auto) 0.6H, Basophils # (Auto) 0.0, Immature Granulocyte # (Auto) 0.1, Sodium Level 138, Potassium Level 3.8, Chloride Level 99, Carbon Dioxide Level 30, Anion Gap 9, Blood Urea Nitrogen 15, Creatinine 0.71, Estimat Glomerular Filtration Rate > 60, BUN/Creatinine Ratio 21, Glucose Level 94, Calcium Level 8.3L, Corrected Calcium 9.3, Total Bilirubin 1.0, Aspartate Amino Transf (AST/SGOT) 25, Alanine Aminotransferase (ALT/SGPT) 32, Alkaline Phosphatase 73, Total Protein 5.6L, Albumin 2.7L Microbiology 12/31/19 MRSA Screen - Final, Complete MRSA not isolated 12/31/19 Urine Culture - Final, Complete YEAST Pending Labs Microbiology Date/Time Source Procedure Growth Status 12/31/19 18:55 Nasal MRSA Screen - Final MRSA not isolated Complete 12/31/19 18:09 Urine Clean Catch Urine Culture - Final YEAST Complete Laboratory Tests 12/30/19 11:00: Lab Scanned Report Referred Lab Report 12/31/19 07:37: White Blood Count 21.9, Red Blood Count 3.05, Hemoglobin 8.9, Hematocrit 26, Mean Corpuscular Volume 87, Mean Corpuscular Hemoglobin 29, Mean Corpuscular Hemoglobin Concent 34, Red Cell Distribution Width 13.2, Platelet Count 416, Mean Platelet Volume 10.4, Immature Granulocyte % (Auto) 4, Neutrophils (%) (Auto) 78, Lymphocytes (%) (Auto) 11, Monocytes (%) (Auto) 6, Eosinophils (%) (Auto) 2, Basophils (%) (Auto) 0, Neutrophils # (Auto) 17.0, Lymphocytes # (Auto) 2.3, Monocytes # (Auto) 1.3, Eosinophils # (Auto) 0.3, Basophils # (Auto) 0.1, Immature Granulocyte # (Auto) 0.9, Neutrophils % (Manual) 82, Lymphocytes % (Manual) 9, Monocytes % (Manual) 7, Eosinophils % (Manual) 2, Toxic Granulation 1+, Hypochromasia SLIGHT, Poikilocytosis SLIGHT, D-Dimer 1.83, Sodium Level 129, Potassium Level 4.1, Chloride Level 82, Carbon Dioxide Level 35, Anion Gap 12, Blood Urea Nitrogen 42, Creatinine 1.08, Estimat Glomerular Filtration Rate 48, BUN/Creatinine Ratio 39, Glucose Level 178, Calcium Level 8.6, Corrected Calcium 9.3, Total Bilirubin 0.6, Aspartate Amino Transf (AST/SGOT) 33, Alanine Aminotransferase (ALT/SGPT) 58, Alkaline Phosphatase 71, Total Protein 5.8, Albumin 3.1, Procalcitonin 0.26 12/31/19 10:45: Lactic Acid Level 4.74 12/31/19 12:16: Blood Gas Puncture Site LEFT RADIAL, Blood Gas Patient Temperature 36.1, Arterial Blood pH 7.53, Arterial Blood Partial Pressure CO2 43, Arterial Blood Partial Pressure O2 125, Arterial Blood HCO3 36, Arterial Blood Total CO2 37.8, Arterial Blood Oxygen Saturation 100, Arterial Blood Base Excess 12.5, Tayo Test YES-POS, Blood Gas Ventilator Setting NO, Blood Gas Inspired Oxygen 7L HF 12/31/19 12:45: Lactic Acid Level 4.11 12/31/19 18:09: Urine Color YELLOW, Urine Clarity CLEAR, Urine pH 6.5, Urine Specific [place] <=1.005, Urine Protein NEGATIVE, Urine Glucose (UA) NEGATIVE, Urine Ketones NEGATIVE, Urine Nitrite NEGATIVE, Urine Bilirubin NEGATIVE, Urine Urobilinogen 0.2, Urine Leukocyte Esterase NEGATIVE, Urine RBC (Auto) NEGATIVE, Urine RBC R ARE, Urine WBC NONE, Urine Crystals NONE, Urine Bacteria NEGATIVE, Urine Casts NONE, Urine Mucus NEGATIVE, Urine Yeast FEW, Urine Culture Indicated YES 01/01/20 04:40: White Blood Count 20.6, Red Blood Count 2.06, Hemoglobin 6.0, Hematocrit 18, Mean Corpuscular Volume 86, Mean Corpuscular Hemoglobin 29, Mean Corpuscular Hemoglobin Concent 34, Red Cell Distribution Width 13.7, Platelet Count 136, Mean Platelet Volume 11.2, Immature Granulocyte % (Auto) 6, Neutrophils (%) (Auto) 75, Lymphocytes (%) (Auto) 11, Monocytes (%) (Auto) 6, Eosinophils (%) (Auto) 2, Basophils (%) (Auto) 0, Neutrophils # (Auto) 15.3, Lymphocytes # (Auto) 2.2, Monocytes # (Auto) 1.3, Eosinophils # (Auto) 0.5, Basophils # (Auto) 0.0, Immature Granulocyte # (Auto) 1.3, Sodium Level 130, Potassium Level 3.8, Chloride Level 82, Carbon Dioxide Level 32, Anion Gap 16, Blood Urea Nitrogen 34, Creatinine 0.89, Estimat Glomerular Filtration Rate 60, BUN/Creatinine Ratio 38, Glucose Level 143, Calcium Level 7.7, Corrected Calcium 9.1, Total Bilirubin 0.5, Aspartate Amino Transf (AST/SGOT) 26, Alanine Aminotransferase (ALT/SGPT) 36, Alkaline Phosphatase 52, Total Protein 4.4, Albumin 2.3 01/01/20 14:10: Stool Occult Blood Immunoassay POSITIVE 01/02/20 05:45: White Blood Count 17.1, Red Blood Count 2.93, Hemoglobin 8.5, Hematocrit 26, Mean Corpuscular Volume 88, Mean Corpuscular Hemoglobin 29, Mean Corpuscular Hemoglobin Concent 33, Red Cell Distribution Width 13.7, Platelet Count 254, M jacquie Platelet Volume 10.2, Immature Granulocyte % (Auto) 5, Neutrophils (%) (Auto) 78, Lymphocytes (%) (Auto) 9, Monocytes (%) (Auto) 6, Eosinophils (%) (Auto) 2, Basophils (%) (Auto) 0, Neutrophils # (Auto) 13.3, Lymphocytes # (Auto) 1.5, Monocytes # (Auto) 1.0, Eosinophils # (Auto) 0.4, Basophils # (Auto) 0.1, Immature Granulocyte # (Auto) 0.9, Sodium Level 134, Potassium Level 3.9, Chloride Level 91, Carbon Dioxide Level 33, Anion Gap 10, Blood Urea Nitrogen 24, Creatinine 0.87, Estimat Glomerular Filtration Rate > 60, BUN/Creatinine Ratio 28, Glucose Level 131, Calcium Level 7.8, Corrected Calcium 9.0, Total Bilirubin 0.9, Aspartate Amino Transf (AST/SGOT) 30, Alanine Aminotransferase (ALT/SGPT) 35, Alkaline Phosphatase 57, Total Protein 4.8, Albumin 2.5 01/03/20 04:31: White Blood Count 15.5, Red Blood Count 2.82, Hemoglobin 8.3, Hematocrit 25, Mean Corpuscular Volume 89, Mean Corpuscular Hemoglobin 29, Mean Corpuscular Hemoglobin Concent 33, Red Cell Distribution Width 14.4, Platelet Count 256, Mean Platelet Volume 10.3, Immature Granulocyte % (Auto) 3, Neutrophils (%) (Auto) 81, Lymphocytes (%) (Auto) 8, Monocytes (%) (Auto) 6, Eosinophils (%) (Auto) 2, Basophils (%) (Auto) 0, Neutrophils # (Auto) 12.5, Lymphocytes # (Auto) 1.3, Monocytes # (Auto) 0.9, Eosinophils # (Auto) 0.3, Basophils # (Auto) 0.1, Immature Granulocyte # (Auto) 0.5, Sodium Level 132, Potassium Level 3.6, Chloride Level 92, Carbon Dioxide Level 30, Anion Gap 10, Blood Urea Nitrogen 20, Creatinine 0.97, Estimat Glomerular Filtration Rate 54, BUN/Creatinine Ratio 21, Glucose Level 156, Calcium Level 7.7, Corrected Calcium 8.9, Total Bilirubin 0.9, Aspartate Amino Transf (AST/SGOT) 25, Alanine Aminotransferase (ALT/SGPT) 30, Alkaline Phosphatase 51, Total Protein 4.7, Albumin 2.5 01/04/20 05:50: White Blood Count 13.6, Red Blood Count 2.86, Hemoglobin 8.5, Hematocrit 26, M jacquie Corpuscular Volume 90, Mean Corpuscular Hemoglobin 30, Mean Corpuscular Hemoglobin Concent 33, Red Cell Distribution Width 14.9, Platelet Count 245, Mean Platelet Volume 10.2, Immature Granulocyte % (Auto) 2, Neutrophils (%) (Auto) 79, Lymphocytes (%) (Auto) 11, Monocytes (%) (Auto) 6, Eosinophils (%) (Auto) 2, Basophils (%) (Auto) 0, Neutrophils # (Auto) 10.8, Lymphocytes # (A uto) 1.4, Monocytes # (Auto) 0.8, Eosinophils # (Auto) 0.3, Basophils # (Auto) 0.1, Immature Granulocyte # (Auto) 0.3, Sodium Level 134, Potassium Level 3.4, Chloride Level 92, Carbon Dioxide Level 32, Anion Gap 10, Blood Urea Nitrogen 21, Creatinine 0.87, Estimat Glomerular Filtration Rate > 60, BUN/Creatinine Ratio 24, Glucose Level 151, Calcium Level 8.1, Corrected Calcium 9.2, Total Bilirubin 0.9, Aspartate Amino Transf (AST/SGOT) 21, Alanine Aminotransferase (ALT/SGPT) 27, Alkaline Phosphatase 51, Total Protein 5.1, Albumin 2.6 01/10/20 05:20: White Blood Count 8.1, Red Blood Count 2.69, Hemoglobin 7.8, Hematocrit 26, Mean Corpuscular Volume 95, Mean Corpuscular Hemoglobin 29, Mean Corpuscular Hemoglobin Concent 31, Red Cell Distribution Width 16.1, Platelet Count 274, Mean Platelet Volume 10.0, Sodium Level 135, Potassium Level 4.0, Chloride Level 98, Carbon Dioxide Level 29, Anion Gap 8, Blood Urea Nitrogen 22, Creatinine 0.79, Estimat Glomerular Filtration Rate > 60, BUN/Creatinine Ratio 28, Glucose Level 121, Calcium Level 8.3, Corrected Calcium 9.5, Total Bilirubin 1.0, Aspartate Amino Transf (AST/SGOT) 32, Alanine Aminotransferase (ALT/SGPT) 45, Alkaline Phosphatase 65, Total Protein 5.2, Albumin 2.5 01/11/20 05:20: White Blood Count 8.1, Red Blood Count 2.77, Hemoglobin 8.1, Hematocrit 26, Mean Corpuscular Volume 95, Mean Corpuscular Hemoglobin 29, Mean Corpuscular Hemoglobin Concent 31, Red Cell Distribution Width 16.4, Platelet Count 268, Mean Platelet Volume 9.9, Immature Granulocyte % (Auto) 2, Neutrophils (%) (Auto) 50, Lymphocytes (%) (Auto) 29, Monocytes (%) (Auto) 11, Eosinophils (%) (Auto) 8, Basophils (%) (Auto) 0, Neutrophils # (Auto) 4.1, Lymphocytes # (Auto) 2.4, Monocytes # (Auto) 0.9, Eosinophils # (Auto) 0.6, Basophils # (Auto) 0.0, Immature Granulocyte # (Auto) 0.2, Neutrophils % (Manual) 54, Lymphocytes % (Manual) 20, Monocytes % (Manual) 10, Eosinophils % (Manual) 10, Metamyelocytes % 1, Band Neutrophils 1, Atypical Lymphocytes 4, Polychromasia MARKED, Anisocytosis MODERATE, Absolute Reticulocyte Count 271, Percent Reticulocyte Count 9.79, Sodium Level 136, Potassium Level 3.7, Chloride Level 99, Carbon Dioxide Level 28, Anion Gap 9, Blood Urea Nitrogen 18, Creatinine 0.74, Estimat Glomerular Filtration Rate > 60, BUN/Creatinine Ratio 24, Glucose Level 112, Calcium Level 8.2, Corrected Calcium 9.4, Total Bilirubin 0.9, Aspartate Amino Transf (AST/SGOT) 30, Alanine Aminotransferase (ALT/SGPT) 44, Alkaline Phosphatase 66, Lactate Dehydrogenase 376, B-Type Natriuretic Peptide 1381.2, Total Protein 5.3, Albumin 2.5, Vitamin B12 Level 1065, Folate 14.6, Thyroid Stimulating Hormone (TSH) 2.09 01/12/20 05:25: White Blood Count 7.3, Red Blood Count 2.82, Hemoglobin 8.1, Hematocrit 27, Mean Corpuscular Volume 96, Mean Corpuscular Hemoglobin 29, Mean Corpuscular Hemoglobin Concent 30, Red Cell Distribution Width 16.9, Platelet Count 285, Mean Platelet Volume 9.7, Immature Granulocyte % (Auto) 2, Neutrophils (%) (Auto) 52, Lymphocytes (%) (Auto) 29, Monocytes (%) (Auto) 10, Eosinophils (%) (Auto) 8, Basophils (%) (Auto) 0, Neutrophils # (Auto) 3.8, Lymphocytes # (Auto) 2.1, Monocytes # (Auto) 0.7, Eosinophils # (Auto) 0.6, Basophils # (Auto) 0.0, Immature Granulocyte # (Auto) 0.1, Sodium Level 138, Potassium Level 3.6, Chloride Level 98, Carbon Dioxide Level 31, Anion Gap 9, Blood Urea Nitrogen 25, Creatinine 0.77, Estimat Glomerular Filtration Rate > 60, BUN/Creatinine Ratio 32, Glucose Level 116, Calcium Level 8.4, Corrected Calcium 9.5, Total Bilirubin 0.9, Aspartate Amino Transf (AST/SGOT) 25, Alanine Aminotransferase (ALT/SGPT) 39, Alkaline Phosphatase 66, Total Protein 5.3, Albumin 2.6, Lactic Acid Level 1.00, Phosphorus Level 3.0, Magnesium Level 1.5, Procalcitonin 0.10 01/14/20 07:45: White Blood Count 6.9, Red Blood Count 2.94, Hemoglobin 8.6, Hematocrit 28, Mean Corpuscular Volume 96, Mean Corpuscular Hemoglobin 29, Mean Corpuscular Hemoglobin Concent 30, Red Cell Distribution Width 17.0, Platelet Count 302, Mean Platelet Volume 9.5, Immature Granulocyte % (Auto) 1, Neutrophils (%) (Auto) 52, Lymphocytes (%) (Auto) 28, Monocytes (%) (Auto) 10, Eosinophils (%) (Auto) 8, Basophils (%) (Auto) 0, Neutrophils # (Auto) 3.6, Lymphocytes # (Auto) 1.9, Monocytes # (Auto) 0.7, Eosinophils # (Auto) 0.6, Basophils # (Auto) 0.0, Immature Granulocyte # (Auto) 0.1, Sodium Level 138, Potassium Level 3.8, Chloride Level 99, Carbon Dioxide Level 30, Anion Gap 9, Blood Urea Nitrogen 15, Creatinine 0.71, Estimat Glomerular Filtration Rate > 60, BUN/Creatinine Ratio 21, Glucose Level 94, Calcium Level 8.3, Corrected Calcium 9.3, Total Bilirubin 1.0, Aspartate Amino Transf (AST/SGOT) 25, Alanine Aminotransferase (ALT/SGPT) 32, Alkaline Phosphatase 73, Total Protein 5.6, Albumin 2.7 Discharge Home Medications: Active Scripts Active Folic Acid 0.8 Mg Tablet 0.8 Mg PO DAILY Guaifenesin AC Cough Syrup (Guaifenesin/Codeine Phosphate) 473 Ml Liquid 10 Ml PO Q4H PRN Lasix (Furosemide) 20 Mg Tablet 20 Mg PO DAILY Pantoprazole Sodium 40 Mg Tablet.dr 40 Mg PO BID Sucralfate 1 Gm Tablet 1 Gm PO ACHS Ward Saline Nasal Gel (Sodium Chloride/Aloe Vera) 14.1 Gm Gel..gram. 0 Oz TOP NEEDED PRN Xanax Tablet (Alprazolam) 0.25 Mg Tab 0.25 Mg PO Q8H PRN Reported Vitamin D-400 (Cholecalciferol (Vitamin D3)) 10 Mcg Tablet 10 Mcg PO DAILY K-Tab ER (Potassium Chloride) 10 Meq Tablet.er 20 Meq PO DAILY TAKES 2 (10MEQ) TABS Aspirin EC (Aspirin) 81 Mg Tablet.dr 81 Mg PO HS Multivitamins (Multivitamin) 1 Each Capsule 1 Each PO DAILY Lipitor (Atorvastatin Calcium) 10 Mg Tablet 10 Mg PO HS Atenolol 25 Mg Tablet 25 Mg PO DAILY Instructions to patient/family Please see electronic discharge instructions given to patient. Diagnosis/Problems Diagnosis/Problems (1) COVID-19 Status: Acute (2) GERD (gastroesophageal reflux disease) (3) Hypertension (4) Hyperlipemia (5) Advanced age (6) Supplemental oxygen dependent (7) PNA (pneumonia) Status: Acute (8) Acute respiratory failure due to COVID-19 Status: Acute Clinical Quality Measures DVT/VTE Risk/Contraindication: Risk Factor Score Per Nursin RFS Level Per Nursing on Admit: 4+=Very High CORI MOODY DO Jan 15, 2020 06:17
[2020-01-15 08:00] VITALS: BP 144/67
[2020-01-15] MEDS: LACTOBACILLUS ACIDOPHILUS (PROBIOTIC) CAPSULE PO SCH (08:21)
[2020-01-15] MEDS: DOCUSATE SODIUM 100 MG (COLACE) CAP PO SCH (08:23)
[2020-01-15] MEDS: ATENOLOL 25 MG (TENORMIN) TAB PO SCH (08:23)
[2020-01-15] MEDS: FOLIC ACID 1 MG TAB PO SCH (08:23)
[2020-01-15] MEDS: VITAMIN D3 10 MCG (400 UNITS) TABLET PO SCH (08:23)
[2020-01-15] MEDS: PANTOPRAZOLE 40 MG (PROTONIX) TAB PO SCH (08:23)
[2020-01-15] MEDS: polyethylene glycoL POWDER 17 GM (MIRALAX) PACK PO SCH (08:24)
[2020-01-15] MEDS: SENNA W/DOCUSATE (SENOKOT S) TABLET PO SCH (08:24)
[2020-01-15] MEDS: RT-ALBUTEROL/IPRATROPIUM 3 ML (DUONEB) VIAL INH SCH (08:59)
[2020-01-15] MEDS ORDERED: FUROSEMIDE 20 MG (LASIX) TAB PO NR (09:00)
[2020-01-15 15:02] VITALS: BP 144/67
--- NOTE | 2020-01-17 08:28 | Therapy Team Discharge Summary ---
Therapy Discharge Summary Discharge Recommendations Date of Discharge Jan 15, 2020 at 12:20 Occupational Therapy Decreased Activ Tolerance, Decreased UE Strength, Impaired Funct Balance, Impa ired I ADL's, Impaired Self-Care Skills Speech-Language Pathology The patient was admitted to the ARU due to COVID related weakness. The patient received skilled ST with focus on improving function so that she could return home safer. The patient made good progress, meeting all ST goals. The patient discharged to her home with family on 01/15/2020. PT Caramel Cutter Helper Goals Longterm Goals PT Caramel Cutter Helper Goals Time Frame: Jan 13, 2020 Roll Left to Right (QC): 6 Sit to Lying (QC): 6 Lying-Sitting on Side/Bed(QC): 6 Sit to Stand (QC): 6 Chair/War-jl-Qqaee Xfer(QC): 6 Car Transfer (QC): 5 Does the Patient Walk: Yes Walk 10 feet (QC): 5 Walk 10ft-Uneven Surface(QC): 5 Walk 50ft with 2 Turns (QC): 5 Walk 150 ft (QC): 5 Does the Pt use WC or Scooter?: Yes Wheel 50 feet with 2 turns (QC: 6 1 Step (curb) (QC): 4 4 Steps (QC): 4 12 Steps (QC): 88 Picking up an Object (QC): 4 OT Caramel Cutter Helper Goals Longterm Goals Time Frame: Jan 13, 2020 Eating (QC): 6 Oral Hygiene (QC): 6 Shower/Bathe Self (QC): 4 Upper Body Dressing (QC): 4 Lower Body Dressing (QC): 4 On/Off Footwear (QC): 6 Toileting Hygiene (QC): 6 Toilet/Commode Transfer (QC): 5 Additional Goals: 1-Demonstrate ADL Tasks, 2-Verbalize Understanding, 3- ImproveStrength/Shahab 1=Demonstrate adherence to instructed precautions during ADL tasks. 2=Patient will verbalize/demonstrate understanding of assistive devices/m odifications for ADL. 3=Patient will improve strength/tolerance for activity to enable patient to perform ADL's. Speech Longterm Goals Longterm Goals Patient will improve cognitive-communication tasks in order to require minimal assist with daily needs. ASHVIN HUMPHRIES Jan 17, 2020 08:28
--- NOTE | 2020-01-17 09:40 | Therapy Team Discharge Summary ---
Therapy Discharge Summary Discharge Recommendations Date of Discharge Jan 15, 2020 at 12:20 Therapy D/C Recommendations: Occupational Therapy Home Care Occupational Therapy Pt. was seen by occupational therapy to increase overall strength and independence with daily tasks. Pt. made great progress but continues to require services at home. Pt. able to complete sponge bath/dressing with set up/SBA, but after having procedure day before discharge, pt. required more assistance with these tasks due to grogginess. Pt. discharging home with spouse support and family support. Would benefit from continued strengthening and OT services at home. Decreased Activ Tolerance, Decreased UE Strength, Impaired Funct Balance, Impaired I ADL's, Impaired Self-Care Skills PT Long-Term Goals Churn Drill Operator Goals PT Churn Drill Operator Goals Time Frame: Jan 13, 2020 Roll Left to Right (QC): 6 Sit to Lying (QC): 6 Lying-Sitting on Side/Bed(QC): 6 Sit to Stand (QC): 6 Chair/Poc-on-Qxmju Xfer(QC): 6 Car Transfer (QC): 5 Does the Patient Walk: Yes Walk 10 feet (QC): 5 Walk 10ft-Uneven Surface(QC): 5 Walk 50ft with 2 Turns (QC): 5 Walk 150 ft (QC): 5 Does the Pt use WC or Scooter?: Yes Wheel 50 feet with 2 turns (QC: 6 1 Step (curb) (QC): 4 4 Steps (QC): 4 12 Steps (QC): 88 Picking up an Object (QC): 4 OT Churn Drill Operator Goals Long-Term Goals Time Frame: Jan 13, 2020 Eating (QC): 6 (met) Oral Hygiene (QC): 6 (not met) Shower/Bathe Self (QC): 4 (not met) Upper Body Dressing (QC): 4 (met) Lower Body Dressing (QC): 4 (not met) On/Off Footwear (QC): 6 (not met) Toileting Hygiene (QC): 6 (not met) Toilet/Commode Transfer (QC): 5 (not met) Additional Goals: 1-Demonstrate ADL Tasks, 2-Verbalize Understanding, 3- ImproveStrength/Shahab 1=Demonstrate adherence to instructed precautions during ADL tasks. 2=Patient will verbalize/demonstrate understanding of assistive devices/modifications for ADL. 3=Patient will improve strength/tolerance for activity to enable patient to perform ADL's. Speech Long-Term Goals Churn Drill Operator Goals Patient will improve cognitive-communication tasks in order to require minimal assist with daily needs. LIZZY ADAMS OT Jan 17, 2020 09:40
== END 2020-01-15 12:20 | disposition home health service (06) | DRG 177 ==
PROVIDERS: ADMIT Internal Medicine; ATTEND Internal Medicine
DX: U07.1 COVID-19 (principal); J12.89 Other viral pneumonia; E87.2 Acidosis; K92.2 Gastrointestinal hemorrhage, unspecified; D62 Acute posthemorrhagic anemia; E46 Unspecified protein-calorie malnutrition; I13.0 Hypertensive heart and chronic kidney disease with heart failure and stage 1 through stage 4 chronic kidney disease, or unspecified chronic kidney disease; R09.02 Hypoxemia; K29.60 Other gastritis without bleeding; K21.00 Gastro-esophageal reflux disease with esophagitis, without bleeding; R53.81 Other malaise; E86.0 Dehydration; E78.00 Pure hypercholesterolemia, unspecified; E78.5 Hyperlipidemia, unspecified; I50.9 Heart failure, unspecified; N18.30 Chronic kidney disease, stage 3 unspecified; R55 Syncope and collapse; G72.89 Other specified myopathies; M19.91 Primary osteoarthritis, unspecified site; M10.9 Gout, unspecified; F32.9 Major depressive disorder, single episode, unspecified; I95.9 Hypotension, unspecified; I34.0 Nonrheumatic mitral (valve) insufficiency; I65.23 Occlusion and stenosis of bilateral carotid arteries; I49.3 Ventricular premature depolarization; I49.1 Atrial premature depolarization; R04.0 Epistaxis; Z99.81 Dependence on supplemental oxygen; Z85.820 Personal history of malignant melanoma of skin; Z97.4 Presence of external hearing-aid
CPT/HCPCS: 36415; 36600; 71045; 71046; 71275; 76937; 80053; 81000; 82274; 82607; 82746; 82805; 83605; 83615; 83735; 83880; 84100; 84145; 84443; 85007; 85025; 85027; 85045; 85379; 86850; 86900; 86901; 86920; 87081; 87088; 93005; 93306; 94640; 94760; 94761

== ENCOUNTER → 2020-01-14 | Day surgery (SDC) | payer MEDICARE ==
[~2020-01-14] MED LIST changes: +ALPR.25T PO; -ALPRAZolam 0.25 MG (XANAX) TAB PO PRN; -BISACODYL 10 MG SUPP (DULCOLAX) PR PRN; -CALCIUM CARBONATE 500 MG (TUMS) TAB.CHEW PO PRN; -DOCUSATE SODIUM 100 MG (COLACE) CAP PO PRN; -FLEET ENEMA ADULT 1 EA BTL PR PRN; +FOLI0.8T PO; +FURO-125 PO; +GUAI473L29 PO; +LACTATED RINGERS 1,000 ML IV STA; -LACTULOSE SYRUP 10GM/15ML (ENULOSE) 30ML UDC PO PRN; -LOPERAMIDE 2 MG (IMODIUM) TABLET PO PRN; -ONDANSETRON 4 MG (ZOFRAN) ORAL DISSOLVE TAB PO PRN; +PANT40TA52 PO; +SODI0.5GEL TOP; +SUCR1TAB PO; -diphenhydrAMINE 25 MG TAB (BENADRYL) PO PRN; -guaiFENesin/CODEINE (ROBITUSSIN AC) 10ML UDC PO PRN
[2020-01-14 13:10] VITALS: BP 72/32
[2020-01-14 13:15] VITALS: BP_SYST 73; BP_SYST 83; BP_DIAS 41; BP_DIAS 46
--- NOTE | 2020-01-14 22:34 | OPERATIVE REPORT ---
DATE OF SERVICE: 01/14/2020 ADMITTING PHYSICIAN: Dr. Hawkins. PREOPERATIVE DIAGNOSIS: Persistent and symptomatic anemia. POSTOPERATIVE DIAGNOSES: Reflux esophagitis stage II with a mild distal esophageal stricture and Schatzki's ring, moderate size hiatal hernia, 4 cm in size. Mild to moderate gastritis, chronic stage II external and internal hemorrhoids, moderate sigmoid diverticulosis. PROCEDURE: EGD with biopsy and balloon dilatation. Colonoscopy. SURGEON: Hadley Hector MD ANESTHESIA: Monitored anesthesia care. ESTIMATED BLOOD LOSS: Minimal. FINDINGS: Reflux esophagitis stage II with a mild distal esophageal stricture and Schatzki's ring, moderate size hiatal hernia, 4 cm in size. Mild to moderate gastritis, chronic stage II external and internal hemorrhoids, moderate sigmoid diverticulosis. DISPOSITION: The patient tolerated the procedure well. INDICATIONS: The patient is an 89-year-old female, who presented with weakness and shortness of breath and was eventually found to be coronavirus-19 positive. Her symptoms worsened and she was admitted and placed on medical therapy and her condition slightly worsened and she was transferred to the Intensive Care Unit. However, there was placed on Vapotherm as well as positive pressure ventilation; however, did not require intubation. After convalescence, she was extremely weak and was sent to the medical floor; however, still was weak and was unable to ambulate and continue with activities of daily living. She was then transferred to inpatient rehabilitation and laboratory work did show anemia and upon further questioning, she had reported a history of gastroesophageal reflux disease and felt that she had not had a colonoscopy in over 10 years. Since being transfused blood, her hemoglobin has been stable. DESCRIPTION OF PROCEDURE: The patient was brought to the endoscopy suite, laid in the left lateral decubitus position. After adequate IV pain and sedative medications and monitored anesthesia care, the mouthpiece was applied. The endoscope was placed in the mouth, visualizing the pharynx and hypopharyngeal region. Vocal cords, epiglottis and vallecula identified and appeared to be normal. The endoscope was then gently abated esophageal opening and esophagus insufflated. The endoscope was then advanced to the first, second and third portion of the esophagus at the level of the GE junction, the GE junction was intrathoracic consistent with a hiatal hernia. There was also a mild distal esophageal stricture and Schatzki's ring identified. A biopsy was taken with forceps with visualization of good hemostasis. The endoscope was then advanced into the stomach and endoscope retroflexed, visualizing a moderate size hiatal hernia approximately 4 cm in size. Likely cause of bleeding was due to acid reflux, acid indigestion and gastritis or possible González's ulcer within the reflux portion of the esophagus and hiatal hernia. There was no active bleeding identified. There was a mild to moderate gastritis. No formal ulcerations, polyps, or any neoplasms. A biopsy was taken of the antrum to rule out H. pylori with visualization of good hemostasis. Endoscope was then advanced to the pylorus and the first and second portion of the duodenum, which appeared normal. We then proceeded with balloon dilatation of the distal esophageal stricture. The balloon was placed in the stomach and pulled back to the area of stricture. First proceeded to 2 and then 4 atmospheres of pressure and eventually 6 atmospheres of pressure or 20 mm in luminal diameter with moderate resistance. This was left in place for 60 seconds and the balloon was desufflated and removed with visualization of good hemostasis as well as no mucosal tears. The endoscope was then slowly withdrawn while taking a second look and suctioning of residual air with no additional findings. Under the same anesthesia, we then proceeded with colonoscopy portion of the procedure. Digital rectal examination was performed, which revealed chronic stage II external and internal hemorrhoids, not actively edematous nor inflamed and no bleeding. Normal sphincter tone was felt and there were no palpable masses. The endoscope was then intubated to the anus and rectum gently insufflated. The endoscope was then advanced to the valves of Jacob of the rectum with no polyps or any neoplasms identified. Through the sigmoid colon, there was moderate diverticulosis identified. There was no chronic or acute bleeding as well as no inflammation to indicate any active diverticulitis. The endoscope was then advanced to the remainder of the descending, transverse, ascending colon to the cecum. These segments were normal. There were no polyps or any neoplasms identified as well as no active bleeding sources. The endoscope was then slowly withdrawn while taking a second look and suctioning residual air with no additional findings. The patient tolerated the procedure well. We will recommend the necessary lifestyle and diet accommodation including small and more frequent meals, avoiding to eating at night as well as head elevation while lying supine. 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 We will also eventually recommend that she proceed with a high fiber diet with at least 25 grams of fiber daily as well as significant amounts of water to promote soft stools on a daily basis. From a surgical standpoint, she may be discharged home at any time. Job ID: [id number] DocumentID: [id number] Dictated Date: 01/14/2020 13:16:28 Securities Trader Date: 01/14/2020 22:33:45 Dictated By: HADLEY HECTOR MD
--- NOTE | 2020-01-26 07:20 | Anesthesia-General Post-Op ---
MAC Significant Intra-Op Events Notes postop addendum for 01/13 at 1330 Patient Condition Mental Status/LOC: Same as Preop Cardiovascular: Satisfactory Nausea/Vomiting: Absent Respiratory: Satisfactory Pain: Controlled Complications: Absent Post Op Complications Complications None Follow Up Care/Instructions Patient Instructions None needed. Anesthesiology Discharge Order Discharge Order Patient is doing well, no complaints, stable vital signs, no apparent adverse anesthesia problems. No complications reported per nursing. KATLYN PATRICK KEY ACCOUNT EXECUTIVE Jan 26, 2020 07:20
== END ==
LOC: ENDO 12:34
PROVIDERS: ATTEND Surgery
DX: K21.00 Gastro-esophageal reflux disease with esophagitis, without bleeding (principal); K29.50 Unspecified chronic gastritis without bleeding; K22.2 Esophageal obstruction; K44.9 Diaphragmatic hernia without obstruction or gangrene; K64.1 Second degree hemorrhoids; K57.30 Diverticulosis of large intestine without perforation or abscess without bleeding; I10 Essential (primary) hypertension; E78.00 Pure hypercholesterolemia, unspecified; D64.9 Anemia, unspecified; S27.309A Unspecified injury of lung, unspecified, initial encounter; Z79.82 Long term (current) use of aspirin; Z79.899 Other long term (current) drug therapy; Z88.2 Allergy status to sulfonamides; Z88.8 Allergy status to other drugs, medicaments and biological substances; Z80.42 Family history of malignant neoplasm of prostate
CPT/HCPCS: 88305

== ENCOUNTER → 2020-01-24 | Outpatient (CLI) | payer MEDICARE ==
[~2020-01-24] MED LIST changes: -LACTATED RINGERS 1,000 ML IV STA
== END ==
LOC: CARD 11:00
PROVIDERS: ATTEND Physician Assistant
DX: I07.1 Rheumatic tricuspid insufficiency (principal); I12.9 Hypertensive chronic kidney disease with stage 1 through stage 4 chronic kidney disease, or unspecified chronic kidney disease; N18.30 Chronic kidney disease, stage 3 unspecified; E78.2 Mixed hyperlipidemia
CPT/HCPCS: 93306

== ENCOUNTER → 2020-02-08 | Outpatient (CLI) | payer MEDICARE ==
[~2020-02-08] MED LIST changes: +RT-ALBUTEROL SULF 2.5 MG/3 ML PRE-MIX VIAL INH ONE
== END ==
LOC: RT 15:30
PROVIDERS: ATTEND Nurse Practitioner Family
DX: R06.00 Dyspnea, unspecified (principal)
CPT/HCPCS: 94060; 94726; 94729

== ENCOUNTER → 2020-02-22 | Outpatient (CLI) | payer MEDICARE ==
[~2020-02-22] MED LIST changes: -RT-ALBUTEROL SULF 2.5 MG/3 ML PRE-MIX VIAL INH ONE
--- NOTE | 2020-02-22 14:45 | Diagnostic Imaging Report ---
PROCEDURE: CT chest without contrast. TECHNIQUE: Multiple contiguous axial images were obtained through the chest without the use of intravenous contrast. Auto Exposure Controls were utilized during the CT exam to meet ALARA standards for radiation dose reduction. INDICATION: Pneumonia The previous CT chest exam of 12/31/2019 noted diffuse alveolar/interstitial pulmonary infiltrates bilaterally. Reportedly the patient has a diagnosis of COVID 19. On this exam both lungs appear much better aerated. However there are still areas of pneumonia/atelectasis involving each lung. The largest of these areas is in the periphery of the right upper lobe and measures 2.4 x 3 cm. There is no sign of a pleural effusion. The cardiomegaly and coronary artery disease seen previously is again evident. The aorta is not abnormally dilated. There is no obvious mediastinal or hilar adenopathy. The thyroid gland where visualized is unremarkable. The breasts were not imaged in their entirety. There is no definite breast mass seen. The sections through the upper abdomen failed to show any evidence for an acute abnormality. The bone windows show no sign of a fracture or of a destructive lesion. IMPRESSION: 1. The appearance of the chest has improved since the prior exam as both lungs are much better aerated. However there are still residual areas of pneumonia/atelectasis involving both lungs. Clinical follow-up is recommended. 2. There is no acute cardiopulmonary abnormality noted otherwise. 3. There is cardiomegaly and coronary artery disease. Dictated by: Dictated on workstation # [id number]
== END ==
LOC: RAD 13:15
PROVIDERS: ATTEND Nurse Practitioner Family
DX: J18.9 Pneumonia, unspecified organism (principal); I25.10 Atherosclerotic heart disease of native coronary artery without angina pectoris; I51.7 Cardiomegaly
CPT/HCPCS: 71250

== ENCOUNTER 2020-03-11 17:09 | Emergency (ER) | payer MEDICARE ==
[~2020-03-11] VITALS: Ht 152 cm; Wt 61.0 kg
--- NOTE | 2020-03-11 17:53 | NUR ---
DR MURPHY AT BEDSIDE
[2020-03-11] MEDS ORDERED: cloNIDine 0.2 MG (CATAPRES) TAB ONE (18:07)
--- NOTE | 2020-03-11 18:45 | ED General ---
General Chief Complaint: Cardiac/General Problems Stated Complaint: HTN Nursing Triage Note: PT TO ED W/ C/O HYPERTENSION. PT REPORTS SHE "THOUGHT SHE'D CHECK HER BP AT HOME ET NOTICED IT WAS JAZZ." STATES SHE CALLED DR HURLEY WHO TOLD HER TO TAKE ANOTHER B/P PILL AND IF IT DIDN'T, SHE WAS TO COME IN AFTER AN HOUR. PT DENIES CP, SOB AT THIS TIME. DOES REPORT SHE WAS RECENTLY IN ICU FOR 3 WKS W/ COVID ET 2 WKS ON ARU AFTER. DENIES ANY OTHER SYMPTOMS AT THIS TIME. Nursing Sepsis Screen: No Definite Risk Source of Information: Patient Exam Limitations: No Limitations History of Present Illness Date Seen by Provider: Mar 11, 2020 Time Seen by Provider: 18:05 Initial Comments Here with report of high blood pressure today. She has known history of hypertension and is on atenolol. She was previously on another agent but that was stopped due to likely kidney dysfunction based on description. She took her blood pressure today just to check it and it was noted to be around 200. She took it again and it was still high. She talked with her doctor, Dr. Hurley, who told her to take an extra dose of atenolol. She did that and waited about an hour and her blood pressure was still elevated at around 200 systolic. Ultimately she came to the emergency department. She denies chest pain, breath ing problems, leg swelling, dizziness or other concerns. She is well-known to me as well. She denies mental status changes and none are apparent. Otherwise takes her meds as directed. Timing/Duration: 1-3 Hours Severity: Mild Associated Systoms: No Chest Pain, No Headaches, No Nausea/Vomiting, No Shortness of Air, No Weakness Allergies and Home Medications Allergies Coded Allergies: lisinopril (Verified Allergy, Intermediate, 12/13/19) COUGH Sulfa (Sulfonamide Antibiotics) (Verified Allergy, Unknown, 01/12/15) Home Medications ALPRAZolam 0.25 Mg Tab, 0.25 MG PO Q8H PRN for ANXIETY Prescribed by: CORI MOODY on 01/14/20 1170 Aspirin 81 Mg Tablet., 81 MG PO HS, (Reported) Atenolol 25 Mg Tablet, 25 MG PO DAILY, (Reported) Atorvastatin Calcium 10 Mg Tablet, 10 MG PO HS, (Reported) Cholecalciferol (Vitamin D3) 10 Mcg Tablet, 10 MCG PO DAILY, (Reported) Folic Acid 0.8 Mg Tablet, 0.8 MG PO DAILY Prescribed by: CORI MOODY on 01/14/201446 Furosemide 20 Mg Tablet, 20 MG PO DAILY Prescribed by: CORI MOODY on 01/14/201446 Guaifenesin/Codeine Phosphate 473 Ml Liquid, 10 ML PO Q4H PRN for COUGH Prescribed by: CORI MOODY on 01/14/201447 Multivitamin 1 Each Capsule, 1 EACH PO DAILY, (Reported) Pantoprazole Sodium 40 Mg Tablet.dr, 40 MG PO BID Prescribed by: CORI MOODY on 01/14/201446 Potassium Chloride 10 Meq Tablet.er, 20 MEQ PO DAILY, (Reported) TAKES 2 (10MEQ) TABS Sodium Chloride/Aloe Vera 14.1 Gm Gel..gram., 0 OZ TOP NEEDED PRN for DRY NOSE Prescribed by: CORI MOODY on 01/14/201446 Sucralfate 1 Gm Tablet, 1 GM PO ACHS Prescribed by: CORI MOODY on 01/14/201446 Patient Home Medication List Home Medication List Reviewed: Yes Review of Systems Review of Systems Constitutional: see HPI; No chills, No fever Respiratory: No dyspnea on exertion, No short of breath Cardiovascular: No chest pain; edema (Mild but improved); No palpitations Gastrointestinal: No nausea, No vomiting Psychiatric/Neurological: Denies Headache, Denies Weakness Past Rwhjtkt-Rvhrog-Caohxa Hx Past Med/Social Hx: Reviewed Nursing Past Med/Soc Hx Patient Social History Alcohol Use: Denies Use Recreational Drug Use: No Smoking Status: Never a Smoker Recent Foreign Travel: No Contact w/Someone Who Travel: No Recent Infectious Disease Expo: No Recent Hopitalizations: Yes (PNEUMONIA, COVID) Physical Abuse: No Sexual Abuse: No Mistreated: No Fear: No Immunizations Up To Date Tetanus Booster (TDap): Unknown Date of Pneumonia Vaccine: Jan 13, 2013 Date of Influenza Vaccine: Nov 17, 2019 Past Medical History Surgeries: Yes (c/s x2, breast bx x3, cyst removed, ) Respiratory: Yes (COVID POSITIVE) Pneumonia Currently Using CPAP: No Currently Using BIPAP: No Cardiac: Yes High Cholesterol, Hypertension Neurological: No 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 Sexually Transmitted Disease: No HIV/AIDS: No Gastrointestinal: No Gastroesophageal Reflux Musculoskeletal: No Gout Endocrine: No HEENT: Yes Hearing Impairment: Hard of Hearing, Bilateral Hearing Aide Cancer: Yes Melanoma Did You Recieve Any Treatments: Yes What Type of Treatment Did You: Surgical Intervention Psychosocial: No Integumentary: No Blood Disorders: Yes (anemia) Family Medical History Reviewed Nursing Family Hx Congestive heart failure 19 FATHER 19 MOTHER Diabetes mellitus G8 SISTER Myocardial infarction G8 BROTHER Physical Exam Vital Signs Vital Signs - First Documented 03/11/20 17:29 Temp 36.3 Pulse 63 Resp 20 B/P (MAP) 202/116 (144) Pulse Ox 96 O2 Delivery Room Air Capillary Refill : Less Than 3 Seconds Height, Weight, BMI Height: 5'1.00" Weight: 148lbs. 0.0oz. 67.159391km; 26.00 BMI Method: General Appearance: No Apparent Distress, WD/WN Neck: Full Range of Motion, Supple Respiratory: Lungs Clear, Normal Breath Sounds Cardiovascular: Regular Rate, Rhythm, No Murmur Extremity: Normal Range of Motion, Non Tender, Pedal Edema (Mild bilateral lower 1+ to the mid tibia) Skin: Normal Color, Warm/Dry Progress/Results/Core Measures Suspected Sepsis Recent Fever Within 48 Hours: No Infection Criteria Present: None New/Unexplained Altered Menta: No Sepsis Screen: No Definite Risk SIRS Temperature: Pulse: 63 Respiratory Rate: 20 Blood Pressure 202 /116 Mean: 144 Results/Orders Medications Given in ED Current Medications Medications Dose Ordered Sig/Freddy Route Start Time Stop Time Status Last Admin Dose Admin Clonidine HCl 0.2 mg STK-MED ONCE .ROUTE 03/11/20 18:07 03/11/20 18:10 DC 03/11/20 18:10 0.2 MG Vital Signs/I&O 03/11/20 17:29 Temp 36.3 Pulse 63 Resp 20 B/P (MAP) 202/116 (144) Pulse Ox 96 O2 Delivery Room Air Capillary Refill : Less Than 3 Seconds Blood Pressure Mean: 144 Progress Note : Progress Note Seen and evaluated. Clonidine 0.2 mg p.o. ordered. Monitor patient. 1900: Blood pressure 168/63. Still no chest pain or shortness of breath. She will call Dr. Hinojosa on Friday morning for follow-up and I will send a copy of the chart over to him. I will write for clonidine as needed and she can call her doctor or myself. Patient was informed of this and she agreed. Discharged home with return precautions. Patient verbalized understanding of instructions and agreement with plan. Departure Impression Primary Impression: Uncontrolled hypertension Disposition: HOME, SELF-CARE Condition: Improved Departure-Patient Inst. Decision time for Depature: 19:01 Referrals: LILY HURLEY MD (PCP/Family) Primary Care Physician DANK HINOJOSA MD Patient Instructions: High Blood Pressure (DC) Add. Discharge Instructions: All discharge instructions reviewed with patient and/or family. Voiced understanding. Follow-up with Dr. Wray on Friday morning for recheck and further evaluation. Call his office for instructions or appointment. You may follow-up with Dr. Hurley as well. Check your blood pressure in the morning after you have taken your blood pressure medicines and again at night. If your blood pressure is greater than 180 systolic (top number) then take one of the clonidine tablets prescribed. It is very likely that you will need blood pressure medication adjustment. Return for chest pain, breathing problems, weakness, headache, vomiting or other concerns as needed. Scripts Clonidine HCl (Clonidine HCl) 0.1 Mg Tablet 0.1 MG PO BID PRN for BLOOD PRESSURE, #10 TAB 0 Refills Take 1 tablet for blood pressure greater than 180 mm systolic Prov: FIORDALIZA MURPHY MD 03/11/20 Copy Copies To 1: DANK HINOJOSA MD Copies To 2: LILY HURLEY MD, TIMOTHY D MD Mar 11, 2020 18:44
[2020-03-11] MEDS ORDERED: CLN.1T PO (19:05)
[2020-03-11 19:20] VITALS: BP 166/77
== END 2020-03-11 19:20 | disposition home or self-care (01) ==
LOC: EDUNIT# 17:09 → ER 17:10
DX: I10 Essential (primary) hypertension (principal); K21.9 Gastro-esophageal reflux disease without esophagitis; E78.00 Pure hypercholesterolemia, unspecified; Z82.49 Family history of ischemic heart disease and other diseases of the circulatory system; Z83.3 Family history of diabetes mellitus; Z85.820 Personal history of malignant melanoma of skin; Z88.2 Allergy status to sulfonamides; Z88.8 Allergy status to other drugs, medicaments and biological substances; Z79.82 Long term (current) use of aspirin
CPT/HCPCS: 99283

== ENCOUNTER 2020-03-14 01:08 | Emergency (ER) | payer MEDICARE ==
[~2020-03-14] VITALS: Ht 152.4 cm; Wt 61.4 kg
[~2020-03-14 01:08] MED LIST changes: +CLN.1T PO
--- NOTE | 2020-03-14 01:30 | NUR ---
PER PROVIDER ORDER, PT ADM 0.1MG CLONIDINE (HOME MEDICATION).
--- NOTE | 2020-03-14 01:42 | ED General ---
General Chief Complaint: Cardiac/General Problems Stated Complaint: HIGH BLOOD PRESSURE Nursing Triage Note: PT AMBULATES TO ROOM #5 WITH C/O HIGH BLOOD PRESSURE. REPORTS SHE WAS SEEN IN THIS ER ON 02/09/20 D/T SAME S/S ET WAS PRESCRIBED CLONIDINE. PT REPORTS AT APPROX 2100 ON 03/13/19 SHE TOOK 0.1MG CLONIDINE. REPORTS NO DECREASE IN BP AFTER TAKING MEDICATION. DENIES FURHTER C/O. A&OX4. Nursing Sepsis Screen: No Definite Risk Source of Information: Patient Exam Limitations: No Limitations History of Present Illness Date Seen by Provider: Mar 14, 2020 Time Seen by Provider: 01:36 Initial Comments Mrs. Bautista is an 89-year-old female who presents to the emergency department today with a chief complaint of elevated blood pressure. Patient states that she was seen here in the emergency department 2 days ago with similar complaints. She was prescribed clonidine. Patient states that she took one of her clonidine at about 9 PM. Patient states she had no decrease in her blood pressure and was quite concerned about the numbers. Patient denies any chest pain, shortness of breath, abdominal pain. She denies strokelike symptoms. No recent illnesses such as fevers, chills, productive cough. Patient is recently healing from coronavirus. She still wears oxygen at night. All other review of systems reviewed negative except as stated. Timing/Duration: 4-6 Hours Severity: Mild Associated Systoms: Denies Symptoms Allergies and Home Medications Allergies Coded Allergies: lisinopril (Verified Allergy, Intermediate, 12/13/19) COUGH Sulfa (Sulfonamide Antibiotics) (Verified Allergy, Unknown, 01/12/15) Home Medications ALPRAZolam 0.25 Mg Tab, 0.25 MG PO Q8H PRN for ANXIETY Prescribed by: CORI MOODY on 01/14/20 1448 Aspirin 81 Mg Tablet.dr, 81 MG PO HS, (Reported) Atenolol 25 Mg Tablet, 25 MG PO DAILY, (Reported) Atorvastatin Calcium 10 Mg Tablet, 10 MG PO HS, (Reported) Cholecalciferol (Vitamin D3) 10 Mcg Tablet, 10 MCG PO DAILY, (Reported) Clonidine HCl 0.1 Mg Tablet, 0.1 MG PO BID PRN for BLOOD PRESSURE Take 1 tablet for blood pressure greater than 180 mm systolic Prescribed by: FIORDALIZA MURPHY on 1/2/21 1905 Folic Acid 0.8 Mg Tablet, 0.8 MG PO DAILY Prescribed by: CORI MOODY on 01/14/201446 Furosemide 20 Mg Tablet, 20 MG PO DAILY Prescribed by: CORI MOODY on 01/14/201446 Guaifenesin/Codeine Phosphate 473 Ml Liquid, 10 ML PO Q4H PRN for COUGH Prescribed by: CORI MOODY on 01/14/201447 Multivitamin 1 Each Capsule, 1 EACH PO DAILY, (Reported) Pantoprazole Sodium 40 Mg Tablet.dr, 40 MG PO BID Prescribed by: CORI MOODY on 01/14/201446 Potassium Chloride 10 Meq Tablet.er, 20 MEQ PO DAILY, (Reported) TAKES 2 (10MEQ) TABS Sodium Chloride/Aloe Vera 14.1 Gm Gel..gram., 0 OZ TOP NEEDED PRN for DRY NOSE Prescribed by: CORI MOODY on 01/14/201446 Sucralfate 1 Gm Tablet, 1 GM PO ACHS Prescribed by: CORI MOODY on 01/14/201446 Patient Home Medication List Home Medication List Reviewed: Yes Review of Systems Review of Systems Constitutional: see HPI EENTM: no symptoms reported Respiratory: no symptoms reported Cardiovascular: no symptoms reported Gastrointestinal: no symptoms reported Genitourinary: no symptoms reported : No Musculoskeletal: no symptoms reported Skin: no symptoms reported Psychiatric/Neurological: No Symptoms Reported All Other Systems Reviewed Negative Unless Noted: Yes Past Hfxjdxp-Jhnuaf-Daxmxd Hx Patient Social History Recent Foreign Travel: No Contact w/Someone Who Travel: No Recent Infectious Disease Expo: No Recent Hopitalizations: Yes (PNEUMONIA, COVID) Immunizations Up To Date Tetanus Booster (TDap): Unknown Date of Pneumonia Vaccine: Jan 13, 2013 Date of Influenza Vaccine: Nov 17, 2019 Past Medical History Surgeries: Yes (c/s x2, breast bx x3, cyst removed, ) Respiratory: Yes (COVID POSITIVE) Pneumonia Currently Using CPAP: No Currently Using BIPAP: No Cardiac: Yes High Cholesterol, Hypertension Neurological: No 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 Sexually Transmitted Disease: No HIV/AIDS: No Gastrointestinal: No Gastroesophageal Reflux Musculoskeletal: No Gout Endocrine: No HEENT: Yes Hearing Impairment: Hard of Hearing, Bilateral Hearing Aide Cancer: Yes Melanoma Did You Recieve Any Treatments: Yes What Type of Treatment Did You: Surgical Intervention Psychosocial: No Integumentary: No Blood Disorders: Yes (anemia) Family Medical History Congestive heart failure 19 FATHER 19 MOTHER Diabetes mellitus G8 SISTER Myocardial infarction G8 BROTHER Physical Exam Vital Signs Vital Signs - First Documented 03/14/20 01:20 Temp 36.1 Pulse 76 Resp 16 B/P (MAP) 219/91 (133) Pulse Ox 97 O2 Delivery Room Air Capillary Refill : Less Than 3 Seconds Height, Weight, BMI Height: 5'1.00" Weight: 148lbs. 0.0oz. 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 Blood pressure came down to 178/75. Patient still without complaint. Will send her home to follow up with her PCP and Dr Hinojosa's JUICE WEIGHER tomorrow regarding further blood pressure management. Departure Impression Primary Impression: Elevated blood pressure reading with diagnosis of hypertension Disposition: 01 HOME, SELF-CARE Condition: Stable Departure-Patient Inst. Decision time for Depature: 02:22 Referrals: LILY LEDEZMA MD (PCP/Family) Primary Care Physician Patient Instructions: High Blood Pressure (DC) Add. Discharge Instructions: Continue your blood pressure medications as prescribed. Use the Clonidine for any blood pressure over 180. Please call and follow up with your primary care doctor tomorrow. Return to the Emergency Department for any concerning, emergent symptoms. Copy Copies To 1: LILY LEDEZMA MD Copies To 2: DANK HINOJOSA MD, KATHRYN M MD Mar 14, 2020 01:42
[2020-03-14 02:30] VITALS: BP 178/75
== END 2020-03-14 02:30 | disposition home or self-care (01) ==
LOC: EDUNIT# 01:08 → ER 01:12
DX: U07.1 COVID-19 (principal); I10 Essential (primary) hypertension; J12.82 Pneumonia due to coronavirus disease 2019; E78.00 Pure hypercholesterolemia, unspecified; K21.9 Gastro-esophageal reflux disease without esophagitis; D64.9 Anemia, unspecified; Z85.820 Personal history of malignant melanoma of skin; Z88.2 Allergy status to sulfonamides; Z88.8 Allergy status to other drugs, medicaments and biological substances; Z79.82 Long term (current) use of aspirin
CPT/HCPCS: 99283

== ENCOUNTER → 2020-05-23 | Outpatient (CLI) | payer MEDICARE ==
[~2020-05-23] MED LIST changes: -FOLI0.8T PO; +FOLI0.8T4 PO; -LISI40TA PO; +LISI40TA9 PO
--- NOTE | 2020-05-23 11:33 | Diagnostic Imaging Report ---
INDICATION: Disorder of the lungs. COMPARISON: 01/14/2020 TECHNIQUE: 2 radiographs of the chest dated 05/23/2020 FINDINGS: The cardiac silhouette is mildly enlarged. No significant pulmonary vascular congestion. The lungs appear grossly clear without focal pulmonary opacity. Interval clearance of previously noted bilateral pulmonary opacities. No significant pleural effusion. No pneumothorax. Calcifications within the aortic arch. Morven right curvature of the spine. Accentuation of normal thoracic kyphosis. Scattered osseous degenerative changes without acute osseous abnormality. IMPRESSION: Cardiomegaly without significant pulmonary vascular congestion. The lungs appear clear with interval clearance of previously noted extensive pulmonary opacities. Curvature of the spine with associated accentuation of normal thoracic kyphosis and scattered degenerative changes. Dictated by: Dictated on workstation # [id number]
== END ==
LOC: RAD 10:42
PROVIDERS: ATTEND Nurse Practitioner Family
DX: J98.4 Other disorders of lung (principal); I51.7 Cardiomegaly; M47.814 Spondylosis without myelopathy or radiculopathy, thoracic region; M40.294 Other kyphosis, thoracic region
CPT/HCPCS: 71046

== ENCOUNTER 2020-06-28 10:45 | Outpatient (RCR) | payer MEDICARE | END 2020-07-27 | disposition home or self-care (01) | PROVIDERS: ATTEND Nurse Practitioner Family | DX: R26.89 Other abnormalities of gait and mobility (principal); R53.1 Weakness; Z86.16 Personal history of COVID-19 ==

== ENCOUNTER 2020-08-02 09:01 | Outpatient (RCR) | payer MEDICARE | END 2020-08-02 13:15 | disposition home or self-care (01) | PROVIDERS: ATTEND Nurse Practitioner Family | DX: R26.89 Other abnormalities of gait and mobility (principal); R53.1 Weakness; Z86.16 Personal history of COVID-19 ==

== ENCOUNTER → 2020-10-20 | Outpatient (CLI) | payer MEDICARE | LOC: CARD 09:00 | PROVIDERS: ATTEND Physician Assistant | DX: I11.9 Hypertensive heart disease without heart failure (principal); I35.8 Other nonrheumatic aortic valve disorders | CPT/HCPCS: 93306 ==

== ENCOUNTER → 2021-05-24 | Outpatient (CLI) | payer MEDICARE ==
[~2021-05-24] MED LIST changes: +GFCD10B PO; -GUAI473L29 PO
== END ==
LOC: CARD 14:00
PROVIDERS: ATTEND Internal Medicine Cardiovascular Disease
DX: I49.9 Cardiac arrhythmia, unspecified (principal)
CPT/HCPCS: 93225; 93226

== ENCOUNTER → 2021-10-24 | Outpatient (CLI) | payer MEDICARE | LOC: CARD 13:30 | PROVIDERS: ATTEND Internal Medicine Cardiovascular Disease | DX: I11.9 Hypertensive heart disease without heart failure (principal) | CPT/HCPCS: 93306 ==

== ENCOUNTER → 2022-01-08 | Outpatient (CLI) | payer MEDICARE ==
--- NOTE | 2022-01-08 13:53 | Diagnostic Imaging Report ---
INDICATION: Postmenopausal screening COMPARISON: Baseline FINDINGS: AP Spine L1-L4: [BMD (g/cm2): 1.094] [T-Score: -0.9] [Z-Score: 1.2] [BMD Previous: na] [BMD % Change: na] LT Hip Neck: [BMD (g/cm2): 0.808] [T-Score: -1.7] [Z-Score: 1.0] LT Hip Total: [BMD (g/cm2):0.865] [T-Score:-1.1] [Z-Score: 1.4] [BMD Previous: na] [BMD % Change: na] RT Hip Neck: [BMD (g/cm2):0.720] [T-Score:-2.3] [Z-Score:0.3] RT Hip Total: [BMD (g/cm2):0.881] [T-score:-1.0] [Z-Score:1.5] [BMD Previous:na] [BMD % Change:na] *Indicates significant change from prior examination based on 95% confidence level. World Health Organization criteria for BMD interpretation classify patients as Normal (T-score at or above -1.0), Osteopenic (T-score between -1.0 and -2.5) or Osteoporotic (T-score at or below -2.5). LIMITATIONS AND MODIFICATION: None. FRACTURE RISK (FRAX SCORE): The ten year probability of (%): Major Osteoporotic Fracture: [14.3] Hip Fracture: [5.0] IMPRESSION: 1. Osteopenia (Low bone mass). 2. Baseline examination. 3. See below National Osteoporosis Foundation guidelines on when to potentially initiate pharmacologic therapy. Based on the National Osteoporosis Foundation Guidelines, pharmacologic treatment should be initiated in any of the following, unless clinical conditions suggest otherwise: * Any patient with prior fragility fracture of the hip or vertebrae. A spine fracture indicates 5X risk for subsequent spine fracture and 2X risk for subsequent hip fracture. * Osteoporosis (T-score <-2.5). * Postmenopausal women and men age 50 and older with low bone mass/osteopenia (T-score between -1.0 and -2.5) by DXA and 10-year major osteoporotic fracture greater than 20% or a 10-year probability of hip fracture greater than 3%. These fracture risks are supplied above in the FRAX score, if applicable. * Clinician judgement and/or patient preferences may indicate treatment for people with 10-year fracture probabilities above or below these levels. Dictated by: Dictated on workstation # [id number]
== END ==
LOC: RAD 09:08
PROVIDERS: ATTEND Nurse Practitioner Family
DX: M85.80 Other specified disorders of bone density and structure, unspecified site (principal); Z78.0 Asymptomatic menopausal state
CPT/HCPCS: 77080